=== PATIENT | male | born 1960 | race Caucasian/White ===

== ENCOUNTER → 2020-04-09 11:25 | Outpatient (POV) | payer BC, SELFPAY | PROVIDERS: Visit Provider Dermatology | DX: Z00.00 Encounter for general adult medical examination without abnormal findings (principal) ==

== ENCOUNTER → 2020-08-23 14:40 | Outpatient (CLI) | payer BC, SELFPAY ==
--- NOTE | 2020-08-23 14:52 | XR_ITS ---
PROCEDURE: XR KNEE RT 3V CLINICAL INDICATION: RT JOINT PAIN COMPARISON: No exams were available for comparison FINDINGS: Mild osteoarthritic changes involving all 3 compartments worse at the medial compartment. There is an enthesophyte projecting along the inferior aspect of the patella at the patellar tendon region. No fracture or dislocation. No lytic or blastic change. Other findings:On the lateral view there is a small metallic density overlying the anterior mid to distal thigh and could be due to a foreign body IMPRESSION: Mild osteoarthritis of the right knee Possible small metallic foreign body of the thigh Dictated by: Tristin Ashley MD 08/23/2020 15:33 Tristin Ashley MD in [place] 08/23/2020 15:33
--- NOTE | 2020-08-23 14:52 | XR_ITS ---
PROCEDURE: XR KNEE LT 3V CLINICAL INDICATION: LT MEDIAL KNEE PAIN COMPARISON: No exams were available for comparison FINDINGS: There are moderate osteoarthritic changes of the left knee involving all 3 compartments worse at the medial compartment and patellofemoral joint.. No fracture or dislocation. No lytic or blastic change. Other findings:None. IMPRESSION: Moderate osteoarthritis the left knee Dictated by: Tristin Ashley MD 08/23/2020 15:35 Tristin Ashley MD in [place] 08/23/2020 15:35
== END ==
PROVIDERS: PCP Family Medicine; Visit Provider Family Medicine
DX: M25.562 Pain in left knee (principal); M25.561 Pain in right knee
CPT/HCPCS: 73562

== ENCOUNTER → 2020-10-04 14:15 | Outpatient (CLI) | payer BC, SELFPAY ==
--- NOTE | 2020-10-04 14:18 | XR_ITS ---
PROCEDURE: XR KNEE LT 4V CLINICAL INDICATION: LT knee pain COMPARISON: CR XR KNEE LT 3V from 08/23/2020 CR XR KNEE RT 3V from 08/23/2020 FINDINGS: There are moderate osteoarthritic changes of the knee including all 3 compartments greatest at the medial compartment and patellofemoral joint. There is a small area of exostosis along the articular surface of the lateral femoral condyle. This was not previously demonstrated but may have been due to the difference in positioning. Other findings:None. IMPRESSION: Moderate osteoarthritic changes not significantly changed Dictated by: Tristin Ashley MD 10/04/2020 14:58 Tristin Ashley MD in [place] 10/04/2020 14:58
--- NOTE | 2020-10-04 14:18 | XR_ITS ---
PROCEDURE: XR KNEE RT 4V CLINICAL INDICATION: RT knee pain COMPARISON: CR XR KNEE LT 3V from 08/23/2020 CR XR KNEE RT 3V from 08/23/2020 FINDINGS: No fracture or dislocation. No lytic or blastic change. There is normal mineralization. There are moderate tricompartmental osteoarthritic changes. Minimal exostosis noted along the inferior aspect of the lateral femoral condyle articular surface. Enthesophyte noted along the inferior patella. IMPRESSION: No change moderate osteoarthritic changes of the left knee Dictated by: Tristin Ashley MD 10/04/2020 14:59 Tristin Ashley MD in [place] 10/04/2020 14:59
== END ==
PROVIDERS: PCP Family Medicine; Visit Provider Orthopaedic Surgery
DX: M25.562 Pain in left knee (principal); M25.561 Pain in right knee
CPT/HCPCS: 73564

== ENCOUNTER → 2022-04-23 16:52 | Outpatient (CLI) | payer BC, SELFPAY | PROVIDERS: PCP Family Medicine; Visit Provider Orthopaedic Surgery | DX: M54.50 Low back pain, unspecified (principal) ==

== ENCOUNTER → 2022-05-11 14:25 | Outpatient (CLI) | payer BC, SELFPAY ==
--- NOTE | 2022-05-11 14:28 | MR_ITS ---
FINAL REPORT CLINICAL HISTORY: LUMBAR PAIN WHEN STANDING FOR LONG PERIODS. INTERMITTENT LEG LEG NUMBNESS. SYMPTOMS XYEARS. FINDINGS: Multiplanar MR imaging of the lumbar spine was performed without contrast. On the sagittal T2-weighted images, disc degeneration is seen at multiple levels. There is mild anterolisthesis of L4 on L5. Schmorl's nodes and hemangiomas are seen at several levels. There is no evidence of fracture. No bony mass is identified. The conus is seen at approximately the L1 level and has an unremarkable appearance. T12-L1: Annular disc bulge with facet arthropathy and osteophytes. There is mild bilateral neural foraminal narrowing. L1-2: There is no significant canal stenosis or neural foraminal narrowing. L2-3: A or disc bulge with mild right neural foraminal narrowing. L3-4: A or disc bulge with facet arthropathy and osteophytes. There is moderate right and severe left neural foraminal narrowing. L4-5: A or disc bulge with facet arthropathy. There is moderate bilateral neural foraminal narrowing. L5-S1: No disc bulge facet arthropathy and osteophytes. There is moderate bilateral neural foraminal narrowing. Spurring noted of the SI joints. IMPRESSION: Multilevel degenerative disc disease with severe left neural foraminal narrowing at L3-4. Reviewed, Interpreted and Dictated by Jorge Luis Hall III, MD Transcribed by Denise Thompson Authenticated and [facility]
== END ==
PROVIDERS: PCP Family Medicine; Visit Provider Orthopaedic Surgery
DX: M54.50 Low back pain, unspecified (principal)
CPT/HCPCS: 72148; 76376

== ENCOUNTER → 2022-08-12 15:34 | Outpatient (CLI) | payer BC, SELFPAY ==
[2022-08-12 16:39] LABS: Alanine Aminotransferase 28 U/L (12-78); Albumin Level 4.4 g/dl (3.5-5.0); Albumin/Globulin Ratio 1.5 (1.1-1.8); Alkaline Phosphatase 91 U/L (38-126); Anion Gap 8.2 mEq/L (5-15); Aspartate Amino Transferase 45 U/L (17-59); Bilirubin,Total 0.7 mg/dl (0.2-1.3); Blood Urea Nitrogen 24 mg/dl (9-20); Calcium 8.8 mg/dl (8.4-10.2); Carbon Dioxide 32 mmol/L (22.0-30.0); Chloride 101 mmol/L (98-107); Estimated Glomerular Filt Rate 76 ml/min (>60); GFR (African American) 92 ML/MIN (>60); Globulin 2.9 g/dL (1.3-3.2); Glucose 112 mg/dl (74-100); Potassium 4.2 mmoL/L (3.5-5.1); Sodium 137 mmol/L (136-145); Total Protein,Serum 7.3 g/dl (6.3-8.2)
== END ==
PROVIDERS: PCP Nurse Practitioner Family; Visit Provider Nurse Practitioner Family
DX: I10 Essential (primary) hypertension (principal); E55.9 Vitamin D deficiency, unspecified; Z13.220 Encounter for screening for lipoid disorders; Z12.5 Encounter for screening for malignant neoplasm of prostate; Z79.899 Other long term (current) drug therapy
CPT/HCPCS: 36415; 80053; 80061; 82652; G0103

== ENCOUNTER → 2022-10-08 12:14 | Outpatient (CLI) | payer BC, SELFPAY | PROVIDERS: PCP Family Medicine; Visit Provider Physician Assistant | DX: R07.9 Chest pain, unspecified (principal); I10 Essential (primary) hypertension; E78.5 Hyperlipidemia, unspecified; R73.03 Prediabetes; E66.9 Obesity, unspecified; Z68.41 Body mass index [BMI] 40.0-44.9, adult; Z82.49 Family history of ischemic heart disease and other diseases of the circulatory system | CPT/HCPCS: 78452; 93017; 93306; A9502; J2785 ==

== ENCOUNTER → 2023-04-19 16:50 | Outpatient (CLI) | payer BC, SELFPAY ==
[2023-04-19 16:42] LABS: Coronavirus 19, PCR Not Detected (NotDetected); Influenza A, PCR Not Detected (NotDetected); Influenza B, PCR Not Detected (NotDetected)
== END ==
PROVIDERS: PCP Nurse Practitioner Family; Visit Provider Nurse Practitioner Family
DX: R05.9 Cough, unspecified (principal); R09.81 Nasal congestion; R50.9 Fever, unspecified
CPT/HCPCS: 87636

== ENCOUNTER 2023-07-01 21:19 | Outpatient (CLI) | payer BC, SELFPAY ==
[2023-07-01 18:18] LABS: Adenovirus,PCR Not Detected (NotDetected); Coronavirus 19, PCR Not Detected (NotDetected); Coronavirus 229E Not Detected (NotDetected); Coronavirus NL63 Not Detected (NotDetected); Coronavirus OC43 Not Detected (NotDetected); Coronovirus HKU1,PCR Not Detected (NotDetected); Human Metapneumovirus Not Detected (NotDetected); Influenza A, PCR Not Detected (NotDetected); Influenza AH1, 2009 Not Detected (NotDetected); Influenza AH1, PCR Not Detected (NotDetected); Influenza AH3,PCR Not Detected (NotDetected); Influenza B, PCR Not Detected (NotDetected); Parainfluenza 1, PCR Not Detected (NotDetected); Parainfluenza 2, PCR Not Detected (NotDetected); Parainfluenza 3, PCR Not Detected (NotDetected); Parainfluenza 4, PCR Not Detected (NotDetected); Respiratory Syncytial Virus Not Detected (NotDetected); Rhinovirus/Enterovirus Not Detected (NotDetected)
[2023-07-01 18:31] LABS: Basophils # 0.1 K/mm3 (0-0.2); Basophils % 0.6 % (0.1-2.0); Eosinophils # 0.2 K/mm3 (0.0-0.4); Hematocrit 41.1 % (42.0-52.0); Hemoglobin 13.7 g/dL (14.1-18.0); Lymphocytes # 1.6 K/mm3 (0.7-4.5); Lymphocytes % 22.4 % (10-50); Mean Corpuscular HGB Conc 33.4 g/dL (31.8-35.4); Mean Corpuscular Hemoglobin 28.9 pg (27.0-31.2); Mean Corpuscular Volume 86.6 fl (80-94); Mean Platelet Volume 8.4 fl (7.4-10.4); Monocytes # 0.6 K/mm3 (0.1-1.0); Monocytes % 7.8 % (1.7-9.3); Neutrophils # 4.7 K/mm3 (1.8-7.8); Neutrophils % 66.2 % (37.0-80.0); Platelet Count 221 K/mm3 (142-424); Red Blood Count 4.75 M/mm3 (4.60-6.20); White Blood Count 7.2 K/mm3 (4.8-10.8)
[2023-07-01 19:25] LABS: Chloride 99 mmol/L (98-107); Potassium 4.4 mmoL/L (3.5-5.1); Sodium 135 mmol/L (136-145)
[2023-07-01 19:27] LABS: Alanine Aminotransferase 25 U/L (12-78); Aspartate Amino Transferase 30 U/L (17-59); Blood Urea Nitrogen 24 mg/dl (9-20); Estimated Glomerular Filt Rate 61 ml/min (>60); GFR (African American) 74 ML/MIN (>60)
[2023-07-01 19:28] LABS: Albumin Level 4.1 g/dl (3.5-5.0); Albumin/Globulin Ratio 1.4 (1.1-1.8); Alkaline Phosphatase 125 U/L (38-126); Anion Gap 13.4 mEq/L (5-15); Bilirubin,Total 0.5 mg/dl (0.2-1.3); Calcium 9.1 mg/dl (8.4-10.2); Carbon Dioxide 27 mmol/L (22.0-30.0); Globulin 2.9 g/dL (1.3-3.2); Glucose 119 mg/dl (74-100)
[2023-07-01 20:01] LABS: 25-OH Vitamin D, Total 13.6 ng/mL (30-100)
[2023-07-01 20:05] LABS: Free T4 (Free Thyroxine) 1.17 ng/dl (0.78-2.19)
[2023-07-01 20:19] LABS: Thyroid Stimulating Hormone 2.14 uIU/mL (0.465-4.68)
[2023-07-01 20:38] LABS: Vitamin B12 499 pg/mL (239-931)
[2023-07-02 00:32] LABS: Hemoglobin A1C 7.6 % (4.0-6.0)
== END 2023-07-01 23:59 ==
LOC: LAB.DROPOF 21:19
PROVIDERS: PCP Nurse Practitioner Family; Visit Provider Nurse Practitioner Family
DX: J02.9 Acute pharyngitis, unspecified (principal); R11.0 Nausea; R42 Dizziness and giddiness; R09.81 Nasal congestion; R50.9 Fever, unspecified; R19.7 Diarrhea, unspecified; E55.9 Vitamin D deficiency, unspecified; E11.9 Type 2 diabetes mellitus without complications; G47.33 Obstructive sleep apnea (adult) (pediatric); I10 Essential (primary) hypertension; E66.9 Obesity, unspecified; Z68.41 Body mass index [BMI] 40.0-44.9, adult; Z79.85 Long-term (current) use of injectable non-insulin antidiabetic drugs; Z79.899 Other long term (current) drug therapy
CPT/HCPCS: 80053; 82306; 82607; 83036; 84439; 84443; 85025; 87581; 87632; 87635; 87798

== ENCOUNTER 2023-10-11 18:00 | Outpatient (CLI) | payer BC, SELFPAY | END 2023-10-11 23:59 | disposition home or self-care (01) | LOC: LAB.DROPOF 10-12 08:43 | PROVIDERS: PCP Nurse Practitioner Family; Visit Provider Nurse Practitioner Family | DX: E11.9 Type 2 diabetes mellitus without complications (principal) | CPT/HCPCS: 80053; 80061; 82306; 83036 ==

== ENCOUNTER 2023-10-16 08:16 | Outpatient (CLI) | payer BC, SELFPAY ==
[2023-10-16 11:14] LABS: Chloride 101 mmol/L (98-107); Potassium 4.2 mmoL/L (3.5-5.1); Sodium 139 mmol/L (136-145)
[2023-10-16 11:17] LABS: Anion Gap 12.2 mEq/L (5-15); Blood Urea Nitrogen 20 mg/dl (9-20); Carbon Dioxide 30 mmol/L (22.0-30.0); Estimated Glomerular Filt Rate 75 ml/min (>60); GFR (African American) 91 ML/MIN (>60)
[2023-10-16 11:18] LABS: Calcium 9.5 mg/dl (8.4-10.2); Glucose 136 mg/dl (74-100)
[2023-10-17 12:09] LABS: Alanine Aminotransferase 23 U/L (12-78); Albumin/Globulin Ratio 1.4 (1.1-1.8); Alkaline Phosphatase 88 U/L (38-126); Anion Gap 14.1 mEq/L (5-15); Aspartate Amino Transferase 33 U/L (17-59); Bilirubin,Total 0.6 mg/dl (0.2-1.3); Blood Urea Nitrogen 21 mg/dl (9-20); Calcium 9.4 mg/dl (8.4-10.2); Carbon Dioxide 29 mmol/L (22.0-30.0); Chloride 100 mmol/L (98-107); Chol/HDL Ratio 4.6 (1-3.5); Cholesterol 162 mg/dl (140-200); Estimated Glomerular Filt Rate 75 ml/min (>60); GFR (African American) 91 ML/MIN (>60); Globulin 2.8 g/dL (1.3-3.2); Glucose 135 mg/dl (74-100); HDL Cholesterol 35 mg/dl (40-60); Potassium 4.1 mmoL/L (3.5-5.1); Sodium 139 mmol/L (136-145); Total Protein,Serum 6.8 g/dl (6.3-8.2); Triglycerides 166 mg/dl (30-150); VLDL Cholesterol 33 mg/dL (0-40)
[2023-10-17 12:20] LABS: Direct LDL Cholesterol 100.93 mg/dL (100-129)
[2023-10-18 10:39] LABS: 25-OH Vitamin D, Total 22.4 ng/mL (30-100)
== END 2023-10-16 23:59 | disposition home or self-care (01) ==
LOC: LAB 08:17
PROVIDERS: Nurse Practitioner; PCP Nurse Practitioner Family; Visit Provider Nurse Practitioner Family
DX: E78.5 Hyperlipidemia, unspecified (principal); E11.9 Type 2 diabetes mellitus without complications; E55.9 Vitamin D deficiency, unspecified; I10 Essential (primary) hypertension; R73.03 Prediabetes; E66.9 Obesity, unspecified; Z68.41 Body mass index [BMI] 40.0-44.9, adult; Z79.899 Other long term (current) drug therapy
CPT/HCPCS: 36415; 80048; 80053; 80061; 82306

== ENCOUNTER 2024-06-13 15:42 | Outpatient (CLI) | payer BC, SELFPAY ==
--- NOTE | 2024-06-13 15:45 | XR_ITS ---
PROCEDURE INFORMATION: Exam: XR Right Hip Exam date and time: 06/13/2024 3:52 PM Age: 63 years old Clinical indication: Hip pain; Right hip; Additional info: Right hip pain TECHNIQUE: Imaging protocol: Radiologic exam of the right hip. Views: 2 or 3 views hip with pelvis when performed. COMPARISON: MR LUMBAR SPINE WO CON 05/11/2022 2:40 PM FINDINGS: Bones/joints: Moderately severe narrowing right hip joint most pronounced superolateral aspect. Moderately severe osteoarthritis right hip joint. Soft tissues: Unremarkable. IMPRESSION: 1. No evidence of acute osseous injury. 2. Moderately severe osteoarthritis right hip joint. 3. If there is concern for labral tear, follow-up with MR arthrography of the hip.
--- NOTE | 2024-06-13 15:45 | XR_ITS ---
PROCEDURE INFORMATION: Exam: XR Left Shoulder Exam date and time: 06/13/2024 3:52 PM Age: 63 years old Clinical indication: Pain; Shoulder; Left; Additional info: Left shoulder pain TECHNIQUE: Imaging protocol: Radiologic exam of the left shoulder. Views: 2 or more views. COMPARISON: No relevant prior studies available. FINDINGS: Bones/joints: Mild lateral downward angulation of the acromion with respect to the humeral head. Potential for impingement mechanism. Soft tissues: Normal. IMPRESSION: 1. Mild lateral downward angulation of the acromion with respect to the humeral head. Potential for impingement mechanism. 2. No evidence of acute osseous injury.
== END 2024-06-13 23:59 | disposition home or self-care (01) ==
LOC: RAD 15:43
PROVIDERS: PCP Nurse Practitioner Family; Visit Provider Internal Medicine
DX: M25.551 Pain in right hip (principal); M25.512 Pain in left shoulder
CPT/HCPCS: 73030; 73502

== ENCOUNTER 2024-06-21 16:51 | Outpatient (RCR) | payer BC, SELFPAY ==
--- NOTE | 2024-06-22 20:06 | HMH.PTOPEV ---
PT Outpatient Evaluation Rehab PT Outpatient Evaluation Start: 06/22/24 10:21 Freq: Status: Active Protocol: Document 06/21/24 17:00 KIANA (Rec: 06/22/24 20:05 KIANA [id number]) E-signed By Christiano [place], PT Outpatient Therapy Subjective History Subjective History Patient is a 63 old male presenting to outpatient PT with reports of R hip pain that radiates to R ant tib. Symptom onset starting approx 1 month ago. Symptoms of insidious onset starting approx 1 month ago. Most recent imaging indicates mod/ severe R hip OA. Patients main concern is R hip pain. Patient to be referred to OT for reports of L shoulder pain . Other comorbidities include hx of L TKA, HTN and HL. New diagnosis of cancer in past 12 No months? Chief Complaint Pain,Stiff Symptom Type Ache Symptoms Relieved By Rest/Positioning,Prescription Meds Symptoms Aggravated By Sitting,Standing,Physical Activity,Walking Prior Functional Limitations None Current Functional Limitations Housework,Standing,Sitting, Squatting,Walking,Stairs, Balance,Bending/Stooping Symptom Description Constant but Variable Level of pain today (0-10) 4 Pain scale - at its best (0-10) 2 Pain scale - at its worst (0-10) 7 Hip/Knee Eval Gait Observation General Gait Pattern Observation Antalgic Gait,Decrease Weight Bear (R),Decrease Stride Lngth (R) Palpation Tenderness right Knee Palpation Overall Comment greater and lesser trochanter 3/4 Hip Palpation Findings Tenderness MMT Hip Flexion Strength Grade 5 Normal Hip Abduction Strength Grade 5 Normal Hip Adduction Strength Grade 5 Normal Hip Extension Strength Grade 5 Normal Hip External Rotation Strength Grade 4 Good Hip Internal Rotation Strength Grade 4 Good Knee Extension Strength Grade 4- Good- Knee Flexion Strength Grade 4 Good ROM Hip ROM Limitations Soft Tissue Tightness,Muscle Weakness,Bony Restrictions Knee ROM Reason Not Measured Within Functional Limits Special Tests Hip Gigi Test Positive Right Hip Piriformis Test Positive Right Hip 90-90 Straight Leg Raise Test Positive Right Sciatic Nerve Tension Test Positive Right Lower Extremity Functional Index Activities Today, do you or would you have any difficulty at all with: a.Any of your usual work, housework or Extreme difficulty or unable school activities to perform activity b. Your usual hobbies, recreational or Extreme difficulty or unable sporting activities to perform activity c. Getting into or out of the bath Moderate difficulty d. Walking between rooms A little bit of difficulty e. Putting on your shoes or socks Extreme difficulty or unable to perform activity f. Squatting Extreme difficulty or unable to perform activity g. Lifting an object, like a bag of Moderate difficulty groceries from the floor h. Performing light activities around A little bit of difficulty your home i. Performing heavy activities around Extreme difficulty or unable your home to perform activity j. Getting into or out of a car A little bit of difficulty k. Walking 2 blocks Quite a bit of difficulty l. Walking a mile Extreme difficulty or unable to perform activity m. Going up or down 10 stairs (about 1 Moderate difficulty flight of stairs) n. Standing for 1 hour Extreme difficulty or unable to perform activity o. Sitting for 1 hour Extreme difficulty or unable to perform activity p. Running on even ground Extreme difficulty or unable to perform activity q. Running on uneven ground Extreme difficulty or unable to perform activity r. Making sharp turns while running fast Extreme difficulty or unable to perform activity s. Hopping Extreme difficulty or unable to perform activity t. Rolling over in bed Moderate difficulty LEFI Score Lower Extremity Functional Index Score 18 Outpatient Therapy Assessment Impairments Problems/Impairmments Palpation Tenderness,Impaired Range of Motion,Impaired Strength,Impaired Endurance, Impaired Gait Pattern,Impaired Walking,Impaired Standing, Impaired Household Care, Impaired Stair Climbing, Impaired Incline Stepping, Impaired Stepping on Uneven Surface,Impaired Squatting, Impaired Bending,Impaired Work Activities,Impaired Balance, Subjective C/O Pain Prognosis Rehab Potential Good Clinical Impression Consistent with Diagnosis Yes Short Term Goals Number of Weeks 2-3 Decrease Subjective C/O Pain Yes: 09/14 at worst Patient to be Ind w/ HEP Yes Svp Programmatic Tv Goals Number of Weeks 4-6 Decreased Palpation Tenderness Yes: 1/4 Increase Range of Motion Yes: R hip WNL Increase Strength Yes: R hip 5/5 Increase Ability to Walk Yes: 30 min without difficulty Increase Ability to Stand Yes Improve Ability For Household Care Yes Improve Tolerance to Work Activities Yes Improve LEFI Score Yes: >60 Decrease Subjective C/O Pain Yes: 2/10 at worst Outpatient Therapy Plan of Care Treatment Plan May Include Therapeutic Exercise Including Home Yes Exercise Program Manual Therapy Techniques Yes Neuromuscular Re-education Yes Therapeutic Activities to Return to Yes Previous Functional/Work Level Gait Training Yes ADL/Self Care Education Yes Mechanical Traction Yes Dry Needling Yes Thermal Modalities Yes Electrical Stimulation Yes Ultrasound/Phonophoresis Yes Iontophoresis Yes Orthotics/Bracing/Splinting Yes Vasopneumatic Compression Pump Yes Massage Yes Eval/Re-Eval Yes Frequency Times per week 2x/week Duration Number of Weeks 4-6 Addendums This patient is a candidate for social No or vocational rehab? Patient/Guardian verbally acknowledges Yes understanding of treatment program and consents to further treatment? Patient/Guardian verbally acknowledges Yes understanding of diagnosis, prognosis and goals for treatment? Eval Complexity PT Charges 76957 - Moderate Complexity Shoulder/Elbow Eval Shoulder Objective Measurements Elbow Objective Measurements PHYSICIAN CERTIFICATION: I certify the specified therapy services for Jorge Washburn are required, authorized, and reviewed every 30 days.
== END 2024-06-21 23:59 | disposition home or self-care (01) ==
LOC: PT 16:51
PROVIDERS: Visit Provider Internal Medicine
DX: M25.551 Pain in right hip (principal); M25.512 Pain in left shoulder
CPT/HCPCS: 97163

== ENCOUNTER 2024-06-30 11:12 | Outpatient (CLI) | payer BC, SELFPAY ==
--- NOTE | 2024-06-30 11:13 | MR_ITS ---
FINAL REPORT CLINICAL HISTORY: Possible shoulder impingement per Radiology, LEFT SHOULDER PAIN. WEAKNESS IN ARM. NO INJURY OR TRAUMA COMPARISON: None FINDINGS: Multi planar MR imaging of the left shoulder was performed. The supraspinatus tendon appears intact. There is a small amount of fluid in the subacromial/subdeltoid bursa, that may be secondary to bursitis. There is a defect across the anterior labrum, worrisome for a small tear, best seen on images #13 through 15 of series 3. The posterior labrum is intact. The biceps tendon appears intact. The acromioclavicular joint appears intact. IMPRESSION: Fluid is present in the subacromial subdeltoid bursa, possibly bursitis. There is a defect across the anterior labrum worrisome for a small tear as described. Reviewed, Interpreted and Dictated by Angel Shen MD Transcribed by Ruth Sun Authenticated and [facility]
== END 2024-06-30 23:59 | disposition home or self-care (01) ==
LOC: RAD 11:13
PROVIDERS: PCP Nurse Practitioner Family; Visit Provider Internal Medicine
DX: M25.512 Pain in left shoulder (principal)
CPT/HCPCS: 73221

== ENCOUNTER 2024-07-06 13:23 | Outpatient (CLI) | payer BC, SELFPAY ==
[2024-07-06 14:42] LABS: Hemoglobin A1C 7.7 % (4.0-6.0)
== END 2024-07-06 23:59 | disposition home or self-care (01) ==
LOC: LAB 13:25
PROVIDERS: PCP Nurse Practitioner Family; Visit Provider Internal Medicine
DX: E11.40 Type 2 diabetes mellitus with diabetic neuropathy, unspecified (principal)
CPT/HCPCS: 36415; 83036

== ENCOUNTER 2024-07-24 07:09 | Outpatient (CLI) | payer BC, SELFPAY ==
--- NOTE | 2024-07-24 07:10 | CT_ITS ---
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 A noncontrast coronary calcium scan was performed. A CT attenuation threshold of 130 Hounsfield units (HU) was used for the detection of calcium in contiguous voxels of 1 sq mm in area to be counted as individual lesions. Bolus tracking in the ascending aorta with a threshold of 180 HU was performed. Immediately afterwards, ECG synchronized cardiac CT was then performed from the cardiac base to apex using retrospective gating with ECG tube current modulation. A total of 85 mL of Isovue 370 mg/mL contrast medium was administered at 5 mL/sec followed by a saline flush using a biphasic injection protocol. A tube voltage of 120 KVp was used. The patient received the following medications prior to the cardiac CT. 0.8 mg of sublingual nitroglycerin The average heart rate at the time of acquisition was 60 bpm and regular. Image Reconstruction Transaxial images were reconstructed at 0.67 mm slide thickness. Data was reviewed interactively on an advanced workstation capable of 2 and 3-dimensional displays in all conventional reconstruction formats, including multiplanar reformations, maximum intensity projections, curved multiplanar reformations, and volume rendered reconstructions. When applicable, selected routine images describing the relevant coronary anatomy and pathology were saved and sent to PACS. Complications None Technical Quality Overall image quality was good. Coronary artery opacification was adequate. Total DLP (Dose-Length Product) is 1496.4 mGy-cm. The reported value represents the total of one or more individual components during the CT acquisition of this date and at this time, and as such, the same value may appear in more than one CT report depending on the interpreting/reporting physicians. COMPARISON None FINDINGS CT Coronary Calcium Scoring LMA (Left Main Artery) = 0 LAD (Left Anterior Descending) = 41 LCX (Left Coronary Circumflex) = 12 RCA (Right Coronary Artery) = 48 Total Calcium Score = 101 using the AJ-130 method. The observed calcium score of 101 is at 60th percentile for subjects of the same age, sex, and race/ethnicity. The interpretation of the calcium heart score is based on the following continuum*: 0 = no calcified plaque detected (risk of coronary artery disease is very low ??? less than 5%) 1-10 = calcium detected in extremely minimal levels (risk of coronary diseases is still low ??? less than 10%) 11-100 = mild levels of plaque detected with certainty (mild or minimal narrowing of heart arteries is likely) 101-400 = definite,at least moderate levels of plaque detected (relatively high risk of a heart attack within 3-5 years) >401-999 = extensive levels of plaque detected (high risk of heart attack, high levels of vascular disease are present, high likelihood of at least one significant coronary narrowing) *The calcium heart score quantifies the burden of coronary calcification/plaque in the coronary arteries. The calcium heart score is not able to evaluate the presence or burden of non-calcified (i.e. soft) plaque. There is no identifiable calcification in the aortic valve, mitral annulus or mitral valve, pericardium, or myocardium. Coronary CT Angiography The coronary arterial system is right dominant. Quantitative Stenosis Grading: Left Main (LM): The left main originates normally from the left sinus of Valsalva. The LM bifurcates into the left anterior descending artery and left circumflex artery. The LM is patent with no evidence of atherosclerosis. Left Anterior Descending (LAD) and Diagonal Branches: The LAD gives off 2diagonal branch(es). There is a focus of calcified plaque in the proximal LAD segment, with up to 25-49% luminal stenosis. There is no evidence of LAD-myocardial bridge. Left Circumflex (LCX) and Obtuse Marginals (OM): The LCX gives off 1 Obtuse Marginal (OM) branch(es). There is calcified plaque in the proximal LCx segment, with no evidence of luminal stenosis. Right Coronary Artery (RCA): The RCA originates normally from the right sinus of Valsalva. The RCA gives off a posterior descending artery (PDA) and posterolateral (PL) branches. There is calcified plaque in the proximal RCA segment, with no evidence of luminal stenosis. Non-Coronary Cardiac Findings: Analysis of the left ventricular (LV) structure and function was performed after 3-D reconstruction of the LV from axial images, with user-corrected automatic contouring for assessment of LV volumes and user-defined reconstruction from oblique planes for measurement of 3-D cardiac structure and function. -The left ventricle systolic function is normal. -There is no left atrial appendage filling defect. Two right pulmonary veins and two left pulmonary veins drain normally into the left atrium. -No pericardial thickening or calcification. -Central and branch pulmonary arteries in the [id number] are unremarkable. -Thoracic aorta within the visualized thoracic aortic-branches in the [id number] is unremarkable. Extracardiac Structures No significant extra-cardiac findings. Note, however, that this study is focused on the cardiac findings. IMPRESSION -Presence of coronary calcification with an Agatston score = 101 using the AJ-130 method. -The observed calcium score of 101 is at 60th percentile for subjects of the same age, sex, and race/ethnicity. -Mild, nonobstructive atherosclerotic coronary disease, with no evidence of significant flow-limiting atherosclerosis of the coronary arteries. -CAD-RADS 2. Management recommendations per ACC/AHA guidelines*, as clinically appropriate. *Recommendations: CAD RADS 0: Reassurance. Consider non-atherosclerotic causes of chest pain. CAD RADS 1: Consider non-atherosclerotic causes of chest pain. Consider preventive therapy and risk factor modification. CAD RADS 2: Consider non-atherosclerotic causes of chest pain. Consider preventive therapy and risk factor modification, particularly for patients with nonobstructive plaque in multiple segments. CAD RADS 3: Consider further functional testing. Consider symptom-guided anti-ischemic and preventive pharmacotherapy as well as risk factor modification per published guideline statements. CAD RADS 4A: Consider further functional testing or invasive coronary angiography with revascularization per published guideline statements. Consider symptom-guided anti-ischemic and preventive pharmacotherapy as well as risk factor modification per published guideline statements. CAD RADS 4B: Invasive coronary angiography recommended with revascularization per published guideline statements. Consider symptom-guided anti-ischemic and preventive pharmacotherapy as well as risk factor modification per published guideline statements. CAD RADS 5: Consider invasive angiography and/or viability assessment with revascularization per published guideline statements. Consider symptom-guided anti-ischemic and preventive pharmacotherapy as well as risk factor modification per published guideline statements. CRITICAL RESULT None COMMUNICATION Per this written report The coronary and cardiac findings of this CCTA were reviewed, reported, and signed by Virgilio Falk MD ([employer] Teacher) Conclusion Electronically signed by : Marcela Falk MD 07/25/2024 12:10:33
[2024-07-24 07:20] VITALS: BMI 40.0
[2024-07-24 07:32] VITALS: BP 163/97; PULSE 69; RESP 18; TEMP 36.1; O2SAT 100
[2024-07-24 08:02] LABS: Chloride 107 mmol/L (98-107); Sodium 135 mmol/L (136-145)
[2024-07-24 08:05] LABS: Blood Urea Nitrogen 21 mg/dl (9-20); Creatinine Clearance Estimated 135 mL/min (50-200); Estimated Glomerular Filt Rate 75 ml/min (>60); GFR (African American) 91 ML/MIN (>60)
[2024-07-24 08:06] LABS: Calcium 8.7 mg/dl (8.4-10.2); Carbon Dioxide 22 mmol/L (22.0-30.0); Glucose 204 mg/dl (74-100)
[2024-07-24 08:35] VITALS: BP 164/101; PULSE 67; RESP 18; O2SAT 95
[2024-07-24] MEDS: NITROGLYCERIN 0.4MG SL TABLET SL (08:35)
[2024-07-24 08:40] VITALS: BP 145/86; PULSE 66; RESP 18; O2SAT 100
[2024-07-24 08:45] VITALS: BP 134/82; PULSE 68; RESP 18; O2SAT 100
[2024-07-24] MEDS: IOPAMIDOL-370 (76%);100ML BOTTLE 85 ML IV (08:46)
[2024-07-24] MEDS: 0.9 % SODIUM CHLORIDE 50 ML VIAL IV (08:46)
[2024-07-24] MEDS: SODIUM CHLORIDE 0.9% 10ML SYR (RAD ONLY) 10 ML IV (08:46)
[2024-07-24 08:50] VITALS: BP 125/64; PULSE 71; RESP 18; O2SAT 98
[2024-07-24 08:58] VITALS: BP 135/75; PULSE 71; RESP 18; O2SAT 98
== END 2024-07-24 08:58 | disposition home or self-care (01) ==
PROVIDERS: PCP Nurse Practitioner Family; Visit Provider Physician Assistant
DX: R07.9 Chest pain, unspecified (principal); I10 Essential (primary) hypertension
CPT/HCPCS: 75574; 80048; Q9967

== ENCOUNTER 2024-11-24 09:15 | Outpatient (CLI) | payer BC, SELFPAY ==
--- OUTSIDE RECORDS SUMMARY | 2024-11-24 09:17 | XMS_ITS | Clinical Summary ---
Author Organization [facility] [employer] Address [address] [place] [address] Care Team Providers Care Director Medical Surgical Name Role Phone Unavailable Primary Care Provider Unavailabl e Social History Tobacco Use Types Packs/Day Years Used Date Smoking Tobacco: Never Assessed Interpersonal Safety Answer Date Record ed Family or friends hurt you Not on file 11/14 Family or friends insult you Not on file 03/2024 Family or friends threaten you Not on file 0 11/15/2023 Family or friends scream or curse at you Not on file 11/15/2023 Food Insecurity Answer Date Recorded Food run out past 12 months Not on file 11/05 Food did not last past 12 months Not on file 11/15/2023 Employment Answer Date Recorded Help finding and keeping a job Not on file 0 11/15/2023 Family and Community Support Answer Yang e Recorded Help with Day to Day Activities Not on file 11/15/2023 Feeling Lonely or Isolated Not on file 11/14 Educational Attainment Answer Date Brayden rded Speak language other than Cuban at home Not on file 11/15/2023 Want help with school or training Not on file 11/15/2023 Depression Answer Date Recorded PHQ-2 Risk Not on file 11/15/2023 Disabilities Answer Date Recorded Difficulty concentrating Not on file 024 Difficulty doing errands alone Not on file 0 11/15/2023 Substance Use Answer Date Recorded Used prescription meds for non-medical reasons N ot on file 11/15/2023 Used illegal drugs past 12 months Not on file 11/15/2023 Sex and Gender Information Value Date Recorded Sex Assigned at Male 12/02/2021 4:50 PM CDT Legal Sex Male 4:50 PM CDT Gender Identity Male 12/02/2021 4:50 PM CDT Sexual Orientation Not on file Plan of Treatment Health Maintenance Due Date Last Done Comments CT Colonography 1960 Colonoscopy 1960 Colorectal Cancer Screening 1960 FOBT/FIT 1960 Fit-DNA (Cologuard) 1960 Sigmoidoscopy 1960 Depression Screening (12+) 1972 Tobacco Cessation Counseling and Screening (12+) 1972 HIV Screening 08/06/1975 Hepatitis C Screening 1978 DTAP/TDAP/TD VACCINES (1 - Tdap) 08/06/1979 Lipid Panel 08/06/1995 Pneumococcal 50+ years (1 of 1 - PCV) 2010 Shingles Vaccine (Zoster) (1 of 2) 2010 COVID-19 VACCINE ( - season) 2024, 02/06/2021 Influenza Vaccine (Season Ended) 2025 04/29/20 09 Respiratory Syncytial Virus (RSV) Adult or (1 - 1-dose 75+ series) 08/06/2035
--- NOTE | 2024-11-24 09:18 | MR_ITS ---
FINAL REPORT TECHNIQUE: Multiplanar multisequence MRI imaging was performed through the brain with additional small vbhar-oe-ufch thin section imaging through the CP angle and IAC's without and with contrast. CLINICAL HISTORY: right ear blockage FINDINGS: There is no mass-effect or midline shift. There is no hydrocephalus. There are mild periventricular and subcortical white matter changes. The brainstem and cerebellum are without acute abnormality. On diffusion weighted images there is no restricted diffusion. No acute soft tissue abnormality is identified. On small apylq-ze-ofca thin section imaging through the CP angle and internal auditory canal, There is no CP angle mass or abnormal signal intensity. There is fluid in the right mastoid air cells. The visualized cranial nerves are unremarkable. Postcontrast images reveal no abnormal enhancement. IMPRESSION: No acute intracranial abnormality and no abnormality of the CP angle or IAC's. Mild to moderate white matter changes which could be due to chronic small vessel ischemia or demyelinating disease. Reviewed, Interpreted and Dictated by Cristela Melchor MD Transcribed by Afia Beard Authenticated and . [facility]
--- OUTSIDE RECORDS SUMMARY | 2024-11-24 09:18 | XMS_ITS | Clinical Summary ---
Author Organization [facility] Address [address] [place] [address] Phone [email or web address] Care Team Providers Care Meat Counter Clerk Name Role Phone Andrey Charles MD Primary Care Provider [phone] Allergies No known active allergies Medications bisoprolol (ZEBETA) 10 MG tablet Take 10 mg by mouth 1 (one) time each day. Active Rexulti 0.5 MG tablet Take 1 tablet by mouth 1 (one) time each day. 1 Active benazepril (LOTENSIN) 40 MG tablet Benazepril HCl 40 MG Oral Tablet QTY: 90 Days: 90 Refills: 0 Written: 03/01/22 Patient Instructions: 2 Active Vitamin D3 1.25 MG (72768 UT) capsule Take 50,000 Units by mouth 1 (one) time per week. 4 Active furosemide (LASIX) 20 MG tablet Take 40 mg by mouth 1 (one) time each day. Active prednisoLONE acetate (PRED FORTE) 1 % ophthalmic suspension INSTILL 1 DROP INTO THE LEFT EYE 4 TIMES A DAY FOR 4 DAYS THEN 1 DROP TWICE A DAY FOR 4 DAYS THEN STOP 4 Active spironolactone (ALDACTONE) 25 MG tablet Take 25 mg by mouth 1 (one) time each day. 3 Active timolol (TIMOPTIC) 0.5 % ophthalmic solution INSTILL 1 DROP INTO AFFECTED EYE(S) EVERY 12 HOURS 4 Active atorvastatin (LIPITOR) 40 MG tablet Atorvastatin Calcium 40 MG Oral Tablet QTY: 90 Days: 90 Refills: 0 Written: 03/01/22 Patient Instructions: 2 Active Active Problems Problem Noted Date Diagnosed Date Cervicalgia 12/16/2007 Overview (11/03/2017): Resolved Problems Problem Noted Date Diagnosed Date Resolved Date Pain in joint involving other specified sites 01/31/20 10 07/29/2020 Overview (11/03/2017): Contusion of lower leg 01/22/201007/29 Overview (11/03/2017): Open wound of finger 01/17/2010 021 Overview (11/03/2017): Pain in joint, shoulder region 01/01/2010 07/29/2020 Overview (11/03/2017): Dizziness and giddiness 08/13/200907/09 Overview (11/03/2017): Contusion of foot 07/29/2009 07/29/2020 Overview (11/03/2017): Lateral epicondylitis of elbow 06/27/2009 07/29/2020 Overview (11/03/2017): Need for prophylactic vaccin ation and inoculation against influenza 04/29/2009 07/29/2020 Overview (11/03/2017): Medial epicondylitis of elbow 04/19/2009 07/29/2020 Overview (11/03/2017): Screening for condition 09/04/200807/09 Overview (11/03/2017): Health examination of defined subpopulation 01/05/2008 07/29/2020 Overview (11/03/2017): Other examination of ears and hearing 10/12/2007 07/29/2020 Overview (11/03/2017): Encounters Date Type Department Care Team Description 11/23/2024 Telephone [facility] [place] [facility] [address] [place] [address] Araseli Richardson RN from Last 3 Months Immunizations Immunization Administration Dates Next Due H1N1 Inj (CVX-[id number]) 04/29/2009 Social History Tobacco Use Types Packs/Day Years Used Date Smoking Tobacco: Never Smokeless Tobacco: Never Tobacco Cessation:Counseling Given: No Intimate Partner Violence Answer Date R ecorded Insults You Not on file 09/18/2020 Threatens You Not on file 09/18/2020 Screams at You Not on file 09/18/2020 Physically Hurt Not on file 09/18/2020 Intimate Partner Violence Score Not on file 09/18/2020 Depression Answer Date Recorded PHQ Total Score 0 07/01/2023 Stress Answer Date Recorded Stress in your Life Not on file 04/10/2024 Dealing with Stress 3 04/10/2024 Sex and Gender Information Value Date Recorded Sex Assigned at Not on file Legal Sex Male 9:43 AM CDT Gender Identity Not on file Sexual Orientation Not on file Last Filed Vital Signs Vital Sign Reading Time Taken Comments Blood Pressure 147/93 04/21/2024 9:59 AM EST Pulse 74 04/21/2024 9:59 AM EST Temperature 36.7 C (98.1 F) 07/26/2023 9:29 AM EST Respiratory Rate 18 07/26/2023 9:29 AM EST Oxygen Saturation 99% 04/21/2024 9:59 AM EST Inhaled Oxygen Concentration - - Weight 118 kg (260 lb 12.8 oz) 05/10/2018 4:18 P M EST Height 177.8 cm (5' 10 ) 05/10/2018 4:18 PM EST Body Mass Index 37.42 05/10/2018 4:18 PM EST Plan of Treatment Upcoming Encounters Date Type Department Care Team (Late st Contact Info) Description 12/07/2024 12:30 PM EDT Office Visit [facility] [place] [address] [place] [address] Danielle Gallego PA [address] [place] [address] Health Maintenance Due Date Last Done Comments Dental Cleaning/Exam 1960 HIV Screening 1960 Hepatitis C Screening 1960 Annual Preventive Exam 1978 Hep B Infection Screening - Triple Screen 1978 Tetanus Diphtheria and Pertussis Immunization (1 - Tdap) 08/06/1979 Colorectal Cancer Screening 1990 Zoster Immunization (1 of 2) 2010 Covid-19 Immunization (3 - season) 2024 03/06/2021, 02/06/2021 Influenza Immunization (Season Ended) 2025 03/24/2021, 03/20/2020, 08/12/2019, Additional history exists HIB Immunization Aged Out No longer e ligible based on patient's age to complete this topic HPV Immunization Aged Out No longer e ligible based on patient's age to complete this topic Hepatitis A Immunization Aged Out No longer eligible based on patient's age to complete this topic Hepatitis B Immunization Aged Out No longer eligible based on patient's age to complete this topic Pneumococcal: Ped (0 to 5 Yrs) and At-Risk Member (6 to 64 Yrs) Aged Out No longer eligible based on patient's age to complete this topic Polio Immunization Aged Out No longer eligible based on patient's age to complete this topic Insurance [place] [facility] Address: [address] [place], [place] [id number] [place] [address] Care Teams Meat Counter Clerk Relationship Specialty Start Date End Date Andrey Charles MD [address] [place] [address] DVAE PEREZ [id number] PCP - General Ticket Sorter 04/18/19
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
--- OUTSIDE RECORDS SUMMARY | 2024-11-24 09:18 | XMS_ITS | Encounter Summary ---
Author Organization [facility] Address [address] [place], [place] [id number] Phone [email or web address] Care Team Providers Care Hand Suture Winder Name Role Phone Andrey Charles MD Primary Care Provider [phone] Encounter Details Date Type Department Care Team (Late st Contact Info) Description 11/23/[address] [address] Araseli Richardson RN [address] [place] [address] Social History Tobacco Use Types Packs/Day Years Used Date Smoking Tobacco: Never Smokeless Tobacco: Never Intimate Partner Violence Answer Date R ecorded [...] on file Sexual Orientation Not on file documented as of this encounter Miscellaneous Notes * Telephone Encounter - Araseli Richardson RN - 11/23/2024 3:45 PM EDT Jorge Washburn calls clinic to discuss return to work after personal medical leave of absence for R hip replacement. WD ID: [id number] Employer: [employer]: [id number] (last known) Shift: 1 Full-time AM: Garo Counts Previous/current indefinite restrictions? No LDW: 06/20/24 DOS: 10/09/24 PROCEDURE: R hip replacement SURGEON: Dr. 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 If WMLOA, still getting compensation from work comp? No: [employer] If WMLOA, treatment for any personal medical condition during leave? No If PMLOA, work-related injury immediately before leave? No Same day occ or personal follow up scheduled? Yes Reviewed and/or scheduled for WC/WH? No, TM declines WCWH at this time. Request sent to confirm cost center? Yes Araseli Richardson RN documented in this encounter Plan of Treatment Upcoming Encounters Date Type Department Care Team (Late st Contact Info) Description 12/07/2024 12:30 PM EDT Office Visit [facility] [address] [place] [address] Danielle Gallego PA [address] [place] [address] documented as of this encounter Visit Diagnoses Not on filedocumented in this encounter Care Teams Hand Suture Winder Relationship Specialty Start Date End Date Andrey Charles MD [address] [place] [address] ADVE PEREZ [id number] PCP - General Auto Body Service Mechanic 04/18/19 documented as of this encounter
--- OUTSIDE RECORDS SUMMARY | 2024-11-24 09:19 | XMS_ITS | Encounter Summary ---
Author Organization [employer] [facility] Address [address] [place] [address] Care Team Providers Care Spa Coordinator Name Role Phone Unavailable Primary Care Provider Unavailabl e Encounter Details Date Type Department Care Team (Late st Contact Info) Description 07/21/2020 Transcribed Document [facility] [address] [place] [address] ProviderErasto MD [facility] [place], [place] [id number] Social History Tobacco Use Types Packs/Day Years Used Date Smoking Tobacco: Never Assessed Sex and Gender Information Value Date Recorded Sex Assigned at Male 12/02/2021 4:50 PM CDT Legal Sex Male 4:50 PM CDT Gender Identity Male 12/02/2021 4:50 PM CDT Sexual Orientation Not on file documented as of this encounter Miscellaneous Notes * Cerner Conversion Note - Historical ProviderMD - 07/21/2020 5:40 AM PRECISION AGRONOMIST Electronically signed by Brielle, [facility] Conversion Locomotive Engineer Diesel Cerner at 09/23/2022 6:06 PM CDT documented in this encounter Plan of Treatment Not on file documented as of this encounter Visit Diagnoses Not on filedocumented in this encounter
--- OUTSIDE RECORDS SUMMARY | 2024-11-24 09:19 | XMS_ITS | Encounter Summary ---
Author Organization [employer] Address [address] [place] [address] Care Team Providers Care Amusement Machine Mechanic Name Role Phone Unavailable Primary Care Provider Unavailabl e Encounter Details Date Type Department Care Team (Late st Contact Info) Description 07/21/2020 Transcribed Document [facility] [place] [address] [place] [address] ProviderErasto MD [facility] [place], [place] [address] Social History Tobacco Use Types Packs/Day Years Used Date Smoking Tobacco: Never Assessed Sex and Gender Information Value Date Recorded Sex Assigned at Male 12/02/2021 4:50 PM CDT Legal Sex Male 4:50 PM CDT Gender Identity Male 12/02/2021 4:50 PM CDT Sexual Orientation Not on file documented as of this encounter Miscellaneous Notes * Cerner Conversion Note - Historical ProviderMD - 07/21/2020 4:58 AM COMPUTER LABORATORY TECHNICIAN [place] Suicide Severity Rating Scale (C-SSRS) Entered On: 07/21/2020 5:33 EST Performed On: 07/21/2020 5:31 EST by ALAINA QUINTANA RN [place] Suicide Severity Rating Scale (C-SSRS) CSSRS Past Month Wish to be : No CSSRS Past Month Suicidal Thoughts : No CSSRS Lifetime Suicide Behavior : No Suicide Severity Rating Score : 0 Suicide Severity Rating : No Additional Care Required at this time ALAINA QUNITANA RN - 07/21/2020 5:31 EST Electronically signed by Jean Hannah Conversion Welding Machine Operator [employer]lag Cerner at 09/23/2022 5:59 PM CDT documented in this encounter Plan of Treatment Not on file documented as of this encounter Visit Diagnoses Not on filedocumented in this encounter
--- OUTSIDE RECORDS SUMMARY | 2024-11-24 09:19 | XMS_ITS | Encounter Summary ---
Author Organization [employer] Address [address] [place] [address] Care Team Providers Care Technical Sales Specialist Name Role Phone Unavailable Primary Care Provider Unavailabl e Encounter Details Date Type Department Care Team (Late st Contact Info) Description 07/21/2020 Transcribed Document [facility] [place] [address] [place] [address] ProviderErasto MD [facility] [place], [place] [id number] Social History Tobacco Use Types Packs/Day Years Used Date Smoking Tobacco: Never Assessed Sex and Gender Information Value Date Recorded Sex Assigned at Male 12/02/2021 4:50 PM CDT Legal Sex Male 4:50 PM CDT Gender Identity Male 12/02/2021 4:50 PM CDT Sexual Orientation Not on file documented as of this encounter Miscellaneous Notes * Cerner Conversion Note - Historical ProviderMD - 07/21/2020 1:38 PM PRE PRESS MANAGER CR Tibia Fibula 2 Vws RT Ordered: 07/21/2020 Auth (Verified) Reason for Exam: r calf pain 07/21/2020 11:14 07/21/2020 13:38 (EVERETT BENITO PA-C) Reviewed by Provider, No further action required documented in this encounter Plan of Treatment Not on file documented as of this encounter Visit Diagnoses Not on filedocumented in this encounter
--- OUTSIDE RECORDS SUMMARY | 2024-11-24 09:19 | XMS_ITS | Encounter Summary ---
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 Role Phone Unavailable Primary Care Provider Unavailabl e Encounter Details Date Type Department Care Team (Late st Contact Info) Description 07/21/2020 Transcribed Document [facility] [place] Family Medicine [address] [place] [address] ProviderErasto MD [facility] [place] [address] Social History Tobacco Use Types Packs/Day Years Used Date Smoking Tobacco: Never Assessed Sex and Gender Information Value Date Recorded Sex Assigned at Male 12/02/2021 4:50 PM CDT Legal Sex Male 4:50 PM CDT Gender Identity Male 12/02/2021 4:50 PM CDT Sexual Orientation Not on file documented as of this encounter Miscellaneous Notes * Cerner Conversion Note - Erasto ProviderMD - 07/21/2020 5:40 AM 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 [place] [address] JORGE SANTAMARIA :1960 Visit Time:07/21/2020 Your Visit Summary Your Care Team Primary Provider: CHRIS SHEPHERD Secondary Provider: Your Diagnosis Gastrocnemius strain Lower leg pain-swelling Medical Information You may obtain a copy of your Emergency Department visit from Medical Records by calling the hospital phone number listed above and asking to be directed to the Medical Records Department. If you had special tests, such as EKG???s or X-rays, the interpretation of your tests given to you by the Emergency Department Physician is a preliminary report. Some fractures and illnesses fail to show up on preliminary tests. These will be reviewed again and we will call you if there are any new suggestions. If your symptoms continue notify your physician. After you leave, you should follow the instructions provided. What to do next Follow-Up Appointments Follow Up with ANASTACIA NOBLE When Within 1 week Comments if symptoms not improved Where: [facility] [address] [facility] (1) Allergies No Known Medication Allergies Immunizations This Visit No Immunizations Found Medications What How Much When Instructions Next Dose naproxen (naproxen 500 mg oral tablet) 1 Tablet(s) Oral Two Times A Day as needed for as needed for pain Printed Prescription tiZANidine (tiZANidine 2 mg oral capsule) 1 Capsule(s) Oral Every 8 Hours as needed for as needed for muscle spasm Printed Prescription The home medications listed are only as accurate as the information you provided. Please continue taking all of your medications prescribed by your Primary Care Provider unless specifically told to change or discontinue the medication. Please direct any questions regarding your home medications to your Primary Care Provider. Take your medications faithfully. Do NOT skip medication. Do NOT stop taking medications without the direction of a physician. Carry a list of your medications with you at all times, and take this medication list with you to your first follow up visit. Report any side effects. Avoid herbal remedies unless discussed with your physician. As part of your treatment plan, your physician may have prescribed a limited course of a controlled substance. This medication may be given to help people with moderate or severe pain or for other medical conditions, but there are risks involved with treatment. Common side effects may include nausea, constipation, drowsiness, sweating, itching, dry mouth, and rash. More serious side effects may include cognitive and motor impairment, like problems with thinking, concentrating, alertness, and movement (e.g. slowed reflexes), and driving and operating heavy machinery can be dangerous. It is important for you to talk to your physician if you have these side effects or questions. These controlled substances can produce physical dependence and be habit-forming if taken for an extended period of time, which means that the body has gotten used to them and may experience withdrawal symptoms if they are abruptly stopped. Withdrawal symptoms can include runny nose, sweating, goose bumps, diarrhea, abdominal cramping, rapid heartbeat, difficulty sleeping, and nervousness. Please dispose of unused and medications per pharmacy guidance. Test Results Laboratory or Other Results This Visit (last charted value for your 07/21/2020 visit) No Laboratory or Other Results This Visit Education Materials No weight-bearing on right leg for 2-3 days. If symptoms not improved, follow-up with orthopedic physician. Muscle Strain A muscle strain is an injury that occurs when a muscle is stretched beyond its normal length. Usually, a small number of muscle fibers are torn when this happens. There are three types of muscle strains. First-degree strains have the least amount of muscle fiber tearing and the least amount of pain. Second-degree and third-degree strains have more tearing and pain. Usually, recovery from muscle strain takes 1???2 weeks. Complete healing normally takes 5???6 weeks. What are the causes? This condition is caused when a sudden, violent force is placed on a muscle and stretches it too far. This may occur with a fall, lifting, or sports. What increases the risk? This condition is more likely to develop in athletes and people who are physically active. What are the signs or symptoms? Symptoms of this condition include: ??? Pain. ??? Bruising. ??? Swelling. ??? Trouble using the muscle. How is this diagnosed? This condition is diagnosed based on a physical exam and your medical history. Tests may also be done, including an X-ray, ultrasound, or MRI. How is this treated? This condition is initially treated with BRUNER therapy. This therapy involves: ??? Protecting the muscle from being injured again. ??? Resting the injured muscle. ??? Icing the injured muscle. ??? Applying pressure (compression) to the injured muscle. This may be done with a splint or elastic bandage. ??? Raising (elevating) the injured muscle. Your health care provider may also recommend medicine for pain. Follow these instructions at home: If you have a splint: ??? Wear the splint as told by your health care provider. Remove it only as told by your health care provider. ??? Loosen the splint if your fingers or toes tingle, become numb, or turn cold and blue. ??? Keep the splint clean. ??? If the splint is not waterproof: ? Do not let it get wet. ? Cover it with a watertight covering when you take a bath or a shower. Managing pain, stiffness, and swelling ??? If directed, put ice on the injured area. ? If you have a removable splint, remove it as told by your health care provider. ? Put ice in a plastic bag. ? Place a towel between your skin and the bag. ? Leave the ice on for 20 minutes, 2???3 times a day. ??? Move your fingers or toes often to avoid stiffness and to lessen swelling. ??? Raise (elevate) the injured area above the level of your heart while you are sitting or lying down. ??? Wear an elastic bandage as told by your health care provider. Make sure that it is not too tight. General instructions ??? Take oidp-vjo-pkyovez and prescription medicines only as told by your health care provider. ??? Restrict your activity and rest the injured muscle as told by your health care provider. Gentle movements may be allowed. ??? If physical therapy was prescribed, do exercises as told by your health care provider. ??? Do not put pressure on any part of the splint until it is fully hardened. This may take several hours. ??? Do not use any products that contain nicotine or tobacco, such as cigarettes and e-cigarettes. These can delay bone healing. If you need help quitting, ask your health care provider. ??? Ask your health care provider when it is safe to drive if you have a splint. ??? Keep all follow-up visits as told by your health care provider. This is important. How is this prevented? Warm up before exercising. This helps to prevent future muscle strains. Contact a health care provider if: ??? You have more pain or swelling in the injured area. Get help right away if: ??? You have numbness or tingling or lose a lot of strength in the injured area. Summary ??? A muscle strain is an injury that occurs when a muscle is stretched beyond its normal length. ??? This condition is caused when a sudden, violent force is placed on a muscle and stretches it too far. ??? This condition is initially treated with BRUNER therapy, which involves protecting, resting, icing, compressing, and elevating. ??? Gentle movements may be allowed. If physical therapy was prescribed, do exercises as told by your health care provider. This information is not intended to replace advice given to you by your health care provider. Make sure you discuss any questions you have with your health care provider. Document Released: 05/24/2006 Document Revised: 05/06/2018 Document Reviewed: 06/30/2017 [employer] Patient Education ?? 2020 [employer] Emergency Awareness and Preventative Care STROKE is an EMERGENCY Every Minute Counts Act FAST and Check for these signs: FACE Does the face look uneven? ARM Does one arm drift down? SPEECH Does their speech sound strange? TIME Call at any sign of stroke Stroke Risk Factors Atrial Fibrillation (irregular heartbeat) Diabetes Family history of stroke Heart Disease Heavy alcohol use High Blood Pressure High Cholesterol Physical inactivity and obesity Smoking Cigarette Smoking The facts are clear, cigarette smoking will shorten your life. Smoking can cause many illnesses along the way. As a healthcare provider, we recommend that you stop smoking. Assistance with quitting is available by contacting 4-680-BQAN-NOW. This is a free resource providing counseling, support, and referral. Or you may contact your personal physician. National Suicide Prevention Lifeline: The National Suicide Prevention Lifeline is a national network of local crisis centers that provides free and confidential emotional support to people in suicidal crisis or emotional distress 24 hours a day, 7 days a week. Don't Wait! Stop a Heart Attack Before it Starts What is a heart attack? A heart attack is damage or to a part of the heart from severely decreased or lack of blood flow to the heart. Over time, arteries can become narrow from the buildup of fat and cholesterol, which is called plaque. The plaque can rupture causing a blood clot to form. When the blood clot forms, the artery can become severely narrowed or completely blocked, causing a heart attack. Heart attack is the leading cause of in the [place]. 85% of muscle damage occurs within the first 2 hours. Delay in the recognition of heart attack symptoms increases the chances of . Know the early symptoms of a heart attack: Nausea Feeling of fullness in chest Jaw Pain Pain that travels down one or both arms Fatigue/being tired Anxiety Back Pain Chest pressure, squeezing, or discomfort Shortness of breath Sweating, or a cold sweat Feeling of impending doom There are unusual signs of a heart attack, too! Women, the elderly, and diabetics may present with atypical symptoms: Fainting/dizziness Weakness Confusion Risk Factors for a Heart Attack Some heart disease risk factors, such as age and family history, cannot be changed. Others, like smoking and lack of exercise, can be changed. Smoking High Cholesterol High Blood Pressure Family History Obesity Age Gender (Males are at higher risk) Lack of Exercise Diabetes Diet Stress Excessive Alcohol Intake If you or someone you know is experiencing the signs and symptoms of a heart attack, DON???T DELAY. Call immediately and seek help. If someone collapses, perform CPR! Do not attempt to drive if you are having symptoms of heart attack. Hands-Only CPR Why Hands-Only CPR? Hands-Only CPR has been shown to be as effective as conventional CPR for cardiac arrests that occur outside of a hospital. Survival depends on immediately receiving CPR from someone nearby. How do you perform Hands-Only CPR? There are two easy steps: Call if you see a teen or adult collapse Push hard and fast in the center of the chest at a beat of 100 beats per minute. Save a life! 4 WAYS TO GET AHEAD OF SEPSIS SEPSIS is a MEDICAL EMERGENCY. Time matters! Infections put you and your family at risk for a life-threatening condition called sepsis. Sepsis is the body's extreme response to an infection. It is life-threatening, and without timely treatment, sepsis can rapidly lead to tissue damage, organ failure, and . Sepsis happens when an infection you already have-in your skin, lungs, urinary tract or somewhere else-triggers a chain reaction throughout your body. 1 PREVENT INFECTIONS Take good care of chronic conditions. Talk to your doctor about getting the recommended vaccines. 2 PRACTICE GOOD HYGIENE Wash your hands frequently. Keep cuts or open sores clean and covered until they are healed. 3 KNOW THE SYMPTOMS Confusion or disorientation Shortness of breath High heart rate Fever, shivering, or feeling very cold Extreme pain or discomfort Clammy or sweaty skin 4 ACT FAST Get medical care IMMEDIATELY if you suspect sepsis or if you have an infection that is not getting better or is getting worse. To learn more about sepsis and how to prevent infections, visit www.cdc.gov/sepsis. The examination and treatment you have received in the Emergency Department has been done to provide an appropriate evaluation and stabilizing treatment on an emergency basis only. Given the limited resources, it is not meant to be a substitute for complete medical care. The follow-up doctor you named will receive a copy of your records and all test reports. IT IS IMPORTANT THAT YOU SCHEDULE A FOLLOW-UP APPOINTMENT AND ARE RE-EVALUATED. You should report any new complaints, symptoms, or remaining problems at that time. IT IS IMPOSSIBLE FOR THE EMERGENCY DEPARTMENT TO RECOGNIZE AND TREAT ALL ELEMENTS OF INJURY OR ILLNESS IN A SINGLE VISIT. If you have been referred to a specialist physician, it means that we believe you may have a condition that requires the expertise of a specialist. These physicians work in partnership with the hospital and have agreed to see referred patients in their office for further evaluation. KEEP IN MIND THAT THE SPECIALIST HAS HIS/HER OWN OFFICE POLICIES WHICH MAY REQUIRE PROPER INSURANCE OR PAYMENT UP FRONT BEFORE THE SPECIALIST WILL SEE YOU. It is your responsibility to call the specialist physician to make an appointment. We do not have the ability to refer patients to specialists/physicians that work with specific insurance companies. Please be advised that all financial charges or billing practices are determined by that practice, not the hospital. If your insurance company requires that you see a specialist from their approved list, it is your responsibility to contact your insurance company to make those arrangements. It is also your responsibility to follow any other requirements of your insurance company necessary to obtain coverage for claims submitted. We will bill your insurance; however, you are responsible today for any co-pay amounts. You will receive a separate bill for any services you may have received including: emergency, radiology, or pathology physicians. Patient Name:JORGE SANTAMARIA I have received this information and was given the opportunity to ask questions. Patient/Quality Assurance Supervisor Name: Patient/Quality Assurance Supervisor Signature: Relationship to Patient: Clinician/Hospital Quality Assurance Supervisor Signature: Please Provide a Telephone Number Where You Can Be Reached: Is it Permissible To Leave a Message? Date: documented in this encounter Plan of Treatment Not on file documented as of this encounter Visit Diagnoses Not on filedocumented in this encounter
--- OUTSIDE RECORDS SUMMARY | 2024-11-24 09:19 | XMS_ITS | Encounter Summary ---
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
--- OUTSIDE RECORDS SUMMARY | 2024-11-24 09:20 | XMS_ITS | Patient Health Record ---
Author Organization [facility] Jourdan altamirano Billing Info Address [address] [place] [id number] Support Name Relationship Address Phone Wu Alberto Guarantor Unknown [phone] Reason For Referral No Information Medications Medication SIG (Take, Route, Fr equency, Duration) Notes Start Date End Date Status Minocycline HCl 100 mg 1 capsule Orally Twice a day for 7 day(s) 06/04/2014 Active Lipitor 10 MG 1 tablet Orally Once a day Active Tamiflu 75 mg as directed Orally B ID for 5 day(s) 06/04/2014 Active Hydromet 5-1.5 MG/5ML 2.5 - 5 ml as need ed for cough (no acohol or driving) Orally every 6 hrs 06/04/2014 Active Lotrel 10-20 MG 1 capsule Orally Once a day Active Tramadol HCl 50 MG 1 tablet as needed O rally every 6 hrs Active Social History Tobacco Use: Social History Observation Description Date Details (start date - stop date) Never Smoker NA - NA Tobacco Status: Question Answer Notes Patient is a never smoker Problems Problem Type SNOMED Code ICD Code Onset Dates Problem Status W/U Status Risk Notes Problem [id number] Acute bronchitis (466.0) Active confirmed Plan Of Treatment No Information Insurance Providers Payer Name Payer Address Payer Phone Subscriber Number Group Number Insured Name Patient Relationship to Insured Coverage Start Date Coverage End Date [employer] PPO [address] [place], [place] [id number] Alberto Washburn Self - patient is the insured 4 4 Medical (General) History Medical History History ICD Code HTN hyperlipidemia Surgical History Surgery Date(Month/Year) Rt shoulder repair 2010 eye surgery bilateral age 4
--- OUTSIDE RECORDS SUMMARY | 2024-11-24 09:20 | XMS_ITS | Encounter Summary ---
Author Organization [employer] Address [address] [place] [address] Care Team Providers Care Dredge Operator Name Role Phone Unavailable Primary Care Provider Unavailabl e Encounter Details Date Type Department Care Team (Late st Contact Info) Description 07/21/2020 Transcribed Document [facility] [place] [facility] [place] [address] ProviderErasto MD [address] [place] [id number] Social History Tobacco Use Types Packs/Day Years Used Date Smoking Tobacco: Never Assessed Sex and Gender Information Value Date Recorded Sex Assigned at Male 12/02/2021 4:50 PM CDT Legal Sex Male 4:50 PM CDT Gender Identity Male 12/02/2021 4:50 PM CDT Sexual Orientation Not on file documented as of this encounter Miscellaneous Notes * Cerner Conversion Note - Historical ProviderMD - 07/21/2020 5:19 AM DENTAL CHAIR ASSEMBLER Patient: JORGE SANTAMARIA Age: 59 years Sex: Male : 1960 Associated Diagnoses: Gastrocnemius strain Author: CHRIS SHEPHERD MD-EMR Basic Information Time seen: Date 07/21/2020, Immediately upon arrival. History source: Patient. Arrival mode: Private vehicle, walking. History limitation: None. Additional information: Chief Complaint from Nursing Triage Note : Chief Complaint 07/21/2020 4:58 EST Chief Complaint pt reports possible pulled muscle to RLE after attempting to stop a wagon from hitting his vehicle. no deformity/bruising noted. . History of Present Illness The patient presents with lower extremity pain. The onset was 1 days ago. The course/duration of symptoms is constant. Type of injury: straining to catch something. Location: Right calf. The character of symptoms is pain and loss of mobility. The degree at present is moderate. There are exacerbating factors including movement, transfer, weight bearing and walking. The relieving factor is none. Risk factors consist of none. Prior episodes: none. Therapy today: none. Associated symptoms: none. She reports yesterday he tried to stop a moving trailer from hitting his vehicle. While he done that he set his leg straight and felt like it strained his right calf. He has been having pain in his right calf since then. Reports it does not hurt when he elevates it but it does hurt to bear weight on it.. Review of Systems Constitutional symptoms: Negative except as documented in HPI. Skin symptoms: Negative except as documented in HPI. Eye symptoms: Negative except as documented in HPI. ENMT symptoms: Negative except as documented in HPI. Respiratory symptoms: Negative except as documented in HPI. Cardiovascular symptoms: Negative except as documented in HPI. Gastrointestinal symptoms: Negative except as documented in HPI. Genitourinary symptoms: Negative except as documented in HPI. Musculoskeletal symptoms: Muscle pain. Neurologic symptoms: Negative except as documented in HPI. Psychiatric symptoms: Negative except as documented in HPI. Endocrine symptoms: Negative except as documented in HPI. Hematologic/Lymphatic symptoms: Negative except as documented in HPI. Allergy/immunologic symptoms: Negative except as documented in HPI. Additional review of systems information: All other systems reviewed and otherwise negative. Health Status Allergies: Allergic Reactions (Selected) No Known Medication Allergies. Past Medical/ Family/ Social History Surgical history: No active procedure history items have been selected or recorded.. Family history: No family history items have been selected or recorded.. Social history: Social & Psychosocial Habits No Data Available . Problem list: No qualifying data available . Physical Examination Vital Signs Vital Signs/Vital Measures 07/21/2020 4:58 EST Systolic Blood Pressure 142 mmHg HI Diastolic Blood Pressure 87 mmHg Temperature Source Oral Temperature Mode Fahrenheit Temperature, Fahrenheit 97.1 Deg F Clinical Temperature, C 36.2 Deg C Peripheral Pulse Rate 54 bpm LOW Respiratory Rate 20 Breaths/Min Oxygen Saturation 98 % Oxygen Therapy Mode Room air . Measurements 07/21/2020 4:58 EST Height Source Stated Height Entry Format [place]wa Height/Length, SAUDI ARABIAN (ft) 5 ft Height/Length SAUDI ARABIAN 10 Inch CLINICALHEIGHT 177.8 cm [place]ar Body Weight 72.02 kg Weight Source, ED Critical estimated dosing weight Weight Entry Format [place]wa Weight Nigerien lb 280 lb CLINICALWEIGHT 127.27 kg Body Surface Area (BSA) 2.41 m2 Body Mass Index 40.3 kg/m2 >HHI . Oxygen Saturation 07/21/2020 4:58 EST Oxygen Saturation 98 % . General: Alert, no acute distress. Skin: Warm, dry, pink, intact. Cardiovascular: Normal peripheral perfusion, No edema. Respiratory: Respirations are non-labored, Symmetrical chest wall expansion. Gastrointestinal: Soft, Nontender, Non distended, Normal bowel sounds. Musculoskeletal: Lower extremity: Right, posterior, calf, tenderness, range of motion normal, Durant test of bilateral Achilles, same on both sides.. Neurological: Alert and oriented to person, place, time, and situation, No focal neurological deficit observed. Medical Decision Making Differential Diagnosis: Sprain, strain. Documents reviewed: Emergency department nurses' notes. Tibia-fibula x-ray findings Within normal limits, normal alignment, no fracture, normal soft tissue, interpretation by Emergency Physician. Reexamination/ Reevaluation Time: 07/21/2020 05:37:00 . Notes: Strain likely. Recommend nonweightbearing for 2 to 3 days, use crutches. Recommend rice therapy for home. Plan NSAIDs and muscle relaxants.. Impression and Plan Diagnosis Gastrocnemius strain - Discharge, Medical Plan Condition: Improved. Disposition: Discharged Admit/Transfer/Discharge: Discharge (Order): Start: 07/21/2020 5:37 EST, Discharge to: Home. Prescriptions: Prescription [facility]: tiZANidine 2 mg oral capsule (Prescribe): 1 Cap, Oral, Q8H, PRN: as needed for muscle spasm, 15 Cap, 0 Refill(s) naproxen 500 mg oral tablet (Prescribe): 1 Tab, Oral, BID, PRN: as needed for pain, 20 Tab, 0 Refill(s). Patient was given the following educational materials: Muscle Strain. Follow up with: ; ANASTACIA NOBLE Within 1 week if symptoms not improved. Counseled: Patient, Regarding diagnosis, Regarding diagnostic results, Regarding treatment plan, Regarding prescription, Patient indicated understanding of instructions. documented in this encounter Plan of Treatment Not on file documented as of this encounter Visit Diagnoses Not on filedocumented in this encounter
--- OUTSIDE RECORDS SUMMARY | 2024-11-24 09:20 | XMS_ITS | Encounter Summary ---
Author Organization [email or web address] Address [address] [place] [address] Care Team Providers Care Quail Farmer Name Role Phone Unavailable Primary Care Provider Unavailabl e Encounter Details Date Type Department Care Team (Late st Contact Info) Description 07/21/2020 Transcribed Document [facility] [place] [facility] [place] [address] ProviderErasto MD [address] [place] [address] [id number] Social History Tobacco Use Types Packs/Day Years Used Date Smoking Tobacco: Never Assessed Sex and Gender Information Value Date Recorded Sex Assigned at Male 12/02/2021 4:50 PM CDT Legal Sex Male 4:50 PM CDT Gender Identity Male 12/02/2021 4:50 PM CDT Sexual Orientation Not on file documented as of this encounter Miscellaneous Notes * Cerner Conversion Note - Historical Provider, - 07/21/2020 6:04 AM OVEN WORKER ED Discharge Entered On: 07/21/2020 6:05 EST Performed On: 07/21/2020 6:04 EST by KARMEN AGUILAR Discharge Process Patient Disposition : Discharge Personal Belongings With Patient : Yes Patient Education Completed : Yes Teaching Evaluation : Verbalizes understanding IV Discontinued : Yes Nursing Documentation Completed : Yes KARMEN AGUILAR - 07/21/2020 6:04 EST ED Discharge Discharge To : Home with ambulatory/outpatient follow-up Mode Of Departure : Private vehicle Accompanied By : Friend, Unaccompanied Discharge Instructions Reviewed With, Opportunity For Questions Given : Patient Prescriptions Given to Patient : Yes Number of Prescriptions Given : 2 KARMEN AGUILAR - 07/21/2020 6:04 EST Electronically signed by Jean Hannah Conversion Auto Self Service Station Attendant Cerner at 09/23/2022 6:09 PM CDT documented in this encounter Plan of Treatment Not on file documented as of this encounter Visit Diagnoses Not on filedocumented in this encounter
--- OUTSIDE RECORDS SUMMARY | 2024-11-24 09:20 | XMS_ITS | Referral Summary ---
Author Organization [employer] Address [address] [place] [address] Care Team Providers Care Neuro Intensivist Physician Name Role Phone Unavailable Primary Care Provider [...] Date Brayden rded Speak language other than Sudanese at home Not on file 11/15/2023 Want [...] Orientation Not on file Plan of Treatment Not on file
--- OUTSIDE RECORDS SUMMARY | 2024-11-24 09:20 | XMS_ITS | Clinical Summary ---
Author Organization [facility] Address [address] [place] [address] Care Team Providers Care Gum Remover Name Role Phone Alysha Santoyo DO Primary Care Provider [phone] Social History Tobacco Use Types Packs/Day Years Used Date Smoking Tobacco: Never Assessed Sex and Gender Information Value Date Recorded Sex Assigned at Not on file Legal Sex Male 2:48 PM EDT Gender Identity Not on file Sexual Orientation Not on file Plan of Treatment Health Maintenance Due Date Last Done Comments [facility]-Depression Screening 1960 [facility]-/Child/Adol SDOH Screenings 1960 [facility]- SDOH Screenings 1978 [facility]-Adult SDOH Screenings 1978 [facility]-DTaP,Tdap,and Td Vaccines (1 - Tdap) 08/06/1979 CT Colonography 2005 Colonoscopy 2005 FIT-DNA 2005 FIT 2005 FOBT 2005 Sigmoidoscopy 2005 [facility]-Colorectal Cancer Screening 2005 [facility]-Pneumococcal Vaccine: 50+ Years (1 of 1 - PCV) 2010 [facility]-Zoster Vaccines (1 of 2) 2010 [id number] Vaccine (3 - season) 2024 03/06/2021, 02/06/2021 [facility]-Influenza Vaccine (Season Ended) 2025 03/24/2021, 03/20/2020, 08/12/2019, Additional history exists [facility]-RSV Vaccine: 60+ Years or (1 - 1-dose 75+ series) 08/06/2035 HPV Vaccines Aged Out No longer eligi ble based on patient's age to complete this topic [facility]-HIB Vaccines Aged Out No longer e ligible based on patient's age to complete this topic [facility]-Hepatitis A Vaccines Aged Out No longer eligible based on patient's age to complete this topic [facility]-IPV Vaccines Aged Out No longer e ligible based on patient's age to complete this topic [facility]-Rotavirus Vaccines Aged Out No lo nger eligible based on patient's age to complete this topic Insurance [facility] Care Teams Gum Remover Relationship Specialty Start Date End Date Alysha Santoyo DO [address] [place] [address] [address] [place] [address] PCP - General 06/07/22
[2024-11-24 09:44] LABS: Blood Urea Nitrogen 18 mg/dl (9-20); Estimated Glomerular Filt Rate 97 ml/min (>60); GFR (African American) 118 ML/MIN (>60)
[2024-11-24] MEDS: SODIUM CHLORIDE 0.9% 10ML SYR (RAD ONLY) 10 ML IV (10:33)
[2024-11-24] MEDS: GADOTERIDOL INJ 10ML SYRINGE 5 ML IV (10:33)
[2024-11-24] MEDS: GADOTERIDOL INJ 20ML SYRINGE 20 ML IV (10:33)
== END 2024-11-24 23:59 | disposition home or self-care (01) ==
LOC: RAD 09:15
PROVIDERS: PCP Internal Medicine; Visit Provider Otolaryngology
DX: R90.82 White matter disease, unspecified (principal); H90.3 Sensorineural hearing loss, bilateral; H93.11 Tinnitus, right ear
CPT/HCPCS: 36415; 70553; 82565; 84520; A9576

== ENCOUNTER 2025-02-20 13:35 | Outpatient (CLI) | payer BC, SELFPAY ==
[2025-02-20 17:15] LABS: Influenza A, PCR Not Detected (NotDetected); Influenza B, PCR Not Detected (NotDetected)
[2025-02-20 21:13] LABS: Coronavirus 19, PCR Detected (NotDetected)
--- OUTSIDE RECORDS SUMMARY | 2025-02-21 12:32 | XMS_ITS | Clinical Summary ---
Author Organization [facility] Address [facility] [place] [address] Phone [email or web address] Care Team Providers Care Pocket Stitcher Name Role Phone Andrey Charles MD Primary Care Provider [phone] Allergies No known active allergies Medications bisoprolol [...] Instructions: 2 Active Vitamin D3 1.25 MG (54662 UT) capsule Take 50,000 Units by mouth [...] 0 Written: 03/01/22 Patient Instructions: 2 Active hydrALAZINE (APRESOLINE) 10 MG tablet 5 Active Active Problems Problem Noted Date Diagnosed Date Cervicalgia 12/16/2007 Overview (11/03/2017): Resolved Problems Problem Noted Date Diagnosed Date Resolved Date Pain in joint involving other specified sites 01/31/2007/29/2020 Overview (11/03/2017): Contusion of lower leg 01/22/201007/29 [...] Encounters Date Type Department Care Team Description 12/07/2024 12:30 PM EDT Office Visit [facility] [address] [place] [phone] Danielle Gallego PA Encounter for other administrative examinations (Primary Dx); Status post right hip replacement 11/23/2024 Telephone [facility] [address] [place] [address] Araseli Richardson RN from Last [...] Sign Reading Time Taken Comments Blood Pressure 121/72 12/07/2024 12:50 PM EDT Pulse 83 12/07/2024 12:50 PM EDT Temperature 36.7 C (98.1 F) 07/26/2023 9:29 AM EST Respiratory Rate 18 12/07/2024 12:50 PM EDT Oxygen Saturation 97% 12/07/2024 12:50 PM EDT Inhaled Oxygen Concentration - - Weight 118 kg (260 lb 12.8 oz) 05/10/2018 4:18 P M EST Height 177.8 cm (5' 10 ) 05/10/2018 4:18 PM EST Body Mass Index 37.42 05/10/2018 4:18 PM EST Plan of Treatment Health Maintenance Due Date Last Done Comments CT Colonography 1960 Colonoscopy 1960 Colorectal Cancer Screening Combo 1960 DNA Cologuard 1960 Dental Cleaning/Exam 1960 FIT or FOBT Test 1960 HIV Screening 1960 Hepatitis C Screening 1960 Sigmoidoscopy 1960 Annual Preventive Exam 1978 Hep B Infection Screening - Triple Screen 1978 Tetanus Diphtheria and Pertussis Immunization (1 - Tdap) 08/06/1979 Zoster Immunization (1 of 2) 2010 Covid-19 Immunization (3 - season) 2025 03/06/2021, 02/06/2021 Influenza Immunization (#1) 02/05/202503/07, 03/20/2020, 08/12/2019, Additional history exists HIB Immunization [...] patient's age to complete this topic Insurance NA IN COPAY 5 Care Teams Pocket Stitcher Relationship Specialty Start Date End Date Andrey Charles MD [address] [place], [place] [address]DAVE GUZMAN [address] PCP - General Gas Processing Plant Operator 04/18/19
--- OUTSIDE RECORDS SUMMARY | 2025-02-21 12:32 | XMS_ITS | Clinical Summary ---
Author Organization [facility] Address [address] [place] [address] Care Team Providers Care Shearing Machine Feeder Name Role Phone Andrey Charles MD Primary Care Provider + Allergies No known active allergies Medications amLODIPine-shauna zepril (LOTREL) 10-40 MG per capsule Take 1 capsule by mouth Daily. 09/15/2016 Active Active Problems No known active problems Family History Medical History Relation Name Comments Heart attack Brother Stroke Brother Heart disease Maternal Grandfather Cancer Mother Heart attack Mother Heart disease Paternal Grandfather Relation Name Status Comments Brother Maternal Grandfather Mother Paternal Grandfather Social History Tobacco Use Types Packs/Day Years Used Date Smoking Tobacco: Never Smokeless Tobacco: Never Alcohol Use Standard Drinks/Week Comments Yes 0 (1 standard drink = 0.6 oz pur e alcohol) Abuse Screen Answer Date Recorded Unsafe at Home or Work/School Not on file Feels Threatened by Someone? Not on file 04/2023 Does Anyone Keep You from Co ntacting Others or Doint Things Outside the Home? Not on file 03/17/2023 Physical Sign of Abuse Present Not on file 1 Housing Stability Answer Date Recorded Current Living Arrangements Not on file 03/07 Potentially Unsafe Housing Conditions Not on reggie e 03/17/2023 Family and Community Support Answer Yang e Recorded Help with Day-to-Day Activities Not on file 03/17/2023 Lonely or Isolated Not on file 03/17/2023 Employment Answer Date Recorded Do you want help finding or keeping work or a amilcar b? Not on file 03/17/2023 Disabilities Answer Date Recorded Concentrating, Remembering, or Making Decisions Difficulty Not on file 03/17/2023 Doing Errands Independently Difficulty Not on fi le 03/17/2023 Education Answer Date Recorded Help with school or training? Not on file Preferred Language Not on file 03/17/2023 Sex and Gender Information Value Date Recorded Sex Assigned at Not on file Legal Sex Male 12:13 PM EDT Gender Identity Not on file Sexual Orientation Not on file Last Filed Vital Signs Vital Sign Reading Time Taken Comments Blood Pressure - - Pulse - - Temperature 36.1 C (97 F) 11/18/2016 9:23 AM EDT Respiratory Rate - - Oxygen Saturation - - Inhaled Oxygen Concentration - - Weight 120 kg (265 lb) 11/18/2016 9:23 AM EDT Height 177.8 cm (5' 10 ) 11/18/2016 9:23 AM EDT Body Mass Index 38.02 11/18/2016 9:23 AM EDT Plan of Treatment Health Maintenance Due Date Last Done Comments TDAP/TD VACCINES (1 - Tdap) 08/06/1979 COLOGUARD 2005 COLON CANCER SCREENING 5 YEAR SIGMOIDOSCOPY 2005 COLONOSCOPY [address] SCREENING [address] COLONOGRAPHY 2005 FECAL OCCULT BLOOD TEST 2005 FIT Testing (1 year) 2005 Pneumococcal Vaccine 50+ (1 of 1 - PCV) 2010 ZOSTER VACCINE (1 of 2) 2010 ANNUAL PHYSICAL 11/17/2016 HEPATITIS C SCREENING 11/17/2016 COVID-19 Vaccine ( - season) 2025 INFLUENZA VACCINE 03/07/2025 Insurance [facility] WORKERS COMPENSATION Member Subscriber Plan / Payer (Ef fective 2016-Present) Name:Jorge Washburn Relation to Subscriber:Self Name:Jorge Washburn Payer ID:[id number] Group ID:Not on file Type:Not on file Address: [facility] [place][note 2] [place] [id number] Care Teams Shearing Machine Feeder Relationship Specialty Start Date End Date Andrey Charles MD PCP - General Family Medicine 11/18/16
--- OUTSIDE RECORDS SUMMARY | 2025-02-21 12:33 | XMS_ITS | Clinical Summary ---
Author Organization [employer] ([place], [place], [place], [place]) Address [address] [place] [address] Care Team Providers Care Assistant Editor Name Role Phone Unavailable Primary Care Provider Unavailabl e Social History Tobacco Use Types Packs/Day Years Used Date Smoking Tobacco: Never Assessed Food Insecurity Answer Date Recorded Food run [...] Date Brayden rded Speak language other than Citizen Of [place] at home Not on file 11/15/2023 Want help with school or training Not on file 11/15/2023 Substance Use Answer Date Recorded Used [...] (Zoster) (1 of 2) 2010 COVID-19 VACCINE (3 - 2024- season) 2025, 02/06/2021 Influenza Vaccine (#1) 2025 04/29/2009 Respiratory Syncytial Virus (RSV) Adult or (1 - 1-dose 75+ series) 08/06/2035
--- OUTSIDE RECORDS SUMMARY | 2025-02-21 12:33 | XMS_ITS | Encounter Summary ---
Author Organization [employer] ([place], [place], [place], [place]) Address [address] [place] [address] Care Team Providers Care Precinct Commanding Officer Name Role Phone Unavailable Primary Care Provider Unavailabl e Encounter Details Date Type Department Care Team (Late st Contact Info) Description 07/21/2020 Transcribed Document [facility] [place] [facility] [place] [address] ProviderErasto MD [facility] [place] [address] Social History Tobacco Use Types [...] Conversion Note - Erasto ProviderMD - 07/21/2020 5:19 AM FLIGHT OPERATIONS DISPATCH CLERK Patient: JORGE SANTAMARIA Age: 59 years Sex: [...] EST Height Source Stated Height Entry Format [place] Height/Length, MICRONESIAN (ft) 5 ft Height/Length MICRONESIAN 10 Inch CLINICALHEIGHT 177.8 cm [place] Body Weight 72.02 kg Weight Source, ED Critical estimated dosing weight Weight Entry Format [place] Weight German lb 280 lb CLINICALWEIGHT 127.27 kg Body [...] 5:37 EST, Discharge to: Home. Prescriptions: Prescription Legal Coordinator Pharmacy: tiZANidine 2 mg oral capsule (Prescribe): [...]
--- OUTSIDE RECORDS SUMMARY | 2025-02-21 12:33 | XMS_ITS | Encounter Summary ---
Author Organization [employer] ([place], [place], [place], [place]) Address [address] [place] [address] Care Team Providers Care Baker Pie Name Role Phone Unavailable Primary Care Provider Unavailabl e Encounter Details Date Type Department Care Team (Late st Contact Info) Description 07/21/2020 Transcribed Document [facility] [place] [facility] [place] [address] ProviderErasto MD [address] [place] [address] Social History Tobacco Use Types [...] - Erasto ProviderMD - 07/21/2020 5:40 AM BUYER LIAISON [facility] [place] [id number] JORGE SANTAMARIA :1960 Visit Time:07/21/2020 Your Visit [...] if symptoms not improved Where: [place] [address]- [facility] (1) Allergies No Known Medication Allergies Immunizations [...] not too tight. General instructions ??? Take igvy-ird-qvkxazm and prescription medicines only as told by [...] 05/24/2006 Document Revised: 05/06/2018 Document Reviewed: 06/30/2017 Active Endpoints Patient Education ?? 2020 [employer]. Emergency Awareness and Preventative Care STROKE is [...] Assistance with quitting is available by contacting 4-655-YFUY-NOW. This is a free resource providing counseling, [...] was given the opportunity to ask questions. Patient/Marine Operations Coordinator Name: Patient/Marine Operations Coordinator Signature: Relationship to Patient: Clinician/Hospital Marine Operations Coordinator Signature: Please Provide a Telephone Number Where You Can Be Reached: Is it Permissible To Leave a Message? Date: documented in this encounter Plan of Treatment Not on file documented as of this encounter Visit Diagnoses Not on filedocumented in this encounter
--- OUTSIDE RECORDS SUMMARY | 2025-02-21 12:33 | XMS_ITS | Referral Summary ---
Author Organization [employer] ([place], [place], [place], [place]) Address [address] [place] [address] Care Team Providers Care Plumbing Installer Name Role Phone Unavailable Primary Care Provider [...] Date Brayden rded Speak language other than Icelandic at home Not on file 11/15/2023 Want [...]
--- OUTSIDE RECORDS SUMMARY | 2025-02-21 12:33 | XMS_ITS | Encounter Summary ---
Author Organization [employer] ([place], [place], [place], [place]) Address [address] [place] [address] Care Team Providers Care Truck Trailer Final Inspector Name Role Phone Unavailable Primary Care Provider Unavailabl e Encounter Details Date Type Department Care Team (Late st Contact Info) Description 07/21/2020 Transcribed Document [facility] [place] [address] [place] [address] ProviderErasto MD [facility] [place] [address] Social History Tobacco Use Types [...] - Historical ProviderMD - 07/21/2020 1:38 PM CABLE TELEVISION ACCESS COORDINATOR CR Tibia Fibula 2 Vws RT Ordered: 07/21/2020 Auth (Verified) Reason for Exam: r calf pain 07/21/2020 11:14 07/21/2020 13:38 (EVERETT BENITO PA-C) Reviewed by Provider, No further action required documented in this encounter Plan of Treatment Not on file documented as of this encounter Visit Diagnoses Not on filedocumented in this encounter
--- OUTSIDE RECORDS SUMMARY | 2025-02-21 12:33 | XMS_ITS | Patient Health Record ---
Author Organization [facility] Jourdan altamirano Billing Info Address [address] [place] [address] Support Name Relationship Address Phone Wu Alberto Guarantor Unknown [phone] Reason For Referral No Information Medications Medication [...] Problem Status W/U Status Risk Notes Problem [id number] Acute bronchitis (466.0) Active confirmed Plan Of Treatment No Information Insurance Providers Payer Name Payer Address Payer Phone Subscriber Number Group Number Insured Name Patient Relationship to Insured Coverage Start Date Coverage End Date [employer] PPO [address] [place], [place] [id number] Alberto Washburn Self - patient is the insured 4 4 Medical (General) History Medical History History ICD Code HTN hyperlipidemia Surgical History Surgery Date(Month/Year) Rt shoulder repair 2010 eye surgery bilateral age 4
--- OUTSIDE RECORDS SUMMARY | 2025-02-21 12:33 | XMS_ITS | Encounter Summary ---
Author Organization [employer] ([place], [place], [place], [place]) Address [address] [place] [address] Care Team Providers Care Medicare Specialist Name Role Phone Unavailable Primary Care Provider Unavailabl e Encounter Details Date Type Department Care Team (Late st Contact Info) Description 07/21/2020 Transcribed Document [facility] [place] [facility] [place] [address] ProviderErasto MD [facility] [place] [address] Social History Tobacco Use Types [...] - Historical ProviderMD - 07/21/2020 4:58 AM ETIOLOGIST ED Triage Entered On: 07/21/2020 5:12 EST [...] - Non - Urgent Tracking Group : [facility] ED KARMEN AGUILAR - 07/21/2020 5:09 [...] PNED ; Probability: 0 ; Diagnosis Code: [id number] ED Height and Weight Height Source : Stated Height Entry Format : Burt Height, Feet : 5 ft(Converted to: 152 cm, 60 Inch) Height, Inches : 10 Inch(Converted to: 0 ft 10 Inch, 25.40 cm) Clinical Height : 177.8 cm Weight Source, ED : Critical estimated dosing weight Weight Entry Format : Burt Weight, Pounds : 280 lb Clinical Dosing Weight : 127.27 kg Body Surface Area (BSA) : 2.41 m2 Body Mass Index : 40.3 kg/m2 (>HHI) Robbins Body Weight (IBW) : 72.02 kg KARMEN AGUILAR Von - 07/21/2020 5:09 EST Pain Assessment Pain Assessment : Initial assessment Pain Scale Used : 0-10 Scale KARMEN AGUILAR - 07/21/2020 5:09 EST Pain Scale Intensity : 5 KARMEN AGUILAR Eli 07/21/2020 5:09 EST Image 4 - Images currently included in the form version of this document have not been included in the text rendition version of the form. documented in this encounter Plan of Treatment Not on file documented as of this encounter Visit Diagnoses Not on filedocumented in this encounter
--- OUTSIDE RECORDS SUMMARY | 2025-02-21 12:33 | XMS_ITS | Encounter Summary ---
Author Organization [employer] ([place], [place], [place], [place]) Address [address] [place] [address] Care Team Providers Care Foot Orthopedist Name Role Phone Unavailable Primary Care Provider Unavailabl e Encounter Details Date Type Department Care Team (Late st Contact Info) Description 07/21/2020 Transcribed Document [facility] [place] Family Medicine [address] [place] [address] ProviderErasto MD [address] [place] [address] Social History Tobacco Use [...] - Historical ProviderMD - 07/21/2020 4:58 AM RESTAURANT SERVICE MANAGER [place] Violence Assessment Entered On: 07/21/2020 5:32 EST Performed On: 07/21/2020 5:31 EST by ALAINA QUINTANA RN Broset Violence Assessment Broset Violence Checklist of Symptoms : None Broset Violence Symptoms Subtotal : 0 Broset Violence Symptoms Indicator : Low risk (0) Broset Interventions : [place] precautions for safety used ALAINA QUINTANA RN - 07/21/2020 5:31 EST Electronically signed by Jean Hannah Conversion Database Administration Project Manager Cerner at 09/23/2022 5:54 PM CDT documented in this encounter Plan of Treatment Not on file documented as of this encounter Visit Diagnoses Not on filedocumented in this encounter
--- OUTSIDE RECORDS SUMMARY | 2025-02-21 12:33 | XMS_ITS | Encounter Summary ---
Author Organization [employer] ([place], [place], [place], [place]) Address [address] [place] [address] Care Team Providers Care Veterinary Physiologist Name Role Phone Unavailable Primary Care Provider Unavailabl e Encounter Details Date Type Department Care Team (Late st Contact Info) Description 07/21/2020 Transcribed Document [facility] [place] [address] [place] [address] ProviderErasto MD [address] [place] [address] Social History Tobacco Use Types [...] - Historical ProviderMD - 07/21/2020 4:58 AM ANCILLARY SERVICES MANAGER [place] Suicide Severity Rating Scale (C-SSRS) Entered On: 07/21/2020 5:33 EST Performed On: 07/21/2020 5:31 EST by ALAINA QUINTANA RN [place] Suicide Severity Rating Scale (C-SSRS) CSSRS Past Month Wish to be : No CSSRS Past Month Suicidal Thoughts : No CSSRS Lifetime Suicide Behavior : No Suicide Severity Rating Score : 0 Suicide Severity Rating : No Additional Care Required at this time ALAINA QUINTANA RN - 07/21/2020 5:31 EST documented in this encounter Plan of Treatment Not on file documented as of this encounter Visit Diagnoses Not on filedocumented in this encounter
--- OUTSIDE RECORDS SUMMARY | 2025-02-21 12:33 | XMS_ITS | Encounter Summary ---
Author Organization [employer] ([place], [place], [place], [place]) Address [address] [place] [address] Care Team Providers Care Adjuster Piano Action Name Role Phone Unavailable Primary Care Provider Unavailabl e Encounter Details Date Type Department Care Team (Late st Contact Info) Description 07/21/2020 Transcribed Document [facility] [place] Medicine [facility] [place] [address] ProviderErasto MD [address] [place] [address] Social History Tobacco Use Types [...] - Historical ProviderMD - 07/21/2020 5:40 AM MILK HAULER Electronically signed by Brielle [facility] Conversion Director Of State Cerner at 09/23/2022 6:06 PM CDT documented in this encounter Plan of Treatment Not on file documented as of this encounter Visit Diagnoses Not on filedocumented in this encounter
--- OUTSIDE RECORDS SUMMARY | 2025-02-21 12:33 | XMS_ITS | Clinical Summary ---
Author Organization [facility] Address [address] [place] [address] Care Team Providers Care Salesperson Furs Name Role Phone Alysha Santoyo DO Primary Care Provider [phone] Social History Tobacco Use Types Packs/Day Years Used Date Smoking Tobacco: Never Assessed Sex and Gender Information Value Date Recorded Sex Assigned at Not on file Legal Sex Male 2:48 PM EDT Gender Identity Not on file Sexual Orientation Not on file Plan of Treatment Health Maintenance Due Date Last Done Comments [facility]-Depression Screening 1960 [facility]-Infant/Child/Adol SDOH Screenings 1960 [facility]- SDOH Screenings 1978 [facility]-Adult SDOH Screenings 1978 [facility]-DTaP,Tdap,and Td Vaccines (1 - Tdap) 08/06/1979 CT Colonography 2005 Colonoscopy 2005 FIT-DNA 2005 FIT 2005 FOBT 2005 Sigmoidoscopy 2005 [facility]-Colorectal Cancer Screening 2005 [facility]-Pneumococcal Vaccine: 50+ Years (1 of 1 - PCV) 2010 [facility]-Zoster Vaccines (1 of 2) 2010 [id number] Vaccine (3 - season) 2025 03/06/2021, 02/06/2021 [facility]-Influenza Vaccine (#1) 02/05/202503/24, 03/20/2020, 08/12/2019, Additional history exists [facility]-RSV Vaccine: [...] patient's age to complete this topic Insurance [facility] Care Teams Salesperson Furs Relationship Specialty Start Date End Date Alysha Santoyo DO [address] [place] [address] [address] [place] [address] PCP - General 06/07/22
--- OUTSIDE RECORDS SUMMARY | 2025-02-21 12:33 | XMS_ITS | Encounter Summary ---
Author Organization [employer] ([place], [place], [place], [place]) Address [address] [place] [address] Care Team Providers Care Asphalt Spreader Name Role Phone Unavailable Primary Care Provider Unavailabl e Encounter Details Date Type Department Care Team (Late st Contact Info) Description 07/21/2020 Transcribed Document [facility] [place] [facility] [address] ProviderErasto MD [facility] [place] [address] Social History Tobacco Use Types [...] Conversion Note - Historical ProviderMD - 07/21/2020 6:04 AM SLATE SPLITTING SUPERVISOR ED Discharge Entered On: 07/21/2020 6:05 EST [...] 2 KARMEN AGUILAR - 07/21/2020 6:04 EST documented in this encounter Plan of Treatment Not on file documented as of this encounter Visit Diagnoses Not on filedocumented in this encounter
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
== END 2025-02-20 23:59 ==
LOC: LAB.DROPOF 02-21 12:30
PROVIDERS: PCP Nurse Practitioner Family; Visit Provider Nurse Practitioner Family
DX: R68.89 Other general symptoms and signs (principal)
CPT/HCPCS: 87631

== ENCOUNTER 2025-03-12 11:42 | Day surgery (SDC) | payer BC, SELFPAY ==
--- NOTE | 2025-03-08 18:06 | EXP.HP ---
History of Present Illness *Admission Date: 03/12/25 *History of present illness: Mr. Washburn is a 64-year-old gentleman who is here for screening/surveillance colonoscopy. The patient did have a colonoscopy with me in October 2016 and had 3 colon polyps (small serrated adenomas x 3) removed. He reports no abdominal pain, weight loss, change in his bowel habits or family history of colon cancer.. The examination is deemed medically necessary for screening/surveillance colonoscopy. The patient has been seen, interviewed and examined prior to the procedure by both myself and the anesthesia provider. [facility] Disclaimer: The information contained in this section may have been updated after the patient was seen, as this information can be updated by other users. Medical History Leg edema Left shoulder pain Right hip pain Respiratory infection Low blood pressure reading Acute maxillary sinusitis Right otitis media Encounter for pre-operative cardiovascular clearance Prediabetes Screening cholesterol level Viral respiratory illness Obesity (BMI 35.0-39.9 without comorbidity) Acrochordon FH: CAD (coronary artery disease) Chest pain Encounter to establish care Surgical History (Updated 03/12/25 @ 12:11 by Benny Zamora RN) History of eye surgery History of shoulder surgery History of hip replacement History of knee replacement Hx of colonoscopy with polypectomy Family History (Updated 03/12/25 @ 12:11 by Benny Zamora RN) Other Family history of cancer Family history of heart disease Social History (Updated 03/12/25 @ 12:12 by Benny Zamora RN) Smoking Status: Never smoker alcohol intake: never substance use type: denies use current occupational status: employed Travel in the last 8 weeks?: None Have you lived/traveled outside US in past 30 days?: No Contact w/someone who lives/traveled outside US past 30 days?: No Exposure to someone with infectious disease in past 14 days?: No Do you have a fever (greater than 100.4 F or 38 C)?: No Have you tested positive for COVID-19?: Yes Exposed to someone with COVID-19 in past 14 days?: No Do you have a sore throat?: No Do you have a cough?: No Do you have any weakness?: No Are you experiencing any nausea/vomitting?: No Do you have any diarrhea?: No Are you experiencing any unusual bleeding?: No Do you have any muscle aches/pain?: No Do you have any abdominal pain?: No Are you experiencing loss of taste or smell?: No Other Medical History Have you received the Flu Vaccine for this season: No Have you received the Pneumonia Vaccine: No Review of Systems Review of Systems Review of systems (narrative): Negative *Cardiovascular Comments: Negative *Gastrointestinal Comments: Negative *Genitourinary Comments: Negative *Musculoskeletal Comments: Negative *Neurologic Comments: Negative Meds Home Medications and Allergies Home Medications ?Medication ?Instructions ?Recorded ?Confirmed ?Type timolol maleate 0.5 % eye drops 1 drp Eye-Both DAILY 07/01/23 02/20/25 History latanoprost 0.005 % eye drops 1 drp Eye-Both DAILY 06/13/24 02/20/25 History ergocalciferol (vitamin D2) 1,250 1,250 mcg PO WEEKLY 07/13/24 02/20/25 History mcg (50,000 unit) capsule carvedilol 25 mg tablet 50 mg (2 x 25 mg) PO BID #240 tabs 07/27/24 02/20/25 Rx empagliflozin 25 mg tablet 25 mg PO DAILY #90 tabs 08/02/24 02/20/25 Rx (Jardiance) metformin 1,000 mg tablet 1,000 mg PO BID #180 tabs 08/02/24 02/20/25 Rx blood-glucose sensor (Dexcom G7 #3 ea 08/03/24 02/20/25 Rx Sensor device) blood-glucose,vp product,cont #3 ea 08/03/24 02/20/25 Rx (Dexcom G7 Ball Machine Operator) acetazolamide 250 mg tablet 500 mg PO BID 08/25/24 02/20/25 History benazepril 40 mg tablet See Rx Instructions .Route 09/09/24 02/20/25 Rx .COMPLEX #90 tabs isosorbide dinitrate 40 mg tablet 40 mg PO TID #90 tabs 02/06/25 02/20/25 Rx (Isordil) hydralazine 100 mg tablet 100 mg PO TID #120 tabs 02/07/25 02/20/25 Rx atorvastatin 40 mg tablet See Rx Instructions .Route 02/27/25 Rx .COMPLEX #90 tabs semaglutide 0.25 mg or 0.5 mg (2 0.5 mg (0.736 mL) SQ WEEKLY #3 mL 03/04/25 Rx mg/3 mL) subcutaneous pen injector ([employer] Wearable Movement Capture) New Prescriptions to Start Prescriptions: Allergies Allergy/AdvReac Type Severity Reaction Status Date / Time spironolactone (From AdvReac Mild breast Verified 03/12/25 12:07 Aldactone) tenderness Exam *Routine HEENT Exam Head: Present normocephalic Eye: Present EOMI and PERRL ENT: Present mucous membranes moist *Routine Neck Exam Neck: Present supple *Routine Respiratory Exam Respiratory: Present CTA bilaterally *Routine Cardiovascular Exam Cardiovascular: Present RRR *Routine Abdominal Exam Abdominal: Present soft and normoactive bowel sounds; Absent tenderness *Routine Rectal Exam Rectal:: deferred *Routine Genitalia Exam Genitalia:: deferred *Routine Extremities Exam Extremities: Absent cyanosis, clubbing or edema *Routine Skin Exam Skin: Present warm; Absent rash *Routine Neurological Exam Neurological: Present alert and oriented X3 Assessment and Plan *Assessment and plan (1) Personal history of adenomatous and serrated colon polyps: Status: Acute Category: Medical Code(s): Z86.0101 - Personal history of adenomatous and serrated colon polyps (2) Screening for colon cancer: Status: Acute Category: Medical Code(s): Z12.11 - Encounter for screening for malignant neoplasm of colon Plan A/P: 1. Personal history of adenomatous colon polyps is the preprocedural diagnosis. The patient will be anesthetized/sedated using MAC sedation. The patient has been seen and examined. Cardiac and lung assessment prior to the examination is stable. Proceed with planned screening/surveillance colonoscopy.
--- NOTE | 2025-03-12 06:54 | P.PCN_ITS ---
[facility] Procedure Note Date: 03/12/25 Time: 14:08 Procedure Note:: Colonoscopy Procedure Report: Colonoscopy with cold snare polypectomy Endoscopist: Santhosh Hay II, MD Referring physician: Giuliano Alvarado DO Date of Procedure: March 12, 2025 Equipment: Olympus [id number] adult colonoscope Sedation: MAC sedation Indication: Mr. Washburn is a 64-year-old gentleman who is here for screening/surveillance colonoscopy. The patient did have a colonoscopy with il in October 2016 and had 3 colon polyps (small serrated adenomas x 3) removed. He reports no abdominal pain, weight loss, change in his bowel habits or family history of colon cancer. The patient does report some frequent hemorrhoidal bleeding and hemorrhoid prolapse. He does have chronic constipation and does not take any regular fiber regimen. The examination is deemed medically necessary for screening/surveillance colonoscopy. Procedure: Prior to the procedure, a history and physical exam was performed, and patient's medications and allergies were reviewed. The risks, benefits and alternatives of the sedation and procedure were discussed with the patient. All questions were answered and informed consent was obtained. The patient was brought to the procedure room. Patient identification and proposed procedure were verified by the physician and the nurse. The patient was placed in a left lateral decubitus position and the scope was passed under direct vision. Throughout the procedure, the patient's blood pressure, pulse, and oxygen saturations were monitored continuously. The colonoscopy was accomplished without difficulty. The patient tolerated the procedure well. Findings: On digital rectal examination there was normal rectal tone. There were no external hemorrhoids. The prostate was 2+, smooth, soft, symmetric without nodules. The colonoscope was introduced through the anal canal to the rectum and advanced to the cecum. The ileocecal valve and appendiceal orifice were identified. The scope was advanced a short distance into the ileum which appeared grossly normal. The scope was then withdrawn into the colon. There were 2 colon polyps (cecum x 1 (9 mm) and transverse x 1 (3 mm)) both of which were removed via cold snare polypectomy. The remaining cecum, ascending and transverse colon and mucosa were grossly normal. There were scattered diverticuli throughout the descending and sigmoid colon (LEFT colon). The rectum itself was normal. Upon retroflexion within the rectum there were grade 2-3 internal hemorrhoids. The preparation was excellent throughout with [place] Preparation Score of 9. The cecal time was 14 minutes. Impression: 1. Cecal colon polyp (9 mm) 2. Transverse colon polyp (3 mm) 3. Left-sided diverticulosis 4. Grade 2-3 internal hemorrhoids Plan: I will follow-up the polyp histology and recommend repeat screening/surveillance colonoscopy again in 5 years. I would recommend a fiber bowel regimen (combined MiraLAX plus Metamucil) on a long-term daily maintenance basis.
[2025-03-12 12:01] VITALS: BMI 41.1
[2025-03-12] MEDS: LACTATED RINGERS 1000ML 1,000 ML 50 ML IV (12:05)
[2025-03-12 12:12] VITALS: BP 151/93; PULSE 95; RESP 18; TEMP 36.9; O2SAT 98
[2025-03-12 12:17] LABS: POC Glucose,Bedside 175 gm/dL (70-110)
--- NOTE | 2025-03-12 12:27 | P.PNANES_ITS ---
[facility] Disclaimer: The information contained in this section may have been updated after the patient was seen, as this information can be updated by other users. Medical History Leg edema Left shoulder pain Right hip pain Respiratory infection Low blood pressure reading Acute maxillary sinusitis Right otitis media Encounter for pre-operative cardiovascular clearance Prediabetes Screening cholesterol level Viral respiratory illness Obesity (BMI 35.0-39.9 without comorbidity) Acrochordon FH: CAD (coronary artery disease) Chest pain Encounter to establish care Surgical History (Updated 03/12/25 @ 12:11 by Benny Zamora RN) History of eye surgery History of shoulder surgery History of hip replacement History of knee replacement Hx of colonoscopy with polypectomy Family History (Updated 03/12/25 @ 12:11 by Benny Zamora RN) Other Family history of cancer Family history of heart disease Social History (Updated 03/12/25 @ 12:12 by Benny Zamora RN) Smoking Status: Never smoker alcohol intake: never substance use type: denies use current occupational status: employed Travel in the last 8 weeks?: None Have you lived/traveled outside US in past 30 days?: No Contact w/someone who lives/traveled outside US past 30 days?: No Exposure to someone with infectious disease in past 14 days?: No Do you have a fever (greater than 100.4 F or 38 C)?: No Have you tested positive for COVID-19?: Yes Exposed to someone with COVID-19 in past 14 days?: No Do you have a sore throat?: No Do you have a cough?: No Do you have any weakness?: No Are you experiencing any nausea/vomitting?: No Do you have any diarrhea?: No Are you experiencing any unusual bleeding?: No Do you have any muscle aches/pain?: No Do you have any abdominal pain?: No Are you experiencing loss of taste or smell?: No [facility] Anesthesia Checklist Patient Identification Patient Identification: Arm Band and Family Structural Data Admitted From: Home Planned Operative Procedure/s: Colonoscopy Consent for Planned Operative Procedure(s) Verified: Yes Verified Documents: Surgical Consent and History and Physical NPO Status Verified Time NPO: 00:00 Additional verifications Patient : No Anesthesia Reactions: No Hx Blood Transfusions: No Blood Transfusion Reaction: No Cephalosporin Allergy: No Previous Colonoscopy: Yes Airway Assessment Mallampati Score:: Class II C-Spine Mobility Assessed: Yes TMJ Mobility Assessed: Yes Dentition: Good Dentition Neurological Assessment Level of Consciousness: Awake, Alert, Appropriate and Follows Commands Hx Seizures: No Numbness or tingling in extremities: No Anesthesia Plan Anesthesia Risk discussed: Yes ASA Class: II Anesthesia Type: MAC
[2025-03-12 14:12] VITALS: BP 103/72; PULSE 79; RESP 16; TEMP 36.2; O2SAT 96
[2025-03-12 14:22] VITALS: BP 102/67; PULSE 77; RESP 17; TEMP 36.2; O2SAT 98
[2025-03-12 14:32] VITALS: BP 118/69; PULSE 79; RESP 18; TEMP 36.2; O2SAT 98
[2025-03-12 14:42] VITALS: BP 100/70; PULSE 75; RESP 18; TEMP 36.2; O2SAT 98
== END 2025-03-12 15:04 | disposition home or self-care (01) ==
PROVIDERS: PCP Internal Medicine; Visit Provider Internal Medicine Gastroenterology
PROC: 0DJD8ZZ Inspection of Lower Intestinal Tract, Via Natural or Artificial Opening Endoscopic (ICD-10-PCS; CPT 45378; principal; 2025-03-12 13:30)
DX: Z12.11 Encounter for screening for malignant neoplasm of colon (principal); D12.0 Benign neoplasm of cecum; K63.5 Polyp of colon; K57.30 Diverticulosis of large intestine without perforation or abscess without bleeding; K64.3 Fourth degree hemorrhoids; K59.09 Other constipation; Z86.0101 Personal history of adenomatous and serrated colon polyps; R73.03 Prediabetes; E66.9 Obesity, unspecified; Z68.41 Body mass index [BMI] 40.0-44.9, adult; Z88.8 Allergy status to other drugs, medicaments and biological substances; Z79.85 Long-term (current) use of injectable non-insulin antidiabetic drugs; Z79.899 Other long term (current) drug therapy
CPT/HCPCS: 45385; 82962; J2003; J2704; J7120

== ENCOUNTER 2025-04-05 13:45 | Outpatient (CLI) | payer BC, SELFPAY ==
--- OUTSIDE RECORDS SUMMARY | 2025-03-14 07:00 | XMS_ITS | Encounter Summary ---
Author Organization [facility] Address [address] [place] [address] Phone [email or web address] [email or web address] Care Team Providers Care Land Measurer Name Role Phone Andery Charles MD Primary Care Provider [phone] Encounter Details Date Type Department Care Team (Late st Contact Info) Description 03/14/2025 7:00 AM EDT Office Visit [place] [address] [facility] [address] [place] [address] Negra Cole RN [address] [place] [address] Return to work evaluation (Primary [...] work after colonoscopy on 03/12/2025. 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
--- OUTSIDE RECORDS SUMMARY | 2025-03-14 07:30 | XMS_ITS | Encounter Summary ---
Author Organization [facility] Address [address] [place] [address] Phone CareEverywhereSuppor [email or web address] Care Team Providers Care Director Sales Name Role Phone Andrey Charles MD Primary Care Provider [phone] Encounter Details Date Type Department Care Team (Latest Contact Info) Description 03/14/2025 7:30 AM EDT Clinical Support MADINA Meza [facility] [address] [place] [address] Bailey Jacobs MD [address] [place] [address] Encounter for fitness for duty [...] work on line.Advised to contact PCP or invoice classification clerk to discuss his symptoms ANNETTA. RTC as needed or if worse. documented in this encounter Progress Notes * Bailey Jacobs MD - 03/14/2025 7:30 AM EDT Subjective Jorge Washburn is a 64 y.o. male. WD ID: [id number] Employer: [employer] Date of Hire: 10/1987 Cost [...] work on line.Advised to contact PCP or invoice classification clerk to discuss his symptoms ANNETTA. RTC as [...] documented in this encounter Care Teams Director Sales Relationship Specialty Start Date End Date Andrey Charles MD [address] [place] [address] DAVE PEREZ [id number] PCP - General [employer] 04/18/19 documented as of this encounter
--- NOTE | 2025-04-05 13:47 | XR_ITS ---
FINAL REPORT TECHNIQUE: Lumbar spine 3 views CLINICAL HISTORY: lumbar pain right sided pain COMPARISON: None FINDINGS: LUMBAR SPINE: AP and lateral views of the lumbar spine were obtained. There is no prior exam for comparison. There is no acute fracture or malalignment. Vertebral body height is preserved. There is disc space level at the L5-S1 level, along with endplate sclerosis and facet hypertrophy. A right total hip arthroplasty is present as well. IMPRESSION: Degenerative changes present primarily at the L5-S1 level as described. Reviewed, Interpreted and Dictated by Angel Shen MD Transcribed by Ruth Sun Authenticated and [facility]
--- OUTSIDE RECORDS SUMMARY | 2025-04-05 13:54 | XMS_ITS | Clinical Summary ---
Author Organization [facility] Address [address] [place] [address] Care Team Providers Care Security Operations Center Analyst Name Role Phone Andrey Charles MD Primary [...] ANNUAL PHYSICAL 11/17/2016 HEPATITIS C SCREENING 11/17/2016 INFLUENZA VACCINE 01/05/2025 Insurance [facility] Care Teams Security Operations Center Analyst Relationship Specialty Start Date End Date Andrey Charles MD PCP - General Family Medicine 11/18/16
--- OUTSIDE RECORDS SUMMARY | 2025-04-05 13:55 | XMS_ITS | Encounter Summary ---
Author Organization [employer] ([place], [place], [place], [place]) Address [address] [place] [address] Care Team Providers Care Head Bellhop Captain Name Role Phone Unavailable Primary Care Provider Unavailabl e Encounter Details Date Type Department Care Team (Late st Contact Info) Description 07/21/[address] [facility] Family Medicine [facility] [place] [address] ProviderErasto MD [address] [place] [address] Social History Tobacco Use Types [...] - Erasto ProviderMD - 07/21/2020 5:40 AM CARPENTRY SPECIALIST [facility] [place] [id number] JORGE SANTAMARIA :1960 Visit Time:07/21/2020 Your Visit [...] if symptoms not improved Where: [place] [address]- [facility] (1) Allergies No Known Medication [...] not too tight. General instructions ??? Take esav-czn-vkiqpna and prescription medicines only as told by [...] 05/24/2006 Document Revised: 05/06/2018 Document Reviewed: 06/30/2017 [facility] Patient Education ?? 2020 [employer]. Emergency Awareness and Preventative Care STROKE is [...] Assistance with quitting is available by contacting 2-417-XCCK-NOW. This is a free resource providing counseling, [...] was given the opportunity to ask questions. Patient/Tonger Name: Patient/Tonger Signature: Relationship to Patient: Clinician/Hospital Tonger Signature: Please Provide a Telephone Number Where You Can Be Reached: Is it Permissible To Leave a Message? Date: documented in this encounter Plan of Treatment Not on file documented as of this encounter Visit Diagnoses Not on filedocumented in this encounter
--- OUTSIDE RECORDS SUMMARY | 2025-04-05 13:55 | XMS_ITS | Encounter Summary ---
Author Organization [employer] ([place], [place], [place], [place]) Address [address] [place] [address] Care Team Providers Care Adz Worker Name Role Phone Unavailable Primary Care Provider Unavailabl e Encounter Details Date Type Department Care Team (Late st Contact Info) Description 07/21/2020 Transcribed Document [facility] Family Medicine [facility] [place] [address] ProviderErasto MD [facility] [place] [address] Social History Tobacco Use Types [...] - Historical ProviderMD - 07/21/2020 4:58 AM GAS PIPE LAYER ED Triage Entered On: 07/21/2020 5:12 EST [...] - Non - Urgent Tracking Group : [facility] ED KARMEN AGUILAR - 07/21/2020 [...] PNED ; Probability: 0 ; Diagnosis Code: [id number] ED Height and Weight Height Source : Stated Height Entry Format : [place] Height, Feet : 5 ft(Converted to: 152 cm, 60 Inch) Height, Inches : 10 Inch(Converted to: 0 ft 10 Inch, 25.40 cm) Clinical Height : 177.8 cm Weight Source, ED : Critical estimated dosing weight Weight Entry Format : [place] Weight, Pounds : 280 lb Clinical Dosing Weight : 127.27 kg Body Surface Area (BSA) : 2.41 m2 Body Mass Index : 40.3 kg/m2 (>HHI) [place] Body Weight (IBW) : 72.02 kg KARMEN [...]
--- OUTSIDE RECORDS SUMMARY | 2025-04-05 13:55 | XMS_ITS | Referral Summary ---
Author Organization [employer] ([place], [place], [place], [place]) Address [address] [place] [address] Care Team Providers Care Steam Powerplant Supervisor Name Role Phone Unavailable Primary Care Provider [...] Date Brayden rded Speak language other than Algerian at home Not on file 11/15/2023 Want [...]
--- OUTSIDE RECORDS SUMMARY | 2025-04-05 13:55 | XMS_ITS | Encounter Summary ---
Author Organization [employer] ([place], [place], [place], [place]) Address [address] [place] [address] Care Team Providers Care Journal Entry Audit Clerk Name Role Phone Unavailable Primary Care Provider Unavailabl e Encounter Details Date Type Department Care Team (Late st Contact Info) Description 07/21/2020 Transcribed Document [facility] Family Medicine [facility] [place] [address] ProviderErasto MD [address] [place] [address] Social History Tobacco Use Types [...] - Historical ProviderMD - 07/21/2020 5:40 AM PARTS DEPARTMENT MANAGER Electronically signed by Brielle [facility] Conversion Roof Technician Cerner at 09/23/2022 6:06 PM CDT documented in this encounter Plan of Treatment Not on file documented as of this encounter Visit Diagnoses Not on filedocumented in this encounter
--- OUTSIDE RECORDS SUMMARY | 2025-04-05 13:55 | XMS_ITS | Encounter Summary ---
Author Organization [employer] ([place], [place], [place], [place]) Address [address] [place] [address] Care Team Providers Care Refinery Operator Light Ends Recovery Name Role Phone Unavailable Primary Care Provider Unavailabl e Encounter Details Date Type Department Care Team (Late st Contact Info) Description 07/21/2020 Transcribed Document [facility] [place] [address] [place] [address] ProviderErasto MD [address] [place] [address] Social History Tobacco Use Types [...] - Historical ProviderMD - 07/21/2020 4:58 AM LEPIDOPTERIST [place] Violence Assessment Entered On: 07/21/2020 5:32 EST Performed On: 07/21/2020 5:31 EST by ALAINA QUINTANA RN Broset Violence Assessment Broset Violence Checklist of Symptoms : None Broset Violence Symptoms Subtotal : 0 Broset Violence Symptoms Indicator : Low risk (0) Broset Interventions : [place] precautions for safety used ALAINA QUINTANA RN - 07/21/2020 5:31 EST documented in this encounter Plan of Treatment Not on file documented as of this encounter Visit Diagnoses Not on filedocumented in this encounter
--- OUTSIDE RECORDS SUMMARY | 2025-04-05 13:55 | XMS_ITS | Clinical Summary ---
Author Organization [employer] ([place], [place], [place], [place]) Address [address] [place] [address] Care Team Providers Care Veterinary Manager Name Role Phone Unavailable Primary Care Provider [...] Date Brayden rded Speak language other than Greek at home Not on file 11/15/2023 Want [...]
--- OUTSIDE RECORDS SUMMARY | 2025-04-05 13:55 | XMS_ITS | Clinical Summary ---
Author Organization [facility] Address [address] [place] [address] Care Team Providers Care Stove Tender Name Role Phone Alysha Santoyo DO Primary Care Provider [phone] Social History Tobacco Use Types Packs/Day Years [...] 2010 UKY-Zoster Vaccines (1 of 2) 2010 [id number] Vaccine (3 - season) 2025 03/06/2021, 02/06/2021 [...] patient's age to complete this topic Insurance [facility] Care Teams Stove Tender Relationship Specialty Start Date End Date Alysha Santoyo DO [address] [place] [address] [address] [place] [address] PCP - General 06/07/22
--- OUTSIDE RECORDS SUMMARY | 2025-04-05 13:55 | XMS_ITS | Encounter Summary ---
Author Organization [employer] ([place], [place], [place], [place]) Address [address] [place] [address] Care Team Providers Care Scorekeeper Name Role Phone Unavailable Primary Care Provider Unavailabl e Encounter Details Date Type Department Care Team (Late st Contact Info) Description 07/21/2020 Transcribed Document [facility] Family Medicine [address] [place] [address] ProviderErasot MD [facility] [place] [address] Social History Tobacco Use Types [...] - Historical ProviderMD - 07/21/2020 1:38 PM MIDDLE SCHOOL SPORTS COACH CR Tibia Fibula 2 Vws RT Ordered: 07/21/2020 Auth (Verified) Reason for Exam: r calf pain 07/21/2020 11:14 07/21/2020 13:38 (EVERETT BENITO PA-C) Reviewed by Provider, No further action required documented in this encounter Plan of Treatment Not on file documented as of this encounter Visit Diagnoses Not on filedocumented in this encounter
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
--- OUTSIDE RECORDS SUMMARY | 2025-04-05 13:55 | XMS_ITS | Encounter Summary ---
Author Organization [employer] ([place], [place], [place], [place]) Address [address] [place] [address] Care Team Providers Care Senior Sales Operations Analyst Name Role Phone Unavailable Primary Care Provider Unavailabl e Encounter Details Date Type Department Care Team (Late st Contact Info) Description 07/21/2020 Transcribed Document [facility] Family Medicine [address] [place] [address] ProviderErasto MD [address] [place] [address] Social History Tobacco Use Types [...] - Historical ProviderMD - 07/21/2020 4:58 AM SANDAL PARTS ASSEMBLER [place] Suicide Severity Rating Scale (C-SSRS) Entered On: 07/21/2020 5:33 EST Performed On: 07/21/2020 5:31 EST by ALAINA QUINTANA RN [place] Suicide Severity Rating Scale (C-SSRS) CSSRS Past Month Wish to be : No CSSRS Past Month Suicidal Thoughts : No CSSRS Lifetime Suicide Behavior : No Suicide Severity Rating Score : 0 Suicide Severity Rating : No Additional Care Required at this time ALAINA QUINTANA RN - 07/21/2020 5:31 EST Electronically signed by Jean Hannah Conversion Information Technology Administrator Cerner at 09/23/2022 5:59 PM CDT documented in this encounter Plan of Treatment Not on file documented as of this encounter Visit Diagnoses Not on filedocumented in this encounter
--- OUTSIDE RECORDS SUMMARY | 2025-04-05 13:55 | XMS_ITS | Encounter Summary ---
Author Organization [employer] ([place], [place], [place], [place]) Address [address] [place] [address] Care Team Providers Care Flatwork Catcher Name Role Phone Unavailable Primary Care Provider Unavailabl e Encounter Details Date Type Department Care Team (Late st Contact Info) Description 07/21/2020 Transcribed Document [facility] Family Medicine [facility] [place] [address] ProviderErasto MD [facility] [place] [address] Social History Tobacco Use Types [...] - Historical ProviderMD - 07/21/2020 6:04 AM BUSINESS OFFICE DIRECTOR ED Discharge Entered On: 07/21/2020 6:05 EST [...]
--- OUTSIDE RECORDS SUMMARY | 2025-04-05 13:55 | XMS_ITS | Clinical Summary ---
Author Organization [facility] Address [address] [place] [address] Phone [email or web address] Care Team Providers Care Scrap Crane Operator Name Role Phone Andrey Charles MD Primary Care Provider [phone] Allergies Active Allergy Reactions Criticality Noted Date Comments Spironolactone Other (see comments),Swelling Medications bisoprolol (ZEBETA) 10 MG tablet Take 10 mg by mouth 1 (one) time each day. Active Rexulti 0.5 MG tablet Take 1 tablet by mouth 1 (one) time each day. 1 Active benazepril (LOTENSIN) 40 MG tablet Benazepril HCl 40 MG Oral Tablet QTY: 90 Days: 90 Refills: 0 Written: 03/01/22 Patient Instructions: 2 Active Vitamin D3 1.25 MG (58152 UT) capsule Take 50,000 Units by mouth [...] FOR 4 DAYS THEN STOP 4 Active timolol (TIMOPTIC) 0.5 % ophthalmic solution INSTILL 1 DROP INTO AFFECTED EYE(S) EVERY 12 HOURS 4 Active atorvastatin (LIPITOR) 40 MG tablet Atorvastatin Calcium 40 MG Oral Tablet QTY: 90 Days: 90 Refills: 0 Written: 03/01/22 Patient Instructions: 2 Active hydrALAZINE (APRESOLINE) 10 MG tablet 5 Active acetaZOLAMIDE (DIAMOX) 250 MG tablet Take 500 mg by mouth in the morning and 500 mg before bedtime. 5 Active Empagliflozin (Jardiance) 10 MG tablet 5 Active metFORMIN 1000 MG tablet 5 Active spironolactone (ALDACTONE) 25 MG tablet Take 25 mg by mouth 1 (one) time each day. 3 025 Discontin ued(Aller gic response) Active Problems Problem Noted Date Diagnosed Date Return to work evaluation 09/04/2008 Overview (11/03/2017): Cervicalgia 12/16/2007 Overview (11/03/2017): Resolved Problems Problem [...] epicondylitis of elbow 04/19/2009 07/29/2020 Overview (11/03/2017): Health examination of defined subpopulation 01/05/2008 07/29/2020 Overview (11/03/2017): Other examination of ears and hearing 10/12/2007 07/29/2020 Overview (11/03/2017): Encounters Date Type Department Care Team Description 03/14/2025 7:30 AM EDT [facility] [address] [place] [address] Bailey Jacobs MD Encounter for fitness for duty examination (Primary Dx); Lightheadedness 03/14/2025 7:00 AM EDT Office Visit [facility] [address] [place] [address] Negra Cole, MARYAM Return to work evaluation (Primary Dx) from Last 3 Months Immunizations Immunization Administration [...] Pulse 83 03/14/2025 7:28 AM EDT Temperature 36.7 C (98.1 F) 07/26/2023 9:29 AM EST Respiratory Rate 16 03/14/2025 7:28 AM EDT [...] and Pertussis Immunization (1 - Tdap) 08/06/1979 Pneumococcal: 50+ Years (1 of 1 - PCV) 2010 Zoster Immunization (1 of 2) 2010 Covid-19 [...] on patient's age to complete this topic Procedures Procedure Name Priority Date/Time Associated Diagnosis Comments ECG 12-LEAD Routine 03/14/2025 8:59 AM EDT Lightheadedness from Last 3 Months Results * ECG 12 lead (03/14/2025 8:59 AM EDT) Impressions Bailey Jacobs MD - 03/14/2025 8:59 AM EDT sinus rhythm, no acute changes Bailey Jacobs MD ECG ORDERABLES Edited Re sult - Final from Last 3 Months Insurance [employer] [place] [address] [place] [address] Care Teams Scrap Crane Operator Relationship Specialty Start Date End Date Andrey Charles MD [address] [place] [address] DAVE PEREZ [id number] PCP - General Management Assistant 04/18/19
--- OUTSIDE RECORDS SUMMARY | 2025-04-05 13:55 | XMS_ITS | Encounter Summary ---
Author Organization [employer] ([place], [place], [place], [place]) Address [address] [place] [address] Care Team Providers Care Camera Prototyping Engineer Name Role Phone Unavailable Primary Care Provider Unavailabl e Encounter Details Date Type Department Care Team (Late st Contact Info) Description 07/21/2020 Transcribed Document [facility] [place] [facility] Family Medicine [facility] [place] [address] ProviderErasto MD [facility] [address] Social History Tobacco Use Types [...] - Erasto ProviderMD - 07/21/2020 5:19 AM CARPET LAYER Patient: JORGE SANTAMARIA Age: 59 years Sex: [...] EST Height Source Stated Height Entry Format [place] Height/Length, TURKISH (ft) 5 ft Height/Length TURKISH 10 Inch CLINICALHEIGHT 177.8 cm [place] Body Weight 72.02 kg Weight Source, ED Critical estimated dosing weight Weight Entry Format [place] Weight Venezuelan lb 280 lb CLINICALWEIGHT 127.27 kg Body [...] 5:37 EST, Discharge to: Home. Prescriptions: Prescription American Indian Studies Professor Pharmacy: tiZANidine 2 mg oral capsule (Prescribe): [...]
== END 2025-04-05 23:59 | disposition home or self-care (01) ==
LOC: RAD 13:45
PROVIDERS: PCP Nurse Practitioner Family; Visit Provider Nurse Practitioner Family
DX: M47.817 Spondylosis without myelopathy or radiculopathy, lumbosacral region (principal)
CPT/HCPCS: 72100

== ENCOUNTER 2025-04-12 16:56 | Outpatient (CLI) | payer BC, SELFPAY ==
--- OUTSIDE RECORDS SUMMARY | 2025-03-14 06:00 | XMS_ITS | Encounter Summary ---
Author Organization [facility] Address [address] [place] [address] Phone [email or web address] [email or web address] Care Team Providers Care Director Of Social Media Marketing Name Role Phone Andrey Charles MD Primary Care Provider [phone] Encounter Details Date Type Department Care Team (Late st Contact Info) Description 03/14/2025 7:00 AM EDT Office Visit [place] [address] [facility] [address] [place] [address] Negra Cole RN [address] [place] [address] Return to work evaluation (Primary Dx) Social History Tobacco Use Types Packs/Day Years [...] on file documented as of this encounter Last Filed Vital Signs Vital Sign Reading Time Taken Comments Blood Pressure 119/68 03/14/2025 7:28 AM EDT Pulse 83 03/14/2025 7:28 AM EDT Temperature - - Respiratory Rate 16 03/14/2025 7:28 AM EDT Oxygen Saturation 97% 03/14/2025 7:28 AM EDT Inhaled Oxygen Concentration - - Weight - - Height - - Body Mass Index - - documented in this encounter Progress Notes * Negra Cole RN - 03/14/2025 7:00 AM EDT Subjective Jorge Washburn is a 63 y.o. male who presents for personal return to work after colonoscopy on 03/12/2025. WD ID: [id number] Employer: [employer]: [employer] (confirmed email) Shift: 1 Full-time GL and #: Garo Counts LDW: 03/11/2025 DOS: 03/12/2025 PROCEDURE: Colonoscopy SURGEON: Dr Hay RELEASE: 03/14/2025 PMLOA. Tm has been off work due to having a colonoscopy on 03/12/2025. Tm states that he is doing fine and did not have any complications post procedure. States that he has a release note but cannot find it. He is looking on electronic medical record. This visit evolved into an emergency visit due to the patient feeling LHD. Tm was seen and evaluated by provider. Please see note 03/14/2025 @ 0859. Triage nurse: Negra Cole RN HPI History Reviewed: Allergies Meds Problems Med Hx Surg Hx Objective Visit Vitals BP 119/68 Pulse 83 Resp 16 SpO2 97% Smoking Status Never Review of Systems PHQ-9 Total Score: 0 (03/14/2025 7:29 AM) Physical Exam Assessment: ICD-10-CM ICD-9-CM 1. Return to work evaluation Z76.89 V72.85 No orders of the defined types were placed in this encounter. There are no Patient Instructions on file for this visit. documented in this encounter Plan of Treatment Not on file documented as of this encounter Visit Diagnoses Diagnosis Return to work evaluation- Primary Other specified examination documented in this encounter Care Teams Director Of Social Media Marketing Relationship Specialty Start Date End Date Andrey Charles MD [address] [place] [address] DAVE PEREZ [id number] PCP - General Functional Consultant 04/18/19 documented as of this encounter
--- OUTSIDE RECORDS SUMMARY | 2025-03-14 06:30 | XMS_ITS | Encounter Summary ---
Author Organization [facility] Address [address] [place] [address] Phone [email or web address] [email or web address] Care Team Providers Care Bindery Operator Name Role Phone Andrey Charles MD Primary Care Provider [phone] Encounter Details Date Type Department Care Team (Latest Contact Info) Description 03/14/2025 7:30 AM EDT Clinical Support MADINA Meza [facility] [address] [place] [address] Bailey Jaocbs MD [address] [place] [address] Encounter for fitness for duty examination (Primary Dx); Lightheadedness Social History Tobacco Use Types Packs/Day Years Used Date Smoking Tobacco: Never Smokeless Tobacco: Never Tobacco Cessation:Counseling Given: Not Answered Intimate Partner Violence Answer Date R ecorded [...] Sign Reading Time Taken Comments Blood Pressure 100/50 03/14/2025 6:54 AM EDT sta nding Pulse 65 03/14/2025 6:54 AM EDT Temperature - - Respiratory Rate 18 03/14/2025 6:45 AM EDT Oxygen Saturation 98% 03/14/2025 6:54 AM EDT Inhaled Oxygen Concentration - - Weight - - Height - - Body Mass Index - - documented in this encounter Patient Instructions * Patient Instructions* Bailey Jacobs MD - 03/14/2025 7:30 AM EDT Lightheadedness is better after a period of observation in the clinic. He still feels a little off but he feels ready to RTW. Will release him to regular duty. 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 RTC as needed or if worse. documented in this encounter Progress Notes * Bailey Jacobs MD - 03/14/2025 7:30 AM EDT Subjective Jorge Washburn is a 64 y.o. male. 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 Notes: Tm walked in to the clinic complaining of dizziness. Tm states that the dizziness started this am. Denies chest pain or shortness of breath. Tm denies visual changes. Tm states that he had covid x three weeks ago. Denies vomiting and diarrhea however he does complain of nausea. FSBS 170. Tm had a colonoscopy 03/12/2025. Triage nurse: Negra Cole RN This was an emergency call with a disruption in patient care and scheduled clinic appointments. History Reviewed: Tobacco Allergies Meds Problems Med Hx Surg Hx HPI TM walks into the clinic with lightheadedness. He had a colonoscopy on Wednesday and just returned to work this morning. He denies dizziness, chest pain, shortness of breath. He has HTN and BP meds 3x aday. He reportedly took nighttime med later than usual. He already took his am dose prior to work. His BP is reportedly lower than his norm. Review of Systems Constitutional: Negative. Respiratory: Negative for chest tightness and shortness of breath. Cardiovascular: Negative for chest pain and leg swelling. Neurological: Negative for facial asymmetry, speech difficulty and numbness. PHQ-9 Total Score: 0 (03/14/2025 7:29 AM) Objective Vitals: 03/14/25 0645 03/14/25 0650 03/14/25 0654 BP: 96/57 100/50 Pulse: 73 65 Resp: 18 SpO2: 98% 98% Orthostatic Vitals: 03/14/25 0645 Orthostatic BP: 106/63 Orthostatic Pulse: 79 Results for orders placed or performed in visit on 07/26/23 POCT glucose Collection Time: 07/26/23 9:31 AM Result Value Ref Range Glucose, POC 181 (A) 65 - 99 mg/dL Glucose (Glucometer), POC IQC Yes, verified internal control performed correctly. Lot Number Expiration Date Physical Exam Vitals and nursing note reviewed. Constitutional: General: He is not in acute distress. Appearance: Normal appearance. He is not ill-appearing or diaphoretic. Cardiovascular: Rate and Rhythm: Normal rate and regular rhythm. Pulses: Normal pulses. Heart sounds: Normal heart sounds. Pulmonary: Effort: Pulmonary effort is normal. Breath sounds: Normal breath sounds. Musculoskeletal: Right lower leg: No edema. Left lower leg: No edema. Skin: Coloration: Skin is not pale. Neurological: Mental Status: He is alert and oriented to person, place, and time. Gait: Gait normal. Psychiatric: Mood and Affect: Mood normal. Behavior: Behavior normal. ECG READING: sinus rhythm, no acute changes Assessment: ICD-10-CM ICD-9-CM 1. Encounter for fitness for duty examination Z02.89 V70.5 2. Lightheadedness R42 780.4 ECG 12 lead Orders Placed This Encounter Procedures ECG 12 lead Patient Instructions Lightheadedness is better after a period of observation in the clinic. He still feels a little off but he feels ready to RTW. Will release him to regular duty. 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 RTC as needed or if worse. documented in this encounter Plan of Treatment Not on file documented as of this encounter Procedures Procedure Name Priority Date/Time Associated Diagnosis Comments ECG 12-LEAD Routine 03/14/2025 8:59 AM EDT Lightheadedness documented in this encounter Results * ECG 12 lead (03/14/2025 8:59 AM EDT) Bailey Gonzalez MD - 03/14/2025 8:59 AM EDT sinus rhythm, no acute changes us Bailey Jacobs MD ECG ORDERABLES Edited Re sult - Final documented in this encounter Visit Diagnoses Diagnosis Encounter for fitness for duty examination- Primary Lightheadedness Dizziness and giddiness documented in this encounter Care Teams Bindery Operator Relationship Specialty Start Date End Date Andrey Charles MD [address] [place] [address] DAVE PEREZ [id number] PCP - General Aviation Safety Inspector 04/18/19 documented as of this encounter
--- OUTSIDE RECORDS SUMMARY | 2025-04-12 16:58 | XMS_ITS | Clinical Summary ---
Author Organization [facility] Address [address] [place] [address] Care Team Providers Care Fruit Harvest Machine Operator Name Role Phone Alysha Santoyo DO Primary Care Provider [phone] Social History Tobacco Use Types Packs/Day Years [...] 2010 UKY-Zoster Vaccines (1 of 2) 2010 [id number]-89 Vaccine (3 - season) 2025 03/06/2021, 02/06/2021 [...] age to complete this topic Insurance [facility] Care Teams Fruit Harvest Machine Operator Relationship Specialty Start Date End Date Alysha Santoyo DO [address] [place] [address] [id number] [place] [address] PCP - General 06/07/22
--- OUTSIDE RECORDS SUMMARY | 2025-04-12 16:58 | XMS_ITS | Encounter Summary ---
Author Organization [employer] ([place], [place], [place], [place], [place]) Address [address] [place] [address] Care Team Providers Care Gaming Investigator Name Role Phone Unavailable Primary Care Provider Unavailabl e Encounter Details Date Type Department Care Team (Late st Contact Info) Description 07/21/2020 Transcribed Document [facility] Family Medicine [address] [place] [address] ProviderErasto MD [address] [place] [address] Social History Tobacco Use Types [...] - Historical ProviderMD - 07/21/2020 1:38 PM FAMILY AND CONSUMER SCIENCES TEACHER CR Tibia Fibula 2 Vws RT Ordered: 07/21/2020 Auth (Verified) Reason for Exam: r calf pain 07/21/2020 11:14 07/21/2020 13:38 (EVERETT BENITO PA-C) Reviewed by Provider, No further action required documented in this encounter Plan of Treatment Not on file documented as of this encounter Visit Diagnoses Not on filedocumented in this encounter
--- OUTSIDE RECORDS SUMMARY | 2025-04-12 16:58 | XMS_ITS | Clinical Summary ---
Author Organization [facility] Address [address] [place] [address] Care Team Providers Care Conductor Orchestra Name Role Phone Andrey Charles MD Primary [...] C SCREENING 11/17/2016 INFLUENZA VACCINE 01/05/2025 Insurance [facility] [employer] Care Teams Conductor Orchestra Relationship Specialty Start Date End Date Andrey Charles MD PCP - General Family Medicine 11/18/16
--- OUTSIDE RECORDS SUMMARY | 2025-04-12 16:58 | XMS_ITS | Encounter Summary ---
Author Organization [employer] ([place], [place], [place], [place], [place]) Address [address] [place] [address] Care Team Providers Care Hog Slaughterer Name Role Phone Unavailable Primary Care Provider Unavailabl e Encounter Details Date Type Department Care Team (Late st Contact Info) Description 07/21/2020 Transcribed Document [facility] [facility] [place] [address] ProviderErasto MD [facility] [place] [address] Social History Tobacco Use Types [...] - Historical ProviderMD - 07/21/2020 4:58 AM DRINKING WATER TECHNICIAN ED Triage Entered On: 07/21/2020 5:12 EST [...] - Non - Urgent Tracking Group : [facility] ED KARMEN AGUILAR - 07/21/2020 5:09 [...] PNED ; Probability: 0 ; Diagnosis Code: [id number] ED Height and Weight Height Source : Stated Height Entry Format : [place]over Height, Feet : 5 ft(Converted to: 152 cm, 60 Inch) Height, Inches : 10 Inch(Converted to: 0 ft 10 Inch, 25.40 cm) Clinical Height : 177.8 cm Weight Source, ED : Critical estimated dosing weight Weight Entry Format : [place]over Weight, Pounds : 280 lb Clinical Dosing Weight : 127.27 kg Body Surface Area (BSA) : 2.41 m2 Body Mass Index : 40.3 kg/m2 (>HHI) [place] Body Weight (IBW) : 72.02 kg KARMEN [...]
--- OUTSIDE RECORDS SUMMARY | 2025-04-12 16:58 | XMS_ITS | Clinical Summary ---
Author Organization [facility] Address [address] [place] [address] Phone [email or web address] Care Team Providers Care Supervisor Scrap Preparation Name Role Phone Andrey Charles MD Primary Care Provider [phone] Allergies Active Allergy Reactions Criticality Noted Date [...] Instructions: 2 Active Vitamin D3 1.25 MG (01683 UT) capsule Take 50,000 Units by mouth [...] Description 03/14/2025 7:30 AM EDT [facility] [place] [address] [place] [address] Bailey Jacobs MD Encounter for fitness for duty examination (Primary Dx); Lightheadedness 03/14/2025 7:00 AM EDT Office Visit [facility] [address] [place] [address] Negra Cole, MARYAM Return to work evaluation [...] 3 Months Insurance [employer] [place] [facility] Address: [address] [place] [address] [place] [address] Care Teams Supervisor Scrap Preparation Relationship Specialty Start Date End Date Andrey Charles MD [address] [place] [address] DAVE PEREZ [id number] PCP - General Physical Therapist Aide 04/18/19
--- OUTSIDE RECORDS SUMMARY | 2025-04-12 16:58 | XMS_ITS | Clinical Summary ---
Author Organization [employer] ([place], [place], [place], [place], [place]) Address [address] [place] [address] Care Team Providers Care Barrel Header Name Role Phone Unavailable Primary Care Provider [...] Date Brayden rded Speak language other than Surinamese at home Not on file 11/15/2023 Want [...]
--- OUTSIDE RECORDS SUMMARY | 2025-04-12 16:58 | XMS_ITS | Encounter Summary ---
Author Organization [employer] ([place], [place], [place], [place], [place]) Address [address] [place] [address] Care Team Providers Care Perinatal Tech Name Role Phone Unavailable Primary Care Provider Unavailabl e Encounter Details Date Type Department Care Team (Late st Contact Info) Description 07/21/2020 Transcribed Document [facility] [place] [address] [place] [address] ProviderErasto MD [address] [place] [address] Social History Tobacco Use Types [...] - Historical ProviderMD - 07/21/2020 4:58 AM BOXING AND PRESSING SUPERVISOR [place] Violence Assessment Entered On: 07/21/2020 5:32 EST Performed On: 07/21/2020 5:31 EST by ALAINA QUINTANA RN Broset Violence Assessment Bro[place] Violence Checklist of Symptoms : None Broset Violence Symptoms Subtotal : 0 Broset Violence Symptoms Indicator : Low risk (0) Broset Interventions : [place] precautions for safety used ALAINA QUINTANA RN - 07/21/2020 5:31 EST documented in this encounter Plan of Treatment Not on file documented as of this encounter Visit Diagnoses Not on filedocumented in this encounter
--- OUTSIDE RECORDS SUMMARY | 2025-04-12 16:58 | XMS_ITS | Encounter Summary ---
Author Organization [employer] ([place], [place], [place], [place], [place]) Address [address] [place] [address] Care Team Providers Care Plastic Machine Operator Name Role Phone Unavailable Primary Care Provider Unavailabl e Encounter Details Date Type Department Care Team (Late st Contact Info) Description 07/21/2020 Transcribed Document [facility] Family Medicine [facility] [place] [address] ProviderErasto MD [address] [place] [address] Social History Tobacco Use Types [...] - Historical ProviderMD - 07/21/2020 5:40 AM MITER GRINDER OPERATOR Electronically signed by Brielle [facility] Conversion Plant Maintenance Technician Cerner at 09/23/2022 6:06 PM CDT documented in this encounter Plan of Treatment Not on file documented as of this encounter Visit Diagnoses Not on filedocumented in this encounter
--- OUTSIDE RECORDS SUMMARY | 2025-04-12 16:58 | XMS_ITS | Patient Health Record ---
Author Organization [facility] Jourdan altamirano Billing Info Address [address] [place] [address] Support Name Relationship Address Phone Alberto Washburn Guarantor Unknown [phone] Reason For Referral No Information Medications Medication [...] Problem Status W/U Status Risk Notes Problem [id number] Acute bronchitis (466.0) Active confirmed Plan Of Treatment No Information Insurance Providers Payer Name Payer Address Payer Phone Subscriber Number Group Number Insured Name Patient Relationship to Insured Coverage Start Date Coverage End Date [place] P[place] [address] [facility] [place] [id number] Alberto Washburn Self - patient is the insured 4 4 Medical (General) History Medical History History ICD Code HTN hyperlipidemia Surgical History Surgery Date(Month/Year) Rt shoulder repair 2009 eye surgery bilateral age 4
--- OUTSIDE RECORDS SUMMARY | 2025-04-12 16:58 | XMS_ITS | Encounter Summary ---
Author Organization [employer] ([place], [place], [place], [place], [place]) Address [address] [place] [address] Care Team Providers Care Houseman Name Role Phone Unavailable Primary Care Provider Unavailabl e Encounter Details Date Type Department Care Team (Late st Contact Info) Description 07/21/2020 Transcribed Document [facility] [place] [address] [place] [address] ProviderErasto MD [address] [place] [address] Social History Tobacco Use Types [...] - Historical ProviderMD - 07/21/2020 4:58 AM NURSERYPERSON [place] Suicide Severity Rating Scale (C-SSRS) Entered On: 07/21/2020 5:33 EST Performed On: 07/21/2020 5:31 EST by ALAINA QUINTANA RN [place] Suicide Severity Rating Scale (C-SSRS) CSSRS Past Month Wish to be : No CSSRS Past Month Suicidal Thoughts : No CSSRS Lifetime Suicide Behavior : No Suicide Severity Rating Score : 0 Suicide Severity Rating : No Additional Care Required at this time ALAINA QUINTANA RN - 07/21/2020 5:31 EST Electronically signed by Jean Hannah Conversion Technical Sales Representatives Cerner at 09/23/2022 5:59 PM CDT documented in this encounter Plan of Treatment Not on file documented as of this encounter Visit Diagnoses Not on filedocumented in this encounter
--- OUTSIDE RECORDS SUMMARY | 2025-04-12 16:58 | XMS_ITS | Encounter Summary ---
Author Organization [employer] ([place], [place], [place], [place], [place]) Address [address] [place] [address] Care Team Providers Care Oil Well Shooter Name Role Phone Unavailable Primary Care Provider Unavailabl e Encounter Details Date Type Department Care Team (Late st Contact Info) Description 07/21/2020 Transcribed Document [facility] [place] [facility] [address] ProviderErasto [place] [address] Social History Tobacco Use Types [...] - Historical ProviderMD - 07/21/2020 6:04 AM ADVERTISING TEACHER ED Discharge Entered On: 07/21/2020 6:05 EST [...]
--- OUTSIDE RECORDS SUMMARY | 2025-04-12 16:58 | XMS_ITS | Referral Summary ---
Author Organization [employer] ([place], [place], [place], [place], [place]) Address [address] [place] [address] Care Team Providers Care Bureau Chief Name Role Phone Unavailable Primary Care Provider [...] Date Brayden rded Speak language other than Libyan at home Not on file 11/15/2023 Want [...]
--- OUTSIDE RECORDS SUMMARY | 2025-04-12 16:58 | XMS_ITS | Encounter Summary ---
Author Organization [employer] ([place], [place], [place], [place], [place]) Address [address] [place] [address] Care Team Providers Care Carbon Setter Name Role Phone Unavailable Primary Care Provider Unavailabl e Encounter Details Date Type Department Care Team (Late st Contact Info) Description 07/21/2020 Transcribed Document [facility] [place] [facility] [place] [address] ProviderErasto MD [address] [place] [address] Social History Tobacco Use Types Packs/Day Years Used Date Smoking Tobacco: Never Assessed Sex and Gender Information Value Date Recorded Sex Assigned at Male 12/02/2021 4:50 PM CDT Legal Sex Male 4:50 PM CDT Gender Identity Male 12/02/2021 4:50 PM CDT Sexual Orientation Not on file documented as of this encounter Miscellaneous Notes * Cerner Conversion Note - Erasto Leonard MD - 07/21/2020 5:40 AM PLANT SCIENTIST [facility] [place], [place] [id number] JORGE SANTAMARIA :1960 Visit Time:07/21/2020 Your Visit [...] if symptoms not improved Where: [place] [address]- [facility] (1) Allergies No Known Medication [...] not too tight. General instructions ??? Take [id number] and prescription medicines only as told by [...] 05/24/2006 Document Revised: 05/06/2018 Document Reviewed: 06/30/2017 [employer] Patient Education ?? 2020 [employer]youlike. Emergency Awareness and Preventative Care STROKE is [...] Assistance with quitting is available by contacting 6-402-QLPI-NOW. This is a free resource providing counseling, [...] was given the opportunity to ask questions. Patient/Planer Mill Grader Name: Patient/Planer Mill Grader Signature: Relationship to Patient: Clinician/Hospital Planer Mill Grader Signature: Please Provide a Telephone Number Where You Can Be Reached: Is it Permissible To Leave a Message? Date: documented in this encounter Plan of Treatment Not on file documented as of this encounter Visit Diagnoses Not on filedocumented in this encounter
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
--- OUTSIDE RECORDS SUMMARY | 2025-04-12 16:58 | XMS_ITS | Encounter Summary ---
Author Organization [employer] ([place], [place], [place], [place], [place]) Address [address] [place] [address] Care Team Providers Care J2Ee Developer Name Role Phone Unavailable Primary Care Provider Unavailabl e Encounter Details Date Type Department Care Team (Late st Contact Info) Description 07/21/2020 Transcribed Document [facility] [place] Medicine [facility] [place] [address] ProviderErasto MD [address] [place] [address] Social History Tobacco Use Types [...] - Erasto ProviderMD - 07/21/2020 5:19 AM PRINT DEVELOPER Patient: JORGE SANTAMARIA Age: 59 years Sex: [...] EST Height Source Stated Height Entry Format [place]near Height/Length, ANDORRAN (ft) 5 ft Height/Length ANDORRAN 10 Inch CLINICALHEIGHT 177.8 cm [place] Body Weight 72.02 kg Weight Source, ED Critical estimated dosing weight Weight Entry Format [place]near Weight Estonian lb 280 lb CLINICALWEIGHT 127.27 kg Body [...] 5:37 EST, Discharge to: Home. Prescriptions: Prescription Security Assessor Pharmacy: tiZANidine 2 mg oral capsule (Prescribe): [...]
--- NOTE | 2025-04-12 17:00 | MR_ITS ---
PROCEDURE INFORMATION: Exam: MR Lumbar Spine Without Contrast Exam date and time: 04/12/2025 4:57 PM Age: 64 years old Clinical indication: Low back pain; Lbp with right leg numbness and burning. HX of right hip replacement in October 2024. PT stated pain started then TECHNIQUE: Imaging protocol: Magnetic resonance imaging of the lumbar spine without contrast. COMPARISON: MR LUMBAR SPINE WO CON 05/11/2022 2:40 PM FINDINGS: Bones/joints: Anterolisthesis of L4 over L5, likely degenerative.There is preservation of vertebral body heights. Discogenic changes at L5-S1 level. No marrow replacing process. Spinal cord: Conus medullaris and cauda equina nerve roots are unremarkable L1-L2: No significant disc bulge or herniation. No severe spinal canal stenosis. No significant neural foraminal narrowing. L2-L3: No significant disc bulge or herniation. No severe spinal canal stenosis. No significant neural foraminal narrowing. L3-L4: Diffuse disc bulge and facet arthropathy noted. No significant spinal canal stenosis. There is mild to moderate bilateral neural foraminal narrowing. L4-L5: Diffuse disc bulge and facet arthropathy noted. No significant spinal canal stenosis. There is moderate bilateral neural foraminal narrowing. L5-S1: Diffuse disc bulge and facet arthropathy noted. No significant spinal canal stenosis. There is moderate bilateral neural foraminal narrowing. Soft tissues: Unremarkable. Lymph nodes: Nonspecific, multi station enlarged retroperitoneal lymphadenopathy. A used equipment sales representative lesion measures 1.3 cm in the left periaortic station. IMPRESSION: 1. Multilevel degenerative changes more pronounced at L4-L5 and L5-S1 contributing to moderate bilateral neural foraminal narrowing 2. Nonspecific, multi station enlarged retroperitoneal lymphadenopathy
== END 2025-04-12 23:59 | disposition home or self-care (01) ==
LOC: RAD 16:56
PROVIDERS: PCP Nurse Practitioner Family; Visit Provider Nurse Practitioner Family
DX: M47.816 Spondylosis without myelopathy or radiculopathy, lumbar region (principal); M47.817 Spondylosis without myelopathy or radiculopathy, lumbosacral region; M99.73 Connective tissue and disc stenosis of intervertebral foramina of lumbar region; M51.369 Other intervertebral disc degeneration, lumbar region without mention of lumbar back pain or lower extremity pain; M51.86 Other intervertebral disc disorders, lumbar region; R59.0 Localized enlarged lymph nodes; Z68.41 Body mass index [BMI] 40.0-44.9, adult
CPT/HCPCS: 72148

== ENCOUNTER 2025-04-30 07:07 | Outpatient (CLI) | payer BC, SELFPAY ==
--- OUTSIDE RECORDS SUMMARY | 2025-03-14 06:00 | XMS_ITS | Encounter Summary ---
Author Organization [facility] Address [address] [place] [address] Phone [email or web address] [email or web address] Care Team Providers Care Mold Insert Changer Name Role Phone Andrey Charles MD Primary Care Provider [phone] Encounter Details Date Type Department Care Team (Late st Contact Info) Description 03/14/2025 7:00 AM EDT Office Visit [place] [address] [facility] [address] [place] [address] Negra Cole RN [address] [place] [address] Return to work evaluation (Primary [...] RN - 03/14/2025 7:00 AM EDT Subjective oJrge Washburn is a 63 y.o. male who presents for personal return to work after colonoscopy on 03/12/2025. 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
--- OUTSIDE RECORDS SUMMARY | 2025-03-14 06:30 | XMS_ITS | Encounter Summary ---
Author Organization [facility] Address [address] [place] [address] Phone CareEverywhereSuppor [email or web address] Care Team Providers Care Bass Guitar Teacher Name Role Phone Andrey Charles MD Primary Care Provider [phone] Encounter Details Date Type Department Care Team (Latest Contact Info) Description 03/14/2025 7:30 AM EDT Clinical Support MADINA Meza [facility] [address] [place] [address] Bailey Jacobs MD [address] [place] [address] Encounter for fitness for duty [...] work on line.Advised to contact PCP or genomics scientist to discuss his symptoms ANNETTA. RTC as needed or if worse. documented in this encounter Progress Notes * Bailey Jacobs MD - 03/14/2025 7:30 AM EDT Subjective Jorge Washburn is a 64 y.o. male. WD ID: [id number] Employer: [employer] Date of Hire: 10/1987 Cost [...] work on line.Advised to contact PCP or genomics scientist to discuss his symptoms ANNETTA. RTC as [...] giddiness documented in this encounter Care Teams Bass Guitar Teacher Relationship Specialty Start Date End Date Andrey Charles MD [address] [place] [address] DAVE PEREZ [id number] PCP - General Dean Of Graduate Studies 04/18/19 documented as of this encounter
--- OUTSIDE RECORDS SUMMARY | 2025-04-30 07:09 | XMS_ITS | Clinical Summary ---
Author Organization [facility] Address [address] [address] Phone Care Team Providers Care Research Consultant Name Role Phone Nicolasa CARRILLO, Gavin Unavailable [phone] Grace Negrete APRN Primary Care Provider [phone] Reason for Visit and Chief Complaint The Chief Complaint is: 1st PO R BEL Problems Includes: Problems addressed during this encounter and other active Problems Current Visit Onset Date Resolved Date Provider Conditio n Status Lower Back Pain 04/14/2022 Sekou Olvera PA-C A ctive Last Documented On 2 3:36PM ; [facility] Past Visits Onset Date Resolved Date Provider Condition Status Joint Pain Shoulder Bilateral 01/16/2025 Gavin Baldwin MD Active Last Documented On 5 2:58PM ; [facility] Joint Pain Hip Right 07/27/2024 Dorothy JO Active Last Documented On 5 11:46AM ; [facility] Joint Pain Left Knee 01/17/2024 Brittani Nava Active Last Documented On 4 3:18PM ; [facility] Plan of Treatment Instructions to patient Lose weight Last Documented On 5 9:55AM ; [facility] Assessments Includes: Assessments from this encounter Findings - Overweight - Last Documented On 11/03/2024 10:29AM ; [facility] Instructions Includes: Instructions from this encounter Instructions to patient Lose weight Last Documented On 5 9:55AM ; [facility] Medical Equipment - Implanted Devices Includes: Current Devices No Medical Equipment Recorded Medications Includes: Medications discussed during this encounter and other current Medications Discontinued / Stopped on this date on 06/13/2024 Meloxicam 15 MG Oral Tablet Provider: Diagnosis: Last Documented On 5 9:54AM By Vika Ceballos ; [facility] Current Medications (continue as prescribed) Jardiance 25 MG Oral Tablet 09/21/2024 Provider: Diagnosis: Last Documented On 5 11:47AM By Danielle Martins ; [facility] Vitamin D2 10 MCG (400 UNIT) Oral Tablet 09/21/2024 Provider: Diagnosis: Last Documented On 5 11:47AM By Danielle Martins ; [facility] Cyclobenzaprine HCl 10 MG Oral Tablet 09/21/2024 Pro vider: Diagnosis: Last Documented On 11:46AM By Danielle Martins ; [facility] Isosorbide Dinitrate 40 MG Oral Tablet 09/21/2024 Pr ovider: Diagnosis: Last Documented On 5 11:47AM By Danielle Martins ; [facility] hydrALAZINE HCl 50 MG Oral Tablet 09/21/2024 Provide r: Diagnosis: Last Documented On 5 11:48AM By Danielle Martins ; [facility] metFORMIN HCl 1000 MG Oral Tablet 09/21/2024 Provide r: Diagnosis: Last Documented On 5 11:48AM By Danielle Martins ; [facility] acetaZOLAMIDE 250 MG Oral Tablet 09/21/2024 Provider : Diagnosis: Last Documented On 5 11:46AM By Danielle Martins ; [facility] Latanoprost 0.005% Ophthalmic Solution 07/27/2024 Pr ovider: Diagnosis: Last Documented On 5 11:48AM By Danielle Martins ; [facility] Timolol Maleate 0.25% Ophthalmic Solution 07/27/2024 Provider: Diagnosis: Last Documented On 5 11:49AM By Danielle Martins ; [facility] Acetaminophen Extra Strength 500 MG Oral Tablet 2024 Provider: Diagnosis: Last Documented On 5 2:46PM By Sarah Hernandez ; [facility] Ibuprofen 200 MG Oral Tablet 07/20/2024 Provider: Diagnosis: Last Documented On 5 2:47PM By Sarah Hernandez ; [facility] HYDROcodone-Acetaminophen 5-325 MG Oral Tablet 025 Provider: Diagnosis: Last Documented On 5 8:18AM By Kevin Ray ; [facility] Atorvastatin Calcium 40 MG Oral Tablet 06/16/2024 Pr ovider: Grace Negrete BREAD BAKER Diagnosis: Last Documented On 5 10:08AM By Kevin Ray ; [facility] Ozempic (1 MG/DOSE) 4 MG/3ML Subcutaneous Solution Pen-injector 06/01/2024 Provider: Grace Negrete APRN Diagnosis: Last Documented On 5 10:08AM By Kevin Ray ; [facility] Benazepril HCl 40 MG Oral Tablet 09/21/2023 Provider : Grace Negrete APRN Diagnosis: Last Documented On 4 10:00AM By Regina Ordoñez ; [facility] Methocarbamol 750 MG Oral Tablet 08/30/2023 Provider : Sekou Olvera PA-C Diagnosis: Last Documented On 4 10:00AM By Regina Ordoñez ; [facility] Furosemide 20 MG Oral Tablet 07/10/2023 Provider: Grace Negrete APRN Diagnosis: Last Documented On 4 3:01PM By Shanna Echavarria ; [facility] Carvedilol 25 MG Oral Tablet 03/25/2023 Provider: Diagnosis: Last Documented On 4 3:01PM By Shanna Echavarria ; [facility] Past Medications on file traMADol HCl 50 MG Oral Tablet 10/31/2024 - 11/30/2024 Provider: Gavin Baldwin MD Diagnosis: 1 every bedtime Last Documented On 5 3:49PM By Gavin Baldwin ; [facility] traMADol HCl 50 MG Oral Tablet 10/09/2024 - 10/24/2024 Provider: Gavin Baldwin MD Diagnosis: 1-2 p o q 6-8h for breakthro ugh post op pain MAXIMUM 8 TABLETS PER DAY Last Documented On 5 8:36AM By Gavin Baldwin ; [facility] oxyCODONE HCl 5 MG Oral Tablet 10/06/2024 - 10/11/2024 Provider: Gavin Baldwin MD Diagnosis: 1-2 p o q 6-8h for post op pain MAXIMUM 6 TABLET S PER DAY Last Documented On 5 12:19PM By Gavin Baldwin ; [facility] Aspirin Adult Low Strength 8 1 MG Oral Tablet Delayed Release 10/06/2024 - 11/20/2024 Provider: Gavin Baldwin MD Diagnosis: twice a day Last Documented On 5 12:19PM By Gavin Baldwin ; [facility] Colace 100 MG Oral Capsule 10/06/2024 - 11/05/2024 Pro vider: Gavin Baldwin MD Diagnosis: 1-2 tabs daily as needed, AFTER SURGERY Last Documented On 5 12:19PM By Gavin Baldwin ; [facility] Cefadroxil 500 MG Oral Capsule 10/06/2024 - 10/09/2024 Provider: Gavin Baldwin MD Diagnosis: twice a day Last Documented On 5 12:19PM By Gavin Baldwin ; [facility] Acetaminophen 500 MG Oral Tablet 10/06/2024 - 11/06/19 Provider: Gavin Baldwin MD Diagnosis: 2 three times a day , AFTER SURGERY Last Documented On 5 12:19PM By Gavin Baldwin ; [facility] Meloxicam 15 MG Oral Tablet 10/06/2024 - 11/05/2024 Pr ovider: Gavin Baldwin MD Diagnosis: 1 every bedtime Last Documented On 5 12:19PM By Gavin Baldwin ; [facility] Ondansetron HCl 4 MG Oral Tablet 10/06/2024 - 10/21/19 25 Provider: Gavin Baldwin MD Diagnosis: 1-2 p o q 6-8h as needed for nausea Last Documented On 5 12:19PM By Gavin Baldwin ; [facility] oxyCODONE HCl 5 MG Oral Tablet 01/21/2024 - 01/26/2024 Provider: Gavin Baldwin MD Diagnosis: 1-2 p o q 6-8h for post op pain MAXIMUM 6 TABLET S PER DAY Last Documented On 4 9:11AM By Gavin Baldwin ; [facility] traMADol HCl 50 MG Oral Tablet 01/21/2024 - 01/28/2024 Provider: Gavin Baldwin MD Diagnosis: 1-2 p o q 6-8h for breakthro ugh post op pain MAXIMUM 8 TABLETS PER DAY Last Documented On 4 9:11AM By Gavin Baldwin ; [facility] Ondansetron HCl 4 MG Oral Tablet 12/31/2023 - 01/14/20 Provider: Gavin Baldwin MD Diagnosis: 1-2 p o q 6-8h as needed for nausea Last Documented On 4 9:14AM By Gavin Baldwin ; [facility] oxyCODONE HCl 5 MG Oral Tablet 12/31/2023 - 01/05/2024 Provider: Gavin Baldwin MD Diagnosis: 1-2 p o q 6-8h for post op pain MAXIMUM 6 TABLET S PER DAY Last Documented On 4 9:14AM By Gavin Baldwin ; [facility] Cefadroxil 500 MG Oral Capsule 12/31/2023 - 01/03/2024 Provider: Gavin Baldwin MD Diagnosis: twice a day Last Documented On 4 9:14AM By Gavin Baldwin ; [facility] traMADol HCl 50 MG Oral Tablet 12/31/2023 - 01/07/2024 Provider: Gavin Baldwin MD Diagnosis: 1-2 p o q 6-8h for breakthro ugh post op pain MAXIMUM 8 TABLETS PER DAY Last Documented On 4 9:14AM By Gavin Baldwin ; [facility] Colace 100 MG Oral Capsule 12/31/2023 - 01/30/2024 Pro vider: Gavin Baldwin MD Diagnosis: 1-2 tabs daily as needed, AFTER SURGERY Last Documented On 4 9:14AM By Gavin Baldwin ; [facility] Aspirin Adult Low Strength 8 1 MG Oral Tablet Delayed Release 12/31/2023 - 02/14/2024 Provider: Gavin Baldwin MD Diagnosis: twice a day Last Documented On 4 9:14AM By Gavin Baldwin ; [facility] Acetaminophen 500 MG Oral Tablet 12/31/2023 - 01/30/20 24 Provider: Gavin Baldwin MD Diagnosis: 2 three times a day , AFTER SURGERY Last Documented On 4 9:14AM By Gavin Baldwin ; [facility] Meloxicam 15 MG Oral Tablet 12/31/2023 - 01/30/2024 Pr ovider: Gavin Baldwin MD Diagnosis: 1 every bedtime Last Documented On 4 9:14AM By Gavin Baldwin ; [facility] Vitamin D (Ergocalciferol) 1 .25 MG (97121 UT) Oral Capsule 08/30/2023 - 11/22/2023 Provider: GOLDY Coreas MD Diagnosis: Last Documented On 4 3:01PM By Shanna Echavarria ; [facility] Methocarbamol 750 MG Oral Tablet 08/30/2023 - 09/29/19 24 Provider: Sekou Olvera PA-C Diagnosis: Take 1 tablet every 8 hrs prn pain Last Documented On 4 3:49PM By Shanna Echavarria ; [facility] amLODIPine Besylate 5 MG Ora l Tablet 08/30/2023 - 11/28/2023 Provider: GOLDY PENA MD Diagnosis: Last Documented On 4 3:01PM By Shanna Echavarria ; [facility] Medications Administered Includes: Administered Medications from this encounter No Administered Medications Recorded Vital Signs Includes: Vital Signs from this encounter Vital Name 10/26/2024 09:55A Height (in) 70 Weight (lb) 283 Body Mass Index 40.6 Body Surface Area 2.4 Note: bs Last Documented: On 10/26/2024 9:56AM ; [facility] Results Includes: Results discussed during this encounter No Results Recorded For Specified Dates History of Present Illness Includes: History of Present Illness from this encounter SHAILESH Washburn is a 64 year old male. - Allergy list reviewed - Problem list reviewed - Medication list reviewed - Previous history of new onset pain Injury is not work related or an automotive accident - Patient pain level from 1-10: 2 - No previous treatment. - Review of medications documented Social History Description Last Updated Exercising regularly 10/26/2024 Last Documented On 5 10:29AM ; [facility] No caffeine use 01/17/2024 Last Documented On 5 9:53AM ; [facility] No recent change in diet 01/17/2024 Last Documented On 5 9:53AM ; [facility] Not a current smoker. 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 Last Documented On 5 9:53AM ; [facility] Smoking Status Unknown Procedures and Surgical History Includes: Procedures from this encounter Procedures Code Diagnosis Performing Provider Service Location Service Date AP PELVIS w/ 1 VIEW HIP (RIGHT) [address]131 Unilateral primary osteoarthritis, right hip, Presence of right artificial hip joint Hong Villalta PA-C [facility] B 10/26/2024 Last Documented On 5 9:23AM ; [facility] Surgical History Last Updated History of Previous Fractures 01/17/2024 Last Documented On 5 9:53AM ; [facility] History of Past Surgical History: 2021 Last Documented On 5 9:53AM ; [facility] Medical History Includes: Medical History addressed during this encounter Description Last Updated History of Anemia 01/17/2024 Last Documented On 5 9:53AM ; [facility] History of arthritis 01/17/2024 Last Documented On 5 9:53AM ; [facility] History of depression 01/17/2024 Last Documented On 5 9:53AM ; [facility] History of heart disease 01/17/2024 Last Documented On 5 9:53AM ; [facility] History of Heartburn / Acid Reflux 01/16 Last Documented On 5 9:53AM ; [facility] History of Hypertension 01/17/2024 Last Documented On 5 9:53AM ; [facility] History of Sleep Apnea 01/17/2024 Last Documented On 5 9:53AM ; [facility] Use of CPAP 01/17/2024 Last Documented On 5 9:53AM ; [facility] History of gastric ulcer 04/21/2022 Last Documented On 5 9:53AM ; [facility] No recent immunization for flu 2 Last Documented On 5 9:53AM ; [facility] No recent immunization for pneumococcal pneumonia 04/21/2022 Last Documented On 5 9:53AM ; [facility] Family History Includes: Family History addressed during this encounter Description Last Updated Family history of cancer 01/17/2024 Last Documented On 5 9:53AM ; [facility] Family history of heart disease 01/17/20 24 Last Documented On 5 9:53AM ; [facility] Family history of rheumatoid arthritis 0 01/17/2024 Last Documented On 5 9:53AM ; [facility] Family history of systemic hypertension 01/17/2024 Last Documented On 5 9:53AM ; [facility] Stroke / Seizures 01/17/2024 Last Documented On 5 9:53AM ; [facility] Fraternal history of Stroke / Seizures 1 06/21/2021 Last Documented On 5 9:53AM ; [facility] Maternal grandfather's history of family history of heart disease 04/21/2022 Last Documented On 5 9:53AM ; [facility] Fraternal history of family history of h eart disease 04/21/2022 Last Documented On 5 9:53AM ; [facility] Fraternal history of systemic hypertensi on 04/21/2022 Last Documented On 5 9:53AM ; [facility] Maternal history of rheumatoid arthritis 04/21/2022 Last Documented On 5 9:53AM ; [facility] Paternal grandfather's history of family history of heart disease 04/21/2022 Last Documented On 5 9:53AM ; [facility] Paternal grandfather's history of system ic hypertension 04/21/2022 Last Documented On 5 9:53AM ; [facility] Paternal grandmother's history of rheuma toid arthritis 04/21/2022 Last Documented On 5 9:53AM ; [facility] Paternal history of family history of ca ncer 04/21/2022 Last Documented On 5 9:53AM ; [facility] Paternal history of family history of he art disease 04/21/2022 Last Documented On 5 9:53AM ; [facility] Paternal history of rheumatoid arthritis 04/21/2022 Last Documented On 5 9:53AM ; [facility] Paternal history of systemic hypertensio n 04/21/2022 Last Documented On 5 9:53AM ; [facility] Review of Systems Includes: Review of Systems from this encounter Systemic: Feeling tired. No recent weight loss and no recent weight gain. Head: No headache and no sinus pain. Eyes: No vision problems, no Cataracts, no Glasses/Contacts, and no Glaucoma. Otolaryngeal: Hearing loss. No tinnitus. Cardiovascular: No chest pain or discomfort and no palpitations. Hypertension. No High Cholesterol. Pulmonary: No daytime asthma symptoms and no chronic cough. No wheezing. Gastrointestinal: No heartburn and no abdominal pain. No Indigestion, no Peptic Ulcer, no GI Stomach Bleed, no Ulcers, and no Acid Reflux. Endocrine: No hot flashes, no muscle weakness, no Diabetes, no Hypothyroid, and no Hyperthyroid. Hematologic: No easy bleeding, no tendency for easy bruising, and no Anemia. Musculoskeletal: No Arthritis and no lower back pain. No soft tissue swelling and no localized joint pain. Neurological: No dizziness, no convulsions, and no numbness. Psychological: No anxiety, no emotional lability, no depression, and no insomnia. Not crying for no reason. Skin: No dry skin. No Ulcers, no Scars, and no rash. Allergic and Immunologic: No complaint of seasonal allergic reaction. Mental Status Includes: Mental Status from this encounter Description No anxiety Functional Status Includes: Functional Status from this encounter No Functional Status Recorded Physical Exam Includes: Physical Exam from this encounter Allergies Includes: Active Allergies Substance Type Reaction Onset Date Resolved Date Statu s Spironolactone Allergy Shortness of Breath / Dyspnea 09/21 Active Last Documented On 5 2:58PM ; [facility] Encounters Encounter Provider Location Date Check-In Time Check-Out Time Diagnosis Post Op Hong Villalta PA-C [facility] B 5 9:50AM 10:40AM Overweight Insurance Includes: Active Insurance Policies Plan Name Member ID Group # Subscriber Relationship Effect michael Dates 1 - [facility] [id number] Jorge Washburn Self 06/07/2021 - Unknown Clinical Notes Includes: Clinical Notes from this encounter * Progress note Date Encounter Last Documented by 10/26/2024 Post Op Last documented on 11/03/2024; 10:29 AM, Hong Villalta PA-C; [facility] Active Problems & Conditions - Joint Pain in the Left Knee - Joint Pain in the Right Hip - Lower Back Pain Chief Complaint The Chief Complaint is: 1st PO R BEL. Referred Here Referred by self. History of Present Illness Jorge Washburn is a 64 year old male. - Allergy list reviewed - Problem list reviewed - Medication list reviewed - Previous history of new onset pain Injury is not work related or an automotive accident - Patient pain level from 1-10: 2 - No previous treatment. - Review of medications documented Current Medication - Acetaminophen 500 MG Oral Tablet 2 three times a day , AFTER SURGERY, 10 days, 2 refills - Acetaminophen Extra Strength 500 MG Oral Tablet take as directed 0 days, 0 refills - acetaZOLAMIDE 250 MG Oral Tablet take as directed 0 days, 0 refills - Aspirin Adult Low Strength 81 MG Oral Tablet Delayed Release twice a day, 45 days, 0 refills - Atorvastatin Calcium 40 MG Oral Tablet 90 days, 0 refills - Benazepril HCl 40 MG Oral Tablet 90 days, 0 refills - Carvedilol 25 MG Oral Tablet 30 days, 0 refills - Colace 100 MG Oral Capsule 1-2 tabs daily as needed, AFTER SURGERY, 30 days, 0 refills - Cyclobenzaprine HCl 10 MG Oral Tablet take as directed 0 days, 0 refills - Furosemide 20 MG Oral Tablet 90 days, 0 refills - hydrALAZINE HCl 50 MG Oral Tablet take as directed 0 days, 0 refills - HYDROcodone-Acetaminophen 5-325 MG Oral Tablet 7 days, 0 refills - Ibuprofen 200 MG Oral Tablet take as directed 0 days, 0 refills - Isosorbide Dinitrate 40 MG Oral Tablet take as directed 0 days, 0 refills - Jardiance 25 MG Oral Tablet take as directed 0 days, 0 refills - Latanoprost 0.005% Ophthalmic Solution take as directed 0 days, 0 refills - Meloxicam 15 MG Oral Tablet 1 every bedtime, 30 days, 0 refills - metFORMIN HCl 1000 MG Oral Tablet take as directed 0 days, 0 refills - Methocarbamol 750 MG Oral Tablet 30 days, 0 refills - Ozempic (1 MG/DOSE) 4 MG/3ML Subcutaneous Solution Pen-injector 28 days, 0 refills - Timolol Maleate 0.25% Ophthalmic Solution take as directed 0 days, 0 refills - Vitamin D2 10 MCG (400 UNIT) Oral Tablet take as directed 0 days, 0 refills Past Medical/Surgical History Reported: Use of CPAP. Immunization History: No recent immunization for flu and not for pneumococcal pneumonia. Diagnoses: Heart disease. Anemia Sleep Apnea Heartburn / Acid Reflux Hypertension. Gastric ulcer. Arthritis. Depression Surgical: - Past Surgical History: - Previous Fractures Social History Not a current smoker. Current diet: No recent change in diet. Behavioral: Tobacco non-user. Caffeine: No caffeine use. Tobacco use: Never smoked. Alcohol: Not using alcohol. Never drank alcohol. Drug Use: Not using drugs. Never used drugs. Habits: Exercising regularly. 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 Allergies - Spironolactone Reaction: Shortness of Breath / Dyspnea (Moderate) Family History Cancer Heart disease Stroke / Seizures Systemic hypertension Rheumatoid arthritis Paternal: Cancer Heart disease Systemic hypertension Rheumatoid arthritis Maternal: Rheumatoid arthritis Paternal grandfather's: Heart disease Systemic hypertension Paternal grandmother's: Rheumatoid arthritis Maternal grandfather's: Heart disease Fraternal: Heart disease Stroke / Seizures Systemic hypertension Review Of Systems Systemic: Feeling tired. No recent weight loss and no recent weight gain. Head: No headache and no sinus pain. Eyes: No vision problems, no Cataracts, no Glasses/Contacts, and no Glaucoma. Otolaryngeal: Hearing loss. No tinnitus. Cardiovascular: No chest pain or discomfort and no palpitations. Hypertension. No High Cholesterol. Pulmonary: No daytime asthma symptoms and no chronic cough. No wheezing. Gastrointestinal: No heartburn and no abdominal pain. No Indigestion, no Peptic Ulcer, no GI Stomach Bleed, no Ulcers, and no Acid Reflux. Endocrine: No hot flashes, no muscle weakness, no Diabetes, no Hypothyroid, and no Hyperthyroid. Hematologic: No easy bleeding, no tendency for easy bruising, and no Anemia. Musculoskeletal: No Arthritis and no lower back pain. No soft tissue swelling and no localized joint pain. Neurological: No dizziness, no convulsions, and no numbness. Psychological: No anxiety, no emotional lability, no depression, and no insomnia. Not crying for no reason. Skin: No dry skin. No Ulcers, no Scars, and no rash. Allergic and Immunologic: No complaint of seasonal allergic reaction. Physical Findings - Vitals taken 10/26/2024 09:55 am bs Height 70 in Weight 283 lbs Body Mass Index 40.6 kg/m2 Body Surface Area 2.4 m2 Assessment - Overweight Counseling/Education Tobacco non-user. use of tobacco assessment performed. - Lose weight Plan StartCited - Other traMADol HCl 50 MG tablet 1 every bedtime, 30 days, 0 refills EndCited Notes This dictation was done with voice recognition software and may contain errors and omissions. Date of surgery: 10/09/2024 HPI: Right total hip direct anterior approach Review of systems: All systems within normal limits with exception of knee pain PHYSICAL EXAM: CONSTITUTIONAL: Well developed, well groomed, well nourished patient in no acute distress who appears stated age, height and weight. PSYCHIATRIC: The patient is alert and oriented to person, place, date and situation. Mood and affect are normal for current situation. NEUROLOGICAL: Sensation normal bilateral upper and lower extremities. LYMPHATIC: No pitting edema noted in the lower extremities. SKIN: No lesions noted on upper or lower extremities. Skin is dry, warm and with normal turgor. VASCULAR: No swelling in upper or lower extremities other than described below in extremity exam. Pulses normal in both upper (radial) extremities. GAIT AND STATION: Normal gait without assistive devices. Station normal. The patient has normal gait and station. There are no bony deformities to the leg. There is no muscle atrophy in the quad. The knee is placed through full functional range of motion both actively and passively without pain or limitation. There is normal strength and quadriceps. There is no locking of the joint. There was no palpable bony tenderness. Cruciate and chronic collateral ligaments were tested and showed no instability or pain. There is no joint effusion. There is no erythema or other signs of infection. There are no acute skin injuries. The patient has sensation to light touch over the lower extremity. Brisk cap refill throughout the lower extremity. No defect or pain is palpated in the quad or patellar tendon. There is no edema in the lower extremity. No signs of a DVT. Range of Motion: 0- of extension 120- of flexion with audible and palpable crepitus 4/5 motor strength Anterior and posterior drawers normal Varus valgus stress testing normal Images: Radiographs of the hip shows a well placed prosthetic without any loosening Assessment and plan: Right total hip direct anterior approach Follow up in 4-5 weeks Care Team - Grace Negrete APRN
--- OUTSIDE RECORDS SUMMARY | 2025-04-30 07:09 | XMS_ITS | Patient Health Record ---
Author Organization [facility] Jourdan altamirano Billing Info Address [address] [place] [id number] Support Name Relationship Address Phone Alberto Washburn Guarantor Unknown [phone] Reason For Referral No Information Medications Medication [...] Problem Status W/U Status Risk Notes Problem [id number] Acute bronchitis (466.0) Active confirmed Plan Of Treatment No Information Insurance Providers Payer Name Payer Address Payer Phone Subscriber Number Group Number Insured Name Patient Relationship to Insured Coverage Start Date Coverage End Date [place] [address] [facility] [place] [id number] Alberto Washburn Self - patient is the insured 4 4 Medical (General) History Medical History History ICD Code HTN hyperlipidemia Surgical History Surgery Date(Month/Year) Rt shoulder repair 2009 eye surgery bilateral age 4
--- OUTSIDE RECORDS SUMMARY | 2025-04-30 07:09 | XMS_ITS | Clinical Summary ---
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 Name Role Phone Nicolasa CARRILLO, Gavin Unavailable [phone] Grace Negrete APRN Primary Care Provider [phone] Reason for Visit and Chief Complaint The Chief Complaint is: shoulder pain Problems Includes: Problems addressed during this encounter and other active Problems Current Visit Onset Date Resolved Date Provider Conditio n Status Joint Pain Shoulder Bilateral 01/16/2025 Gavin Baldwin MD Active Last Documented On 5 2:58PM ; [facility], [facility] Lower Back Pain 04/14/2022 Sekou Olvera PA-C A ctive Last Documented On 2 3:36PM ; [facility] Past Visits Onset Date Resolved Date Provider Condition Status Joint Pain Hip Right 07/27/2024 Dorothy JO Active Last Documented On 5 11:46AM ; [facility], [facility] Joint Pain Left Knee 01/17/2024 Brittani Nava Active Last Documented On 4 3:18PM ; [facility], [facility] Plan of Treatment Patient is placed on Thera-Band strengthening program and anti-inflammatories if this is not improving he will let us know regarding the left shoulder we can see him sooner otherwise not a month follow up for 1 year x-ray of the right hip - Last Documented On 01/19/2025 12:00PM ; [facility], [facility] Pending Tests Order Diagnosis Results Due Ordering P rovider Lab Hemoglobin A1c 12/16/23 Gavin hilton MD Last Documented On 4 10:16AM ; [facility] Lab CBC With Differential/Platelet 12/15 Gavin Baldwin MD Last Documented On 4 10:16AM ; [facility] Lab Prothrombin Time (PT) 12/16/23 Ruperto Baldwin MD Last Documented On 4 10:16AM ; [facility] Lab PTT, Activated 12/16/23 Gavin hilton MD Last Documented On 4 10:16AM ; [facility] Lab Prealbumin 12/16/23 Gavin Rincon Last Documented On 4 10:16AM ; [facility] Lab Fructosamine 12/16/23 Gavin Baldwin MD Last Documented On 4 10:16AM ; [facility] Lab MRSA by MUKESH 12/16/23 Gavin Baldwin MD Last Documented On 4 10:16AM ; [facility] Lab Comp. Metabolic Panel (14) 12/16/23 Gavin Baldwin MD Last Documented On 4 10:16AM ; [facility] Instructions to patient Lose weight Last Documented On 5 2:58PM ; [facility] Assessments Includes: Assessments from this encounter Findings - Overweight - Last Documented On 01/19/2025 12:00PM ; [facility] Instructions Includes: Instructions from this encounter Instructions to patient Lose weight Last Documented On 5 2:58PM ; [facility] Medical Equipment - Implanted Devices Includes: Current Devices No Medical Equipment Recorded Medications Includes: Medications discussed during this encounter and other current Medications Current Medications (continue as prescribed) Jardiance 25 MG Oral Tablet 09/21/2024 Provider: Diagnosis: Last Documented On 5 11:47AM By Danielle Macedo [facility] Vitamin D2 10 MCG (400 UNIT) Oral Tablet 09/21/2024 Provider: Diagnosis: Last Documented On 5 11:47AM By Danielle Martins ; [facility] Cyclobenzaprine HCl 10 MG Oral Tablet 09/21/2024 Pro vider: Diagnosis: Last Documented On 5 11:46AM By Danielle Martins ; [facility] Isosorbide Dinitrate 40 MG Oral Tablet 09/21/2024 Pr ovider: Diagnosis: Last Documented On 5 11:47AM By Danielle Martins ; [facility] hydrALAZINE HCl 50 MG Oral Tablet 09/21/2024 Provide r: Diagnosis: Last Documented On 5 11:48AM By Danielle Martins ; [facility] metFORMIN HCl 1000 MG Oral Tablet 09/21/2024 Provide r: Diagnosis: Last Documented On 5 11:48AM By Danielle Martins ; [facility] acetaZOLAMIDE 250 MG Oral Tablet 09/21/2024 Provider : Diagnosis: Last Documented On 5 11:46AM By Danielle Martins ; [facility] Latanoprost 0.005% Ophthalmic Solution 07/27/2024 Pr ovider: Diagnosis: Last Documented On 5 11:48AM By Danielle Martins ; [facility] Timolol Maleate 0.25% Ophthalmic Solution 07/27/2024 Provider: Diagnosis: Last Documented On 5 11:49AM By Danielle Martins ; [facility] Acetaminophen Extra Strength 500 MG Oral Tablet 2024 Provider: Diagnosis: Last Documented On 5 2:46PM By Sarah Hernandez ; [facility] Ibuprofen 200 MG Oral Tablet 07/20/2024 Provider: Diagnosis: Last Documented On 5 2:47PM By Sarah Hernandez ; [facility] HYDROcodone-Acetaminophen 5-325 MG Oral Tablet 025 Provider: Diagnosis: Last Documented On 5 8:18AM By Kevin Ray ; [facility] Atorvastatin Calcium 40 MG Oral Tablet 06/16/2024 Pr ovider: Grace Negrete APRN Diagnosis: Last Documented On 5 10:08AM By Kevin Ray ; [facility] Ozempic (1 MG/DOSE) 4 MG/3ML Subcutaneous Solution Pen-injector 06/01/2024 Provider: Grace Negrete APRN Diagnosis: Last Documented On 5 10:08AM By Kevin Ray ; [facility], [facility] Benazepril HCl 40 MG Oral Tablet 09/21/2023 Provider : Grace Negrete APRN Diagnosis: Last Documented On 4 10:00AM By Regina Ordoñez ; [facility], [facility] Methocarbamol 750 MG Oral Tablet 08/30/2023 Provider : Sekou Olvera PA-C Diagnosis: Last Documented On 4 10:00AM By Regina Ordoñez ; [facility], [facility] Furosemide 20 MG Oral Tablet 07/10/2023 Provider: Grace Negrete APRN Diagnosis: Last Documented On 4 3:01PM By Shanna Echavarria ; [facility], [facility] Carvedilol 25 MG Oral Tablet 03/25/2023 Provider: Diagnosis: Last Documented On 4 3:01PM By Shanna Echavarria ; [facility], [facility] Past Medications on file traMADol HCl 50 MG Oral Tablet 10/31/2024 - 11/30/2024 Provider: Gavin Baldwin MD Diagnosis: 1 every bedtime Last Documented On 5 3:49PM By Gavin Baldwin ; [facility], [facility] traMADol HCl 50 MG Oral Tablet 10/09/2024 - 10/24/2024 Provider: Gavin Baldwin MD Diagnosis: 1-2 p o q 6-8h for breakthro ugh post op pain MAXIMUM 8 TABLETS PER DAY Last Documented On 5 8:36AM By Gavin Baldwin ; [facility], [facility] oxyCODONE HCl 5 MG Oral Tablet 10/06/2024 - 10/11/2024 Provider: Gavin Baldwin MD Diagnosis: 1-2 p o q 6-8h for post op pain MAXIMUM 6 TABLET S PER DAY Last Documented On 5 12:19PM By Gavin Baldwin ; [facility], [facility] Aspirin Adult Low Strength 8 1 MG Oral Tablet Delayed Release 10/06/2024 - 11/20/2024 Provider: Gavin Baldwin MD Diagnosis: twice a day Last Documented On 5 12:19PM By Gavin Baldwin ; [facility], [facility] Colace 100 MG Oral Capsule 10/06/2024 - 11/05/2024 Pro vider: Gavin Baldwin MD Diagnosis: 1-2 tabs daily as needed, AFTER SURGERY Last Documented On 5 12:19PM By Gavin Baldwin ; [facility] Cefadroxil 500 MG Oral Capsule 10/06/2024 - 10/09/2024 Provider: Gavin Baldwin MD Diagnosis: twice a day Last Documented On 5 12:19PM By Gavin Baldwin ; [facility], [facility] Acetaminophen 500 MG Oral Tablet 10/06/2024 - 11/06/19 Provider: Gavin Baldwin MD Diagnosis: 2 three times a day , AFTER SURGERY Last Documented On 5 12:19PM By Gavin Baldwin ; [facility], [facility] Meloxicam 15 MG Oral Tablet 10/06/2024 - 11/05/2024 Pr ovider: Gavin Baldwin MD Diagnosis: 1 every bedtime Last Documented On 5 12:19PM By Gavin Baldwin ; [facility], [facility] Ondansetron HCl 4 MG Oral Tablet 10/06/2024 - 10/21/19 Provider: Gavin Baldwin MD Diagnosis: 1-2 p o q 6-8h as needed for nausea Last Documented On 5 12:19PM By Gavin Baldwin ; [facility], [facility] oxyCODONE HCl 5 MG Oral Tablet 01/21/2024 - 01/26/2024 Provider: Gavin Baldwin MD Diagnosis: 1-2 p o q 6-8h for post op pain MAXIMUM 6 TABLET S PER DAY Last Documented On 4 9:11AM By Gavin Baldwin ; [facility] traMADol HCl 50 MG Oral Tablet 01/21/2024 - 01/28/2024 Provider: Gavin Baldwin MD Diagnosis: 1-2 p o q 6-8h for breakthro ugh post op pain MAXIMUM 8 TABLETS PER DAY Last Documented On 4 9:11AM By Gavin Baldwin ; [facility], [facility] Ondansetron HCl 4 MG Oral Tablet 12/31/2023 - 01/14/20 24 Provider: Gavin Baldwin MD Diagnosis: 1-2 p o q 6-8h as needed for nausea Last Documented On 4 9:14AM By Gavin Baldwin ; [facility], [facility] oxyCODONE HCl 5 MG Oral Tablet 12/31/2023 - 01/05/2024 Provider: Gavin Baldwin MD Diagnosis: 1-2 p o q 6-8h for post op pain MAXIMUM 6 TABLET S PER DAY Last Documented On 4 9:14AM By Gavin Baldwin ; [facility], [facility] Cefadroxil 500 MG Oral Capsule 12/31/2023 - 01/03/2024 Provider: Gavin Baldwin MD Diagnosis: twice a day Last Documented On 4 9:14AM By Gavin Baldwin ; [facility], [facility] traMADol HCl 50 MG Oral Tablet 12/31/2023 - 01/07/2024 Provider: Gavin Baldwin MD Diagnosis: 1-2 p o q 6-8h for breakthro ugh post op pain MAXIMUM 8 TABLETS PER DAY Last Documented On 4 9:14AM By Gavin Baldwin ; [facility], [facility] Colace 100 MG Oral Capsule 12/31/2023 - 01/30/2024 Pro vider: Gavin Baldwin MD Diagnosis: 1-2 tabs daily as needed, AFTER SURGERY Last Documented On 4 9:14AM By Gavin Baldwin ; [facility], [facility] Aspirin Adult Low Strength 8 1 MG Oral Tablet Delayed Release 12/31/2023 - 02/14/2024 Provider: Gavin Baldwin MD Diagnosis: twice a day Last Documented On 4 9:14AM By Gavin Baldwin ; [facility], [facility] Acetaminophen 500 MG Oral Tablet 12/31/2023 - 01/30/20 Provider: Gavin Baldwin MD Diagnosis: 2 three times a day , AFTER SURGERY Last Documented On 4 9:14AM By Gavin Baldwin ; [facility], [facility] Meloxicam 15 MG Oral Tablet 12/31/2023 - 01/30/2024 Pr ovider: Gavin Baldwin MD Diagnosis: 1 every bedtime Last Documented On 4 9:14AM By Gavin Baldwin ; [facility], [facility] Vitamin D (Ergocalciferol) 1 .25 MG (04777 UT) Oral Capsule 08/30/2023 - 11/22/2023 Provider: GOLDY Coreas MD Diagnosis: Last Documented On 4 3:01PM By Shanna Echavarria ; [facility], [facility] Methocarbamol 750 MG Oral Tablet 08/30/2023 - 09/29/19 Provider: Sekou Ovlera PA-C Diagnosis: Take 1 tablet every 8 hrs prn pain Last Documented On 4 3:49PM By Shanna Echavarria ; [facility] amLODIPine Besylate 5 MG Ora l Tablet 08/30/2023 - 11/28/2023 Provider: GOLDY PENA MD Diagnosis: Last Documented On 3:01PM By Shanna Echavarria ; [facility], [facility] Medications Administered Includes: Administered Medications from this encounter No Administered Medications Recorded Vital Signs Includes: Vital Signs from this encounter Vital Name 01/16/2025 02:59P Height (in) 70 Weight (lb) 285 Body Mass Index 40.9 Body Surface Area 2.4 Note: [facility] Last Documented: On 01/16/2025 2:59PM ; [facility], [facility] Results Includes: Results discussed during this encounter No Results Recorded For Specified Dates History of Present Illness Includes: History of Present Illness from this encounter HPI Jorge Washburn is a 64 year old male. - Allergy list reviewed - Problem list reviewed - Medication list reviewed - Previous history of new onset pain Injury is not work related or an automotive accident - Patient pain level from 1-10: 2 - No previous treatment. - Review of medications documented Follow up 3 months out from right total replacement patient is doing well no complaints some left shoulder pain as well which is developed over the last couple of months anterolateral radiating to the elbow Social History Description Last Updated Exercising regularly 10/26/2024 Last Documented On 5 2:58PM ; [facility] No caffeine use 01/17/2024 Last Documented On 5 2:58PM ; [facility], [facility] No recent change in diet 01/17/2024 Last Documented On 5 2:58PM ; [facility], [facility] Not a current smoker. 01/17/2024 Last Documented On 5 2:58PM ; [facility], [facility] Not using alcohol 01/17/2024 Last Documented On 5 2:58PM ; [facility], [facility] Not using drugs 01/17/2024 Last Documented On 5 2:58PM ; [facility], [facility] Never drank alcohol 04/21/2022 Last Documented On 5 2:58PM ; [facility], [facility] Never smoked 04/21/2022 Last Documented On 5 2:58PM ; [facility], [facility] Never used drugs 04/21/2022 Last Documented On 5 2:58PM ; [facility], [facility] Tobacco non-user 04/21/2022 Last Documented On 5 2:58PM ; [facility], [facility] 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 Last Documented On 5 2:58PM ; [facility], [facility] Smoking Status Unknown Procedures and Surgical History Surgical History Last Updated History of Previous Fractures 01/17/2024 Last Documented On 5 2:58PM ; [facility], [facility] History of Past Surgical History: 2021 Last Documented On 5 2:58PM ; [facility], [facility] Medical History Includes: Medical History addressed during this encounter Description Last Updated History of Anemia 01/17/2024 Last Documented On 5 2:58PM ; [facility], [facility] History of arthritis 01/17/2024 Last Documented On 5 2:58PM ; [facility], [facility] History of depression 01/17/2024 Last Documented On 5 2:58PM ; [facility], [facility] History of heart disease 01/17/2024 Last Documented On 5 2:58PM ; [facility], [facility] History of Heartburn / Acid Reflux 01/16 Last Documented On 5 2:58PM ; [facility], [facility] History of Hypertension 01/17/2024 Last Documented On 5 2:58PM ; [facility], [facility] History of Sleep Apnea 01/17/2024 Last Documented On 5 2:58PM ; [facility], [facility] Use of CPAP 01/17/2024 Last Documented On 5 2:58PM ; [facility] History of gastric ulcer 04/21/2022 Last Documented On 5 2:58PM ; [facility], [facility] No recent immunization for flu Last Documented On 5 2:58PM ; [facility] No recent immunization for pneumococcal pneumonia 04/21/2022 Last Documented On 5 2:58PM ; [facility], [facility] Family History Includes: Family History addressed during this encounter Description Last Updated Family history of cancer 01/17/2024 Last Documented On 5 2:58PM ; [facility] Family history of heart disease 01/17/20 24 Last Documented On 5 2:58PM ; [facility] Family history of rheumatoid arthritis 0 01/17/2024 Last Documented On 5 2:58PM ; [facility] Family history of systemic hypertension 01/17/2024 Last Documented On 5 2:58PM ; [facility] Stroke / Seizures 01/17/2024 Last Documented On 5 2:58PM ; [facility] Review of Systems Includes: Review of Systems [...] Active Last Documented On 5 2:58PM ; [facility], [facility] Encounters Encounter Provider Location Date Check-In Time Check-Out Time Diagnosis NEW PROBLEM/EST PT Gavin Baldwin MD [facility] 01/17/20 25 2:57PM 3:32PM Overweight Insurance Includes: Active Insurance Policies Plan Name Member ID Group # Subscriber Relationship Effect michael Dates 1 - [facility] [id number] Jorge Washburn Self 06/07/2021 - Unknown Clinical Notes Includes: Clinical Notes from this encounter * Progress note Date Encounter Last Documented by 01/16/2025 NEW PROBLEM/EST PT Last document ed on 01/19/2025; 12:00 PM, Gavin Baldwin MD; [facility] Active Problems & Conditions - Joint Pain in the Left Knee - Joint Pain in the Right Hip - Joint Pain, Localized in Both Shoulders - Lower Back Pain Chief Complaint The Chief Complaint is: Shoulder pain. Referred Here Referred by self. History of Present Illness Jorge Washburn is a 64 year old male. - Allergy list reviewed - Problem list reviewed - Medication list reviewed - Previous history of new onset pain Injury is not work related or an automotive accident - Patient pain level from 1-10: 2 - No previous treatment. - Review of medications documented Follow up 3 months out from right total replacement patient is doing well no complaints some left shoulder pain as well which is developed over the last couple of months anterolateral radiating to the elbow Current Medication - Acetaminophen Extra Strength 500 MG Oral Tablet take as directed 0 days, 0 refills - acetaZOLAMIDE 250 MG Oral Tablet take as directed 0 days, 0 refills - Atorvastatin Calcium 40 MG Oral Tablet 90 days, 0 refills - Benazepril HCl 40 MG Oral Tablet 90 days, 0 refills - Carvedilol 25 MG Oral Tablet 30 days, 0 refills - Cyclobenzaprine HCl [...] as directed 0 days, 0 refills - metFORMIN HCl 1000 [...] used drugs. Habits: Exercising regularly. 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 Allergies - Spironolactone Reaction: Shortness of Breath / Dyspnea (Moderate) Family History Cancer Heart disease Stroke / Seizures Systemic hypertension Rheumatoid arthritis Review Of Systems Systemic: Feeling tired. No [...] allergic reaction. Physical Findings - Vitals taken 01/16/2025 02:59 pm [facility] Height 70 in 60 - 80 Weight 285 lbs 123 - 215 Body Mass Index 40.9 kg/m2 Body Surface Area 2.4 m2 Right hip incision well healed normal gait leg lengths are equal good stability in strength is noted about the right hip muscle function is normal Left shoulder mild positive impingement sign with bursal tenderness and biceps tenderness Assessment - Overweight Counseling/Education Tobacco non-user. use of tobacco assessment performed. - Lose weight Plan Patient is placed on Thera-Band strengthening program and anti-inflammatories if this is not improving he will let us know regarding the left shoulder we can see him sooner otherwise not a month follow up for 1 year x-ray of the right hip Notes This dictation was done with voice recognition software and may contain errors and omissions. Care Team - Grace Negrete APRN
--- OUTSIDE RECORDS SUMMARY | 2025-04-30 07:09 | XMS_ITS | Clinical Summary ---
Author Organization [facility] Address [address] [place] [address] Phone [email or web address] Care Team Providers Care Paper Rewinder Name Role Phone Andrey Charles MD Primary Care Provider [phone] Allergies Active Allergy Reactions Criticality Noted Date [...] Instructions: 2 Active Vitamin D3 1.25 MG (49051 UT) capsule Take 50,000 Units by mouth [...] Active metFORMIN 1000 MG tablet 5 Active Active Problems Problem [...] Description 03/14/2025 7:30 AM EDT Clinical Support [facility] [place] [facility] [address] [place] [address] Bailey Jacobs MD Encounter for fitness for duty examination (Primary Dx); Lightheadedness 03/14/2025 7:00 AM EDT Office Visit [facility] [place] [address] [place] [address] Negra Cole RN Return to work evaluation (Primary Dx) from [...] 12 lead (03/14/2025 8:59 AM EDT) Impressions Baiely Jacobs MD - 03/14/2025 8:59 AM EDT sinus rhythm, no acute changes us Bailey Jacobs MD ECG ORDERABLES Edited Re sult - Final from Last 3 Months Insurance [employer] [id number] [place] [address] Care Teams Paper Rewinder Relationship Specialty Start Date End Date Andrey Charles MD [address] [place] [address] DAVE PEREZ [id number] 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
--- OUTSIDE RECORDS SUMMARY | 2025-04-30 07:09 | XMS_ITS | Clinical Summary ---
Author Organization [facility] Address [address] [place] [address] Phone Care Team Providers Care Flooring Installer Name Role Phone Nicolasa CARRILLO, Gavin Unavailable [phone] Grace Negrete APRN Primary Care Provider [phone] Reason for Visit and Chief Complaint The Chief Complaint is: 1st PO R BEL Problems Includes: Problems addressed during this encounter and other active Problems Current Visit Onset Date Resolved Date Provider Conditio n Status Lower Back Pain 04/14/2022 Sekou Olvera PA-C A ctive Last Documented On 2 3:36PM ; [facility] Past Visits Onset Date Resolved Date Provider Condition Status Joint Pain Shoulder Bilateral 01/16/2025 Gavin Baldwin MD Active Last Documented On 5 2:58PM ; [facility] Joint Pain Hip Right 07/27/2024 Dorothy JO Active Last Documented On 5 11:46AM ; [facility], [facility] Joint Pain Left Knee 01/17/2024 Brittani Nava Active Last Documented On 4 3:18PM ; [facility], [facility] Plan of Treatment Pelvis and hip x-rays show good alignment of implants with the equal leg lengths no problems patient is doing well right hip replacement we will see him back in 6-8 weeks returned to work trial basis without restrictions December 11, 2024 - Last Documented On 11/28/2024 9:20AM ; [facility] Pending Tests Order Diagnosis Results Due Ordering P rovider Lab Hemoglobin A1c 12/16/23 Gavin hilton MD Last Documented On 4 10:16AM ; [facility] Lab CBC With Differential/Platelet 12/15 Gavin Baldwin MD Last Documented On 4 10:16AM ; [facility] Lab Prothrombin Time (PT) 12/16/23 Ruperto Baldwin MD Last Documented On 4 10:16AM ; [facility] Lab PTT, Activated 12/16/23 Gavin hilton MD Last Documented On 4 10:16AM ; [facility] Lab Prealbumin 12/16/23 Gavin Rincon Last Documented On 4 10:16AM ; [facility] Lab Fructosamine 12/16/23 Gavin Baldwin MD Last Documented On 4 10:16AM ; [facility] Lab MRSA by MUKESH 12/16/23 Gavin Baldwin MD Last Documented On 4 10:16AM ; [facility] Lab Comp. Metabolic Panel (14) 12/16/23 Gavin Baldwin MD Last Documented On 4 10:16AM ; [facility] Instructions to patient Lose weight Last Documented On 5 2:07PM ; [facility] Assessments Includes: Assessments from this encounter Findings - Overweight - Last Documented On 11/28/2024 9:20AM ; [facility] Instructions Includes: Instructions from this encounter Instructions to patient Lose weight Last Documented On 5 2:07PM ; [facility] Medical Equipment - Implanted Devices Includes: Current Devices No Medical Equipment Recorded Medications Includes: Medications discussed during this encounter and other current Medications Current Medications (continue as prescribed) Jardiance 25 MG Oral Tablet 09/21/2024 Provider: Diagnosis: Last Documented On 5 11:47AM By Danielle Martins ; [facility] Vitamin D2 10 MCG (400 UNIT) Oral Tablet 09/21/2024 Provider: Diagnosis: Last Documented On 5 11:47AM By Danielle Martins ; [facility] Cyclobenzaprine HCl 10 MG Oral Tablet 09/21/2024 Pro vider: Diagnosis: Last Documented On 5 11:46AM By Danielle Martins ; [facility] Isosorbide Dinitrate 40 MG Oral Tablet 09/21/2024 Pr ovider: Diagnosis: Last Documented On 5 11:47AM By Danielle Martins ; [facility] hydrALAZINE HCl 50 MG Oral Tablet 09/21/2024 Provide r: Diagnosis: Last Documented On 5 11:48AM By Danielle Martins ; [facility] metFORMIN HCl 1000 MG Oral Tablet 09/21/2024 Provide r: Diagnosis: Last Documented On 5 11:48AM By Danielle Martins ; [facility] acetaZOLAMIDE 250 MG Oral Tablet 09/21/2024 Provider : Diagnosis: Last Documented On 5 11:46AM By Danielle Martins ; [facility] Latanoprost 0.005% Ophthalmic Solution 07/27/2024 Pr ovider: Diagnosis: Last Documented On 5 11:48AM By Danielle Martins ; [facility] Timolol Maleate 0.25% Ophthalmic Solution 07/27/2024 Provider: Diagnosis: Last Documented On 5 11:49AM By Danielle Martins ; [facility] Acetaminophen Extra Strength 500 MG Oral Tablet 2024 Provider: Diagnosis: Last Documented On 5 2:46PM By Sarah Hernandez ; [facility] Ibuprofen 200 MG Oral Tablet 07/20/2024 Provider: Diagnosis: Last Documented On 5 2:47PM By Sarah Hernandez ; [facility] HYDROcodone-Acetaminophen 5-325 MG Oral Tablet 025 Provider: Diagnosis: Last Documented On 5 8:18AM By Kevin Ray ; [facility] Atorvastatin Calcium 40 MG Oral Tablet 06/16/2024 Pr ovider: Grace Negrete APRN Diagnosis: Last Documented On 5 10:08AM By Kevin Ray ; [facility] Ozempic (1 MG/DOSE) 4 MG/3ML Subcutaneous Solution Pen-injector 06/01/2024 Provider: Grace Negrete APRN Diagnosis: Last Documented On 5 10:08AM By Kevin Ray ; [facility], [facility] Benazepril HCl 40 MG Oral Tablet 09/21/2023 Provider : Grace Negrete APRN Diagnosis: Last Documented On 4 10:00AM By Regina Ordoñez ; [facility], [facility] Methocarbamol 750 MG Oral Tablet 08/30/2023 Provider : Sekou Olvera PA-C Diagnosis: Last Documented On 4 10:00AM By Rgeina Ordoeñz ; [facility], [facility] Furosemide 20 MG Oral Tablet 07/10/2023 Provider: Grace Negrete APRN Diagnosis: Last Documented On 4 3:01PM By Shanna Echavarria ; [facility], [facility] Carvedilol 25 MG Oral Tablet 03/25/2023 Provider: Diagnosis: Last Documented On 4 3:01PM By Shanna Echavarria ; [facility], [facility] Past Medications on file traMADol HCl 50 MG Oral Tablet 10/31/2024 - 11/30/2024 Provider: Gavin Baldwin MD Diagnosis: 1 every bedtime Last Documented On 5 3:49PM By Gavin Baldwin ; [facility], [facility] traMADol HCl 50 MG Oral Tablet 10/09/2024 - 10/24/2024 Provider: Gavin Baldwin MD Diagnosis: 1-2 p o q 6-8h for breakthro ugh post op pain MAXIMUM 8 TABLETS PER DAY Last Documented On 5 8:36AM By Gavin Baldwin ; [facility], [facility] oxyCODONE HCl 5 MG Oral Tablet 10/06/2024 - 10/11/2024 Provider: Gavin Baldwin MD Diagnosis: 1-2 p o q 6-8h for post op pain MAXIMUM 6 TABLET S PER DAY Last Documented On 5 12:19PM By Gavin Baldwin ; [facility], [facility] Aspirin Adult Low Strength 8 1 MG Oral Tablet Delayed Release 10/06/2024 - 11/20/2024 Provider: Gavin Baldwin MD Diagnosis: twice a day Last Documented On 5 12:19PM By Gavin Baldwin ; [facility], [facility] Colace 100 MG Oral Capsule 10/06/2024 - 11/05/2024 Pro vider: Gavin Baldwin MD Diagnosis: 1-2 tabs daily as needed, AFTER SURGERY Last Documented On 5 12:19PM By Gavin Baldwin ; [facility] Cefadroxil 500 MG Oral Capsule 10/06/2024 - 10/09/2024 Provider: Gavin Baldwin MD Diagnosis: twice a day Last Documented On 5 12:19PM By Gavin Baldwin ; [facility] Acetaminophen 500 MG Oral Tablet 10/06/2024 - 11/06/19 25 Provider: Gavin Baldwin MD Diagnosis: 2 three times a day , AFTER SURGERY Last Documented On 5 12:19PM By Gavin Baldwin ; [facility], [facility] Meloxicam 15 MG Oral Tablet 10/06/2024 - 11/05/2024 Pr ovider: Gavin Baldwin MD Diagnosis: 1 every bedtime Last Documented On 5 12:19PM By Gavin Baldwin ; [facility], [facility] Ondansetron HCl 4 MG Oral Tablet 10/06/2024 - 10/21/19 25 Provider: Gavin Baldwin MD Diagnosis: 1-2 p o q 6-8h as needed for nausea Last Documented On 5 12:19PM By Gavin Baldwin ; [facility], [facility] oxyCODONE HCl 5 MG Oral Tablet 01/21/2024 - 01/26/2024 Provider: Gavin Baldwin MD Diagnosis: 1-2 p o q 6-8h for post op pain MAXIMUM 6 TABLET S PER DAY Last Documented On 4 9:11AM By Gavin Baldwin ; [facility] traMADol HCl 50 MG Oral Tablet 01/21/2024 - 01/28/2024 Provider: Gavin Baldwin MD Diagnosis: 1-2 p o q 6-8h for breakthro ugh post op pain MAXIMUM 8 TABLETS PER DAY Last Documented On 4 9:11AM By Gavin Baldwin ; [facility], [facility] Ondansetron HCl 4 MG Oral Tablet 12/31/2023 - 01/14/20 24 Provider: Gavin Baldwin MD Diagnosis: 1-2 p o q 6-8h as needed for nausea Last Documented On 4 9:14AM By Gavin Baldwin ; [facility], [facility] oxyCODONE HCl 5 MG Oral Tablet 12/31/2023 - 01/05/2024 Provider: Gavin Baldwin MD Diagnosis: 1-2 p o q 6-8h for post op pain MAXIMUM 6 TABLET S PER DAY Last Documented On 4 9:14AM By Gavin Baldwin ; [facility], [facility] Cefadroxil 500 MG Oral Capsule 12/31/2023 - 01/03/2024 Provider: Gavin Baldwin MD Diagnosis: twice a day Last Documented On 4 9:14AM By Gavin Baldwin ; [facility], [facility] traMADol HCl 50 MG Oral Tablet 12/31/2023 - 01/07/2024 Provider: Gavin Baldwin MD Diagnosis: 1-2 p o q 6-8h for breakthro ugh post op pain MAXIMUM 8 TABLETS PER DAY Last Documented On 4 9:14AM By Gavin Baldwin ; [facility], [facility] Colace 100 MG Oral Capsule 12/31/2023 - 01/30/2024 Pro vider: Gavin Baldwin MD Diagnosis: 1-2 tabs daily as needed, AFTER SURGERY Last Documented On 4 9:14AM By Gavin Baldwin ; [facility], [facility] Aspirin Adult Low Strength 8 1 MG Oral Tablet Delayed Release 12/31/2023 - 02/14/2024 Provider: Gavin Baldwin MD Diagnosis: twice a day Last Documented On 4 9:14AM By Gavin Macedo [facility], [facility] Acetaminophen 500 MG Oral Tablet 12/31/2023 - 01/30/20 Provider: Gavin Baldwin MD Diagnosis: 2 three times a day , AFTER SURGERY Last Documented On 4 9:14AM By Gavin Baldwin ; [facility], [facility] Meloxicam 15 MG Oral Tablet 12/31/2023 - 01/30/2024 Pr ovider: Gavin Baldwin MD Diagnosis: 1 every bedtime Last Documented On 4 9:14AM By Gavin Baldwin ; [facility], [facility] Vitamin D (Ergocalciferol) 1 .25 MG (23804 UT) Oral Capsule 08/30/2023 - 11/22/2023 Provider: GOLDY Coreas MD Diagnosis: Last Documented On 4 3:01PM By Shanna Echavarria ; [facility] Methocarbamol 750 MG Oral Tablet 08/30/2023 - 09/29/19 Provider: Sekou Olvera PA-C Diagnosis: Take 1 tablet every 8 hrs prn pain Last Documented On 4 3:49PM By Shanna Echavarria ; [facility] amLODIPine Besylate 5 MG Ora l Tablet 08/30/2023 - 11/28/2023 Provider: GOLDY PENA MD Diagnosis: Last Documented On 4 3:01PM By Shanna Echavarria ; [facility] Medications Administered Includes: Administered Medications from this encounter No Administered Medications Recorded Vital Signs Includes: Vital Signs from this encounter Vital Name 11/23/2024 02:07P Height (in) 70 Weight (lb) 283 Body Mass Index 40.6 Body Surface Area 2.4 Note: bm Last Documented: On 11/23/2024 2:07PM ; [facility] Results Includes: Results discussed during this encounter [...] previous treatment. - Review of medications documented Right total hip is doing well patient is still some soreness but it is doing better his standing and walking tolerance is improving think by early December he will be ready to return to full duty work we are going to release him to full duty work on a trial basis December 11, 2024 in he has a issues during the trial basis he can let us know we will plan on seeing him back in 6-8 weeks for follow up Social History Description Last Updated Exercising regularly 10/26/2024 Last Documented On 5 2:07PM ; [facility] No caffeine use 01/17/2024 Last Documented On 5 2:07PM ; [facility] No recent change in diet 01/17/2024 Last Documented On 5 2:07PM ; [facility], [facility] Not a current smoker. 01/17/2024 Last Documented On 5 2:07PM ; [facility], [facility] Not using alcohol 01/17/2024 Last Documented On 5 2:07PM ; [facility], [facility] Not using drugs 01/17/2024 Last Documented On 5 2:07PM ; [facility], [facility] Never drank alcohol 04/21/2022 Last Documented On 5 2:07PM ; [facility], [facility] Never smoked 04/21/2022 Last Documented On 5 2:07PM ; [facility], [facility] Never used drugs 04/21/2022 Last Documented On 5 2:07PM ; [facility], [facility] Tobacco non-user 04/21/2022 Last Documented On 5 2:07PM ; 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, [facility] Medical History Includes: Medical History addressed during this encounter Description Last Updated History of Anemia 01/17/2024 Last Documented On 5 2:07PM ; [facility], [facility] History of arthritis 01/17/2024 Last Documented On 5 2:07PM ; [facility], [facility] History of depression 01/17/2024 Last Documented On 5 2:07PM ; [facility], [facility] History of heart disease 01/17/2024 Last Documented On 5 2:07PM ; [facility], [facility] History of Heartburn / Acid Reflux 01/16 Last Documented On 5 2:07PM ; [facility] History of Hypertension 01/17/2024 Last Documented On 5 2:07PM ; [facility] History of Sleep Apnea 01/17/2024 Last Documented On 5 2:07PM ; [facility] Use of CPAP 01/17/2024 Last Documented On 5 2:07PM ; [facility] History of gastric ulcer 04/21/2022 Last Documented On 5 2:07PM ; [facility] No recent immunization for flu 2 Last Documented On 5 2:07PM ; [facility] No recent immunization for pneumococcal pneumonia 04/21/2022 Last Documented On 5 2:07PM ; [facility] Family History Includes: Family History addressed during this encounter Description Last Updated Family history of cancer 01/17/2024 Last Documented On 5 2:07PM ; [facility] Family history of heart disease 01/17/20 24 Last Documented On 5 2:07PM ; [facility] Family history of rheumatoid arthritis 0 01/17/2024 Last Documented On 5 2:07PM ; [facility] Family history of systemic hypertension 01/17/2024 Last Documented On 5 2:07PM ; [facility] Stroke / Seizures 01/17/2024 Last Documented On 5 2:07PM ; [facility] Fraternal history of Stroke / Seizures 1 06/21/2021 Last Documented On 5 2:07PM ; [facility] Maternal grandfather's history of family history of heart disease 04/21/2022 Last Documented On 5 2:07PM ; [facility] Fraternal history of family history of h eart disease 04/21/2022 Last Documented On 5 2:07PM ; [facility] Fraternal history of systemic hypertensi on 04/21/2022 Last Documented On 5 2:07PM ; [facility] Maternal history of rheumatoid arthritis 04/21/2022 Last Documented On 5 2:07PM ; [facility], [facility] Paternal grandfather's history of family history of heart disease 04/21/2022 Last Documented On 5 2:07PM ; [facility], [facility] Paternal grandfather's history of system ic hypertension 04/21/2022 Last Documented On 5 2:07PM ; [facility], [facility] Paternal grandmother's history of rheuma toid arthritis 04/21/2022 Last Documented On 5 2:07PM ; [facility], [facility] Paternal history of family history of ca ncer 04/21/2022 Last Documented On 5 2:07PM ; [facility], [facility] Paternal history of family history of he art disease 04/21/2022 Last Documented On 5 2:07PM ; [facility], [facility] Paternal history of rheumatoid arthritis 04/21/2022 Last Documented On 5 2:07PM ; [facility], [facility] Paternal history of systemic hypertensio n 04/21/2022 Last Documented On 5 2:07PM ; [facility], [facility] Review of Systems Includes: Review of Systems [...] Active Last Documented On 5 2:58PM ; [facility], [facility] Encounters Encounter Provider Location Date Check-In Time Check-Out Time Diagnosis Post Op Gavin Baldwin MD [facility] B 5 2:06PM 2:21PM Overweight Insurance Includes: Active Insurance Policies Plan Name Member ID Group # Subscriber Relationship Effect michael Dates 1 - [facility] [id number] Jorge Washburn Self 06/07/2021 - Unknown Clinical Notes Includes: Clinical Notes from this encounter * Progress note Date Encounter Last Documented by 11/23/2024 Post Op Last documented on 11/28/2024; 9:20 AM, Gavin Baldwin MD; [facility] Active Problems & Conditions - Joint Pain [...] previous treatment. - Review of medications documented Right total hip is doing well patient is still some soreness but it is doing better his standing and walking tolerance is improving think by early December he will be ready to return to full duty work we are going to release him to full duty work on a trial basis December 11, 2024 in he has a issues during the trial basis he can let us know we will plan on seeing him back in 6-8 weeks for follow up Current Medication - Acetaminophen Extra Strength 500 [...] as directed 0 days, 0 refills - traMADol HCl 50 MG Oral Tablet 1 every bedtime, 30 days, 0 refills - Vitamin D2 10 [...] used drugs. Habits: Exercising regularly. 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 Allergies - Spironolactone Reaction: Shortness of Breath [...] allergic reaction. Physical Findings - Vitals taken 11/23/2024 02:07 pm bm Height 70 in 60 - 80 Weight 283 lbs 123 - 215 Body Mass Index 40.6 kg/m2 Body Surface Area 2.4 m2 Right hip incision looks good motion is excellent strength is good in all planes leg lengths are equal he has a normal gait without assistive devices Assessment - Overweight Counseling/Education Tobacco non-user. use of tobacco assessment performed. - Lose weight Plan Pelvis and hip x-rays show good alignment of implants with the equal leg lengths no problems patient is doing well right hip replacement we will see him back in 6-8 weeks returned to work trial basis without restrictions December 11, 2024 Notes This dictation was done with voice recognition software and may contain errors and omissions. Care Team - Grace Negrete APRN
--- OUTSIDE RECORDS SUMMARY | 2025-04-30 07:09 | XMS_ITS | Clinical Summary ---
Author Organization [employer] ([place], [place], [place], [place], [place]) Address [address] [place] [address] Care Team Providers Care Kennel Manager Dog Track Name Role Phone Unavailable Primary Care Provider [...] Date Brayden rded Speak language other than [place] Citizen at home Not on file 11/15/2023 Want [...]
--- OUTSIDE RECORDS SUMMARY | 2025-04-30 07:10 | XMS_ITS ---
Care Plan - [facility], [facility] Created on: April 30, 2025 Jorge Washburn : 1960 Sex: Male Author Organization [facility] Address [address] [place] [address] Phone Care Team Providers Care Accounts Payable Assistant Name Role Phone Gavin Baldwin MD Unavailable [phone] Grace Negrete APRN Primary Care Provider [phone]
--- OUTSIDE RECORDS SUMMARY | 2025-04-30 07:10 | XMS_ITS | Encounter Summary ---
Author Organization [employer] ([place], [place], [place], [place], [place]) Address [address] [place] [address] Care Team Providers Care Certified Surgical Assistant Name Role Phone Unavailable Primary Care Provider Unavailabl e Encounter Details Date Type Department Care Team (Late st Contact Info) Description 07/21/2020 Transcribed Document [facility] [place] Family Medicine [facility] [place] [address] ProviderErasto MD [facility] [place] [address] Social History Tobacco Use Types [...] - Historical ProviderMD - 07/21/2020 4:58 AM [employer] OFFICER ED Triage Entered On: 07/21/2020 5:12 EST [...] - Non - Urgent Tracking Group : [facility] ED KARMEN AGUILAR - 07/21/2020 5:09 EST [...] PNED ; Probability: 0 ; Diagnosis Code: [id number] ED Height and Weight Height Source : Stated Height Entry Format : Max Height, Feet : 5 ft(Converted to: 152 cm, 60 Inch) Height, Inches : 10 Inch(Converted to: 0 ft 10 Inch, 25.40 cm) Clinical Height : 177.8 cm Weight Source, ED : Critical estimated dosing weight Weight Entry Format : Max Weight, Pounds : 280 lb Clinical Dosing Weight : 127.27 kg Body Surface Area (BSA) : 2.41 m2 Body Mass Index : 40.3 kg/m2 (>HHI) [place] Body Weight (IBW) : 72.02 kg KARMEN [...]
--- OUTSIDE RECORDS SUMMARY | 2025-04-30 07:10 | XMS_ITS | Encounter Summary ---
Author Organization [employer] ([place], [place], [place], [place], [place]) Address [address] [place] [address] Care Team Providers Care Exceptional Children Teacher Assistant Name Role Phone Unavailable Primary Care Provider Unavailabl e Encounter Details Date Type Department Care Team (Late st Contact Info) Description 07/21/2020 Transcribed Document [facility] [place] Family Medicine [facility] [place] [address] ProviderErasto MD [address] [place] [address] Social History Tobacco Use Types [...] - Historical ProviderMD - 07/21/2020 5:40 AM [employer] Electronically signed by Brielle [facility] Conversion Direct Response Consultant Cerner at 09/23/2022 6:06 PM CDT documented in this encounter Plan of Treatment Not on file documented as of this encounter Visit Diagnoses Not on filedocumented in this encounter
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
--- OUTSIDE RECORDS SUMMARY | 2025-04-30 07:10 | XMS_ITS ---
Author Organization [facility] Address [address] [place] [address] Phone Care Team Providers Care Block Trimmer Name Role Phone Nicolasa CARRILLO, Gavin Unavailable [phone] Grace Negrete APRN Primary Care Provider [phone] Problems Includes: Active, inactive, and resolved Problems All Visits Onset Date Resolved Date Provider Condition S tatus Joint Pain Shoulder Bilateral 01/16/2025 Gavin Baldwin MD Active Last Documented On 5 2:58PM ; [facility] Joint Pain Hip Right 07/27/2024 Dorothy JO Active Last Documented On 5 11:46AM ; [facility] Joint Pain Left Knee 01/17/2024 Brittani Nava Active Last Documented On 4 3:18PM ; [facility] Lower Back Pain 04/14/2022 Sekou Olvera PA-C A ctive Last Documented On 2 3:36PM ; [facility] Plan of Treatment Pending Tests Order Diagnosis Results Due Ordering P rovider Radiology - MRI MRI Lumbar Spine 04/28/22 Aston Olvera PA-C Last Documented On 2 10:59AM ; [facility] Therapy - Physical Therapy Lumbar Low back pain, unspecified 08/30/23 Richard Olvera PA-C Last Documented On 4 1:22PM ; [facility] Lab Hemoglobin A1c 12/16/23 Gavin hilton MD Last Documented On 4 10:16AM ; [facility] Lab CBC With Differential/Platelet 12/15 Gavin Baldwin MD Last Documented On 4 10:16AM ; [facility] Lab Prothrombin Time (PT) 12/16/23 Ruperto Baldwin MD Last Documented On 4 10:16AM ; [facility] Lab PTT, Activated 12/16/23 Gavin hilton MD Last Documented On 4 10:16AM ; [facility] Lab Prealbumin 12/16/23 Gavin Rincon Last Documented On 4 10:16AM ; [facility] Lab Fructosamine 12/16/23 Gavin Baldwin MD Last Documented On 4 10:16AM ; [facility] Lab MRSA by MUKESH 12/16/23 Gavin Baldwin MD Last Documented On 4 10:16AM ; [facility] Lab Comp. Metabolic Panel (14) 12/16/23 Gavin Baldwin MD Last Documented On 4 10:16AM ; [facility] Instructions to patient Lose weight Last Documented On 5 2:58PM ; [facility] Lose weight Last Documented On 5 2:07PM ; [facility] Lose weight Last Documented On 5 9:55AM ; [facility] Lose weight Last Documented On 4 3:23PM ; [facility] Lose weight Last Documented On 4 10:00AM ; [facility] Lose weight Last Documented On 4 3:02PM ; [facility] Lose weight Last Documented On 2 2:21PM ; [facility] Lose weight Last Documented On 2 3:36PM ; [facility] Lose weight Last Documented On 2 3:37PM ; [facility] Assessments Includes: Assessments for all patient encounters Findings Encounter Date Overweight NEW PROBLEM/EST PT with Gavin Baldwin MD 01/16/2025 Last Documented On 5 12:00PM ; [facility] Overweight Post Op with Gavin Baldwin MD Last Documented On 5 9:20AM ; [facility] Overweight Post Op with Hong Trinidad 10/26/2024 Last Documented On 5 10:29AM ; [facility] Overweight Post Op with Brittani Montero PA-C Last Documented On 4 4:56PM ; [facility] Overweight Follow Up with Gavin Baldwin MD 0 10/19/2023 Last Documented On 4 9:39AM ; [facility] Overweight Follow Up with Sekou Nava 08/30/2023 Last Documented On 4 1:22PM ; [facility] Instructions Includes: Instructions for all patient encounters Instructions to patient Lose weight Last Documented On 5 2:58PM ; [facility] Lose weight Last Documented On 5 2:07PM ; [facility] Lose weight Last Documented On 5 9:55AM ; [facility] Lose weight Last Documented On 4 3:23PM ; [facility] Lose weight Last Documented On 4 10:00AM ; [facility] Lose weight Last Documented On 4 3:02PM ; [facility] Lose weight Last Documented On 2 2:21PM ; [facility] Lose weight Last Documented On 2 3:36PM ; [facility] Lose weight Last Documented On 2 3:37PM ; [facility] Medical Equipment - Implanted Devices Includes: Current and historical Devices No Medical Equipment Recorded Medications Includes: Current and historical Medications Current Medications (continue as prescribed) Jardiance 25 MG Oral Tablet 09/21/2024 Provider: Diagnosis: Last Documented On 5 11:47AM By [facility] Vitamin D2 10 MCG (400 UNIT) Oral Tablet 09/21/2024 Provider: Diagnosis: Last Documented On 5 11:47AM By [facility] Cyclobenzaprine HCl 10 MG Oral Tablet 09/21/2024 Pro vider: Diagnosis: Last Documented On 5 11:46AM By Danielle Martins ; [facility] Isosorbide Dinitrate 40 MG Oral Tablet 09/21/2024 Pr ovider: Diagnosis: Last Documented On 5 11:47AM By Danielle Martins ; [facility] hydrALAZINE HCl 50 MG Oral Tablet 09/21/2024 Provide r: Diagnosis: Last Documented On 5 11:48AM By Danielle Martins ; [facility] metFORMIN HCl 1000 MG Oral Tablet 09/21/2024 Provide r: Diagnosis: Last Documented On 5 11:48AM By Danielle Martins ; [facility] acetaZOLAMIDE 250 MG Oral Tablet 09/21/2024 Provider : Diagnosis: Last Documented On 5 11:46AM By Danielle Martins ; [facility] Latanoprost 0.005% Ophthalmic Solution 07/27/2024 Pr ovider: Diagnosis: Last Documented On 5 11:48AM By Danielle Martins ; [facility] Timolol Maleate 0.25% Ophthalmic Solution 07/27/2024 Provider: Diagnosis: Last Documented On 5 11:49AM By Danielle Martins ; [facility] Acetaminophen Extra Strength 500 MG Oral Tablet 2024 Provider: Diagnosis: Last Documented On 5 2:46PM By Sarah Hernandez ; [facility] Ibuprofen 200 MG Oral Tablet 07/20/2024 Provider: Diagnosis: Last Documented On 5 2:47PM By Sarah Hernandez ; [facility] HYDROcodone-Acetaminophen 5-325 MG Oral Tablet 025 Provider: Diagnosis: Last Documented On 5 8:18AM By Kevin Ray ; [facility] Atorvastatin Calcium 40 MG Oral Tablet 06/16/2024 Pr ovider: Grace Negrete APRN Diagnosis: Last Documented On 5 10:08AM By Kevin Ray ; [facility] Ozempic (1 MG/DOSE) 4 MG/3ML Subcutaneous Solution Pen-injector 06/01/2024 Provider: Grace Negrete APRN Diagnosis: Last Documented On 5 10:08AM By Kevin Ray ; [facility] Benazepril HCl 40 MG Oral Tablet 09/21/2023 Provider : Grace Negrete APRN Diagnosis: Last Documented On 4 10:00AM By Regina Ordoñez ; [facility] Methocarbamol 750 MG Oral Tablet 08/30/2023 Provider : Sekou Olvera PA-C Diagnosis: Last Documented On 4 10:00AM By Regina Ordoñez ; [facility] Furosemide 20 MG Oral Tablet 07/10/2023 Provider: Grace Negrete APRN Diagnosis: Last Documented On 4 3:01PM By Shanna Echavarria ; [facility] Carvedilol 25 MG Oral Tablet 03/25/2023 Provider: Diagnosis: Last Documented On 4 3:01PM By Shanna Echavarria ; [facility] Past Medications on file traMADol HCl 50 MG Oral Tablet 10/31/2024 - 11/30/2024 Provider: Gavin Baldwin MD Diagnosis: 1 every bedtime Last Documented On 5 3:49PM By Gavin Baldwin ; [facility] traMADol HCl 50 MG Oral Tablet 10/09/2024 - 10/24/2024 Provider: Gavin Baldwin MD Diagnosis: 1-2 p o q 6-8h for breakthro ugh post op pain MAXIMUM 8 TABLETS PER DAY Last Documented On 5 8:36AM By Gavin Baldwin ; [facility] oxyCODONE HCl 5 MG Oral Tablet 10/06/2024 - 10/11/2024 Provider: Gavin Baldwin MD Diagnosis: 1-2 p o q 6-8h for post op pain MAXIMUM 6 TABLET S PER DAY Last Documented On 5 12:19PM By Gavin Baldwin ; [facility] Aspirin Adult Low Strength 8 1 MG Oral Tablet Delayed Release 10/06/2024 - 11/20/2024 Provider: Gavin Baldwin MD Diagnosis: twice a day Last Documented On 5 12:19PM By Gavin Baldwin ; [facility] Colace 100 MG Oral Capsule 10/06/2024 - 11/05/2024 Pro vider: Gavin Baldwin MD Diagnosis: 1-2 tabs daily as needed, AFTER SURGERY Last Documented On 5 12:19PM By Gavin Baldwin ; [facility] Cefadroxil 500 MG Oral Capsule 10/06/2024 - 10/09/2024 Provider: Gavin Baldwin MD Diagnosis: twice a day Last Documented On 5 12:19PM By Gavin Baldwin ; [facility] Acetaminophen 500 MG Oral Tablet 10/06/2024 - 11/06/19 Provider: Gavin Baldwin MD Diagnosis: 2 three times a day , AFTER SURGERY Last Documented On 5 12:19PM By Gavin Baldwin ; [facility] Meloxicam 15 MG Oral Tablet 10/06/2024 - 11/05/2024 Pr ovider: Gavin Baldwin MD Diagnosis: 1 every bedtime Last Documented On 5 12:19PM By Gavin Baldwin ; [facility] Ondansetron HCl 4 MG Oral Tablet 10/06/2024 - 10/21/19 Provider: Gavin Baldwin MD Diagnosis: 1-2 p o q 6-8h as needed for nausea Last Documented On 5 12:19PM By Gavin Baldwin ; [facility] Hibiclens Topical Liquid 07/20/2024 - 07/27/2024 Provi sue: Diagnosis: Last Documented On 5 11:47AM By Danielle Martins ; [facility] traMADol HCl 50 MG Oral Tablet 06/27/2024 - 07/20/2024 Provider: Gavin Baldwin MD Diagnosis: 1 tab every 12 hours Last Documented On 5 2:46PM By Sarah Macedo [facility] Meloxicam 15 MG Oral Tablet 06/13/2024 - 10/26/2024 Pr ovider: Diagnosis: Last Documented On 5 9:54AM By Vika Ceballos ; [facility] Cyclobenzaprine HCl 10 MG Or al Tablet 06/08/2024 - 07/20/2024 Provider: Grace Negrete APRN Diagnosis: Last Documented On 5 2:44PM By Sarah Hernandez ; [facility] levoFLOXacin 750 MG Oral Tablet 05/29/2024 - Provider: Diagnosis: Last Documented On 5 2:44PM By Sarah Hernandez ; [facility] Albuterol Sulfate HFA 108 (9 0 Base) MCG/ACT Inhalation Aerosol Solution 05/29/2024 - 07/20/2024 Provider: Diagnosis: Last Documented On 5 2:44PM By Sarah Hernandez ; [facility] oxyCODONE HCl 5 MG Oral Tablet 01/21/2024 - 01/26/2024 Provider: Gavin Baldwin MD Diagnosis: 1-2 p o q 6-8h for post op pain MAXIMUM 6 TABLET S PER DAY Last Documented On 4 9:11AM By Gavin Baldwin ; [facility] traMADol HCl 50 MG Oral Tablet 01/21/2024 - 01/28/2024 Provider: Gavin Baldwin MD Diagnosis: 1-2 p o q 6-8h for breakthro ugh post op pain MAXIMUM 8 TABLETS PER DAY Last Documented On 4 9:11AM By Gavin Baldwin ; [facility] Ondansetron HCl 4 MG Oral Tablet 12/31/2023 - 01/14/20 24 Provider: Gavin Baldwin MD Diagnosis: 1-2 p o q 6-8h as needed for nausea Last Documented On 4 9:14AM By Gavin Baldwin ; [facility] oxyCODONE HCl 5 MG Oral Tablet 12/31/2023 - 01/05/2024 Provider: Gavin Baldwin MD Diagnosis: 1-2 p o q 6-8h for post op pain MAXIMUM 6 TABLET S PER DAY Last Documented On 4 9:14AM By Gavin Baldwin ; [facility] Cefadroxil 500 MG Oral Capsule 12/31/2023 - 01/03/2024 Provider: Gavin Baldwin MD Diagnosis: twice a day Last Documented On 4 9:14AM By Gavin Baldwin ; [facility] traMADol HCl 50 MG Oral Tablet 12/31/2023 - 01/07/2024 Provider: Gavin Baldwin MD Diagnosis: 1-2 p o q 6-8h for breakthro ugh post op pain MAXIMUM 8 TABLETS PER DAY Last Documented On 4 9:14AM By Gavin Baldwin ; [facility] Colace 100 MG Oral Capsule 12/31/2023 - 01/30/2024 Pro vider: Gaivn Baldwin MD Diagnosis: 1-2 tabs daily as needed, AFTER SURGERY Last Documented On 4 9:14AM By Gavin Baldwin ; [facility] Aspirin Adult Low Strength 8 1 MG Oral Tablet Delayed Release 12/31/2023 - 02/14/2024 Provider: Gavin Baldwin MD Diagnosis: twice a day Last Documented On 4 9:14AM By Gavin Baldwin ; [facility] Acetaminophen 500 MG Oral Tablet 12/31/2023 - 01/30/20 Provider: Gavin Baldwin MD Diagnosis: 2 three times a day , AFTER SURGERY Last Documented On 4 9:14AM By Gavin Baldwin ; [facility] Meloxicam 15 MG Oral Tablet 12/31/2023 - 01/30/2024 Pr ovider: Gavin Baldwin MD Diagnosis: 1 every bedtime Last Documented On 4 9:14AM By Gavin Baldwin ; [facility] Lipitor 40 MG Oral Tablet 12/16/2023 - 07/20/2024 Prov ider: Diagnosis: Last Documented On 5 2:44PM By Sarah Hernandez ; [facility] Depakote 125 MG Oral Tablet, enteric coated 12/16/2023 - 07/20/2024 Provider: Diagnosis: Last Documented On 5 2:44PM By Sarah Hernandez ; [facility] Timolol Maleate 0.5% Ophthalmic Solution 10/16/2023 - 07/20/2024 Provider: Diagnosis: Last Documented On 5 2:44PM By Sarah Hernandez ; [facility] Furosemide 20 MG Oral Tablet 10/09/2023 - 12/16/2023 Aicha benjamin: Grace Negrete APRN Diagnosis: Last Documented On 4 11:39AM By Danielle Martins ; [facility] Ozempic (2 MG/DOSE) 8 MG/3ML Subcutaneous Solution Pen-injector 10/03/2023 - 07/20/2024 Provider: Joss Negrete APRN Diagnosis: Last Documented On 5 2:45PM By Sarah Hernandez ; [facility] Timolol Maleate 0.5% Ophthalmic Solution 09/23/2023 - 10/19/2023 Provider: Diagnosis: Last Documented On 4 11:38AM By Shanna Echavarria ; [facility] Latanoprost 0.005% Ophthalmic Solution 09/22/2023 - Provider: Diagnosis: Last Documented On 5 2:45PM By Sarah Hernandez ; [facility] Cyclobenzaprine HCl 10 MG Or al Tablet 09/02/2023 - 12/16/2023 Provider: Grace Negrete APRN Diagnosis: Last Documented On 4 11:40AM By Danielle Martins ; [facility] Timolol Maleate 0.5% Ophthalmic Solution 09/01/2023 - 10/19/2023 Provider: Diagnosis: Last Documented On 4 11:39AM By Shanna Echavarria ; [facility] Vitamin D (Ergocalciferol) 1 .25 MG (63055 UT) Oral Capsule 08/30/2023 - 11/22/2023 Provider: GOLDY Coreas MD Diagnosis: Last Documented On 4 3:01PM By Shanna Echavarria ; [facility] Methocarbamol 750 MG Oral Tablet 08/30/2023 - 09/29/19 Provider: Sekou Olvera PA-C Diagnosis: Take 1 tablet every 8 hrs prn pain Last Documented On 4 3:49PM By Shanna Echavarria ; [facility] amLODIPine Besylate 5 MG Ora l Tablet 08/30/2023 - 11/28/2023 Provider: GOLDY PENA MD Diagnosis: Last Documented On 4 3:01PM By Shanna Echavarria ; [facility] Timolol Maleate 0.5% Ophthalmic Solution 08/06/2023 - 10/19/2023 Provider: Diagnosis: Last Documented On 4 11:38AM By Shanna Echavarria ; [facility] Timolol Maleate 0.5% Ophthalmic Solution 08/06/2023 - 10/19/2023 Provider: Diagnosis: Last Documented On 4 11:38AM By Shanna Echavarria ; [facility] acetaZOLAMIDE 250 MG Oral Tablet 07/31/2023 - 10/19/19 Provider: Diagnosis: Last Documented On 4 11:38AM By Shanna Echavarria ; [facility] acetaZOLAMIDE 250 MG Oral Tablet 07/31/2023 - 12/16/19 Provider: Diagnosis: Last Documented On 4 11:42AM By Danielle Martins ; [facility] prednisoLONE Acetate 1% Ophthalmic Suspension 07/17/19 - 07/20/2024 Provider: Diagnosis: Last Documented On 5 2:45PM By Sarah Hernandez ; [facility] Spironolactone 25 MG Oral Tablet 04/27/2023 - 12/16/19 Provider: Diagnosis: Last Documented On 4 11:44AM By Danielle Martins ; [facility] Promethazine-DM 6.25-15 MG/5ML Oral Syrup 04/27/2023 - 12/16/2023 Provider: Diagnosis: Last Documented On 4 11:44AM By Danielle Martins ; [facility] buPROPion HCl ER (XL) 300 MG Oral Tablet Extended Release 24 Hour 11/24/2022 - 12/16/2023 Provider: Randy Dawkins APRN Diagnosis: Last Documented On 4 11:44AM By Danielle Martins ; [facility] Methocarbamol 750 MG Oral Tablet 11/07/2022 - 10/19/19 24 Provider: Arjun Alcantara MD Diagnosis: Last Documented On 4 11:38AM By Shanna Echavarria ; [facility] Carvedilol 12.5 MG Oral Tablet 11/01/2022 - 08/30/2023 Provider: Diagnosis: Last Documented On 4 3:02PM By Shanna Echavarria ; [facility] Wegovy 0.25 MG/0.5ML Subcuta neous Solution Auto-injector 10/21/2022 - 10/19/2023 Provider: Diagnosis: Last Documented On 4 11:38AM By Shanna Echavarria ; [facility] Mobic 15 MG Oral Tablet 05/14/2022 - 08/30/2023 Provid er: Arjun Alcantara MD Diagnosis: once a day Last Documented On 4 3:02PM By Shanna Echavarria ; [facility] Methocarbamol 750 MG Oral Tablet 05/14/2022 - 08/30/19 Provider: Arjun Alcantara MD Diagnosis: Take 1 tablet every 8 hrs prn pain Last Documented On 4 3:02PM By Shanna Echavarria ; [facility] Amoxicillin 875 MG Oral Tablet 03/30/2022 - 08/30/2023 Provider: Sarah Law NP Diagnosis: Last Documented On 4 3:02PM By Shanna Echavarria ; [facility] amLODIPine Besylate 5 MG Ora l Tablet 03/28/2022 - 08/30/2023 Provider: GOLDY PENA MD Diagnosis: Last Documented On 4 3:01PM By Shanna Echavarria ; [facility] Vitamin D (Ergocalciferol) 1 .25 MG (85472 UT) Oral Capsule 03/23/2022 - 08/30/2023 Provider: GOLDY Coreas MD Diagnosis: Last Documented On 4 3:01PM By Shanna Echavarria ; [facility] Divalproex Sodium 250 MG Ora l Tablet Delayed Release 03/01/2022 - 08/30/2023 Provider: GOLDY PENA MD Diagnosis: Last Documented On 4 3:01PM By Shanna Echavarria ; [facility] Benazepril HCl 40 MG Oral Tablet 03/01/2022 - 08/30/19 Provider: GOLDY PENA MD Diagnosis: Last Documented On 4 3:01PM By Shanna Echavarria ; [facility] Atorvastatin Calcium 40 MG O ral Tablet 03/01/2022 - 08/30/2023 Provider: GOLDY PENA MD Diagnosis: Last Documented On 4 3:01PM By Shanna Echavarria ; [facility] Bisoprolol Fumarate 10 MG Or al Tablet 01/31/2022 - 08/30/2023 Provider: GOLDY PENA MD Diagnosis: Last Documented On 4 3:01PM By Shanna Echavarria ; [facility] Furosemide 20 MG Oral Tablet 01/31/2022 - 08/30/2023 P rovider: GOLDY PENA MD Diagnosis: Last Documented On 4 3:01PM By Shanna Echavarria ; [facility] Medications Administered Includes: Administered Medications in patient's chart No Administered Medications Recorded Vital Signs Includes: Vital Signs from 04/30/2024 through 04/30/2025 Vital Name 01/16/2025 02:59P 11/23/2024 02:07P 10/26/2024 09:55A 09/21/2024 11:43A 07/27/2024 11:42A Height (in) 70 70 70 70 70 Weight (lb) 285 283 283 283 281 Body Mass Index 40.9 40.6 40.6 40.6 40.3 Body Surface Area 2.4 2.4 2.4 2.4 2.4 Blood Pressure Sitting L 120/67 Pulse Rate-Sitting (bpm) 72 75 Oxygen Saturation (%) 98 99 Blood Pressure Sitting (mmHg) 182/118 Note: c bm bs EC EC Last Documented: On 01/16/2025 2:59PM ; [facility] On 11/23/2024 2:07PM ; [facility] On 10/26/2024 9:56AM ; [facility] On 09/21/2024 11:53AM ; [facility] On 07/27/2024 11:52AM ; [facility] Vital Name 06/27/2024 08:42A 06/23/2024 10: 09A Height (in) 70 70 Weight (lb) 290 290 Body Mass Index 41.6 41.6 Body Surface Area 2.4 2.4 Pain Level 4 3 Last Documented: On 06/27/2024 8:42AM ; [facility] On 06/23/2024 10:09AM ; [facility] Results Includes: Results from 04/30/2024 through 04/30/2025 CBC With Differential/Platelet [facility] o [facility] [place] Ordered by Dorothy JO on 09/21/2024 Collected: 09/21/2024 Reported: 09/23/19 25 17:07 Last Documented On 5 9:38PM ; [facility] All test results are final unless otherw ise noted. WBC 7.2 x10E3/uL (3.4-10.8) None Last Documented On 5 9:38PM ; [facility] RBC 4.43 x10E6/uL (4.14-5.80) None Last Documented On 5 9:38PM ; [facility] Hemoglobin 12.6 g/dL (13.0-17.7) L (Low) Last Documented On 5 9:38PM ; [facility] Hematocrit 38.8 % (37.5-51.0) None Last Documented On 5 9:38PM ; [facility] MCV 88 fL (79-97) None Last Documented On 5 9:38PM ; [facility] MCH 28.4 pg (26.6-33.0) None Last Documented On 5 9:38PM ; [facility] MCHC 32.5 g/dL (31.5-35.7) None Last Documented On 5 9:38PM ; [facility] Neutrophils 74 % (Not Estab.) None Last Documented On 5 9:38PM ; [facility] Immature Granulocytes 0 % (Not Estab.) None Last Documented On 5 9:38PM ; [facility] Lymphs 15 % (Not Estab.) None Last Documented On 5 9:38PM ; [facility] Monocytes 8 % (Not Estab.) None Last Documented On 5 9:38PM ; [facility] Eos 2 % (Not Estab.) None Last Documented On 5 9:38PM ; [facility] Basos 1 % (Not Estab.) None Last Documented On 5 9:38PM ; [facility] Platelets 250 x10E3/uL (150-450) None Last Documented On 5 9:38PM ; [facility] Neutrophils (Absolute) 5.4 x10E3/uL (1.4-7.0) None Last Documented On 5 9:38PM ; [facility] Immature Grans (Abs) 0.0 x10E3/uL (0.0-0.1) None Last Documented On 5 9:38PM ; [facility] Lymphs (Absolute) 1.1 x10E3/uL (0.7-3.1) None Last Documented On 5 9:38PM ; [facility] Monocytes(Absolute) 0.6 x10E3/uL (0.1-0.9) None Last Documented On 5 9:38PM ; [facility] Eos (Absolute) 0.1 x10E3/uL (0.0-0.4) None Last Documented On 5 9:38PM ; [facility] Baso (Absolute) 0.0 x10E3/uL (0.0-0.2) None Last Documented On 5 9:38PM ; [facility] RDW 13.0 % (11.6-15.4) None Last Documented On 5 9:38PM ; [facility] [facility] Comp. Metabolic Panel (14) [facility] Ordered by Dorothy JO on 09/21/2024 Collected: 09/21/2024 Reported: 09/23/19 25 17:07 Last Documented On 5 9:38PM ; [facility] All test results are final unless otherw ise noted. Calcium 9.7 mg/dL (8.6-10.2) None Last Documented On 5 9:38PM ; [facility] Glucose 127 mg/dL (70-99) H (High) Last Documented On 5 9:38PM ; [facility] BUN 27 mg/dL (8-27) None Last Documented On 5 9:38PM ; [facility] Protein, Total 7.0 g/dL (6.0-8.5) None Last Documented On 5 9:38PM ; [facility] Albumin 4.6 g/dL (3.9-4.9) None Last Documented On 5 9:38PM ; [facility] Bilirubin, Total 0.3 mg/dL (0.0-1.2) None Last Documented On 5 9:38PM ; [facility] Alkaline Phosphatase 119 IU/L (44-121) None Last Documented On 5 9:38PM ; [facility] AST (SGOT) 21 IU/L (0-40) None Last Documented On 5 9:38PM ; [facility] Potassium 4.7 mmol/L (3.5-5.2) None Last Documented On 5 9:38PM ; [facility] Sodium 142 mmol/L (134-144) None Last Documented On 5 9:38PM ; [facility] Chloride 103 mmol/L (96-106) None Last Documented On 5 9:38PM ; [facility] Creatinine 1.08 mg/dL (0.76-1.27) None Last Documented On 5 9:38PM ; [facility] ALT (SGPT) 22 IU/L (0-44) None Last Documented On 5 9:38PM ; [facility] Carbon Dioxide, Total 21 mmol/L (20-29) None Last Documented On 5 9:38PM ; [facility] BUN/Creatinine Ratio 25 (10-24) H (High) Last Documented On 5 9:38PM ; [facility] Globulin, Total 2.4 g/dL (1.5-4.5) None Last Documented On 5 9:38PM ; [facility] eGFR 77 mL/min/1.73 (>59) None Last Documented On 5 9:38PM ; [facility] Prothrombin Time (PT) [facility] [place] Ordered by Dorothy JO on 09/21/2024 Collected: 09/21/2024 Reported: 09/23/19 25 17:07 Last Documented On 5 9:38PM ; [facility] All test results are final unless otherw ise noted. Prothrombin Time 10.9 sec (9.1-12.0) None Last Documented On 5 9:38PM ; [facility] INR 1.0 (0.9-1.2) None Last Documented On 5 9:38PM ; [facility] Note: Reference interval is for non-anti coagulated patients. . Suggested INR therapeutic range for Vitamin K antagonist therapy: Standard Dose (moderate intensity therapeutic range): 2.0 - 3.0 Higher intensity therapeutic range 2.5 - 3.5 Hemoglobin A1c [facility] [place] Ordered by Dorothy JO on 09/21/2024 Collected: 09/21/2024 Reported: 09/23/19 25 17:07 Last Documented On 5 9:38PM ; [facility] All test results are final unless otherw ise noted. Hemoglobin A1c 7.2 % (4.8-5.6) H (High) Last Documented On 5 9:38PM ; [facility] Note: . . Prediabetes: 5.7 - 6.4 Diabet es: >6.4 Glycemic control for adults with diabetes: <7.0 PTT, Activated [facility] Ordered by Dorothy JO on 09/21/2024 Collected: 09/21/2024 Reported: 09/23/19 17:07 Last Documented On 5 9:38PM ; [facility] All test results are final unless otherw ise noted. aPTT 27 sec (24-33) None Last Documented On 5 9:38PM ; [facility] Note: This test has not been validated f or monitoringunfractionated heparin therapy. aPTT-based therapeuticranges for unfractionated heparin therapy have not beenestablished. For general guidelines on Heparin monitoring,refer to the [facility] Directory of Services. Fructosamine [facility] Ordered by Dorothy JO on 09/21/2024 Collected: 09/21/2024 Reported: 09/23/19 17:07 Last Documented On 5 9:38PM ; [facility] All test results are final unless otherw ise noted. Fructosamine 260 umol/L (0-285) None Last Documented On 5 9:38PM ; [facility] Note: Published reference interval for a pparently healthysubjects between age 20 and 60 is 205 - 285 umol/L and in apoorly controlled diabetic population is 228 - 563 umol/Lwith a mean of 396 umol/L. MRSA by MUKESH [facility] Ordered by Dorothy JO on 09/21/2024 Collected: 09/21/2024 Reported: 09/23/19 17:07 Last Documented On 5 9:38PM ; [facility] All test results are final unless otherw ise noted. MRSA by MUKESH Negative (Negative) None Last Documented On 5 9:38PM ; [facility] Prealbumin [facility] Ordered by Dorothy JO on 09/21/2024 Collected: 09/21/2024 Reported: 09/23/19 17:07 Last Documented On 5 9:38PM ; [facility] All test results are final unless otherw ise noted. Prealbumin 22 mg/dL (10-36) None Last Documented On 5 9:38PM ; [facility] Reported Physicians [facility] [place] Ordered by Dorothy JO on 09/21/2024 Collected: 09/21/2024 Reported: 09/23/19 25 17:07 Last Documented On 5 9:38PM ; [facility] All test results are final unless otherw ise noted. Reported Physicians See Note None Last Documented On 09/22/2024 9:38PM ; [facility] Note: Reported Physicians:Ordering: DOROTHY PARKER CBC With Differential/Platelet [facility] [place] Ordered by Dorothy JO on 07/27/2024 Collected: 07/27/2024 Reported: 07/28/19 25 15:07 Last Documented On 5 6:22PM ; [facility] All test results are final unless otherw ise noted. WBC 6.4 x10E3/uL (3.4-10.8) None Last Documented On 5 6:22PM ; [facility] RBC 4.85 x10E6/uL (4.14-5.80) None Last Documented On 5 6:22PM ; [facility] Hemoglobin 13.9 g/dL (13.0-17.7) None Last Documented On 5 6:22PM ; [facility] Hematocrit 42.4 % (37.5-51.0) None Last Documented On 5 6:22PM ; [facility] MCV 87 fL (79-97) None Last Documented On 5 6:22PM ; [facility] MCH 28.7 pg (26.6-33.0) None Last Documented On 5 6:22PM ; [facility] MCHC 32.8 g/dL (31.5-35.7) None Last Documented On 5 6:22PM ; [facility] Neutrophils 74 % (Not Estab.) None Last Documented On 5 6:22PM ; [facility] Immature Granulocytes 1 % (Not Estab.) None Last Documented On 5 6:22PM ; [facility] Lymphs 14 % (Not Estab.) None Last Documented On 5 6:22PM ; [facility] Monocytes 7 % (Not Estab.) None Last Documented On 5 6:22PM ; [facility] Eos 3 % (Not Estab.) None Last Documented On 5 6:22PM ; [facility] Basos 1 % (Not Estab.) None Last Documented On 5 6:22PM ; [facility] Platelets 262 x10E3/uL (150-450) None Last Documented On 5 6:22PM ; [facility] Neutrophils (Absolute) 4.8 x10E3/uL (1.4-7.0) None Last Documented On 5 6:22PM ; [facility] Immature Grans (Abs) 0.0 x10E3/uL (0.0-0.1) None Last Documented On 5 6:22PM ; [facility] Lymphs (Absolute) 0.9 x10E3/uL (0.7-3.1) None Last Documented On 5 6:22PM ; [facility] Monocytes(Absolute) 0.5 x10E3/uL (0.1-0.9) None Last Documented On 5 6:22PM ; [facility] Eos (Absolute) 0.2 x10E3/uL (0.0-0.4) None Last Documented On 5 6:22PM ; [facility] Baso (Absolute) 0.0 x10E3/uL (0.0-0.2) None Last Documented On 5 6:22PM ; [facility] RDW 13.5 % (11.6-15.4) None Last Documented On 5 6:22PM ; [facility] Comp. Metabolic Panel (14) [facility] [place] [facility] Ordered by Dorothy JO on 07/27/2024 Collected: 07/27/2024 Reported: 07/28/19 25 15:07 Last Documented On 5 6:22PM ; [facility] All test results are final unless otherw ise noted. Calcium 9.6 mg/dL (8.6-10.2) None Last Documented On 5 6:22PM ; [facility] Glucose 186 mg/dL (70-99) H (High) Last Documented On 5 6:22PM ; [facility] BUN 21 mg/dL (8-27) None Last Documented On 5 6:22PM ; [facility] Protein, Total 7.1 g/dL (6.0-8.5) None Last Documented On 5 6:22PM ; [facility] Albumin 4.3 g/dL (3.9-4.9) None Last Documented On 5 6:22PM ; [facility] Bilirubin, Total 0.5 mg/dL (0.0-1.2) None Last Documented On 5 6:22PM ; [facility] Alkaline Phosphatase 186 IU/L (44-121) H (High) Last Documented On 5 6:22PM ; [facility] AST (SGOT) 14 IU/L (0-40) None Last Documented On 5 6:22PM ; [facility] Potassium 4.5 mmol/L (3.5-5.2) None Last Documented On 5 6:22PM ; [facility] Sodium 140 mmol/L (134-144) None Last Documented On 5 6:22PM ; [facility] Chloride 107 mmol/L (96-106) H (High) Last Documented On 5 6:22PM ; [facility] Creatinine 0.99 mg/dL (0.76-1.27) None Last Documented On 5 6:22PM ; [facility] ALT (SGPT) 13 IU/L (0-44) None Last Documented On 5 6:22PM ; [facility] Carbon Dioxide, Total 19 mmol/L (20-29) L (Low) Last Documented On 5 6:22PM ; [facility] BUN/Creatinine Ratio 21 (10-24) None Last Documented On 5 6:22PM ; [facility] Globulin, Total 2.8 g/dL (1.5-4.5) None Last Documented On 5 6:22PM ; [facility] eGFR 86 mL/min/1.73 (>59) None Last Documented On 5 6:22PM ; [facility] Prothrombin Time (PT) [facility] [place] Ordered by Dorothy JO on 07/27/2024 Collected: 07/27/2024 Reported: 07/28/19 15:07 Last Documented On 5 6:22PM ; [facility] All test results are final unless otherw ise noted. Prothrombin Time 11.4 sec (9.1-12.0) None Last Documented On 5 6:22PM ; [facility] INR 1.0 (0.9-1.2) None Last Documented On 5 6:22PM ; [facility] Note: Reference interval is for non-anti coagulated patients. . Suggested INR therapeutic range for Vitamin K antagonist therapy: Standard Dose (moderate intensity therapeutic range): 2.0 - 3.0 Higher intensity therapeutic range 2.5 - 3.5 Hemoglobin A1c [facility] [place] Ordered by Dorothy JO on 07/27/2024 Collected: 07/27/2024 Reported: 07/28/19 25 15:07 Last Documented On 5 6:22PM ; [facility] All test results are final unless otherw ise noted. Hemoglobin A1c 8.4 % (4.8-5.6) H (High) Last Documented On 5 6:22PM ; [facility] Note: . . Prediabetes: 5.7 - 6.4 Diabet es: >6.4 Glycemic control for adults with diabetes: <7.0 PTT, Activated [facility] Ordered by Dorothy JO on 07/27/2024 Collected: 07/27/2024 Reported: 07/28/19 25 15:07 Last Documented On 5 6:22PM ; [facility] All test results are final unless otherw ise noted. aPTT 30 sec (24-33) None Last Documented On 5 6:22PM ; [facility] Note: This test has not been validated f or monitoringunfractionated heparin therapy. aPTT-based therapeuticranges for unfractionated heparin therapy have not beenestablished. For general guidelines on Heparin monitoring,refer to the [facility] Directory of Services. Fructosamine [facility] Ordered by Dorothy JO on 07/27/2024 Collected: 07/27/2024 Reported: 07/28/19 15:07 Last Documented On 5 6:22PM ; [facility] All test results are final unless otherw ise noted. Fructosamine 330 umol/L (0-285) H (High) Last Documented On 5 6:22PM ; [facility] Note: Published reference interval for a pparently healthysubjects between age 20 and 60 is 205 - 285 umol/L and in apoorly controlled diabetic population is 228 - 563 umol/Lwith a mean of 396 umol/L. MRSA by MUKESH [facility] Ordered by Dorothy JO on 07/27/2024 Collected: 07/27/2024 Reported: 07/28/19 25 15:07 Last Documented On 5 6:22PM ; [facility] All test results are final unless otherw ise noted. MRSA by MUKESH Negative (Negative) None Last Documented On 5 6:22PM ; [facility] Prealbumin [facility] Ordered by Dorothy JO on 07/27/2024 Collected: 07/27/2024 Reported: 07/28/19 25 15:07 Last Documented On 5 6:22PM ; [facility] All test results are final unless otherw ise noted. Prealbumin 23 mg/dL (10-36) None Last Documented On 5 6:22PM ; [facility] Reported Physicians [facility] [place] Ordered by Dorothy JO on 07/27/2024 Collected: 07/27/2024 Reported: 07/28/19 25 15:07 Last Documented On 5 6:22PM ; [facility] All test results are final unless otherw ise noted. Reported Physicians See Note None Last Documented On 07/28/2024 6:22PM ; [facility] Note: Reported Physicians:Ordering: DOROTHY PARKER History of Present Illness History of Present Illness not supported for this document type No History of Present Illness Recorded Social History Description Last Updated Exercising regularly 10/26/2024 Last Documented On 5 10:29AM ; [facility] No caffeine use 01/17/2024 Last Documented On 4 4:56PM ; [facility] No recent change in diet 01/17/2024 Last Documented On 4 4:56PM ; [facility] Not a current smoker. 01/17/2024 Last Documented On 4 4:56PM ; [facility] Not using alcohol 01/17/2024 Last Documented On 4 4:56PM ; [facility] Not using drugs 01/17/2024 Last Documented On 4 4:56PM ; [facility] Never drank alcohol 04/21/2022 Last Documented On 2 2:43PM ; [facility] Never smoked 04/21/2022 Last Documented On 2 2:43PM ; [facility] Never used drugs 04/21/2022 Last Documented On 2 2:43PM ; [facility] Tobacco non-user 04/21/2022 Last Documented On 2 2:43PM ; [facility] 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 On 2 2:43PM ; [facility] Smoking Status Unknown Procedures and Surgical History Includes: Procedures from 04/30/2024 through 04/30/2025 Procedures Code Diagnosis Performing Provider Service Location Service Date NEUROMUSCULAR REEDUCATION (GP) 97117 Unilateral primary osteoarthritis, right hip, Presence of right artificial hip joint Kev M Mares PT [facility] 11/16/2024 Last Documented On 1:34PM ; [facility] MANUAL THERAPY (GP) [id number] Unilateral primary osteoarthritis, right hip, Presence of right artificial hip joint Kev M Mares PT [facility] 11/16/2024 Last Documented On 1:34PM ; [facility] THERAPEUTIC EXERCISES (GP) [id number] Unilateral primary osteoarthritis, right hip, Presence of right artificial hip joint Kev M Mares PT [facility] 11/16/2024 Last Documented On 1:34PM ; [facility] MANUAL THERAPY (GP) [id number] Unilateral primary osteoarthritis, right hip, Presence of right artificial hip joint Kev M Mares PT [facility] 11/14/2024 Last Documented On 3:27PM ; [facility] NEUROMUSCULAR REEDUCATION (GP) [id number] Unilateral primary osteoarthritis, right hip, Presence of right artificial hip joint Ekv M Mares PT [facility] 11/14/2024 Last Documented On 5 3:27PM ; [facility] THERAPEUTIC EXERCISES (GP) [id number] Unilateral primary osteoarthritis, right hip, Presence of right artificial hip joint Kev M Mares PT [facility] 11/14/2024 Last Documented On 5 3:27PM ; [facility] MANUAL THERAPY (GP) [id number] Unilateral primary osteoarthritis, right hip, Presence of right artificial hip joint Kev M Mares PT [facility] 11/09/2024 Last Documented On 12:54PM ; [facility] NEUROMUSCULAR REEDUCATION (GP) [id number] Unilateral primary osteoarthritis, right hip, Presence of right artificial hip joint Kev M Mares PT [facility] 11/09/2024 Last Documented On 12:54PM ; [facility] THERAPEUTIC EXERCISES (GP) [id number] Unilateral primary osteoarthritis, right hip, Presence of right artificial hip joint Kev M Mares PT [facility] 11/09/2024 Last Documented On 12:54PM ; [facility] MANUAL THERAPY (GP) [id number] Unilateral primary osteoarthritis, right hip, Presence of right artificial hip joint Govindtiffany Lopez PT [facility] 11/07/2024 Last Documented On 1:01PM ; [facility] NEUROMUSCULAR REEDUCATION (GP) [id number] Unilateral primary osteoarthritis, right hip, Presence of right artificial hip joint Govind John PT [facility] 11/07/2024 Last Documented On 1:01PM ; [facility] THERAPEUTIC EXERCISES (GP) 04709 Unilateral primary osteoarthritis, right hip, Presence of right artificial hip joint Govind Lopez PT [facility] 11/07/2024 Last Documented On 1:01PM ; [facility] THERAPEUTIC EXERCISES (GP) [id number] Unilateral primary osteoarthritis, right hip, Presence of right artificial hip joint Kev M Mares PT [facility] 11/02/2024 Last Documented On 3:32PM ; [facility] MANUAL THERAPY (GP) [id number] Unilateral primary osteoarthritis, right hip, Presence of right artificial hip joint Kev M Mares PT [facility] 11/02/2024 Last Documented On 3:32PM ; [facility] MANUAL THERAPY (GP) [id number] Unilateral primary osteoarthritis, right hip, Presence of right artificial hip joint Kev M Mares PT [facility] 11/01/2024 Last Documented On 5 1:10PM ; [facility] THERAPEUTIC EXERCISES (GP) 97665 Unilateral primary osteoarthritis, right hip, Presence of right artificial hip joint Kev M Mares PT [facility] 11/01/2024 Last Documented On 5 1:10PM ; [facility] AP PELVIS w/ 1 VIEW HIP (RIGHT) [id number] Unilateral primary osteoarthritis, right hip, Presence of right artificial hip joint Hong Villalta PA-C [facility] B 10/26/2024 Last Documented On 5 9:23AM ; [facility] MANUAL THERAPY (GP) 59529 Unilateral primary osteoarthritis, right hip, Presence of right artificial hip joint Kev M Mares PT [facility] 10/24/2024 Last Documented On 5 12:42PM ; [facility] THERAPEUTIC EXERCISES (GP) 07090 Unilateral primary osteoarthritis, right hip, Presence of right artificial hip joint Kev M Mares PT [facility] 10/24/2024 Last Documented On 5 12:42PM ; [facility] MANUAL THERAPY (GP) 39907 Unilateral primary osteoarthritis, right hip, Presence of right artificial hip joint Govind Lopez PT [facility] 10/20/2024 Last Documented On 5 10:47AM ; [facility] THERAPEUTIC EXERCISES (GP) 62684 Unilateral primary osteoarthritis, right hip, Presence of right artificial hip joint Govind Lopez PT [facility] 10/20/2024 Last Documented On 5 10:47AM ; [facility] MANUAL THERAPY (GP) [id number] Unilateral primary osteoarthritis, right hip, Presence of right artificial hip joint Kev M Mares PT [facility] 10/18/2024 Last Documented On 5 1:27PM ; [facility] THERAPEUTIC EXERCISES (GP) 15253 Unilateral primary osteoarthritis, right hip, Presence of right artificial hip joint Kev M Mares PT [facility] 10/18/2024 Last Documented On 5 1:27PM ; [facility] THERAPEUTIC EXERCISES (GP) [id number] Unilateral primary osteoarthritis, right hip, Presence of right artificial hip joint Kev M Mares PT [facility] 10/16/2024 Last Documented On 5 12:13PM ; [facility] THERAPEUTIC ACTIVITIES (GP) 24518 Unilateral primary osteoarthritis, right hip, Presence of right artificial hip joint Govind Lopez PT [facility] 10/13/2024 Last Documented On 5 11:46AM ; [facility] PT Eval -Low Complexity (GP) 63654 Unilateral primary osteoarthritis, right hip, Presence of right artificial hip joint Sara Keenoy PT [facility] PT Surgery Center Office 10/09/2024 Last Documented On 5 2:19PM ; [facility] TOTAL HIP ARTHROPLASTY (RIGHT) [id number] Unilateral primary osteoarthritis, right hip Gavin Baldwin MD [facility] Surgical Division 10/09/2024 Last Documented On 5 10:20PM ; [facility] GAIT TRAINING THERAPY (GP) [id number] Unilateral primary osteoarthritis, right hip, Presence of right artificial hip joint Sara Keenoy PT [facility] PT Surgery Center Office 10/09/2024 Last Documented On 5 2:19PM ; [facility] THERAPEUTIC ACTIVITIES (GP) 66593 Unilateral primary osteoarthritis, right hip, Presence of right artificial hip joint Sara Keenoy PT [facility] PT Surgery Center Office 10/09/2024 Last Documented On 5 2:19PM ; [facility] X-RAY EXAM OF KNEE 1 OR 2 VIEWS (LEFT) [id number] Unilateral primary osteoarthritis, left knee Gavin Baldwin MD [facility] 06/27/2024 Last Documented On 5 8:19AM ; [facility] Surgical History Last Updated History of Previous Fractures 01/17/2024 Last Documented On 4 4:56PM ; [facility] History of Past Surgical History: 2021 Last Documented On 2 2:43PM ; [facility] Medical History Includes: Medical History in patient's chart Description Last Updated History of Anemia 01/17/2024 Last Documented On 4 4:56PM ; [facility] History of arthritis 01/17/2024 Last Documented On 4 4:56PM ; [facility] History of depression 01/17/2024 Last Documented On 4 4:56PM ; [facility] History of heart disease 01/17/2024 Last Documented On 4 4:56PM ; [facility] History of Heartburn / Acid Reflux 01/16 Last Documented On 4 4:56PM ; [facility] History of Hypertension 01/17/2024 Last Documented On 4 4:56PM ; [facility] History of Sleep Apnea 01/17/2024 Last Documented On 4 4:56PM ; [facility] Use of CPAP 01/17/2024 Last Documented On 4 4:56PM ; [facility] Past Surgical History: Eyes ~Hemmoroids ~biceps tndenosis 04/22/2022 Last Documented On 2 2:43PM ; [facility] History of gastric ulcer 04/21/2022 Last Documented On 2 2:43PM ; [facility] No recent immunization for flu 2 Last Documented On 2 2:43PM ; [facility] No recent immunization for pneumococcal pneumonia 04/21/2022 Last Documented On 2 2:43PM ; [facility] Family History Includes: Family History in patient's chart Description Last Updated Family history of cancer 01/17/2024 Last Documented On 4 4:56PM ; [facility] Family history of heart disease 01/17/20 24 Last Documented On 4 4:56PM ; [facility] Family history of rheumatoid arthritis 0 01/17/2024 Last Documented On 4 4:56PM ; [facility] [facility] Family history of systemic hypertension 01/17/2024 Last Documented On 4 4:56PM ; [facility], [facility] Stroke / Seizures 01/17/2024 Last Documented On 4 4:56PM ; [facility] Fraternal history of Stroke / Seizures 1 06/21/2021 Last Documented On 2 2:43PM ; [facility], [facility] Maternal grandfather's history of family history of heart disease 04/21/2022 Last Documented On 2 2:43PM ; [facility], [facility] Fraternal history of family history of h eart disease 04/21/2022 Last Documented On 2 2:43PM ; [facility], [facility] Fraternal history of systemic hypertensi on 04/21/2022 Last Documented On 2 2:43PM ; [facility], [facility] Maternal history of rheumatoid arthritis 04/21/2022 Last Documented On 2 2:43PM ; [facility] Paternal grandfather's history of family history of heart disease 04/21/2022 Last Documented On 2 2:43PM ; [facility] Paternal grandfather's history of system ic hypertension 04/21/2022 Last Documented On 2 2:43PM ; [facility], [facility] Paternal grandmother's history of rheuma toid arthritis 04/21/2022 Last Documented On 2 2:43PM ; [facility], [facility] Paternal history of family history of ca ncer 04/21/2022 Last Documented On 2 2:43PM ; [facility], [facility] Paternal history of family history of he art disease 04/21/2022 Last Documented On 2 2:43PM ; [facility], [facility] Paternal history of rheumatoid arthritis 04/21/2022 Last Documented On 2 2:43PM ; [facility], [facility] Paternal history of systemic hypertensio n 04/21/2022 Last Documented On 2 2:43PM ; [facility], [facility] Review of Systems Review of Systems not supported for this document type No Review of Systems Recorded Mental Status Description No anxiety Functional Status No Functional Status Recorded Physical Exam Physical Exam not supported for this document type No Physical Exam Recorded Allergies Includes: Active, inactive, and resolved Allergies Substance Type Reaction Onset Date Resolved Date Statu s Spironolactone Allergy Shortness of Breath / Dyspnea 09/21 Active Last Documented On 5 2:58PM ; [facility] Encounters Includes: Encounters from 04/30/2024 through 04/30/2025 Encounter Provider Location Date Check-In Time Check-Out Time Diagnosis NEW PROBLEM/EST PT Gavin Baldwin MD [facility] 025 2:57PM 3:32PM Overweight Post Op Gavin Baldwin MD [facility] 025 2:06PM 2:21PM Overweight Post Op Hong Villalta PA-C [facility] 025 9:50AM 10:40AM Overweight [Patient Encounter] Gavin Baldwin MD 025 07/27/2024 10:18AM 07/27/2024 11:59PM [facility] Outpatient Surgery Suites Gavin Baldwin MD Surgery 025 10/06/2024 12:07PM 09/21/2024 11:59PM Pre Admission Testing Dorothy JO [facility] 025 11:20AM 11:54AM Outside Test Dorothy JO 025 07/27/2024 8:39AM 07/27/2024 11:59PM [Patient Encounter] Gavin Baldwin MD 025 06/27/2024 10:21AM 06/27/2024 11:59PM Pre Admission Testing Dorothy JO [facility] 025 11:41AM 11:55AM Outside Test Dorothy JO 025 06/27/2024 10:29AM 06/27/2024 11:59PM Follow Up Gavin Baldwin MD [facility] 025 8:15AM 8:42AM NEW PROBLEM/EST PT Sekou Olvera PA-C [facility] 025 9:40AM 10:32AM Insurance Includes: Active Insurance Policies Plan Name Member ID Group # Subscriber Relationship Effect michael Dates 1 - [facility] [id number] Jorge Rowe Wu Yusuf 06/07/2021 - Unknown Clinical Notes Includes: Signed Clinical Notes starting from 05/21/2022 * Progress note Date Encounter Last Documented by 01/16/2025 NEW PROBLEM/EST PT Last document ed on 01/19/2025; 12:00 PM, Gavin Baldwin MD; [facility], [facility] Active Problems & Conditions - Joint [...] drugs. Habits: Exercising regularly. 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 Allergies - Spironolactone Reaction: Shortness of Breath [...] Findings - Vitals taken 01/16/2025 02:59 pm knc Height 70 in 60 - 80 Weight [...] omissions. Care Team - Grace Negrete APRN * Progress note Date Encounter Last Documented by 11/23/2024 Post Op Last documented on 11/28/2024; 9:20 AM, Gavin Baldwin MD; [facility], [facility] Active Problems & Conditions - Joint [...] drugs. Habits: Exercising regularly. 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 Allergies - Spironolactone Reaction: Shortness of Breath [...] omissions. Care Team - Grace Negrete APRN * Progress note Date Encounter Last Documented by 10/26/2024 Post Op Last documented on 11/03/2024; 10:29 AM, Hong Villalta PA-C; [facility], [facility] Active Problems & Conditions - Joint [...] drugs. Habits: Exercising regularly. 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 Allergies - Spironolactone Reaction: Shortness of Breath [...] weeks Care Team - Grace Negrete APRN * Progress note Date Encounter Last Documented by 09/21/2024 Pre Admission Testing Last docum ented on 09/25/2024; 11:37 AM, Dorothy JO; [facility] Chief Complaint The Chief Complaint is: Right hip pain/left total knee. History of Present Illness Jorge Washburn is a 64 year old male. - Allergy list reviewed - Problem list reviewed - Medication list reviewed This patient is a pleasant 64 yo WM who presents with right hip pain. The pain has been going on for 3 months but has gotten progressively worse. He describes it as a sharp pain. It is now to the point that it is affecting his ADLs. He has tried NSAIDs without relief of his pain. He has not fallen. He has used a walker as an assistive device. He was seen at Dr Baldwin's office and evaluated and it was determined that he has severe DJD affecting the right hip. Pt was offered a Right Anterior vs Posterior Total Hip Arthroplasty and agreed to the procedure. Pt denies a h/o DVT/PE. No trouble with anesthesia in the past. Pt has a h/o DONAVON and wears CPAP. No asthma or COPD. Current Medication - Acetaminophen Extra Strength 500 [...] refills - Meloxicam 15 MG Oral Tablet 30 days, 0 refills - metFORMIN HCl [...] Current diet: No recent change in diet. Caffeine use: No caffeine use. Tobacco use: Tobacco non-user. Never smoked. Alcohol: Not using alcohol. Never drank alcohol. Drug Use: Not using drugs. Never used drugs. Habits: Not exercising regularly. 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 Allergies - Spironolactone Reaction: Shortness of Breath / Dyspnea (Moderate) Family History Cancer Heart disease Stroke / Seizures Systemic hypertension Rheumatoid arthritis Paternal: Cancer Heart disease Systemic hypertension Rheumatoid arthritis Maternal: Rheumatoid arthritis Paternal grandfather's: Heart disease Systemic hypertension Paternal grandmother's: Rheumatoid arthritis Maternal grandfather's: Heart disease Fraternal: Heart disease Stroke / Seizures Systemic hypertension Review Of Systems Constitutional: Neg for fevers or chills. Eyes: Neg for blurry vision or change in vision. ENT: Neg for sore throat, ear pain, or dizziness. Cardiac: Neg for chest pain or dyspnea on exertion. Respiratory: Neg for shortness of breath. Gastrointestinal: Neg for nausea, vomiting, diarrhea, or constipation. Musculoskeletal: Pos for right hip pain. Neurologic: Neg for headaches or seizures. Psychiatric: Neg for anxiety and depression. Integumentary: Neg for rash. Physical Findings - Vitals taken 09/21/2024 11:43 am EC BP-Sitting L 120/67 mmHg Pulse Rate-Sitting 72 bpm Height 70 in Weight 283 lbs Body Mass Index 40.6 kg/m2 Body Surface Area 2.4 m2 Oxygen Saturation 98 % Constitutional: This is a pleasant 63 yo WM in no acute distress. HEENT: Normocephalic, atraumatic. PEERLA. Extraocular muscles intact. Conjunctiva pink without exudate. Oropharynx pink and moist. Neck supple. No JVD. Cardiac: SI, S2. RRR. No M/R/G. Respiratory: Lungs CTA bilaterally. No wheezes, rales, or rhonchi. Abdomen: Soft, nontender, nondistended. Active bowel sounds. No visible masses. Musculoskeletal: Bilateral LE without clubbing, cyanosis or edema. Integumentary: Skin is pink, warm and dry. No rashes. Neurologic: CN II-XII grossly intact. Psychiatric: Judgment and affect appropriate. Tests - Test: CBC With Differential/Platelet Report Date: 09/22/2024 WBC 7.2 x10E3/uL RBC 4.43 x10E6/uL Hemoglobin 12.6 g/dL Low Hematocrit 38.8 % MCV 88 fL MCH 28.4 pg MCHC 32.5 g/dL Neutrophils 74 % Immature Granulocytes 0 % Lymphs 15 % Monocytes 8 % Eos 2 % Basos 1 % Platelets 250 x10E3/uL Neutrophils (Absolute) 5.4 x10E3/uL Immature Grans (Abs) 0.0 x10E3/uL Lymphs (Absolute) 1.1 x10E3/uL Monocytes(Absolute) 0.6 x10E3/uL Eos (Absolute) 0.1 x10E3/uL Baso (Absolute) 0.0 x10E3/uL RDW 13.0 % - Test: Comp. Metabolic Panel (14) Report Date: 09/22/2024 Calcium 9.7 mg/dL Glucose 127 mg/dL High BUN 27 mg/dL Protein, Total 7.0 g/dL Albumin 4.6 g/dL Bilirubin, Total 0.3 mg/dL Alkaline Phosphatase 119 IU/L AST (SGOT) 21 IU/L Potassium 4.7 mmol/L Sodium 142 mmol/L Chloride 103 mmol/L Creatinine 1.08 mg/dL ALT (SGPT) 22 IU/L Carbon Dioxide, Total 21 mmol/L BUN/Creatinine Ratio 25 High Globulin, Total 2.4 g/dL eGFR 77 mL/min/1.73 - Test: Prothrombin Time (PT) Report Date: 09/22/2024 Prothrombin Time 10.9 sec INR 1.0 - Test: Hemoglobin A1c Report Date: 09/22/2024 Hemoglobin A1c 7.2 % High - Test: PTT, Activated Report Date: 09/22/2024 aPTT 27 sec - Test: Fructosamine Report Date: 09/22/2024 Fructosamine 260 umol/L - Test: MRSA by MUKESH Report Date: 09/22/2024 MRSA by MUKESH Negative - Test: Prealbumin Report Date: 09/22/2024 Prealbumin 22 mg/dL EKG- NSR, 73 User Defined 5 1. Preoperative Exam- Pt underwent preoperative laboratory workup and diagnostic studies. 2. DM- Ozempic on hold 2 weeks prior to surgery. Jardiance on hold 3 days prior to surgery. Continue Metformin. 3. HTN- Continue Isosorbide, Furosemide, Hydralazine Carvedilol, and Benazepril. 4. HL- Continue Atorvastatin. 5. DONAVON- Continue CPAP. 6. Right Hip Pain secondary to DJD- Proceed with surgery as scheduled with Dr Baldwin on 10/09/24. ASC Questions Does the patient have any additional hardware in their body? LT TKA Is the patient a Diabetic? Yes Is the patient on a Semaglutide? Yes Has the patient ever been treated for MRSA? No Has the patient ever smoked? No Does the patient drink daily ETOH? No Do you have a h/o GIB following NSAIDs use? No Have you ever had to hospitalized after a surgery that was supposed to be outpatient? No In the last 6 weeks, have you had any respiratory illnesses including, but not limited to Flu, COVID or Pneumonia? No Does the patient have a clear discharge plan that includes having someone drop them off for surgery, pick them up, and stay with them 72 hrs. This person will have to be able to cook meals, assist in getting the patient to and from the restroom and give medications. Yes, girlfriend * Progress note Date Encounter Last Documented by 07/27/2024 Pre Admission Testing Last docum ented on 07/31/2024; 11:38 AM, Dorothy JO; [facility], [facility] Active Problems & Conditions - Joint Pain in the Left Knee - Joint Pain in the Right Hip - Lower Back Pain Chief Complaint The Chief Complaint is: Right hip pain/left total knee. History of Present Illness Jorge Washburn is a 63 year old male. - Allergy list reviewed - Problem list reviewed - Medication list reviewed This patient is a pleasant 63 yo WM who presents with right hip pain. The pain has been going on for a month but has gotten progressively worse. He describes it as a sharp pain. It is now to the point that it is affecting his ADLs. He has tried NSAIDs without relief of his pain. He has not fallen. He has not used an assistive device. He was seen at Dr Baldwin's office and evaluated and it was determined that he has severe DJD affecting the right hip. Pt was offered a Right Anterior vs Posterior Total Hip Arthroplasty and agreed to the procedure. Pt denies a h/o DVT/PE. No trouble with anesthesia in the past. Pt has a h/o DONAVON and wears CPAP. No asthma or COPD. Current Medication - Acetaminophen Extra Strength 500 MG Oral Tablet take as directed 0 days, 0 refills - Atorvastatin Calcium 40 MG Oral Tablet 90 days, 0 refills - Benazepril HCl 40 MG Oral Tablet 90 days, 0 refills - Carvedilol 25 MG Oral Tablet 30 days, 0 refills - Furosemide 20 MG Oral Tablet 90 days, 0 refills - HYDROcodone-Acetaminophen 5-325 MG Oral Tablet 7 days, 0 refills - Ibuprofen 200 MG Oral Tablet take as directed 0 days, 0 refills - Latanoprost 0.005% Ophthalmic Solution take as directed 0 days, 0 refills - Meloxicam 15 MG Oral Tablet 30 days, 0 refills - Methocarbamol 750 MG [...] Depression Surgical: - Past Surgical History: - Past Surgical History: Eyes Hemmoroids biceps tndenosis - Previous Fractures Social History Not a current smoker. Current diet: No recent change in diet. Caffeine use: No caffeine use. Tobacco use: Tobacco non-user. Never smoked. Alcohol: Not using alcohol. Never drank alcohol. Drug Use: Not using drugs. Never used drugs. Habits: Not exercising regularly. 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 Allergies - No Known Allergies Family History Cancer Heart disease Stroke / Seizures Systemic hypertension Rheumatoid arthritis Paternal: Cancer Heart disease Systemic hypertension Rheumatoid arthritis Maternal: Rheumatoid arthritis Paternal grandfather's: Heart disease Systemic hypertension Paternal grandmother's: Rheumatoid arthritis Maternal grandfather's: Heart disease Fraternal: Heart disease Stroke / Seizures Systemic hypertension Review Of Systems Constitutional: Neg for fevers or chills. Eyes: Neg for blurry vision or change in vision. ENT: Neg for sore throat, ear pain, or dizziness. Cardiac: Neg for chest pain or dyspnea on exertion. Respiratory: Neg for shortness of breath. Gastrointestinal: Neg for nausea, vomiting, diarrhea, or constipation. Musculoskeletal: Pos for right hip pain. Neurologic: Neg for headaches or seizures. Psychiatric: Neg for anxiety and depression. Integumentary: Neg for rash. Physical Findings - Vitals taken 07/27/2024 11:42 am EC BP-Sitting 182/118 mmHg Pulse Rate-Sitting 75 bpm Height 70 in Weight 281 lbs Body Mass Index 40.3 kg/m2 Body Surface Area 2.4 m2 Oxygen Saturation 99 % Constitutional: This is a pleasant 63 yo WM in no acute distress. HEENT: Normocephalic, atraumatic. PEERLA. Extraocular muscles intact. Conjunctiva pink without exudate. Oropharynx pink and moist. Neck supple. No JVD. Cardiac: SI, S2. RRR. No M/R/G. Respiratory: Lungs CTA bilaterally. No wheezes, rales, or rhonchi. Abdomen: Soft, nontender, nondistended. Active bowel sounds. No visible masses. Musculoskeletal: Bilateral LE without clubbing, cyanosis or edema. Integumentary: Skin is pink, warm and dry. No rashes. Neurologic: CN II-XII grossly intact. Psychiatric: Judgment and affect appropriate. Tests - Test: CBC With Differential/Platelet Report Date: 07/28/2024 WBC 6.4 x10E3/uL RBC 4.85 x10E6/uL Hemoglobin 13.9 g/dL Hematocrit 42.4 % MCV 87 fL MCH 28.7 pg MCHC 32.8 g/dL Neutrophils 74 % Immature Granulocytes 1 % Lymphs 14 % Monocytes 7 % Eos 3 % Basos 1 % Platelets 262 x10E3/uL Neutrophils (Absolute) 4.8 x10E3/uL Immature Grans (Abs) 0.0 x10E3/uL Lymphs (Absolute) 0.9 x10E3/uL Monocytes(Absolute) 0.5 x10E3/uL Eos (Absolute) 0.2 x10E3/uL Baso (Absolute) 0.0 x10E3/uL RDW 13.5 % - Test: Comp. Metabolic Panel (14) Report Date: 07/28/2024 Calcium 9.6 mg/dL Glucose 186 mg/dL High BUN 21 mg/dL Protein, Total 7.1 g/dL Albumin 4.3 g/dL Bilirubin, Total 0.5 mg/dL Alkaline Phosphatase 186 IU/L High AST (SGOT) 14 IU/L Potassium 4.5 mmol/L Sodium 140 mmol/L Chloride 107 mmol/L High Creatinine 0.99 mg/dL ALT (SGPT) 13 IU/L Carbon Dioxide, Total 19 mmol/L Low BUN/Creatinine Ratio 21 Globulin, Total 2.8 g/dL eGFR 86 mL/min/1.73 - Test: Prothrombin Time (PT) Report Date: 07/28/2024 Prothrombin Time 11.4 sec INR 1.0 - Test: Hemoglobin A1c Report Date: 07/28/2024 Hemoglobin A1c 8.4 % High - Test: PTT, Activated Report Date: 07/28/2024 aPTT 30 sec - Test: Fructosamine Report Date: 07/28/2024 Fructosamine 330 umol/L High - Test: MRSA by MUKESH Report Date: 07/28/2024 MRSA by MUKESH Negative - Test: Prealbumin Report Date: 07/28/2024 Prealbumin 23 mg/dL EKG- NSR, 73 User Defined 5 1. Preoperative Exam- Pt underwent preoperative laboratory workup and diagnostic studies. 2. DM- Ozempic on hold 2 weeks prior to surgery. 3. HTN- Continue Furosemide, Carvedilol, and Benazepril. 4. HL- Continue Atorvastatin. 5. DONAVON- Continue CPAP. 6. Right Hip Pain secondary to DJD- Pt surgery cancelled for elevated A1C and Fruct. Cardiac clearance pending as well. He is aware that his BP needs to be improved prior to surgery. ASC Questions Does the patient have any additional hardware in their body? LT TKA Is the patient a Diabetic? Yes Is the patient on a Semaglutide? Yes Has the patient ever been treated for MRSA? No Has the patient ever smoked? No Does the patient drink daily ETOH? No Do you have a h/o GIB following NSAIDs use? No Have you ever had to hospitalized after a surgery that was supposed to be outpatient? No In the last 6 weeks, have you had any respiratory illnesses including, but not limited to Flu, COVID or Pneumonia? No Does the patient have a clear discharge plan that includes having someone drop them off for surgery, pick them up, and stay with them 72 hrs. This person will have to be able to cook meals, assist in getting the patient to and from the restroom and give medications. Yes, girlfriend * Progress note Date Encounter Last Documented by 06/27/2024 Follow Up Last documented on 07/03/2024; 3:31 PM, Gavin Baldwin MD; [facility], [facility] Active Problems & Conditions - Joint Pain in the Left Knee - Lower Back Pain Chief Complaint The Chief Complaint is: Right hip pain/left total knee. History of Present Illness Jorge Washburn is a 63 year old male. - Allergy list reviewed - Problem list reviewed - Medication list reviewed Follow up left total knee replacement from December 2023 as well as new complaint of right hip pain I have seen him on Wednesday for the right hip and that is still bothering and he has complaints of pain in the right groin difficulties walking here today discuss a right total hip replacement. In terms of the left knee that is doing well Patient is here today for new evaluation for right hip pain this kind of started towards the end of May after driving. Most his pain seems to be in the right groin area of his hip he has difficulties trying to get socks and shoes on difficulties walking no radicular symptoms with this. He has difficulty walking due to this and can not walk at work and this pain is limiting his ability to work he is presently off work Current Medication - Albuterol Sulfate HFA 108 (90 Base) MCG/ACT Inhalation Aerosol Solution 17 days, 0 refills - Atorvastatin Calcium 40 MG Oral Tablet 90 days, 0 refills - Benazepril HCl 40 MG Oral Tablet 90 days, 0 refills - Carvedilol 25 MG Oral Tablet 30 days, 0 refills - Cyclobenzaprine HCl 10 MG Oral Tablet 30 days, 0 refills - Depakote 125 MG Oral Tablet, enteric coated Tablet Delayed Release take as directed 0 days, 0 refills - Furosemide 20 MG Oral Tablet 90 days, 0 refills - HYDROcodone-Acetaminophen 5-325 MG Oral Tablet 7 days, 0 refills - Latanoprost 0.005% Ophthalmic Solution 68 days, 0 refills - levoFLOXacin 750 MG Oral Tablet 7 days, 0 refills - Lipitor 40 MG Oral Tablet take as directed 0 days, 0 refills - Meloxicam 15 MG Oral Tablet 30 days, 0 refills - Methocarbamol 750 MG Oral Tablet 30 days, 0 refills - Ozempic (1 MG/DOSE) 4 MG/3ML Subcutaneous Solution Pen-injector 28 days, 0 refills - Ozempic (2 MG/DOSE) 8 MG/3ML Subcutaneous Solution Pen-injector 28 days, 0 refills - prednisoLONE Acetate 1% Ophthalmic Suspension 8 days, 0 refills - Timolol Maleate 0.5% Ophthalmic Solution 25 days, 0 refills Past Medical/Surgical History Reported: Use of CPAP. Immunization History: No recent immunization for flu and not for pneumococcal pneumonia. Diagnoses: Heart disease. Anemia Sleep Apnea Heartburn / Acid Reflux Hypertension. Gastric ulcer. Arthritis. Depression Surgical: - Past Surgical History: - Past Surgical History: Eyes Hemmoroids biceps tndenosis - Previous Fractures Social History Not a current smoker. Current diet: No recent change in diet. Caffeine use: No caffeine use. Tobacco use: Tobacco non-user. Never smoked. Alcohol: Not using alcohol. Never drank alcohol. Drug Use: Not using drugs. Never used drugs. Habits: Not exercising regularly. 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 Allergies - No Known Allergies Family History Cancer Heart disease Stroke / Seizures Systemic hypertension Rheumatoid arthritis Paternal: Cancer Heart disease Systemic hypertension Rheumatoid arthritis Maternal: Rheumatoid arthritis Paternal grandfather's: Heart disease Systemic hypertension Paternal grandmother's: Rheumatoid arthritis Maternal grandfather's: Heart disease Fraternal: Heart disease Stroke / Seizures Systemic hypertension Physical Findings - Vitals taken 06/27/2024 08:42 am Height 70 in 60 - 80 Weight 290 lbs 123 - 215 Body Mass Index 41.6 kg/m2 Body Surface Area 2.4 m2 Pain Level 4 Patient is overweight Antalgic gait walking has a hard time getting up and down out of a chair he does have pain with right hip flexion as well as internal external rotation reproducible to the groin Could not assess [place] with him as he could not hold his leg up off the take Left knee range motion 0-120 stable ligamentous exam Tests Outside facility x-rays of his right hip shows degenerative changes with the right hip June 2024 Two views left knee show the implant in good position 06/27/2024 Assessment Right hip OA Left total hip replacement December 2023 Previous Tests Available previous imaging studies were reviewed Available previous history reviewed Plan StartCited - Other traMADol HCl 50 MG tablet 1 tab every 12 hours, 25 days, 0 refills EndCited Patient was seen by myself and Dr. Baldwin. Sekou Olvera PA-C Patient will follow- up post surgery for after a right total hip replacement patient understands all benefits risks alternatives surgery consents to proceed. Notes This dictation was done with voice recognition software and may contain errors and omissions. Care Team - Grace Negrete APRN * Progress note Date Encounter Last Documented by 06/23/2024 NEW PROBLEM/EST PT Last document ed on 06/23/2024; 12:10 PM, Sekou Olvera PA-C; [facility], [facility] Active Problems & Conditions - Joint Pain in the Left Knee - Lower Back Pain Chief Complaint The Chief Complaint is: Right hip pain. History of Present Illness Jorge Washburn is a 63 year old male. - Allergy list reviewed - Problem list reviewed - Medication list reviewed Patient is here today for new evaluation for right hip pain this kind of started towards the end of May after driving. Most his pain seems to be in the right groin area of his hip he has difficulties trying to get socks and shoes on difficulties walking no radicular symptoms with this. He has difficulty walking due to this and can not walk at work and this pain is limiting his ability to work he is presently off work Current Medication - Albuterol Sulfate HFA 108 (90 Base) MCG/ACT Inhalation Aerosol Solution 17 days, 0 refills - Atorvastatin Calcium 40 MG Oral Tablet 90 days, 0 refills - Benazepril HCl 40 MG Oral Tablet 90 days, 0 refills - Carvedilol 25 MG Oral Tablet 30 days, 0 refills - Cyclobenzaprine HCl 10 MG Oral Tablet 30 days, 0 refills - Depakote 125 MG Oral Tablet, enteric coated Tablet Delayed Release take as directed 0 days, 0 refills - Furosemide 20 MG Oral Tablet 90 days, 0 refills - Latanoprost 0.005% Ophthalmic Solution 68 days, 0 refills - levoFLOXacin 750 MG Oral Tablet 7 days, 0 refills - Lipitor 40 MG Oral Tablet take as directed 0 days, 0 refills - Meloxicam 15 MG Oral Tablet 30 days, 0 refills - Methocarbamol 750 MG Oral Tablet 30 days, 0 refills - Ozempic (1 MG/DOSE) 4 MG/3ML Subcutaneous Solution Pen-injector 28 days, 0 refills - Ozempic (2 MG/DOSE) 8 MG/3ML Subcutaneous Solution Pen-injector 28 days, 0 refills - prednisoLONE Acetate 1% Ophthalmic Suspension 8 days, 0 refills - Timolol Maleate 0.5% Ophthalmic Solution 25 days, 0 refills Past Medical/Surgical History Reported: Use of CPAP. Immunization History: No recent immunization for flu and not for pneumococcal pneumonia. Diagnoses: Heart disease. Anemia Sleep Apnea Heartburn / Acid Reflux Hypertension. Gastric ulcer. Arthritis. Depression Surgical: - Past Surgical History: - Past Surgical History: Eyes Hemmoroids biceps tndenosis - Previous Fractures Social History Not a current smoker. Current diet: No recent change in diet. Caffeine use: No caffeine use. Tobacco use: Tobacco non-user. Never smoked. Alcohol: Not using alcohol. Never drank alcohol. Drug Use: Not using drugs. Never used drugs. Habits: Not exercising regularly. 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 Allergies - No Known Allergies Family History Cancer Heart disease Stroke / Seizures Systemic hypertension Rheumatoid arthritis Paternal: Cancer Heart disease Systemic hypertension Rheumatoid arthritis Maternal: Rheumatoid arthritis Paternal grandfather's: Heart disease Systemic hypertension Paternal grandmother's: Rheumatoid arthritis Maternal grandfather's: Heart disease Fraternal: Heart disease Stroke / Seizures Systemic hypertension Physical Findings - Vitals taken 06/23/2024 10:09 am Height 70 in Weight 290 lbs Body Mass Index 41.6 kg/m2 Body Surface Area 2.4 m2 Pain Level 3 Patient is overweight Antalgic gait walking has a hard time getting up and down out of a chair he does have pain with right hip flexion as well as internal external rotation reproducible to the groin Could not assess [place] with him as he could not hold his leg up off the take Tests Outside facility x-rays of his right hip shows degenerative changes with the right hip June 2024 Assessment Right hip OA Previous Tests Available previous imaging studies were reviewed Available previous history reviewed Plan Patient was seen by myself Sekou Olvera PA-C. Patient will follow up myself and Dr. Baldwin next week to discuss a right total hip replacement we will keep him off work for now his preference would be to fix this problem Notes This dictation was done with voice recognition software and may contain errors and omissions. Care Team - Grace Negrete APRN
--- OUTSIDE RECORDS SUMMARY | 2025-04-30 07:10 | XMS_ITS | Clinical Summary ---
Author Organization [facility] Address [address] [place] [address] Care Team Providers Care Drophammer Operator Name Role Phone Grace Negrete APRN Primary Care Provider [phone] Allergies No known active allergies Medications amLODIPine-shauna [...] 11/18/2016 9:23 AM EDT Plan of Treatment Upcoming Encounters Date Type Department Care Team (Late st Contact Info) Description 05/18/2025 2:00 PM EST Office Visit [facility] [address] [facility] [address] [place] [id number] Kiki Harding PA-C [address] [facility] [address] [place] [address] Health Maintenance Due Date Last Done Comments [...] HEPATITIS C SCREENING 11/17/2016 INFLUENZA VACCINE 01/05/2025 Procedures Procedure Name Priority Date/Time Associated Diagnosis Comments SCANNED - IMAGING 04/12/2025 SCANNED - IMAGING 04/05/2025 from Last 3 Months Results * IMAGING SCANNED (04/12/2025) Only the most recent of2 resultswithin the time period is included. Anatomical Region Laterality Modality Radiographic [facility] Onbase IMG DIAGNOSTIC IMAGING ORDERA BLES Final Result from Last [address] [address] WORK[employer] COMPENSATION BLUE SHIELD PPO Care Teams Drophammer Operator Relationship Specialty Start Date End Date Grace Negrete APRN [address] [place] [id number] PCP - General Nurse Practitioner 04/23/25
--- OUTSIDE RECORDS SUMMARY | 2025-04-30 07:10 | XMS_ITS | Encounter Summary ---
Author Organization [employer] ([place], [place], [place], [place], [place]) Address [address] [place] [address] Care Team Providers Care Stereotyper Helper Name Role Phone Unavailable Primary Care Provider Unavailabl e Encounter Details Date Type Department Care Team (Late st Contact Info) Description 07/21/2020 Transcribed Document [facility] [place] [address] [place] [address] ProviderErasto MD [address] [place] [address] Social History Tobacco Use Types [...] - Historical ProviderMD - 07/21/2020 4:58 AM CLINICAL EDUCATION COORDINATOR [place] Violence Assessment Entered On: 07/21/2020 5:32 EST Performed On: 07/21/2020 5:31 EST by ALAINA QUINTANA RN [place] Violence Assessment [place] Violence Checklist of Symptoms : None Bro[place] Violence Symptoms Subtotal : 0 Broset Violence Symptoms Indicator : Low risk (0) Broset Interventions : [place] precautions for safety used ALAINA QUINTANA RN - 07/21/2020 5:31 EST documented in this encounter Plan of Treatment Not on file documented as of this encounter Visit Diagnoses Not on filedocumented in this encounter
--- OUTSIDE RECORDS SUMMARY | 2025-04-30 07:10 | XMS_ITS | Encounter Summary ---
Author Organization [employer] ([place], [place], [place], [place], [place]) Address [address] [place] [address] Care Team Providers Care Correctional Counselor/Case Manager Name Role Phone Unavailable Primary Care Provider Unavailabl e Encounter Details Date Type Department Care Team (Late st Contact Info) Description 07/21/2020 Transcribed Document [facility] [place] Family Medicine [address] [place] [address] ProviderErasto MD [address] [place] [address] Social History Tobacco Use Types [...] - Historical ProviderMD - 07/21/2020 4:58 AM CALLIOPE PLAYER [place] Suicide Severity Rating Scale (C-SSRS) Entered On: 07/21/2020 5:33 EST Performed On: 07/21/2020 5:31 EST by ALAINA QUINTANA RN [place] Suicide Severity Rating Scale (C-SSRS) CSSRS Past [...]
--- OUTSIDE RECORDS SUMMARY | 2025-04-30 07:10 | XMS_ITS | Encounter Summary ---
Author Organization [employer] ([place], [place], [place], [place], [place]) Address [address] [place] [address] Care Team Providers Care Rn Traveling Name Role Phone Unavailable Primary Care Provider Unavailabl e Encounter Details Date Type Department Care Team (Late st Contact Info) Description 07/21/2020 Transcribed Document [facility] [place] [facility] [place] [address] ProviderErasto MD [address] [place] [address] Social History Tobacco Use Types [...] - Erasto ProviderMD - 07/21/2020 5:19 AM TELEHEALTH DIRECTOR Patient: JORGE SANTAMARIA Age: 59 years Sex: [...] EST Height Source Stated Height Entry Format Menan Height/Length, CAMEROONIAN (ft) 5 ft Height/Length CAMEROONIAN 10 Inch CLINICALHEIGHT 177.8 cm [place] Body Weight 72.02 kg Weight Source, ED Critical estimated dosing weight Weight Entry Format Menan Weight Cymro lb 280 lb CLINICALWEIGHT 127.27 kg Body [...] 5:37 EST, Discharge to: Home. Prescriptions: Prescription [facility] Operator [facility]: tiZANidine 2 mg oral capsule (Prescribe): [...]
--- OUTSIDE RECORDS SUMMARY | 2025-04-30 07:10 | XMS_ITS | Clinical Summary ---
Author Organization [facility] Address [address] [place] [address] Phone Care Team Providers Care Bluing Oven Tender Name Role Phone Gavin Baldwin MD Unavailable [phone] Grace Negrete APRN Primary Care Provider [phone] Reason for Visit and Chief Complaint [Patient Encounter] Problems Includes: Problems addressed during this encounter and other active Problems All Visits Onset Date Resolved Date Provider Condition S tatus Joint Pain Shoulder Bilateral 01/16/2025 Gavin Baldwin MD Active Last Documented On 5 2:58PM ; [facility] Joint Pain Hip Right 07/27/2024 Dorothy JO Active Last Documented On 5 11:46AM ; [facility] Joint Pain Left Knee 01/17/2024 Brittani Nava Active Last Documented On 4 3:18PM ; [facility] Lower Back Pain 04/14/2022 Sekou Olvera PA-C A ctive Last Documented On 2 3:36PM ; [facility] Plan of Treatment Pending Tests Order Diagnosis Results Due Ordering P rovider Lab Hemoglobin A1c 12/16/23 Gavin hilton MD Last Documented On 4 10:16AM ; [facility] Lab CBC With Differential/Platelet 12/15 Gavin Baldwin MD Last Documented On 4 10:16AM ; [facility] Lab Prothrombin Time (PT) 12/16/23 Ruperto Baldwin MD Last Documented On 4 10:16AM ; [facility] Lab PTT, Activated 12/16/23 Gavin hilton MD Last Documented On 4 10:16AM ; [facility] Lab Prealbumin 12/16/23 Gavin Rincon Last Documented On 4 10:16AM ; [facility] Lab Fructosamine 12/16/23 Gavin Baldwin MD Last Documented On 4 10:16AM ; [facility] Lab MRSA by MUKESH 12/16/23 Gavin Baldwin MD Last Documented On 4 10:16AM ; [facility] Lab Comp. Metabolic Panel (14) 12/16/23 Gavin Baldwin MD Last Documented On 4 10:16AM ; [facility] Therapy - Physical Therapy Hip 09/08/24 Gavin Baldwin MD Last Documented On 5 10:21AM ; [facility] Assessments Includes: Assessments from this encounter No Assessments Recorded Medical Equipment - Implanted Devices Includes: Current Devices No Medical Equipment Recorded Medications Includes: Medications discussed during this encounter and other current Medications Current Medications (continue as prescribed) Jardiance 25 MG Oral Tablet 09/21/2024 Provider: Diagnosis: Last Documented On 5 11:47AM By Danielle Martins ; [facility] Vitamin D2 10 MCG (400 UNIT) Oral Tablet 09/21/2024 Provider: Diagnosis: Last Documented On 5 11:47AM By Danielle Macedo [facility] Cyclobenzaprine HCl 10 MG Oral Tablet 09/21/2024 Pro vider: Diagnosis: Last Documented On 5 11:46AM By Danielle Martins ; [facility] Isosorbide Dinitrate 40 MG Oral Tablet 09/21/2024 Pr ovider: Diagnosis: Last Documented On 5 11:47AM By Danielle Martins ; [facility] hydrALAZINE HCl 50 MG Oral Tablet 09/21/2024 Provide r: Diagnosis: Last Documented On 5 11:48AM By Danielle Martins ; [facility] metFORMIN HCl 1000 MG Oral Tablet 09/21/2024 Provide r: Diagnosis: Last Documented On 5 11:48AM By Danielle Martins ; [facility] acetaZOLAMIDE 250 MG Oral Tablet 09/21/2024 Provider : Diagnosis: Last Documented On 5 11:46AM By Danielle Martins ; [facility] Latanoprost 0.005% Ophthalmic Solution 07/27/2024 Pr ovider: Diagnosis: Last Documented On 5 11:48AM By Danielle Martins ; [facility] Timolol Maleate 0.25% Ophthalmic Solution 07/27/2024 Provider: Diagnosis: Last Documented On 5 11:49AM By Danielle Martins ; [facility] Acetaminophen Extra Strength 500 MG Oral Tablet 2024 Provider: Diagnosis: Last Documented On 5 2:46PM By Sarah Hernandez ; [facility] Ibuprofen 200 MG Oral Tablet 07/20/2024 Provider: Diagnosis: Last Documented On 5 2:47PM By Sarah Hernandez ; [facility] HYDROcodone-Acetaminophen 5-325 MG Oral Tablet 025 Provider: Diagnosis: Last Documented On 5 8:18AM By Kevin Ray ; [facility] Atorvastatin Calcium 40 MG Oral Tablet 06/16/2024 Pr ovider: Grace Negrete DENTAL RECEPTIONIST Diagnosis: Last Documented On 5 10:08AM By Kevin Ray ; [facility] Ozempic (1 MG/DOSE) 4 MG/3ML Subcutaneous Solution Pen-injector 06/01/2024 Provider: Grace Negrete DENTAL RECEPTIONIST Diagnosis: Last Documented On 5 10:08AM By Kevin Ray ; [facility] Benazepril HCl 40 MG Oral Tablet 09/21/2023 Provider : Grace Negrete DENTAL RECEPTIONIST Diagnosis: Last Documented On 4 10:00AM By Regina Ordoñez ; [facility] Methocarbamol 750 MG Oral Tablet 08/30/2023 Provider : Sekou Olvera PA-C Diagnosis: Last Documented On 4 10:00AM By Regina Ordoñez ; [facility] Furosemide 20 MG Oral Tablet 07/10/2023 Provider: Grace Negrete APRN Diagnosis: Last Documented On 4 3:01PM By Shanna Echavarria ; [facility] Carvedilol 25 MG Oral Tablet 03/25/2023 Provider: Diagnosis: Last Documented On 4 3:01PM By Shanna Echavarria ; [facility] Medications Administered Includes: Administered Medications from this encounter No Administered Medications Recorded Results Includes: Results discussed during this encounter No Results Recorded For Specified Dates History of Present Illness Includes: History of Present Illness from this encounter No History of Present Illness Recorded Social History No Social History Recorded - Smoking Status Unknown Medical History Includes: Medical History addressed during this encounter No Medical History Recorded Family History Includes: Family History addressed during this encounter No Family History Recorded Review of Systems Includes: Review of Systems from this encounter No Review of Systems Recorded Mental Status Includes: Mental Status from this encounter No Mental Status Recorded Functional Status Includes: Functional Status from this encounter No Functional Status Recorded Physical Exam Includes: Physical Exam from this encounter No Physical Exam Recorded Allergies Includes: Active Allergies Substance Type Reaction Onset Date Resolved Date Statu s Spironolactone Allergy Shortness of Breath / Dyspnea 09/21 Active Last Documented On 5 2:58PM ; [facility] Encounters Encounter Provider Location Date Check-In Time Check-Out Time Diagnosis [Patient Encounter] Gavin Baldwin MD 10/09/2024 10:18AM 11:59PM Insurance Includes: Active Insurance Policies Plan Name Member ID Group # Subscriber Relationship Effect michael Dates 1 - [facility] [id number] Jorge Soledad Yusuf 06/07/2021 - Unknown Clinical Notes Includes: Clinical Notes from this encounter No Clinical Notes Recorded
--- OUTSIDE RECORDS SUMMARY | 2025-04-30 07:10 | XMS_ITS | Encounter Summary ---
Author Organization [email or web address] ([place], [place], [place], [place], [place]) Address [address] [place] [address] Care Team Providers Care Fruit Checker Name Role Phone Unavailable Primary Care Provider Unavailabl e Encounter Details Date Type Department Care Team (Late st Contact Info) Description 07/21/2020 Transcribed Document [facility] [place] Family Medicine [address] [place] [address] ProviderErasto MD [address] [place] [address] Social History Tobacco Use Types [...] - Historical ProviderMD - 07/21/2020 1:38 PM EMBRYOLOGY PROFESSOR CR Tibia Fibula 2 Vws RT Ordered: 07/21/2020 Auth (Verified) Reason for Exam: r calf pain 07/21/2020 11:14 07/21/2020 13:38 (EVERETT BENITO PA-C) Reviewed by Provider, No further action required documented in this encounter Plan of Treatment Not on file documented as of this encounter Visit Diagnoses Not on filedocumented in this encounter
--- OUTSIDE RECORDS SUMMARY | 2025-04-30 07:10 | XMS_ITS | Encounter Summary ---
Author Organization [employer] ([place], [place], [place], [place], [place]) Address [address] [place] [address] Care Team Providers Care Cloth Dyeing Range Tender Name Role Phone Unavailable Primary Care Provider Unavailabl e Encounter Details Date Type Department Care Team (Late st Contact Info) Description 07/21/2020 Transcribed Document [facility] [place] Family [facility] [place] [address] ProviderErasto MD [facility] [place] [address] Social History Tobacco Use Types [...] - Historical ProviderMD - 07/21/2020 6:04 AM NURSE EMERGENCY ED Discharge Entered On: 07/21/2020 6:05 EST [...]
--- OUTSIDE RECORDS SUMMARY | 2025-04-30 07:10 | XMS_ITS | Encounter Summary ---
Author Organization [employer] ([place], [place], [place], [place], [place]) Address [address] [place] [address] Care Team Providers Care Sales Superintendent Name Role Phone Unavailable Primary Care Provider Unavailabl e Encounter Details Date Type Department Care Team (Late st Contact Info) Description 07/21/2020 Transcribed Document [facility] [place] Family Medicine [facility] [place] [address] ProviderErasto MD [address] [place] [address] Social History Tobacco Use Types [...] Erasto Leonard MD - 07/21/2020 5:40 AM VIDEO GAME TESTER [facility] [place], [place] [id number] JORGE SANTAMARIA :1960 Visit Time:07/21/2020 Your Visit [...] if symptoms not improved Where: [place] [address]- [facility] (1) Allergies No Known Medication Allergies [...] not too tight. General instructions ??? Take cfed-eal-smulksc and prescription medicines only as told by [...] 05/24/2006 Document Revised: 05/06/2018 Document Reviewed: 06/30/2017 clickTRUE Patient Education ?? 2020 [employer]. Emergency Awareness and Preventative Care STROKE is [...] Assistance with quitting is available by contacting 6-391-VFTV-NOW. This is a free resource providing counseling, [...] was given the opportunity to ask questions. Patient/Ditch Tender Name: Patient/Ditch Tender Signature: Relationship to Patient: Clinician/Hospital Ditch Tender Signature: Please Provide a Telephone Number Where You Can Be Reached: Is it Permissible To Leave a Message? Date: documented in this encounter Plan of Treatment Not on file documented as of this encounter Visit Diagnoses Not on filedocumented in this encounter
--- OUTSIDE RECORDS SUMMARY | 2025-04-30 07:11 | XMS_ITS | Clinical Summary ---
Author Organization [facility] , [facility] Address [address] [place] [address] Phone Care Team Providers Care Home Office Representative Name Role Phone Gavin Baldwin MD Unavailable [phone] Grace Negrete APRN Primary Care Provider [phone] Reason for Visit and Chief Complaint [facility] Problems Includes: Problems addressed during this encounter and other active Problems All Visits Onset Date Resolved Date Provider Condition S tatus Joint Pain Shoulder Bilateral 01/16/2025 Gavin Baldwin MD Active Last Documented On 5 2:58PM ; [facility] Joint Pain Hip Right 07/27/2024 Dorothy JO Active Last Documented On 5 11:46AM ; [facility] Joint Pain Left Knee 01/17/2024 Brittani Nava Active Last Documented On 4 3:18PM ; [facility] Lower Back Pain 04/14/2022 Sekou Olvera PA-C A ctive Last Documented On 2 3:36PM ; [facility] Plan of Treatment Pending Tests Order Diagnosis Results Due Ordering P rovider Lab Hemoglobin A1c 12/16/23 Gavin hilton MD Last Documented On 4 10:16AM ; [facility] Lab CBC With Differential/Platelet 12/15 Gavin Baldwin MD Last Documented On 4 10:16AM ; [facility] Lab Prothrombin Time (PT) 12/16/23 Ruperto Baldwin MD Last Documented On 4 10:16AM ; [facility], [facility] Lab PTT, Activated 12/16/23 Gavin hilton MD Last Documented On 4 10:16AM ; [facility], [facility] Lab Prealbumin 12/16/23 Gavin Rincon Last Documented On 4 10:16AM ; [facility], [facility] Lab Fructosamine 12/16/23 Gavin Baldwin MD Last Documented On 4 10:16AM ; [facility], [facility] Lab MRSA by MUKESH 12/16/23 Gavin Baldwin MD Last Documented On 4 10:16AM ; [facility] Lab Comp. Metabolic Panel (14) 12/16/23 Gavin Baldwin MD Last Documented On 4 10:16AM ; [facility] Assessments Includes: Assessments from this encounter No Assessments Recorded Medical Equipment - Implanted Devices Includes: Current Devices No Medical Equipment Recorded Medications Includes: Medications discussed during this encounter and other current Medications New / Renewed during this visit Gavin Baldwin MD on 10/09/2024 traMADol HCl 50 MG Oral Tablet Provider: Gavin Baldwin MD 15 day supply: 60 tablet, 0 refills Diagnosis: 1-2 p o q 6-8h for breakthro ugh post op pain MAXIMUM 8 TABLETS PER DAY Pharmacy: [facility] [phone], [address] - Last Documented On 5 8:36AM By Gavin Baldwin ; [facility], [facility] Current Medications (continue as prescribed) Jardiance 25 MG Oral Tablet 09/21/2024 Provider: Diagnosis: Last Documented On 5 11:47AM By Danielle Martins ; [facility] Vitamin D2 10 MCG (400 UNIT) Oral Tablet 09/21/2024 Provider: Diagnosis: Last Documented On 5 11:47AM By Danielle Martins ; [facility], [facility] Cyclobenzaprine HCl 10 MG Oral Tablet 09/21/2024 Pro vider: Diagnosis: Last Documented On 5 11:46AM By Danielle Martins ; [facility], [facility] Isosorbide Dinitrate 40 MG Oral Tablet 09/21/2024 Pr ovider: Diagnosis: Last Documented On 5 11:47AM By Daneille Martins ; [facility], [facility] hydrALAZINE HCl 50 MG Oral Tablet 09/21/2024 Provide r: Diagnosis: Last Documented On 5 11:48AM By Danielle Martins ; [facility], [facility] metFORMIN HCl 1000 MG Oral Tablet 09/21/2024 Provide r: Diagnosis: Last Documented On 5 11:48AM By Danielle Martins ; [facility] acetaZOLAMIDE 250 MG Oral Tablet 09/21/2024 Provider : Diagnosis: Last Documented On 5 11:46AM By Danielle Martins ; [facility], [facility] Latanoprost 0.005% Ophthalmic Solution 07/27/2024 Pr ovider: Diagnosis: Last Documented On 5 11:48AM By Danielle Martins ; [facility], [facility] Timolol Maleate 0.25% Ophthalmic Solution 07/27/2024 Provider: Diagnosis: Last Documented On 5 11:49AM By Danielle Martins ; [facility], [facility] Acetaminophen Extra Strength 500 MG Oral Tablet 2024 Provider: Diagnosis: Last Documented On 5 2:46PM By Sarah Hernandez ; [facility] Ibuprofen 200 MG Oral Tablet 07/20/2024 Provider: Diagnosis: Last Documented On 5 2:47PM By Sarah Hernandez ; [facility], [facility] HYDROcodone-Acetaminophen 5-325 MG Oral Tablet 025 Provider: Diagnosis: Last Documented On 5 8:18AM By Kevin Ray ; [facility] Atorvastatin Calcium 40 MG Oral Tablet 06/16/2024 Pr ovider: Grace Negrete APRN Diagnosis: Last Documented On 5 10:08AM By Kevin Ray ; [facility] Ozempic (1 MG/DOSE) 4 MG/3ML Subcutaneous Solution Pen-injector 06/01/2024 Provider: Grace Negrete APRN Diagnosis: Last Documented On 5 10:08AM By Kevin Ray ; [facility] Benazepril HCl 40 MG Oral Tablet 09/21/2023 Provider : Grace Negrete APRN Diagnosis: Last Documented On 4 10:00AM By Regina Ordoñez ; [facility] Methocarbamol 750 MG Oral Tablet 08/30/2023 Provider : Sekou Olvera PA-C Diagnosis: Last Documented On 4 10:00AM By Regina Ordoñez ; [facility] Furosemide 20 MG Oral Tablet 07/10/2023 Provider: Grace Negrete APRN Diagnosis: Last Documented On 4 3:01PM By Shanna Echavarria ; [facility] Carvedilol 25 MG Oral Tablet 03/25/2023 Provider: Diagnosis: Last Documented On 4 3:01PM By Shanna Echavarria ; [facility] Medications Administered Includes: Administered Medications from this encounter No Administered Medications Recorded Results Includes: Results discussed during this encounter No Results Recorded For Specified Dates History of Present Illness Includes: History of Present Illness from this encounter No History of Present Illness Recorded Social History No Social History Recorded - Smoking Status Unknown Procedures and Surgical History Includes: Procedures from this encounter Procedures Code Diagnosis Performing Provider Service Location Service Date TOTAL HIP ARTHROPLASTY (RIGHT) 74089 Unilateral primary osteoarthritis, right hip Gavin Baldwin MD [facility] Surgical Division 10/09/2024 Last Documented On 5 10:20PM ; [facility] Medical History Includes: Medical History [...] Active Last Documented On 5 2:58PM ; [facility] Encounters Encounter Provider Location Date Check-In Time Check-Out Time Diagnosis [facility] Gavin Baldwin MD Surgery 5 10/06/2024 12:07PM 11:59PM Insurance Includes: Active Insurance Policies Plan Name Member ID Group # Subscriber Relationship Effect michael Dates 1 - [facility] [place] [id number] Jorge Yusuf 06/07/2021 - Unknown Clinical Notes Includes: Clinical Notes from this encounter No Clinical Notes Recorded
--- OUTSIDE RECORDS SUMMARY | 2025-04-30 07:11 | XMS_ITS | Referral Summary ---
Author Organization [facility] ([place], [place], [place], [place], [place]) Address [address] [place] [address] Care Team Providers Care Oakes Machine Operator Name Role Phone Unavailable Primary [...] Date Brayden rded Speak language other than Urdu at home Not on file 11/15/2023 Want [...]
--- OUTSIDE RECORDS SUMMARY | 2025-04-30 07:11 | XMS_ITS | Clinical Summary ---
Author Organization [facility] Address [address] [place] [address] Care Team Providers Care J2Ee Consultant Name Role Phone Alysha Santoyo DO Primary Care Provider [phone] Social History Tobacco Use Types Packs/Day Years [...] 2010 UKY-Zoster Vaccines (1 of 2) 2010 [id number] Vaccine (3 - season) 2025 03/06/2021, 02/06/2021 [...] patient's age to complete this topic Insurance [employer] Care Teams J2Ee Consultant Relationship Specialty Start Date End Date Alysha Santoyo DO [address] [place] [address] [id number] [place] [address] PCP - General 06/07/22
--- NOTE | 2025-04-30 07:30 | US_ITS ---
FINAL REPORT CLINICAL HISTORY: aortic lymphadenopathy, screening FINDINGS: Ultrasound images of the abdominal aorta were obtained. No abdominal aortic aneurysm identified. Max diameter is 2.2 cm. IMPRESSION: No evidence of abdominal aortic aneurysm. Reviewed, Interpreted and Dictated by Cristela Melchor MD Transcribed by Dorcas Plasencia Authenticated and [facility]
[2025-04-30 07:52] LABS: Microscopic, Urine URINE MICROSCOPIC (MICROSCOPIC)
[2025-04-30 08:17] LABS: Hematocrit 41.9 % (42.0-52.0); Hemoglobin 13.2 g/dL (14.1-18.0); Immature Granulocytes % 0.8 %; Mean Corpuscular HGB Conc 31.5 g/dL (31.8-35.4); Mean Corpuscular Hemoglobin 27.6 pg (27.0-31.2); Mean Corpuscular Volume 87.7 fl (80-94); Nucleated Red Blood Cells % 0 %; Platelet Count 203 K/mm3 (142-424); Red Blood Count 4.78 M/mm3 (4.60-6.20); Red Cell Distribution Width-SD 45.4 fL; White Blood Count 7.2 K/mm3 (4.8-10.8)
[2025-04-30 08:38] LABS: Alanine Aminotransferase 18 U/L (12-78); Albumin Level 3.9 g/dl (3.5-5.0); Albumin/Globulin Ratio 1.6 (1.1-1.8); Alkaline Phosphatase 102 U/L (38-126); Anion Gap 10.8 mEq/L (5-15); Aspartate Amino Transferase 18 U/L (17-59); Bilirubin,Total 0.5 mg/dl (0.2-1.3); Blood Urea Nitrogen 25 mg/dl (9-20); Calcium 9.2 mg/dl (8.4-10.2); Carbon Dioxide 25 mmol/L (22.0-30.0); Chloride 105 mmol/L (98-107); Cholesterol 114 mg/dl (140-200); Creatinine,Serum 1.10 mg/dl (0.66-1.25); Estimated Glomerular Filt Rate 67 ml/min (>60); GFR (African American) 82 ML/MIN (>60); Globulin 2.5 g/dL (1.3-3.2); Glucose 199 mg/dl (74-100); HDL Cholesterol 40 mg/dl (40-60); Iron 63 ug/dL (49-181); Potassium 3.8 mmoL/L (3.5-5.1); Sodium 137 mmol/L (136-145); Total Protein,Serum 6.4 g/dl (6.3-8.2); Triglycerides 80 mg/dl (30-150)
[2025-04-30 08:49] LABS: C-Reactive Protein 4.0 mg/L (0-4); Total Iron Binding Capacity 335 ug/dL (261-462)
[2025-04-30 08:53] LABS: 25-OH Vitamin D, Total 57.3 ng/mL (30-100); Free T4 (Free Thyroxine) 0.99 ng/dl (0.78-2.19)
[2025-04-30 09:09] LABS: Thyroid Stimulating Hormone 1.80 uIU/mL (0.465-4.68)
[2025-04-30 09:13] LABS: Ferritin 33.3 ng/ml (17.9-464)
[2025-04-30 09:15] LABS: Hemoglobin A1C 7.4 % (4.0-6.0)
[2025-04-30 09:28] LABS: Vitamin B12 351 pg/mL (239-931)
[2025-04-30 09:29] LABS: Hepatitis C Ab Qual. W/ RFX NEGATIVE (Negative)
[2025-04-30 09:40] LABS: Bilirubin,Urine Negative (Negative); Color,Urine YELLOW (Yellow); Glucose,Urine (UA) 3+ (Negative); Ketones,Urine Negative (Negative); Leukocyte Esterase,Urine Negative (Negative); PH,Urine 5.5 (5.0-8.5); Protein,Urine Negative (Negative); Specific Gravity, Urine 1.020 (1.005-1.030); Urobilinogen,Urine 0.2 EU/dl (0.2)
[2025-04-30 09:54] LABS: Bacteria,Urine Trace /lpf; Mucus,Urine Trace /lpf; Squamous Epithelial Cell,Urine Occasional #/hpf (0-5); WBC,Urine Occasional #/hpf (0-3)
[2025-04-30 17:02] LABS: Coronavirus 19, PCR Not Detected (NotDetected); Influenza A, PCR Not Detected (NotDetected); Influenza B, PCR Not Detected (NotDetected)
[2025-05-01 07:32] LABS: Hepatitis B Surface Antigen Negative (Negative)
[2025-05-01 14:23] LABS: Deamidated Gliadin Abs, IgA 4 units (0-19); Deamidated Gliadin Abs, IgG 2 units (0-19); EBV Nuclear Antigen Ab, IgG 143.0 U/mL (0.0-17.9)
[2025-05-02 10:13] LABS: CMV PCR Negative (Negative)
== END 2025-04-30 23:59 | disposition home or self-care (01) ==
LOC: RAD 07:08
PROVIDERS: PCP Nurse Practitioner Family; Visit Provider Nurse Practitioner Family
DX: E55.9 Vitamin D deficiency, unspecified (principal); I10 Essential (primary) hypertension; M54.50 Low back pain, unspecified; K76.0 Fatty (change of) liver, not elsewhere classified; N40.0 Benign prostatic hyperplasia without lower urinary tract symptoms; R59.0 Localized enlarged lymph nodes; Z68.41 Body mass index [BMI] 40.0-44.9, adult; Z82.49 Family history of ischemic heart disease and other diseases of the circulatory system; E53.8 Deficiency of other specified B group vitamins; E11.9 Type 2 diabetes mellitus without complications; G47.33 Obstructive sleep apnea (adult) (pediatric); E78.5 Hyperlipidemia, unspecified; B34.9 Viral infection, unspecified; Z12.5 Encounter for screening for malignant neoplasm of prostate; J02.9 Acute pharyngitis, unspecified
CPT/HCPCS: 36415; 76706; 80053; 80061; 81001; 82043; 82306; 82570; 82607; 82728; 83036; 83540; 83550; 83615; 84156; 84439; 84443; 85025; 85651; 86140; 86225; 86231; 86235; 86258; 86364; 86664; 86665; 86803; 87070; 87077; 87086; 87186; 87340; 87389; 87496; 87631; G0103

== ENCOUNTER 2025-05-18 07:29 | Outpatient (CLI) | payer BC, SELFPAY ==
--- OUTSIDE RECORDS SUMMARY | 2025-03-14 06:30 | XMS_ITS | Encounter Summary ---
Author Organization [facility] Address [address] [place] [address] Phone [email or web address] [email or web address] Care Team Providers Care Director Maternal Child Name Role Phone Andrey Charles MD Primary Care Provider [phone] Encounter Details Date Type Department Care Team (Latest Contact Info) Description 03/14/2025 7:30 AM EDT Clinical Support MADINA Meza [facility] [address] [place] [address] Bailey Jacobs MD [address] [place] [address] Encounter for fitness for duty [...] work on line.Advised to contact PCP or willow machine tender to discuss his symptoms ANNETTA. RTC as needed or if worse. documented in this encounter Progress Notes * Bailey Jacobs MD - 03/14/2025 7:30 AM EDT Subjective Jorge Washburn is a 64 y.o. male. WD ID: [id number] Employer: [employer] Date of Hire: 10/1987 Cost [...] work on line.Advised to contact PCP or willow machine tender to discuss his symptoms ANNETTA. RTC as [...] giddiness documented in this encounter Care Teams Director Maternal Child Relationship Specialty Start Date End Date Andrey Charles MD [address] [place] [address] DAVE PEREZ [id number] PCP - General Strategic Account Manager 04/18/19 documented as of this encounter
--- OUTSIDE RECORDS SUMMARY | 2025-05-11 07:00 | XMS_ITS | Encounter Summary ---
Author Organization [facility] Address [address] [place] [address] Phone [email or web address] Care Team Providers Care Adjunct Psychology Faculty Member Name Role Phone Andrey Charles MD Primary Care Provider [phone] Reason for Visit * Reason Comments Care Coordination Encounter Details Date Type Department Care Team (Latest Contact Info) Description 05/11/2025 7:00 AM EST Clinical Support [facility] [place] [address] [facility] [address] [place] [address] Bailey Jacobs MD [address] [place] [address] Hypotension, unspecified hypotension type (Primary Dx) Social History Tobacco Use Types [...] Sign Reading Time Taken Comments Blood Pressure 85/52 05/11/2025 7:16 AM EST Pulse 70 05/11/2025 7:16 AM EST Temperature - - Respiratory Rate 18 05/11/2025 6:31 AM EST Oxygen Saturation 93% 05/11/2025 6:31 AM EST Inhaled Oxygen Concentration - - Weight - - Height - - Body Mass Index - - documented in this encounter Patient Instructions * Patient Instructions* Bailey Jacobs MD - 05/11/2025 7:00 AM EST Home ROS/not fit for duty Follow up with PCP/economic manager ANNETTA RTC when medically cleared to work without restrictions [place] documented in this encounter Progress Notes * Bailey Jacobs MD - 05/11/2025 7:00 AM EST Subjective Jorge Washburn is a 64 y.o. male. 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 Onset: 10 minutes prior to arrival on scene Symptoms: Hypotensive, diaphoretic, pale, and lightheaded/dizzy Transported TM back to [facility] via [facility] with stretcher. Notes: Upon arrival to scene, TM was diaphoretic, pale and had said his BP was low. TM had taken BPwith home BP machine that he packs with him. His monitor was showing 80s/40s. Vitals obtained with [employer]: hypotension noted. TM denies any SOB or chest pain. Reviewed allergies, daily medications, and medical/surgical history with TM-view chart for further details. TM reports that he does not feel as if he can walk, RN requested stretcher and had discussed with TM the need for ALS. TM refused x3. TM taken back to [facility] 1999 via stretch/[facility]. Arrived at [facility] 1999, vitals obtained. TM refused ALS x2, IV x2. PO fluids provided. Dr. Jacobs at bedside. TM instructed that he would need to go to the hospital and that if he did not want to go by ambulance, someone would have to come pick him up and he would need to sign AMA. TM remains hypotensive. This has happened before, I just need a couple hours to recover and I can go back to work. This has happened before, just never gotten this low. It was explained to TM that the clinic does not have resources or staff to monitor status. TM called daughter for her to pick him up but later refused to let her come get him, I think I am fine, I would like to stay. I can go back to my desk and sit until I feel better. You won't have to monitor me. Explained to TM that is not an option as he cannot be monitored at his desk and would a safety hazardto both himself and other Tms. TM signed AMA, and drove hisself home. Triage nurse: Yola Ly, RN, BSN This was an emergency call with a disruption in patient care and scheduled clinic appointments. History Reviewed: Tobacco Allergies Meds Problems Med Hx Surg Hx HPI ANITA is a 64 y/o male who is brought to the clinic with hypotension. TM reportedly takes 5 different antihypertensive meds daily. He takes one kind at night and the rest in the morning. He's taken all his pills today. He reportedly felt dizzy with a sensation that the room was spinning. No syncopal episode. No chest pain. He reportedly did not think he could get up and walk. TM refused ALS transport. He also refused to have his daughter pick him up from the clinic. He initially did not want to leave work. He states he just needs time to rest and that hypotension has happened in the past although not this low or caused extreme dizziness. Explained to the TM the limitations of the clinic and the safety concerns not only to himself but to other TMs. TM agreed to go home but adamant he would drive himself to his daughter's [facility]. He signed against medical advice. Review of Systems PHQ-9 Total Score: 0 (03/14/2025 7:29 AM) Objective Vitals: 05/11/25 0652 05/11/25 0656 05/11/25 0706 05/11/25 0716 BP: (!) 78/47 (!) 77/48 96/59 85/52 Patient Position: Pulse: 69 75 73 70 Resp: SpO2: Orthostatic Vitals: 12/05/25 0639 Patient Position: Lying Results for orders placed or performed in visit on 07/26/23 POCT glucose Collection Time: 07/26/23 9:31 AM Result Value Ref Range Glucose, POC 181 (A) 65 - 99 mg/dL Glucose (Glucometer), POC IQC Yes, verified internal control performed correctly. Lot Number Expiration Date Physical Exam Constitutional: General: He is not in acute distress. Appearance: He is not ill-appearing, toxic-appearing or diaphoretic. Cardiovascular: Rate and Rhythm: Normal rate and regular rhythm. Pulses: Normal pulses. Heart sounds: Normal heart sounds. Pulmonary: Effort: Pulmonary effort is normal. Breath sounds: Normal breath sounds. Skin: Coloration: Skin is pale. Neurological: Mental Status: He is alert and oriented to person, place, and time. Comments: Gait is slow but steady Psychiatric: Mood and Affect: Mood normal. Behavior: Behavior normal. Assessment: ICD-10-CM ICD-9-CM 1. Hypotension, unspecified hypotension type I95.9 458.9 No orders of the defined types were placed in this encounter. Patient Instructions Home ROS/not fit for duty Follow up with PCP/economic manager ANNETTA RTC when medically cleared to work without restrictions [place] documented in this encounter Plan of Treatment Not on file documented as of this encounter Visit Diagnoses Diagnosis Hypotension, unspecified hypotension type- Primary documented in this encounter Care Teams Adjunct Psychology Faculty Member Relationship Specialty Start Date End Date Andrey Charles MD [address] [place] [address] DAVE PEREZ [id number] PCP - General [facility] Former 04/18/19 documented as of this encounter
--- OUTSIDE RECORDS SUMMARY | 2025-05-16 06:30 | XMS_ITS | Encounter Summary ---
Author Organization [facility] Address [address] [place] [address] Phone [email or web address] Care Team Providers Care Engineering And Operations Director Name Role Phone Andrey Charles MD Primary Care Provider [phone] Reason for Visit * Reason Comments Return to Work / Duty Encounter Details Date Type Department Care Team (Latest Contact Info) Description 05/16/2025 6:30 AM EST Office Visit [facility] [address] [place] [address] Shiela Goodwin, WINDOWS DEPLOYMENT TECHNICIAN [address] [place] [address] Encounter for other administrative examinations (Primary Dx); Hx of hypotension Social History Tobacco Use Types Packs/Day Years [...] Sign Reading Time Taken Comments Blood Pressure 153/82 05/16/2025 6:24 AM EST Pulse 72 05/16/2025 6:24 AM EST Temperature - - Respiratory Rate 16 05/16/2025 6:24 AM EST Oxygen Saturation 98% 05/16/2025 6:24 AM EST Inhaled Oxygen Concentration - - Weight - - Height - - Body Mass Index - - documented in this encounter Patient Instructions * Patient Instructions* Shiela Goodwin NP - 05/16/2025 6:30 AM EST TM RTW today reg duty with release date of 05/14. TM to contact specialist for new release with today's date to cover last 2 days due to ongoing hypotension. F/u [facility] prn. ESS AREA SUPERVISOR documented in this encounter Progress Notes * Shiela Goodwin NP - 05/16/2025 6:30 AM EST Subjective Jorge Washburn is a 64 y.o. male who presents for personal return to work. 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 Off work due to hypotensive episode 05/11. States he had been recently started on terazosin which may have provoked the episode. Followed up with engineer sergeant at [facility]. Has a RTW note releasing for regular duty 05/11/25. He had attempted to RTW 05/14, and says his BP bottomed out while waiting inthe parking lot, so he went home and called his engineer sergeant and they then determined to take him off the terazosin. Denies LH/D today. Feels ready to RTW. Triage nurse: Araseli Richardson RN HPI As noted in CC. TM states he is feeling much better. Denies any hypotension since yesterday afternoon. 1st normal limit BP yesterday afternoon after d/c'ing terazosin. Scheduled for renal artery scanon Wednesday. TM has note from 12/5 specialist visit. Had planned to RTW 05/14 but was still hypotensive. Called specialist. D/c med. TM will contact specialist for a new release dated for today as he did not receive updated note after phone call. History Reviewed: Tobacco Allergies Meds Problems Med Hx Surg Hx Fam Hx Objective Visit Vitals BP (!) 153/82 Pulse 72 Resp 16 SpO2 98% Smoking Status Never Review of Systems Constitutional: Negative for fatigue. Respiratory: Negative for shortness of breath. Cardiovascular: Negative for chest pain. Skin: Negative for pallor. Neurological: Negative for dizziness. PHQ-9 Total Score: 0 (03/14/2025 7:29 AM) Physical Exam Vitals and nursing note reviewed. Constitutional: General: He is not in acute distress. Cardiovascular: Rate and Rhythm: Normal rate and regular rhythm. Heart sounds: Normal heart sounds. Pulmonary: Effort: Pulmonary effort is normal. Breath sounds: Normal breath sounds. Skin: General: Skin is warm and dry. Neurological: General: No focal deficit present. Mental Status: He is alert. Gait: Gait normal. Psychiatric: Mood and Affect: Mood normal. Assessment: ICD-10-CM ICD-9-CM 1. Encounter for other administrative examinations Z02.89 V68.89 2. Hx of hypotension Z86.79 V12.59 No orders of the defined types were placed in this encounter. Patient Instructions TM RTW today reg duty with release date of 05/14. TM to contact specialist for new release with today's date to cover last 2 days due to ongoing hypotension. F/u [facility] prn. ESS AREA SUPERVISOR documented in this encounter Plan of Treatment Not on file documented as of this encounter Visit Diagnoses Diagnosis Encounter for other administrative examinations- Primary Hx of hypotension documented in this encounter Care Teams Engineering And Operations Director Relationship Specialty Start Date End Date Andrey Charles MD [address] [place] [address] DAVE PEREZ [id number] PCP - General Public Policy Mediator 04/18/19 documented as of this encounter
--- OUTSIDE RECORDS SUMMARY | 2025-05-18 07:35 | XMS_ITS | Encounter Summary ---
Author Organization [facility] Address [address] [place] [address] Phone [email or web address] Care Team Providers Care Plate Roller Name Role Phone Andrey Charles MD Primary Care Provider [phone] Encounter Details Date Type Department Care Team (Late st Contact Info) Description 05/11/2025 Telephone [place] [facility] [address] [facility] [address] [place] [address] Yola Ly, MARYAM [address] [place] [address] Social History Tobacco Use Types [...] encounter Miscellaneous Notes * Telephone Encounter - Yola Ly RN - 05/11/2025 9:10 AM EST RN called TM to check on him and make sure that he made it safely. 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 TM reports that he is feeling much better. Instructed TM that he would need a release note and RTW throughclinic. TM verbalized understanding and denies any other concerns at this time. 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
--- OUTSIDE RECORDS SUMMARY | 2025-05-18 07:36 | XMS_ITS | Clinical Summary ---
Author Organization [facility] , [facility] Address [address] [place] [address] Phone Care Team Providers Care Brake Reliner Name Role Phone Nicolasa CARRILLO, Gavin Unavailable [phone] Grace Negrete APRN Primary Care Provider [phone] Reason for Visit and Chief Complaint The Chief Complaint is: 1st PO R BEL Problems Includes: Problems addressed during this encounter and other active Problems Current Visit Onset Date Date of Diagnosis Resolved Date Provider Condition Status Lower Back Pain 04/14/2022 04/14/2022 Sekou Olvera PA-C Active Last Documented On 5 1:41AM ; [facility], [facility] Past Visits Onset Date Date of Diagnosis Resolved Date Provider Condition Status Joint Pain Shoulder Bilateral 01/16/2025 01/16/2025 Gavin Baldwin MD Active Last Documented On 5 1:43AM ; [facility], [facility] Joint Pain Hip Right 07/27/2024 07/27/2024 Dorothy JO Active Last Documented On 5 1:42AM ; [facility], [facility] Joint Pain Left Knee 01/17/2024 01/17/2024 Brittani cardona PA-C Active Last Documented On 5 1:42AM ; [facility], [facility] Plan of Treatment Instructions to patient Lose weight Last Documented On 5 9:55AM ; [facility], [facility] Assessments Includes: Assessments from this encounter Findings - Overweight - Last Documented On 11/03/2024 10:29AM ; [facility], [facility] Instructions Includes: Instructions from this encounter Instructions to patient Lose weight Last Documented On 5 9:55AM ; [facility], [facility] Medical Equipment - Implanted Devices Includes: Current Devices No Medical Equipment Recorded Medications Includes: Medications discussed during this encounter and other current Medications Discontinued / Stopped on this date on 06/13/2024 Meloxicam 15 MG Oral Tablet Provider: Diagnosis: Last Documented On 5 9:54AM By Vika Ceballos ; [facility], [facility] Current Medications (continue as prescribed) Jardiance 25 MG Oral Tablet 09/21/2024 Provider: Diagnosis: Last Documented On 5 11:47AM By Danielle Martins ; [facility], [facility] Vitamin D2 10 MCG (400 UNIT) Oral Tablet 09/21/2024 Provider: Diagnosis: Last Documented On 5 11:47AM By Danielle Martins ; [facility], [facility] Cyclobenzaprine HCl 10 MG Oral Tablet 09/21/2024 Pro vider: Diagnosis: Last Documented On 5 11:46AM By Danielle Martins ; [facility], [facility] Isosorbide Dinitrate 40 MG Oral Tablet 09/21/2024 Pr ovider: Diagnosis: Last Documented On 5 11:47AM By Danielle Martins ; [facility], [facility] hydrALAZINE HCl 50 MG Oral Tablet 09/21/2024 Provide r: Diagnosis: Last Documented On 5 11:48AM By Danielle Martins ; [facility], [facility] metFORMIN HCl 1000 MG Oral Tablet 09/21/2024 Provide r: Diagnosis: Last Documented On 5 11:48AM By Danielle Martins ; [facility], [facility] acetaZOLAMIDE 250 MG Oral Tablet 09/21/2024 Provider : Diagnosis: Last Documented On 5 11:46AM By Danielle Martins ; [facility], [facility] Latanoprost 0.005% Ophthalmic Solution 07/27/2024 Pr ovider: Diagnosis: Last Documented On 5 11:48AM By Danielle Martins ; [facility], [facility] Timolol Maleate 0.25% Ophthalmic Solution 07/27/2024 Provider: Diagnosis: Last Documented On 5 11:49AM By Danielle Martins ; [facility] Acetaminophen Extra Strength 500 MG Oral Tablet 2024 Provider: Diagnosis: Last Documented On 5 2:46PM By Sarah Hernandez ; [facility] Ibuprofen 200 MG Oral Tablet 07/20/2024 Provider: Diagnosis: Last Documented On 5 2:47PM By Sarah Hernandez ; [facility] HYDROcodone-Acetaminophen 5-325 MG Oral Tablet 025 Provider: Diagnosis: Last Documented On 5 8:18AM By Kevin Ray ; [facility] Atorvastatin Calcium 40 MG Oral Tablet 06/16/2024 Pr ovider: Grace Negrete APRN Diagnosis: Last Documented On 5 10:08AM By Kevin Ray ; [facility] Ozempic (1 MG/DOSE) 4 MG/3ML Subcutaneous Solution Pen-injector 06/01/2024 Provider: Grace Negrete APRN Diagnosis: Last Documented On 5 10:08AM By Kevin Ray ; [facility] Benazepril HCl 40 MG Oral Tablet 09/21/2023 Provider : Grace Negrete APRN Diagnosis: Last Documented On 4 10:00AM By Regina Ordoñez ; [facility] Methocarbamol 750 MG Oral Tablet 08/30/2023 Provider : Sekou Olvera PA-C Diagnosis: Last Documented On 4 10:00AM By Regina Ordoñez ; [facility] Furosemide 20 MG Oral Tablet 07/10/2023 Provider: Grace Negrete APRN Diagnosis: Last Documented On 4 3:01PM By Shanna Echavarria ; [facility] Carvedilol 25 MG Oral Tablet 03/25/2023 Provider: Diagnosis: Last Documented On 4 3:01PM By Shanna Echavarria ; [facility] Past Medications on file traMADol HCl 50 MG Oral Tablet 10/31/2024 - 11/30/2024 Provider: Gavin Baldwin MD Diagnosis: 1 every bedtime Last Documented On 5 3:49PM By Gavin Macedo [facility], [facility] traMADol HCl 50 MG Oral Tablet 10/09/2024 - 10/24/2024 Provider: Gavin Baldwin MD Diagnosis: 1-2 p o q 6-8h for breakthro ugh post op pain MAXIMUM 8 TABLETS PER DAY Last Documented On 5 8:36AM By Gavin Macedo [facility], [facility] oxyCODONE HCl 5 MG Oral Tablet 10/06/2024 - 10/11/2024 Provider: Gavin Baldwin MD Diagnosis: 1-2 p o q 6-8h for post op pain MAXIMUM 6 TABLET S PER DAY Fill Status: Filled Last Documented On 12:19PM By Gavin Macedo [facility], [facility] Aspirin Adult Low Strength 81 MG Oral Tablet Delayed Release 10/06/2024 - 11/20/2024 Provider: Gavin Baldwin MD Diagnosis: twice a day Fill Status: Partially Filled Last Documented On 12:19PM By Gavin Macedo [facility], [facility] Colace 100 MG Oral Capsule 10/06/2024 - 11/05/2024 Pro vider: Gavin Baldwin MD Diagnosis: 1-2 tabs daily as needed, AFTER SURGERY Fill Status: Filled Last Documented On 12:19PM By Gavin Macedo [facility], [facility] Cefadroxil 500 MG Oral Capsule 10/06/2024 - 10/09/2024 Provider: Gavin Baldwin MD Diagnosis: twice a day Fill Status: Filled Last Documented On 5 12:19PM By Gavin Macedo [facility], [facility] Acetaminophen 500 MG Oral Tablet 10/06/2024 - 11/06/19 Provider: Gavin Baldwin MD Diagnosis: 2 three times a day , AFTER SURGERY Fill Status: Filled Last Documented On 12:19PM By Gavin Macedo [facility], [facility] Meloxicam 15 MG Oral Tablet 10/06/2024 - 11/05/2024 Pr ovider: Gavin Baldwin MD Diagnosis: 1 every bedtime Fill Status: Filled Last Documented On 12:19PM By Gavin Macedo [facility], [facility] Ondansetron HCl 4 MG Oral Tablet 10/06/2024 - 10/21/19 Provider: Gavin Baldwin MD Diagnosis: 1-2 p o q 6-8h as needed for nausea Fill Status: Filled Last Documented On 5 12:19PM By Gavin Baldwin ; [facility] oxyCODONE HCl 5 MG Oral Tablet 01/21/2024 - 01/26/2024 Provider: Gavin Baldwin MD Diagnosis: 1-2 p o q 6-8h for post op pain MAXIMUM 6 TABLET S PER DAY Last Documented On 4 9:11AM By Gavin Baldwin ; [facility] traMADol HCl 50 MG Oral Tablet 01/21/2024 - 01/28/2024 Provider: Gavin Baldwin MD Diagnosis: 1-2 p o q 6-8h for breakthro ugh post op pain MAXIMUM 8 TABLETS PER DAY Last Documented On 4 9:11AM By Gavni aBldwin ; [facility], [facility] Ondansetron HCl 4 MG Oral Tablet 12/31/2023 - 01/14/2024 Provider: Gavin Baldwin MD Diagnosis: 1-2 p o q 6-8h as needed for nausea Fill Status: Partially Filled Last Documented On 4 9:14AM By Gavin Baldwin ; [facility], [facility] oxyCODONE HCl 5 MG Oral Tablet 12/31/2023 - 01/05/2024 Provider: Gavin Baldwin MD Diagnosis: 1-2 p o q 6-8h for post op pain MAXIMUM 6 TABLET S PER DAY Fill Status: Filled Last Documented On 4 9:14AM By Gavin Baldwin ; [facility], [facility] Cefadroxil 500 MG Oral Capsule 12/31/2023 - 01/03/2024 Provider: Gavin Baldwin MD Diagnosis: twice a day Fill Status: Filled Last Documented On 4 9:14AM By Gavin Baldwin ; [facility] traMADol HCl 50 MG Oral Tablet 12/31/2023 - 01/07/2024 Provider: Gavin Baldwin MD Diagnosis: 1-2 p o q 6-8h for breakthro ugh post op pain MAXIMUM 8 TABLETS PER DAY Fill Status: Filled Last Documented On 4 9:14AM By Gavin Baldwin ; [facility], [facility] Colace 100 MG Oral Capsule 12/31/2023 - 01/30/2024 Pro vider: Gavin Baldwin MD Diagnosis: 1-2 tabs daily as needed, AFTER SURGERY Fill Status: Filled Last Documented On 4 9:14AM By Gavin Baldwin ; [facility], [facility] Aspirin Adult Low Strength 8 1 MG Oral Tablet Delayed Release 12/31/2023 - 02/14/2024 Provider: Gavin Baldwin MD Diagnosis: twice a day Fill Status: Filled Last Documented On 4 9:14AM By Gavin Baldwin ; [facility], [facility] Acetaminophen 500 MG Oral Tablet 12/31/2023 - 01/30/20 Provider: Gavin Baldwin MD Diagnosis: 2 three times a day , AFTER SURGERY Fill Status: Filled Last Documented On 4 9:14AM By Gavin Baldwin ; [facility], [facility] Meloxicam 15 MG Oral Tablet 12/31/2023 - 01/30/2024 Pr ovider: Gavin Baldwin MD Diagnosis: 1 every bedtime Fill Status: Filled Last Documented On 4 9:14AM By Gavin Baldwin ; [facility], [facility] Vitamin D (Ergocalciferol) 1 .25 MG (26145 UT) Oral Capsule 08/30/2023 - 11/22/2023 Provider: GOLDY Coreas MD Diagnosis: Last Documented On 4 3:01PM By Shanna Echavarria ; [facility], [facility] Methocarbamol 750 MG Oral Tablet 08/30/2023 - 09/29/19 Provider: Sekou Olvera PA-C Diagnosis: Take 1 tablet every 8 hrs prn pain Last Documented On 4 3:49PM By Shanna Echavarria ; [facility], [facility] amLODIPine Besylate 5 MG Ora l Tablet 08/30/2023 - 11/28/2023 Provider: GOLDY PENA MD Diagnosis: Last Documented On 4 3:01PM By Shanna Echavarria ; [facility], [facility] Medications Administered Includes: Administered Medications from this encounter No Administered Medications Recorded Vital Signs Includes: Vital Signs from this encounter Vital Name 10/26/2024 09:55A Height (in) 70 Weight (lb) 283 Body Mass Index 40.6 Body Surface Area 2.4 Note: bs Last Documented: On 10/26/2024 9:56AM ; [facility], [facility] Results Includes: Results discussed [...] 10/26/2024 Last Documented On 5 10:29AM ; [facility], [facility] No caffeine use 01/17/2024 Last Documented On 5 9:53AM ; [facility], [facility] No recent change in diet 01/17/2024 Last Documented On 5 9:53AM ; [facility], [facility] Not a current smoker. 01/17/2024 Last Documented On 5 9:53AM ; [facility], [facility] Not using alcohol 01/17/2024 Last Documented On 5 9:53AM ; [facility], [facility] Not using drugs 01/17/2024 Last Documented On 5 9:53AM ; [facility], [facility] Never drank alcohol 04/21/2022 Last Documented On 5 9:53AM ; [facility], [facility] Never smoked 04/21/2022 Last Documented On 5 9:53AM ; [facility], [facility] Never used drugs 04/21/2022 Last Documented On 5 9:53AM ; [facility], [facility] Tobacco non-user 04/21/2022 Last Documented On 5 9:53AM ; [facility], [facility] 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 Last Documented On 5 9:53AM ; [facility], [facility] Sex - Male 01/23/2025 Last Documented On 5 11:20AM ; [facility] Smoking Status Unknown Procedures and Surgical History Includes: Procedures from this encounter Procedures Code Diagnosis Performing Provider Service Location Service Date AP PELVIS w/ 1 VIEW HIP (RIGHT) 45077 Unilateral primary osteoarthritis, right hip, Presence of right artificial hip joint Hong Nakul Villalta PA-C [facility] B 10/26/2024 Last Documented On 5 9:23AM ; [facility] Surgical History Last Updated History of Previous Fractures 01/17/2024 Last Documented On 5 9:53AM ; [facility] History of Past Surgical History: 2021 Last Documented On 5 9:53AM ; [facility] Medical History Includes: Medical History addressed during this encounter Description Last Updated History of Anemia 01/17/2024 Last Documented On 5 9:53AM ; [facility] History of arthritis 01/17/2024 Last Documented On 5 9:53AM ; [facility] History of depression 01/17/2024 Last Documented On 5 9:53AM ; [facility] History of heart disease 01/17/2024 Last Documented On 5 9:53AM ; [facility] History of Heartburn / Acid Reflux 01/16 Last Documented On 5 9:53AM ; [facility] History of Hypertension 01/17/2024 Last Documented On 5 9:53AM ; [facility] History of Sleep Apnea 01/17/2024 Last Documented On 5 9:53AM ; [facility] Use of CPAP 01/17/2024 Last Documented On 5 9:53AM ; [facility] History of gastric ulcer 04/21/2022 Last Documented On 5 9:53AM ; [facility] No recent immunization for flu 2 Last Documented On 5 9:53AM ; [facility] No recent immunization for pneumococcal pneumonia 04/21/2022 Last Documented On 5 9:53AM ; [facility], [facility] Family History Includes: Family History addressed during this encounter Description Last Updated Family history of cancer 01/17/2024 Last Documented On 5 9:53AM ; [facility] Family history of heart disease 01/17/20 24 Last Documented On 5 9:53AM ; [facility] Family history of rheumatoid arthritis 0 01/17/2024 Last Documented On 5 9:53AM ; [facility] Family history of systemic hypertension 01/17/2024 Last Documented On 5 9:53AM ; [facility] Stroke / Seizures 01/17/2024 Last Documented On 5 9:53AM ; [facility] Fraternal history of Stroke / Seizures 1 06/21/2021 Last Documented On 5 9:53AM ; [facility] Maternal grandfather's history of family history of heart disease 04/21/2022 Last Documented On 5 9:53AM ; [facility] Fraternal history of family history of h eart disease 04/21/2022 Last Documented On 5 9:53AM ; [facility] Fraternal history of systemic hypertensi on 04/21/2022 Last Documented On 5 9:53AM ; [facility] Maternal history of rheumatoid arthritis 04/21/2022 Last Documented On 5 9:53AM ; [facility] Paternal grandfather's history of family history of heart disease 04/21/2022 Last Documented On 5 9:53AM ; [facility] Paternal grandfather's history of system ic hypertension 04/21/2022 Last Documented On 5 9:53AM ; [facility] Paternal grandmother's history of rheuma toid arthritis 04/21/2022 Last Documented On 5 9:53AM ; [facility] Paternal history of family history of ca ncer 04/21/2022 Last Documented On 5 9:53AM ; [facility] Paternal history of family history of he art disease 04/21/2022 Last Documented On 5 9:53AM ; [facility] Paternal history of rheumatoid arthritis 04/21/2022 Last Documented On 5 9:53AM ; [facility] Paternal history of systemic hypertensio n 04/21/2022 Last Documented On 5 9:53AM ; [facility] Review of Systems Includes: Review of [...] Status from this encounter Description No anxiety Last Documented On 5 9:55AM ; [facility] Physical Exam Includes: Physical Exam from this encounter Allergies Includes: Active Allergies Substance Type Reaction Onset Date Resolved Date Statu s Spironolactone Allergy Shortness of Breath / Dyspnea 09/21 Active Last Documented On 5 2:58PM ; [facility] Care Brake Reliner Name (Identifier) Role/Relation Location/Telecom Last Documented By Gavin Baldwin MD ([id number]) Assigned practitioner (occupation) [address] [place], [place], [place], [address] tel: Last Documented On 01/23/2025 11:20AM ; [facility] Grace Negrete APRN ([id number]) Primary care physician (occupation) [address] [place] [address], , [address] tel: Last Documented On 01/23/2025 11:20AM ; [facility], [facility] Encounters Encounter Provider Location (Healthcare Service Location) Date Check-In Time Check-Out Time Diagnosis Encounter Disposition Post Op Hong Villalta PA-C [facility] B 2024 9:50AM 10:40AM Overweight Payer Includes: Active Insurance Policies Plan Name (Payer ID) Coverage Type Member ID Group # Subscriber (ID) Relationship Effective Dates 1 - [facility] ([id number]) [id number] Jorge Yusuf 06/07/2021 - Unknown Last Documented On 4:11PM ; [facility], [facility] Clinical Notes Includes: Clinical Notes from this encounter * Progress note Date Encounter Last Documented by 10/26/2024 Post Op Last documented on 11/03/2024; 10:29 AM, Hong Villalta PA-C; [facility], [facility] Active Problems & Conditions - Joint [...] used drugs. Habits: Exercising regularly. 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 Allergies - Spironolactone Reaction: Shortness of Breath [...]
--- OUTSIDE RECORDS SUMMARY | 2025-05-18 07:36 | XMS_ITS | Clinical Summary ---
Author Organization [facility] Address [address] [place] [address] Phone Care Team Providers Care Hog Feeder Name Role Phone Nicolasa CARRILLO, Gavin Unavailable [phone] Grace Negrete APRN Primary Care Provider [phone] Reason for Visit and Chief Complaint The Chief Complaint is: 1st PO R BEL Problems Includes: Problems addressed during this encounter and other active Problems Current Visit Onset Date Date of Diagnosis Resolved Date Provider Condition Status Lower Back Pain 04/14/2022 04/14/2022 Sekou Olvera PA-C Active Last Documented On 5 1:41AM ; [facility] Past Visits Onset Date Date of Diagnosis Resolved Date Provider Condition Status Joint Pain Shoulder Bilateral 01/16/2025 01/16/2025 Gavin Baldwin MD Active Last Documented On 5 1:43AM ; [facility] Joint Pain Hip Right 07/27/2024 07/27/2024 Dorothy JO Active Last Documented On 5 1:42AM ; [facility] Joint Pain Left Knee 01/17/2024 01/17/2024 Brittani cardona PA-C Active Last Documented On 5 1:42AM ; [facility] Plan of Treatment Pelvis and hip x-rays show good alignment of implants with the equal leg lengths no problems patient is doing well right hip replacement we will see him back in 6-8 weeks returned to work trial basis without restrictions December 11, 2024 - Last Documented On 11/28/2024 9:20AM ; [facility] Pending Tests Order Diagnosis Results Due Ordering P rovider Lab Hemoglobin A1c 12/16/23 Gavin hilton MD Last Documented On 4 10:16AM ; [facility] Lab CBC With Differential/Platelet 12/15 Gavin Baldwin MD Last Documented On 4 10:16AM ; [facility] Lab Prothrombin Time (PT) 12/16/23 Ruperto Baldwin MD Last Documented On 4 10:16AM ; [facility] Lab PTT, Activated 12/16/23 Gavin hilton MD Last Documented On 4 10:16AM ; [facility] Lab Prealbumin 12/16/23 Gavin Rincon Last Documented On 4 10:16AM ; [facility] Lab Fructosamine 12/16/23 Gavin Baldwin MD Last Documented On 4 10:16AM ; [facility] Lab MRSA by MUKESH 12/16/23 Gavin Baldwin MD Last Documented On 4 10:16AM ; [facility] Lab Comp. Metabolic Panel (14) 12/16/23 Gavin Baldwin MD Last Documented On 4 10:16AM ; [facility] Instructions to patient Lose weight Last Documented On 5 2:07PM ; [facility] Assessments Includes: Assessments from this encounter Findings - Overweight - Last Documented On 11/28/2024 9:20AM ; [facility] Instructions Includes: Instructions from this encounter Instructions to patient Lose weight Last Documented On 5 2:07PM ; [facility] Medical Equipment - Implanted Devices Includes: Current Devices No Medical Equipment Recorded Medications Includes: Medications discussed during this encounter and other current Medications Current Medications (continue as prescribed) Jardiance 25 MG Oral Tablet 09/21/2024 Provider: Diagnosis: Last Documented On 5 11:47AM By Danielle Martins ; [facility] Vitamin D2 10 MCG (400 UNIT) Oral Tablet 09/21/2024 Provider: Diagnosis: Last Documented On 5 11:47AM By Danielle Martins ; [facility] Cyclobenzaprine HCl 10 MG Oral Tablet 09/21/2024 Pro vider: Diagnosis: Last Documented On 5 11:46AM By Danielle Martins ; [facility] Isosorbide Dinitrate 40 MG Oral Tablet 09/21/2024 Pr ovider: Diagnosis: Last Documented On 5 11:47AM By Danielle Martins ; [facility] hydrALAZINE HCl 50 MG Oral Tablet 09/21/2024 Provide r: Diagnosis: Last Documented On 5 11:48AM By Danielle Martins ; [facility] metFORMIN HCl 1000 MG Oral Tablet 09/21/2024 Provide r: Diagnosis: Last Documented On 5 11:48AM By Danielle Martins ; [facility] acetaZOLAMIDE 250 MG Oral Tablet 09/21/2024 Provider : Diagnosis: Last Documented On 5 11:46AM By Danielle Martins ; [facility] Latanoprost 0.005% Ophthalmic Solution 07/27/2024 Pr ovider: Diagnosis: Last Documented On 5 11:48AM By Danielle Martins ; [facility] Timolol Maleate 0.25% Ophthalmic Solution 07/27/2024 Provider: Diagnosis: Last Documented On 5 11:49AM By Danielle Martins ; [facility] Acetaminophen Extra Strength 500 MG Oral Tablet 2024 Provider: Diagnosis: Last Documented On 5 2:46PM By Sarah Hernandez ; [facility] Ibuprofen 200 MG Oral Tablet 07/20/2024 Provider: Diagnosis: Last Documented On 5 2:47PM By Sarah Hernandez ; [facility] HYDROcodone-Acetaminophen 5-325 MG Oral Tablet 025 Provider: Diagnosis: Last Documented On 5 8:18AM By Kevin Ray ; [facility] Atorvastatin Calcium 40 MG Oral Tablet 06/16/2024 Pr ovider: Grace Negrete ACCOUNT MANAGER Diagnosis: Last Documented On 5 10:08AM By Kevin Ray ; [facility] Ozempic (1 MG/DOSE) 4 MG/3ML Subcutaneous Solution Pen-injector 06/01/2024 Provider: Grace Negrete APRN Diagnosis: Last Documented On 5 10:08AM By Kevin Ray ; [facility] Benazepril HCl 40 MG Oral Tablet 09/21/2023 Provider : Grace Negrete ACCOUNT MANAGER Diagnosis: Last Documented On 4 10:00AM By Regina Ordoñez ; [facility] Methocarbamol 750 MG Oral Tablet 08/30/2023 Provider : Sekou Olvera PA-C Diagnosis: Last Documented On 4 10:00AM By Regina Ordoñez ; [facility] Furosemide 20 MG Oral Tablet 07/10/2023 Provider: Grace Negrete APRN Diagnosis: Last Documented On 4 3:01PM By Shanna Echavarria ; [facility] Carvedilol 25 MG Oral Tablet 03/25/2023 Provider: Diagnosis: Last Documented On 4 3:01PM By Shanna Echavarria ; [facility] Past Medications on file traMADol HCl 50 MG Oral Tablet 10/31/2024 - 11/30/2024 Provider: Gavin Baldwin MD Diagnosis: 1 every bedtime Last Documented On 5 3:49PM By Gavin Baldwin ; [facility], [facility] traMADol HCl 50 MG Oral Tablet 10/09/2024 - 10/24/2024 Provider: Gavin Baldwin MD Diagnosis: 1-2 p o q 6-8h for breakthro ugh post op pain MAXIMUM 8 TABLETS PER DAY Last Documented On 5 8:36AM By Gavin Baldwin ; [facility], [facility] oxyCODONE HCl 5 MG Oral Tablet 10/06/2024 - 10/11/2024 Provider: Gavin Baldwin MD Diagnosis: 1-2 p o q 6-8h for post op pain MAXIMUM 6 TABLET S PER DAY Fill Status: Filled Last Documented On 5 12:19PM By Gavin Baldwin ; [facility] Aspirin Adult Low Strength 81 MG Oral Tablet Delayed Release 10/06/2024 - 11/20/2024 Provider: Gavin Baldwin MD Diagnosis: twice a day Fill Status: Partially Filled Last Documented On 5 12:19PM By Gavin Baldwin ; [facility], [facility] Colace 100 MG Oral Capsule 10/06/2024 - 11/05/2024 Pro vider: Gavin Baldwin MD Diagnosis: 1-2 tabs daily as needed, AFTER SURGERY Fill Status: Filled Last Documented On 5 12:19PM By Gavin Baldwin ; [facility], [facility] Cefadroxil 500 MG Oral Capsule 10/06/2024 - 10/09/2024 Provider: Gavin Baldwin MD Diagnosis: twice a day Fill Status: Filled Last Documented On 5 12:19PM By Gavin Baldwin ; [facility], [facility] Acetaminophen 500 MG Oral Tablet 10/06/2024 - 11/06/19 Provider: Gavin Baldwin MD Diagnosis: 2 three times a day , AFTER SURGERY Fill Status: Filled Last Documented On 5 12:19PM By Gavin Baldwin ; [facility], [facility] Meloxicam 15 MG Oral Tablet 10/06/2024 - 11/05/2024 Pr ovider: Gavin Baldwin MD Diagnosis: 1 every bedtime Fill Status: Filled Last Documented On 5 12:19PM By Gavin Baldwin ; [facility], [facility] Ondansetron HCl 4 MG Oral Tablet 10/06/2024 - 10/21/19 Provider: Gavin Baldwin MD Diagnosis: 1-2 p o q 6-8h as needed for nausea Fill Status: Filled Last Documented On 5 12:19PM By Gavin Baldwin ; [facility], [facility] oxyCODONE HCl 5 MG Oral Tablet 01/21/2024 - 01/26/2024 Provider: Gavin Baldwin MD Diagnosis: 1-2 p o q 6-8h for post op pain MAXIMUM 6 TABLET S PER DAY Last Documented On 4 9:11AM By Gavin Macedo [facility], [facility] traMADol HCl 50 MG Oral Tablet 01/21/2024 - 01/28/2024 Provider: Gavin Baldwin MD Diagnosis: 1-2 p o q 6-8h for breakthro ugh post op pain MAXIMUM 8 TABLETS PER DAY Last Documented On 4 9:11AM By Gavin Baldwin ; [facility], [facility] Ondansetron HCl 4 MG Oral Tablet 12/31/2023 - 01/14/2024 Provider: Gavin aBldwin MD Diagnosis: 1-2 p o q 6-8h as needed for nausea Fill Status: Partially Filled Last Documented On 4 9:14AM By Gavin Baldwin ; [facility], [facility] oxyCODONE HCl 5 MG Oral Tablet 12/31/2023 - 01/05/2024 Provider: Gavin Baldwin MD Diagnosis: 1-2 p o q 6-8h for post op pain MAXIMUM 6 TABLET S PER DAY Fill Status: Filled Last Documented On 4 9:14AM By Gavin Baldwin ; [facility], [facility] Cefadroxil 500 MG Oral Capsule 12/31/2023 - 01/03/2024 Provider: Gavin Baldwin MD Diagnosis: twice a day Fill Status: Filled Last Documented On 4 9:14AM By Gavin Baldwin ; [facility], [facility] traMADol HCl 50 MG Oral Tablet 12/31/2023 - 01/07/2024 Provider: Gavin Baldwin MD Diagnosis: 1-2 p o q 6-8h for breakthro ugh post op pain MAXIMUM 8 TABLETS PER DAY Fill Status: Filled Last Documented On 4 9:14AM By Gavin Baldwin ; [facility], [facility] Colace 100 MG Oral Capsule 12/31/2023 - 01/30/2024 Pro vider: Gavin Baldwin MD Diagnosis: 1-2 tabs daily as needed, AFTER SURGERY Fill Status: Filled Last Documented On 4 9:14AM By Gavin Baldwin ; [facility], [facility] Aspirin Adult Low Strength 8 1 MG Oral Tablet Delayed Release 12/31/2023 - 02/14/2024 Provider: Gavin Baldwin MD Diagnosis: twice a day Fill Status: Filled Last Documented On 4 9:14AM By Gavin Baldwin ; [facility], [facility] Acetaminophen 500 MG Oral Tablet 12/31/2023 - 01/30/20 Provider: Gavin Baldwin MD Diagnosis: 2 three times a day , AFTER SURGERY Fill Status: Filled Last Documented On 4 9:14AM By Gavin Baldwin ; [facility], [facility] Meloxicam 15 MG Oral Tablet 12/31/2023 - 01/30/2024 Pr ovider: Gavin Baldwin MD Diagnosis: 1 every bedtime Fill Status: Filled Last Documented On 4 9:14AM By Gavin Baldwin ; [facility], [facility] Vitamin D (Ergocalciferol) 1 .25 MG (17631 UT) Oral Capsule 08/30/2023 - 11/22/2023 Provider: GOLDY Coreas MD Diagnosis: Last Documented On 4 3:01PM By Shanna Echavarria ; [facility], [facility] Methocarbamol 750 MG Oral Tablet 08/30/2023 - 09/29/19 Provider: Sekou Olvera PA-C Diagnosis: Take 1 tablet every 8 hrs prn pain Last Documented On 4 3:49PM By Shanna Echavarria ; [facility], [facility] amLODIPine Besylate 5 MG Ora l Tablet 08/30/2023 - 11/28/2023 Provider: GOLDY PENA MD Diagnosis: Last Documented On 4 3:01PM By Shanna Echavarria ; [facility], [facility] Medications Administered Includes: Administered Medications from this encounter No Administered Medications Recorded Vital Signs Includes: Vital Signs from this encounter Vital Name 11/23/2024 02:07P Height (in) 70 Weight (lb) 283 Body Mass Index 40.6 Body Surface Area 2.4 Note: bm Last Documented: On 11/23/2024 2:07PM ; [facility], [facility] Results Includes: Results discussed during this [...] 10/26/2024 Last Documented On 5 2:07PM ; [facility], [facility] No caffeine use 01/17/2024 Last Documented On 5 2:07PM ; [facility], [facility] No recent change in diet 01/17/2024 Last Documented On 5 2:07PM ; [facility], [facility] Not a current smoker. 01/17/2024 Last Documented On 5 2:07PM ; [facility], [facility] Not using alcohol 01/17/2024 Last Documented On 5 2:07PM ; [facility], [facility] Not using drugs 01/17/2024 Last Documented On 5 2:07PM ; [facility], [facility] Never drank alcohol 04/21/2022 Last Documented On 5 2:07PM ; [facility], [facility] Never smoked 04/21/2022 Last Documented On 5 2:07PM ; [facility], [facility] Never used drugs 04/21/2022 Last Documented On 5 2:07PM ; [facility], [facility] Tobacco non-user 04/21/2022 Last Documented On 5 2:07PM ; [facility], [facility] 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 Last Documented On 5 2:07PM ; [facility], [facility] Sex - Male 01/23/2025 Last Documented On 5 11:20AM ; [facility], [facility] Smoking Status Unknown Procedures and Surgical History Surgical History Last Updated History of Previous Fractures 01/17/2024 Last Documented On 5 2:07PM ; [facility], [facility] History of Past Surgical History: 2021 Last Documented On 5 2:07PM ; [facility], [facility] Medical History Includes: Medical History addressed during this encounter Description Last Updated History of Anemia 01/17/2024 Last Documented On 5 2:07PM ; [facility] History of arthritis 01/17/2024 Last Documented On 5 2:07PM ; [facility] History of depression 01/17/2024 Last Documented On 5 2:07PM ; [facility] History of heart disease 01/17/2024 Last Documented On 5 2:07PM ; [facility] History of Heartburn / Acid Reflux 01/16 Last Documented On 5 2:07PM ; [facility] History of Hypertension 01/17/2024 Last Documented On 5 2:07PM ; [facility] History of Sleep Apnea 01/17/2024 Last Documented On 5 2:07PM ; [facility] Use of CPAP 01/17/2024 Last Documented On 5 2:07PM ; [facility] History of gastric ulcer 04/21/2022 Last Documented On 5 2:07PM ; [facility], [facility] No recent immunization for flu 2 Last Documented On 5 2:07PM ; [facility], [facility] No recent immunization for pneumococcal pneumonia 04/21/2022 Last Documented On 5 2:07PM ; [facility], [facility] Family History Includes: Family History addressed during this encounter Description Last Updated Family history of cancer 01/17/2024 Last Documented On 5 2:07PM ; [facility], [facility] Family history of heart disease 01/17/20 24 Last Documented On 5 2:07PM ; [facility] Family history of rheumatoid arthritis 0 01/17/2024 Last Documented On 5 2:07PM ; [facility] Family history of systemic hypertension 01/17/2024 Last Documented On 5 2:07PM ; [facility] Stroke / Seizures 01/17/2024 Last Documented On 5 2:07PM ; [facility], [facility] Fraternal history of Stroke / Seizures 1 06/21/2021 Last Documented On 5 2:07PM ; [facility], [facility] Maternal grandfather's history of family history of heart disease 04/21/2022 Last Documented On 5 2:07PM ; [facility], [facility] Fraternal history of family history of h eart disease 04/21/2022 Last Documented On 5 2:07PM ; [facility] Fraternal history of systemic hypertensi on 04/21/2022 Last Documented On 5 2:07PM ; [facility], [facility] Maternal history of rheumatoid arthritis 04/21/2022 Last Documented On 5 2:07PM ; [facility] Paternal grandfather's history of family history of heart disease 04/21/2022 Last Documented On 5 2:07PM ; [facility] Paternal grandfather's history of system ic hypertension 04/21/2022 Last Documented On 5 2:07PM ; [facility], [facility] Paternal grandmother's history of rheuma toid arthritis 04/21/2022 Last Documented On 5 2:07PM ; [facility] Paternal history of family history of ca ncer 04/21/2022 Last Documented On 5 2:07PM ; [facility], [facility] Paternal history of family history of he art disease 04/21/2022 Last Documented On 5 2:07PM ; [facility], [facility] Paternal history of rheumatoid arthritis 04/21/2022 Last Documented On 5 2:07PM ; [facility] Paternal history of systemic hypertensio n 04/21/2022 Last Documented On 5 2:07PM ; [facility], [facility] Review of Systems Includes: Review of [...] encounter Description No anxiety Last Documented On 2:07PM ; [facility] Physical Exam Includes: Physical Exam from this encounter Allergies Includes: Active Allergies Substance Type Reaction Onset Date Resolved Date Statu s Spironolactone Allergy Shortness of Breath / Dyspnea 09/21 Active Last Documented On 2:58PM ; [facility] Care Hog Feeder Name (Identifier) Role/Relation Location/Telecom Last Documented By Gavin Baldwin MD ([id number]) Assigned practitioner (occupation) [address] [place] [address], [place], [address] tel:[phone] Last Documented On 01/23/2025 11:20AM ; [facility] Grace Negrete APRN ([id number]) Primary care physician (occupation) [address] [place] [address], , [address] tel:[phone] Last Documented On 01/23/2025 11:20AM ; [facility], [facility] Encounters Encounter Provider Location (Healthcare Service Location) Date Check-In Time Check-Out Time Diagnosis Encounter Disposition Post Op Gavin Baldwin MD [facility] B 2024 2:06PM 2:21PM Overweight Payer Includes: Active Insurance Policies Plan Name (Payer ID) Coverage Type Member ID Group # Subscriber (ID) Relationship Effective Dates 1 - [facility] ([id number]) [id number] Jorge Yusuf 06/07/2021 - Unknown Last Documented On 4:11PM ; [facility], [facility] Clinical Notes Includes: Clinical Notes from this encounter * Progress note Date Encounter Last Documented by 11/23/2024 Post Op Last documented on 11/28/2024; 9:20 AM, Gavin Baldwin MD; [facility] Active Problems & Conditions - Joint [...] used drugs. Habits: Exercising regularly. 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 Allergies - Spironolactone Reaction: Shortness of Breath [...]
--- OUTSIDE RECORDS SUMMARY | 2025-05-18 07:37 | XMS_ITS | Patient Health Record ---
Author Organization [facility] Jourdan altamirano Billing Info Address [address] [place] [address] Phone [phone] Support Name Relationship Address Phone Alberto Washbunr Self - patient is the insured [address] [place] [address] [phone] Reason For Referral No Information Medications Medication SIG (Take, Route, Frequency, Duration) Notes Start Date End Date Diagnosis (ICD Code) Status Minocycline HCl 100 mg Capsule 1 capsule Orally Twice a day; Duration: 7 day(s) 06/04/2014 Acute bronchitis (ICD_9 - 466.0) Active Lipitor 10 MG Tablet 1 tablet Orally Once a day Active Tamiflu 75 mg Capsule as directed Orally BID; Duration: 5 day(s) 06/04/2014 Acute bronchitis (ICD_9 - 466.0) Active Hydromet 5-1.5 MG/5ML Syrup 2.5 - 5 ml as needed for cough (no acohol or driving) Orally every 6 hrs 06/04/2014 Acute bronchitis (ICD_9 - 466.0) Active Lotrel 10-20 MG Capsule 1 capsule Orally Once a day Active Tramadol HCl 50 MG Tablet 1 tablet as needed Orally every 6 hrs Active Social History Tobacco Use: Social History Observation Description Date Details (start date - stop date) Never Smoker NA - NA Sex Observation Social History Observation Description Sex Observation Male Social History Social History Social Info Question Answer Notes Tobacco Status: Patient is a never smoker Alcohol Use: Patient uses alcohol Drinks per occasion: 1 Drinks per week: 1 Additional Details Category Social Info Options Details Social History Occupation/Work: retired Children: yes Marital Status: Legally Separate d Lives with: alone Problems Problem Type SNOMED Code ICD Code Dates Problem Status W/U Status Risk Notes Problem Acute bronchitis (41204197) Acute bronchitis (466.0) Added On:12/29/2 014 Active confirmed Plan Of Treatment No Information Insurance Providers Payer Name Payer Address Payer Phone Subscriber Number Group Number Insured Name Patient Relationship to Insured Coverage Start Date Coverage End Date [facility] OOS PPO [address] [employer] [id number] Alberto Washburn Self - patient is the insured 4 4 Medical (General) History Medical History History ICD Code HTN hyperlipidemia Surgical History Surgery Date(Month/Year) Rt shoulder repair 2009 eye surgery bilateral age 4
--- OUTSIDE RECORDS SUMMARY | 2025-05-18 07:37 | XMS_ITS | Clinical Summary ---
Author Organization [facility] Address [address] [place] [address] Phone [email or web address] Care Team Providers Care Esthetic Dermatologist Name Role Phone Andrey Charles MD Primary Care Provider [phone] Allergies Active Allergy Reactions Criticality Noted Date [...] Instructions: 2 Active Vitamin D3 1.25 MG (86780 UT) capsule Take 50,000 Units by mouth [...] Active metFORMIN 1000 MG tablet 5 Active carvedilol (COREG) 25 MG tablet 5 Active hydroCHLOROthia zide 50 MG tablet Take 100 mg by mouth 1 (one) time each day. 5 Active isosorbide dinitrate (ISORDIL) 10 MG tablet 5 Active terazosin (HYTRIN) 1 MG capsule TAKE 1 CAPSULE BY MOUTH ONCE DAILY FOR 3 DAYS THEN 2 CAPSULES ONCE DAILY 5 Active Active Problems Problem Noted Date [...] Encounters Date Type Department Care Team Description 05/16/2025 6:30 AM EST Office Visit [address] [place] [address] Shiela Goodwin NP Encounter for other administrative examinations (Primary Dx); Hx of hypotension 05/11/2025 7:00 AM EST Clinical Support [address] [place] [address] Bailey Jacobs MD Hypotension, unspecified hypotension type (Primary Dx) 05/11/[address] [place] [address] Yola Ly, MARYAM 03/14/2025 7:30 AM EDT Clinical Support [address] [place], [place] [address] Bailey Jacobs MD Encounter for fitness for duty examination (Primary Dx); Lightheadedness 03/14/2025 7:00 AM EDT Office Visit [address] [place] [address] Negra Cole RN Return to work evaluation [...] Pulse 72 05/16/2025 6:24 AM EST Temperature 36.7 C (98.1 F) 07/26/2023 9:29 AM EST Respiratory Rate 16 05/16/2025 6:24 AM EST [...] - Final from Last 3 Months Insurance NA IN [place] [facility] [id number] [place] [address] Care Teams Esthetic Dermatologist Relationship Specialty Start Date End Date Andrey Charles MD [address] [place] [address] [place] [id number] PCP - General Personal Attendant 04/18/19
--- OUTSIDE RECORDS SUMMARY | 2025-05-18 07:38 | XMS_ITS ---
Care Plan - [facility], [facility] Created on: May 18, 2025 Jorge Washburn : 1960 Sex: Male Author Organization [facility] Address [address] [place] [address] Phone Care Team Providers Care Machine Shop Specialist Name Role Phone Nicolasa CARRILLO, Gavin Unavailable [phone] Grace Negrete APRN Primary Care Provider [phone]
--- OUTSIDE RECORDS SUMMARY | 2025-05-18 07:38 | XMS_ITS | Clinical Summary ---
Author Organization [facility] Address [address] [place] [address] Care Team Providers Care Motion Picture Set Grip Name Role Phone Grace Negrete APRN Primary Care Provider [phone] Allergies No known active allergies Medications amLODIPine-shauna [...] Anatomical Region Laterality Modality Radiographic Cyndy ging [facility] IMG DIAGNOSTIC IMAGING ORDERA BLES Final Result from Last 3 Months Insurance [facility] [employer] [id number] PPO Care Teams Motion Picture Set Grip Relationship Specialty Start Date End Date Grace Negrete APRN [address] [place] [address] PCP - General Nurse Practitioner 04/23/25
--- OUTSIDE RECORDS SUMMARY | 2025-05-18 07:38 | XMS_ITS | Clinical Summary ---
Author Organization [employer] ([place], [place], [place], [place], [place]) Address [address] [place] [address] Care Team Providers Care Mechanical Integrity Engineer Name Role Phone Unavailable Primary Care [...] Date Brayden rded Speak language other than Salvadorean at home Not on file 11/15/2023 Want [...]
--- OUTSIDE RECORDS SUMMARY | 2025-05-18 07:38 | XMS_ITS ---
Author Organization [facility] , [facility] Address [address] [place] [address] Phone Care Team Providers Care Administrative Resources Associate Name Role Phone Nicolasa CARRILLO, Gavin Unavailable [phone] Grace Negrete APRN Primary Care Provider [phone] Problems Includes: Active, inactive, and resolved Problems All Visits Onset Date Date of Diagnosis Resolved Date Provider Condition Status Joint Pain Shoulder Bilateral 01/16/2025 01/16/2025 Gavin Baldwin MD Active Last Documented On 5 1:43AM ; [facility], [facility] Joint Pain Hip Right 07/27/2024 07/27/2024 Dorothy JO Active Last Documented On 5 1:42AM ; [facility], [facility] Joint Pain Left Knee 01/17/2024 01/17/2024 Brittani cardona PA-C Active Last Documented On 5 1:42AM ; [facility], [facility] Lower Back Pain 04/14/2022 04/14/2022 Sekou fofana PA-C Active Last Documented On 5 1:41AM ; [facility], [facility] Plan of Treatment Pending Tests Order Diagnosis Results Due Ordering Aicha benjamin Radiology - MRI MRI Lumbar Spine 04/28/22 Aston Olvera PA-C Last Documented On 2 10:59AM ; [facility], [facility] Therapy - Physical Therapy Lumbar Low back pain, unspecified 08/30/23 Richard Olvera PA-C Last Documented On 4 1:22PM ; [facility], [facility] Lab Hemoglobin A1c 12/16/23 Gavin hilton MD Last Documented On 4 10:16AM ; [facility], [facility] Lab CBC With Differential/Platelet 12/15 Gavin Baldwin MD Last Documented On 4 10:16AM ; [facility], [facility] Lab Prothrombin Time (PT) 12/16/23 Ruperto Baldwin MD Last Documented On 4 10:16AM ; [facility], [facility] Lab PTT, Activated 12/16/23 Gavin hilton MD Last Documented On 4 10:16AM ; [facility], [facility] Lab Prealbumin 12/16/23 Gavin Rincon Last Documented On 4 10:16AM ; [facility], [facility] Lab Fructosamine 12/16/23 Gavin Baldwin MD Last Documented On 4 10:16AM ; [facility], [facility] Lab MRSA by MUKESH 12/16/23 Gavin Baldwin MD Last Documented On 4 10:16AM ; [facility], [facility] Lab Comp. Metabolic Panel (14) 12/16/23 Gavin Baldwin MD Last Documented On 4 10:16AM ; [facility], [facility] Instructions to patient Lose weight Last Documented On 5 2:58PM ; [facility] Lose weight Last Documented On 5 2:07PM ; [facility] Lose weight Last Documented On 5 9:55AM ; [facility] Lose weight Last Documented On 4 3:23PM ; [facility] Lose weight Last Documented On 4 10:00AM ; [facility] Lose weight Last Documented On 4 3:02PM ; [facility] Lose weight Last Documented On 2 2:21PM ; [facility] Lose weight Last Documented On 2 3:36PM ; [facility] Lose weight Last Documented On 2 3:37PM ; [facility] Assessments Includes: Assessments for all patient encounters Findings Encounter Date Overweight NEW PROBLEM/EST PT with Gavin Baldwin MD 01/16/2025 Last Documented On 5 2:58PM ; [facility] Overweight Post Op with Gavin Baldwin MD Last Documented On 5 2:07PM ; [facility] Overweight Post Op with Hong Trinidad 10/26/2024 Last Documented On 5 9:55AM ; [facility] Overweight Post Op with Brittani Montero PA-C Last Documented On 4 3:23PM ; [facility] Overweight Follow Up with Gavin Baldwin MD 0 10/19/2023 Last Documented On 4 10:00AM ; [facility] Overweight Follow Up with Sekou Nava 08/30/2023 Last Documented On 4 3:13PM ; [facility] Instructions Includes: Instructions for all patient encounters Instructions to patient Lose weight Last Documented On 5 2:58PM ; [facility] Lose weight Last Documented On 5 2:07PM ; [facility] Lose weight Last Documented On 5 9:55AM ; [facility] Lose weight Last Documented On 4 3:23PM ; [facility] Lose weight Last Documented On 4 10:00AM ; [facility] Lose weight Last Documented On 4 3:02PM ; [facility] Lose weight Last Documented On 2 2:21PM ; [facility] Lose weight Last Documented On 2 3:36PM ; [facility] Lose weight Last Documented On 2 3:37PM ; [facility] Medical Equipment - Implanted Devices Includes: Current and historical Devices No Medical Equipment Recorded Medications Includes: Current and historical Medications Current Medications (continue as prescribed) Jardiance 25 MG Oral Tablet 09/21/2024 Provider: Diagnosis: Last Documented On 5 11:47AM By Danielle Martins ; [facility] Vitamin D2 10 MCG (400 UNIT) Oral Tablet 09/21/2024 Provider: Diagnosis: Last Documented On 5 11:47AM By Danielle Martins ; [facility] Cyclobenzaprine HCl 10 MG Oral Tablet 09/21/2024 Pro vider: Diagnosis: Last Documented On 5 11:46AM By Danielle Martins ; [facility] Isosorbide Dinitrate 40 MG Oral Tablet 09/21/2024 Pr ovider: Diagnosis: Last Documented On 11:47AM By Danielle Martins ; [facility] hydrALAZINE HCl 50 MG Oral Tablet 09/21/2024 Provide r: Diagnosis: Last Documented On 5 11:48AM By Danielle Martins ; [facility] metFORMIN HCl 1000 MG Oral Tablet 09/21/2024 Provide r: Diagnosis: Last Documented On 5 11:48AM By Danielle Martins ; [facility] acetaZOLAMIDE 250 MG Oral Tablet 09/21/2024 Provider : Diagnosis: Last Documented On 5 11:46AM By Danielle Martins ; [facility] Latanoprost 0.005% Ophthalmic Solution 07/27/2024 Pr ovider: Diagnosis: Last Documented On 5 11:48AM By Danielle Martins ; [facility] Timolol Maleate 0.25% Ophthalmic Solution 07/27/2024 Provider: Diagnosis: Last Documented On 5 11:49AM By Danielle Martins ; [facility] Acetaminophen Extra Strength 500 MG Oral Tablet 2024 Provider: Diagnosis: Last Documented On 5 2:46PM By Sarah Hernandez ; [facility] Ibuprofen 200 MG Oral Tablet 07/20/2024 Provider: Diagnosis: Last Documented On 5 2:47PM By Sarah Hernandez ; [facility] HYDROcodone-Acetaminophen 5-325 MG Oral Tablet 025 Provider: Diagnosis: Last Documented On 5 8:18AM By Kevin Macedo [facility], [facility] Atorvastatin Calcium 40 MG Oral Tablet 06/16/2024 Pr ovider: Grace Negrete APRN Diagnosis: Last Documented On 5 10:08AM By Kevin Ray ; [facility], [facility] Ozempic (1 MG/DOSE) 4 MG/3ML Subcutaneous Solution Pen-injector 06/01/2024 Provider: Grace Negrete APRN Diagnosis: Last Documented On 5 10:08AM By Kevin Ray ; [facility], [facility] Benazepril HCl 40 MG Oral Tablet 09/21/2023 Provider : Grace Negrete APRN Diagnosis: Last Documented On 4 10:00AM By Regina Ordoñez ; [facility], [facility] Methocarbamol 750 MG Oral Tablet 08/30/2023 Provider : Sekou Olvera PA-C Diagnosis: Last Documented On 4 10:00AM By Regina Ordoñez ; [facility], [facility] Furosemide 20 MG Oral Tablet 07/10/2023 Provider: Grace Negrete APRN Diagnosis: Last Documented On 4 3:01PM By Shanna Echavarria ; [facility], [facility] Carvedilol 25 MG Oral Tablet 03/25/2023 Provider: Diagnosis: Last Documented On 4 3:01PM By Shanna Echavarria ; [facility], [facility] Past Medications on file traMADol HCl 50 MG Oral Tablet 10/31/2024 - 11/30/2024 Provider: Gavin Baldwin MD Diagnosis: 1 every bedtime Last Documented On 5 3:49PM By Gavin Baldwin ; [facility], [facility] traMADol HCl 50 MG Oral Tablet 10/09/2024 - 10/24/2024 Provider: Gavin Baldwin MD Diagnosis: 1-2 p o q 6-8h for breakthro ugh post op pain MAXIMUM 8 TABLETS PER DAY Last Documented On 5 8:36AM By Gavin Baldwin ; [facility], [facility] oxyCODONE HCl 5 MG Oral Tablet 10/06/2024 - 10/11/2024 Provider: Gavin Baldwin MD Diagnosis: 1-2 p o q 6-8h for post op pain MAXIMUM 6 TABLET S PER DAY Fill Status: Filled Last Documented On 5 12:19PM By Gavin Macedo [facility] Aspirin Adult Low Strength 81 MG Oral Tablet Delayed Release 10/06/2024 - 11/20/2024 Provider: Gavin Baldwin MD Diagnosis: twice a day Fill Status: Partially Filled Last Documented On 5 12:19PM By Gavin Macedo [facility], [facility] Colace 100 MG Oral Capsule 10/06/2024 - 11/05/2024 Pro vider: Gavin Baldwin MD Diagnosis: 1-2 tabs daily as needed, AFTER SURGERY Fill Status: Filled Last Documented On 5 12:19PM By Gavin Macedo [facility], [facility] Cefadroxil 500 MG Oral Capsule 10/06/2024 - 10/09/2024 Provider: Gavin Baldwin MD Diagnosis: twice a day Fill Status: Filled Last Documented On 5 12:19PM By Gavin Macedo [facility], [facility] Acetaminophen 500 MG Oral Tablet 10/06/2024 - 11/06/19 Provider: Gavin Baldwin MD Diagnosis: 2 three times a day , AFTER SURGERY Fill Status: Filled Last Documented On 5 12:19PM By Gavin Macedo [facility], [facility] Meloxicam 15 MG Oral Tablet 10/06/2024 - 11/05/2024 Pr ovider: Gavin Baldwin MD Diagnosis: 1 every bedtime Fill Status: Filled Last Documented On 5 12:19PM By Gavin Macedo [facility], [facility] Ondansetron HCl 4 MG Oral Tablet 10/06/2024 - 10/21/19 Provider: Gavin Baldwin MD Diagnosis: 1-2 p o q 6-8h as needed for nausea Fill Status: Filled Last Documented On 5 12:19PM By Gavin Macedo [facility], [facility] Hibiclens Topical Liquid 07/20/2024 - 07/27/2024 Provi sue: Diagnosis: Last Documented On 5 11:47AM By Danielle Macedo [facility], [facility] traMADol HCl 50 MG Oral Tablet 06/27/2024 - 07/20/2024 Provider: Gavin Baldwin MD Diagnosis: 1 tab every 12 hours Last Documented On 5 2:46PM By Sarah Hernandez ; [facility], [facility] Meloxicam 15 MG Oral Tablet 06/13/2024 - 10/26/2024 Pr ovider: Diagnosis: Last Documented On 5 9:54AM By Vika Ceballos ; [facility], [facility] Cyclobenzaprine HCl 10 MG Or al Tablet 06/08/2024 - 07/20/2024 Provider: Grace Negrete APRN Diagnosis: Last Documented On 5 2:44PM By Sarah Hernandez ; [facility], [facility] levoFLOXacin 750 MG Oral Tablet 05/29/2024 - Provider: Diagnosis: Last Documented On 5 2:44PM By Sarah Hernandez ; [facility], [facility] Albuterol Sulfate HFA 108 (9 0 Base) MCG/ACT Inhalation Aerosol Solution 05/29/2024 - 07/20/2024 Provider: Diagnosis: Last Documented On 5 2:44PM By Sarah Hernandez ; [facility], [facility] oxyCODONE HCl 5 MG Oral Tablet 01/21/2024 - 01/26/2024 Provider: Gavin Baldwin MD Diagnosis: 1-2 p o q 6-8h for post op pain MAXIMUM 6 TABLET S PER DAY Last Documented On 4 9:11AM By Gavin Baldwin ; [facility], [facility] traMADol HCl 50 MG Oral Tablet 01/21/2024 - 01/28/2024 Provider: Gavin Baldwin MD Diagnosis: 1-2 p o q 6-8h for breakthro ugh post op pain MAXIMUM 8 TABLETS PER DAY Last Documented On 4 9:11AM By Gavin Baldwin ; [facility], [facility] Ondansetron HCl 4 MG Oral Tablet 12/31/2023 - 01/14/2024 Provider: Gavin Baldwin MD Diagnosis: 1-2 p o q 6-8h as needed for nausea Fill Status: Partially Filled Last Documented On 4 9:14AM By Gavin Baldwin ; [facility] oxyCODONE HCl 5 MG Oral Tablet 12/31/2023 - 01/05/2024 Provider: Gavin Baldwin MD Diagnosis: 1-2 p o q 6-8h for post op pain MAXIMUM 6 TABLET S PER DAY Fill Status: Filled Last Documented On 4 9:14AM By Gavin Baldwin ; [facility], [facility] Cefadroxil 500 MG Oral Capsule 12/31/2023 - 01/03/2024 Provider: Gavin Baldwin MD Diagnosis: twice a day Fill Status: Filled Last Documented On 4 9:14AM By Gavin Baldwin ; [facility], [facility] traMADol HCl 50 MG Oral Tablet 12/31/2023 - 01/07/2024 Provider: Gavin Baldwin MD Diagnosis: 1-2 p o q 6-8h for breakthro ugh post op pain MAXIMUM 8 TABLETS PER DAY Fill Status: Filled Last Documented On 4 9:14AM By Gavin Baldwin ; [facility], [facility] Colace 100 MG Oral Capsule 12/31/2023 - 01/30/2024 Pro vider: Gavin Baldwin MD Diagnosis: 1-2 tabs daily as needed, AFTER SURGERY Fill Status: Filled Last Documented On 4 9:14AM By Gavin Baldwin ; [facility], [facility] Aspirin Adult Low Strength 8 1 MG Oral Tablet Delayed Release 12/31/2023 - 02/14/2024 Provider: Gavin Baldwin MD Diagnosis: twice a day Fill Status: Filled Last Documented On 4 9:14AM By Gavin Baldwin ; [facility], [facility] Acetaminophen 500 MG Oral Tablet 12/31/2023 - 01/30/20 24 Provider: Gavin Baldwin MD Diagnosis: 2 three times a day , AFTER SURGERY Fill Status: Filled Last Documented On 4 9:14AM By Gavin Baldwin ; [facility], [facility] Meloxicam 15 MG Oral Tablet 12/31/2023 - 01/30/2024 Pr ovider: Gavin Baldwin MD Diagnosis: 1 every bedtime Fill Status: Filled Last Documented On 4 9:14AM By Gavin Baldwin ; [facility], [facility] Lipitor 40 MG Oral Tablet 12/16/2023 - 07/20/2024 Prov ider: Diagnosis: Last Documented On 5 2:44PM By Sarah Hernandez ; [facility], [facility] Depakote 125 MG Oral Tablet, enteric coated 12/16/2023 - 07/20/2024 Provider: Diagnosis: Last Documented On 5 2:44PM By Sarah Hernandez ; [facility] Timolol Maleate 0.5% Ophthalmic Solution 10/16/2023 - 07/20/2024 Provider: Diagnosis: Last Documented On 5 2:44PM By Sarah Hernandez ; [facility] Furosemide 20 MG Oral Tablet 10/09/2023 - 12/16/2023 P rovider: Grace Negrete APRN Diagnosis: Last Documented On 4 11:39AM By Danielle Martins ; [facility] Ozempic (2 MG/DOSE) 8 MG/3ML Subcutaneous Solution Pen-injector 10/03/2023 - 07/20/2024 Provider: Joss Negrete APRN Diagnosis: Last Documented On 5 2:45PM By Sarah Hernandez ; [facility] Timolol Maleate 0.5% Ophthalmic Solution 09/23/2023 - 10/19/2023 Provider: Diagnosis: Last Documented On 4 11:38AM By Shanna Echavarria ; [facility] Latanoprost 0.005% Ophthalmic Solution 09/22/2023 - Provider: Diagnosis: Last Documented On 5 2:45PM By Sarah Hernandez ; [facility] Cyclobenzaprine HCl 10 MG Or al Tablet 09/02/2023 - 12/16/2023 Provider: Grace Negrete APRN Diagnosis: Last Documented On 4 11:40AM By Danielle Martins ; [facility] Timolol Maleate 0.5% Ophthalmic Solution 09/01/2023 - 10/19/2023 Provider: Diagnosis: Last Documented On 4 11:39AM By Shanna Echavarria ; [facility] Vitamin D (Ergocalciferol) 1 .25 MG (50077 UT) Oral Capsule 08/30/2023 - 11/22/2023 Provider: GOLDY Coreas MD Diagnosis: Last Documented On 4 3:01PM By Shanna Echavarria ; [facility] Methocarbamol 750 MG Oral Tablet 08/30/2023 - 09/29/19 Provider: Sekou Olvera PA-C Diagnosis: Take 1 tablet every 8 hrs prn pain Last Documented On 4 3:49PM By Shanna Echavarria ; [facility] amLODIPine Besylate 5 MG Ora l Tablet 08/30/2023 - 11/28/2023 Provider: GOLDY PENA MD Diagnosis: Last Documented On 4 3:01PM By Shanna Echavarria ; [facility] Timolol Maleate 0.5% Ophthalmic Solution 08/06/2023 - 10/19/2023 Provider: Diagnosis: Last Documented On 4 11:38AM By Shanna Echavarria ; [facility] Timolol Maleate 0.5% Ophthalmic Solution 08/06/2023 - 10/19/2023 Provider: Diagnosis: Last Documented On 4 11:38AM By Shanna Echavarria ; [facility] acetaZOLAMIDE 250 MG Oral Tablet 07/31/2023 - 10/19/19 Provider: Diagnosis: Last Documented On 4 11:38AM By Shanna Echavarria ; [facility] acetaZOLAMIDE 250 MG Oral Tablet 07/31/2023 - 12/16/19 Provider: Diagnosis: Last Documented On 4 11:42AM By Danielle Martins ; [facility] prednisoLONE Acetate 1% Ophthalmic Suspension 07/17/19 - 07/20/2024 Provider: Diagnosis: Last Documented On 5 2:45PM By Sarah Hernandez ; [facility] Spironolactone 25 MG Oral Tablet 04/27/2023 - 12/16/19 Provider: Diagnosis: Last Documented On 4 11:44AM By Danielle Martins ; [facility] Promethazine-DM 6.25-15 MG/5ML Oral Syrup 04/27/2023 - 12/16/2023 Provider: Diagnosis: Last Documented On 4 11:44AM By Danielle Martins ; [facility] buPROPion HCl ER (XL) 300 MG Oral Tablet Extended Release 24 Hour 11/24/2022 - 12/16/2023 Provider: Randy Dawkins APRN Diagnosis: Last Documented On 4 11:44AM By Danielle Martins ; [facility] Methocarbamol 750 MG Oral Tablet 11/07/2022 - 10/19/19 Provider: Arjun Alcantara MD Diagnosis: Last Documented On 4 11:38AM By Shanna Echavarria ; [facility] Carvedilol 12.5 MG Oral Tablet 11/01/2022 - 08/30/2023 Provider: Diagnosis: Last Documented On 4 3:02PM By Shanna Echavarria ; [facility] Wegovy 0.25 MG/0.5ML Subcuta neous Solution Auto-injector 10/21/2022 - 10/19/2023 Provider: Diagnosis: Last Documented On 4 11:38AM By Shanna Echavarria ; [facility] Mobic 15 MG Oral Tablet 05/14/2022 - 08/30/2023 Provid er: Arjun Alcantara MD Diagnosis: once a day Last Documented On 4 3:02PM By Shanna Echavarria ; [facility] Methocarbamol 750 MG Oral Tablet 05/14/2022 - 08/30/19 Provider: Arjun Alcantara MD Diagnosis: Take 1 tablet every 8 hrs prn pain Last Documented On 4 3:02PM By Shanna Echavarria ; [facility] Amoxicillin 875 MG Oral Tablet 03/30/2022 - 08/30/2023 Provider: Sarah Law NP Diagnosis: Last Documented On 4 3:02PM By Shanna Echavarria ; [facility] amLODIPine Besylate 5 MG Ora l Tablet 03/28/2022 - 08/30/2023 Provider: GOLDY PENA MD Diagnosis: Last Documented On 4 3:01PM By Shanna Echavarria ; [facility] Vitamin D (Ergocalciferol) 1 .25 MG (20650 UT) Oral Capsule 03/23/2022 - 08/30/2023 Provider: GOLDY Coreas MD Diagnosis: Last Documented On 4 3:01PM By Shanna Echavarria ; [facility] Divalproex Sodium 250 MG Ora l Tablet Delayed Release 03/01/2022 - 08/30/2023 Provider: GOLDY PENA MD Diagnosis: Last Documented On 4 3:01PM By Shanna Echavarria ; [facility] Benazepril HCl 40 MG Oral Tablet 03/01/2022 - 08/30/19 Provider: GOLDY PENA MD Diagnosis: Last Documented On 4 3:01PM By Shanna Echavarria ; [facility] Atorvastatin Calcium 40 MG O ral Tablet 03/01/2022 - 08/30/2023 Provider: GOLDY PENA MD Diagnosis: Last Documented On 4 3:01PM By Shanna Echavarria ; [facility] Bisoprolol Fumarate 10 MG Or al Tablet 01/31/2022 - 08/30/2023 Provider: GOLDY PENA MD Diagnosis: Last Documented On 4 3:01PM By Shanna Echavarria ; [facility] Furosemide 20 MG Oral Tablet 01/31/2022 - 08/30/2023 P rovider: GOLDY PENA MD Diagnosis: Last Documented On 4 3:01PM By Shanna Echavarria ; [facility] Medications Administered Includes: Administered Medications in patient's chart No Administered Medications Recorded Vital Signs Includes: Vital Signs from 05/18/2024 through 05/18/2025 Vital Name 01/16/2025 02:59P 11/23/2024 02:07P 10/26/2024 09:55A 09/21/2024 11:43A 07/27/2024 11:42A Height (in) 70 70 70 70 70 Weight (lb) 285 283 283 283 281 Body Mass Index 40.9 40.6 40.6 40.6 40.3 Body Surface Area 2.4 2.4 2.4 2.4 2.4 Blood Pressure Sitting L 120/67 Pulse Rate-Sitting (bpm) 72 75 Oxygen Saturation (%) 98 99 Blood Pressure Sitting (mmHg) 182/118 Note: knc bm bs EC EC Last Documented: On 01/16/2025 2:59PM ; [facility] On 11/23/2024 2:07PM ; [facility] On 10/26/2024 9:56AM ; [facility] On 09/21/2024 11:53AM ; [facility] On 07/27/2024 11:52AM ; [facility] Vital Name 06/27/2024 08:42A 06/23/2024 10: 09A Height (in) 70 70 Weight (lb) 290 290 Body Mass Index 41.6 41.6 Body Surface Area 2.4 2.4 Pain Level 4 3 Last Documented: On 06/27/2024 8:42AM ; [facility] On 06/23/2024 10:09AM ; [facility] Results Includes: Results from 05/18/2024 through 05/18/2025 CBC With Differential/Platelet [facility] o [facility] [place] Ordered by Dorothy JO on 09/21/2024 Collected: 09/21/2024 Reported: 09/23/19 25 17:07 Last Documented On 5 9:38PM ; [facility], [facility] All test results are final unless otherw ise noted. WBC 7.2 x10E3/uL (3.4-10.8) None Last Documented On 5 9:38PM ; [facility] RBC 4.43 x10E6/uL (4.14-5.80) None Last Documented On 5 9:38PM ; [facility] Hemoglobin 12.6 gram per deciliter (13.0-17.7) L (Low) Last Documented On 5 9:38PM ; [facility] Hematocrit 38.8 percents (37.5-51.0) None Last Documented On 5 9:38PM ; [facility] MCV 88 femtoliter (79-97) None Last Documented On 5 9:38PM ; [facility] MCH 28.4 picogram (26.6-33.0) None Last Documented On 5 9:38PM ; [facility] MCHC 32.5 gram per deciliter (31.5-35.7) None Last Documented On 5 9:38PM ; [facility] Neutrophils 74 percents (Not Estab.) None Last Documented On 5 9:38PM ; [facility] Immature Granulocytes 0 percents (Not Estab.) None Last Documented On 5 9:38PM ; [facility] Lymphs 15 percents (Not Estab.) None Last Documented On 5 9:38PM ; [facility] Monocytes 8 percents (Not Estab.) None Last Documented On 5 9:38PM ; [facility] Eos 2 percents (Not Estab.) None Last Documented On 5 9:38PM ; [facility] Basos 1 percents (Not Estab.) None Last Documented On 5 9:38PM ; [facility] Platelets 250 x10E3/uL (150-450) None Last Documented On 5 9:38PM ; [facility] Neutrophils (Absolute) 5.4 x10E3/uL (1.4-7.0) None Last Documented On 5 9:38PM ; [facility] Immature Grans (Abs) 0.0 x10E3/uL (0.0-0.1) None Last Documented On 5 9:38PM ; [facility] Lymphs (Absolute) 1.1 x10E3/uL (0.7-3.1) None Last Documented On 5 9:38PM ; [facility] Monocytes(Absolute) 0.6 x10E3/uL (0.1-0.9) None Last Documented On 5 9:38PM ; [facility] Eos (Absolute) 0.1 x10E3/uL (0.0-0.4) None Last Documented On 5 9:38PM ; [facility] Baso (Absolute) 0.0 x10E3/uL (0.0-0.2) None Last Documented On 5 9:38PM ; [facility] RDW 13.0 percents (11.6-15.4) None Last Documented On 5 9:38PM ; [facility] Comp. Metabolic Panel (14) [facility] Ordered by Dorothy JO on 09/21/2024 Collected: 09/21/2024 Reported: 09/23/19 25 17:07 Last Documented On 5 9:38PM ; [facility] All test results are final unless otherw ise noted. Calcium 9.7 milligram per deciliter (8.6-10.2) None Last Documented On 5 9:38PM ; [facility] Glucose 127 milligram per deciliter (70-99) H (High) Last Documented On 5 9:38PM ; [facility] BUN 27 milligram per deciliter (8-27) None Last Documented On 5 9:38PM ; [facility] Protein, Total 7.0 gram per deciliter (6.0-8.5) None Last Documented On 5 9:38PM ; [facility] Albumin 4.6 gram per deciliter (3.9-4.9) None Last Documented On 5 9:38PM ; [facility] Bilirubin, Total 0.3 milligram per deciliter (0.0-1.2) None Last Documented On 5 9:38PM ; [facility] Alkaline Phosphatase 119 IU/L (44-121) None Last Documented On 5 9:38PM ; [facility] AST (SGOT) 21 IU/L (0-40) None Last Documented On 5 9:38PM ; [facility] Potassium 4.7 millimole per liter (3.5-5.2) None Last Documented On 5 9:38PM ; [facility] Sodium 142 millimole per liter (134-144) None Last Documented On 5 9:38PM ; [facility] Chloride 103 millimole per liter (96-106) None Last Documented On 5 9:38PM ; [facility] Creatinine 1.08 milligram per deciliter (0.76-1.27) None Last Documented On 5 9:38PM ; [facility] ALT (SGPT) 22 IU/L (0-44) None Last Documented On 5 9:38PM ; [facility], [facility] Carbon Dioxide, Total 21 millimole per liter (20-29) None Last Documented On 5 9:38PM ; [facility], [facility] BUN/Creatinine Ratio 25 (10-24) H (High) Last Documented On 5 9:38PM ; [facility], [facility] Globulin, Total 2.4 gram per deciliter (1.5-4.5) None Last Documented On 5 9:38PM ; [facility], [facility] eGFR 77 mL/min/1.73 (>59) None Last Documented On 5 9:38PM ; [facility], [facility] Prothrombin Time (PT) [facility] [place] Ordered by Dorothy JO on 09/21/2024 Collected: 09/21/2024 Reported: 09/23/19 25 17:07 Last Documented On 5 9:38PM ; [facility], [facility] All test results are final unless otherw ise noted. Prothrombin Time 10.9 sec (9.1-12.0) None Last Documented On 5 9:38PM ; [facility] INR 1.0 (0.9-1.2) None Last Documented On 5 9:38PM ; [facility], [facility] Note: Reference interval is for non-anti coagulated patients. . Suggested INR therapeutic range for Vitamin K antagonist therapy: Standard Dose (moderate intensity therapeutic range): 2.0 - 3.0 Higher intensity therapeutic range 2.5 - 3.5 Hemoglobin A1c [facility] Ordered by Dorothy JO on 09/21/2024 Collected: 09/21/2024 Reported: 09/23/19 25 17:07 Last Documented On 5 9:38PM ; [facility], [facility] All test results are final unless otherw ise noted. Hemoglobin A1c 7.2 percents (4.8-5.6) H (High) Last Documented On 5 9:38PM ; [facility], [facility] Note: . . Prediabetes: 5.7 - 6.4 Diabet es: >6.4 Glycemic control for adults with diabetes: <7.0 PTT, Activated [employer] Ordered by Dorothy JO on 09/21/2024 Collected: 09/21/2024 Reported: 09/23/19 17:07 Last Documented On 5 9:38PM ; [facility], [facility] All test results are final unless otherw ise noted. aPTT 27 sec (24-33) None Last Documented On 5 9:38PM ; [facility], [facility] Note: This test has not been validated f or monitoringunfractionated heparin therapy. aPTT-based therapeuticranges for unfractionated heparin therapy have not beenestablished. For general guidelines on Heparin monitoring,refer to the [facility] Directory of Services. Fructosamine [employer] Ordered by Dorothy JO on 09/21/2024 Collected: 09/21/2024 Reported: 09/23/19 17:07 Last Documented On 5 9:38PM ; [facility], [facility] All test results are final unless otherw ise noted. Fructosamine 260 micromole per liter (0-285) None Last Documented On 5 9:38PM ; [facility], [facility] Note: Published reference interval for a pparently healthysubjects between age 20 and 60 is 205 - 285 umol/L and in apoorly controlled diabetic population is 228 - 563 umol/Lwith a mean of 396 umol/L. MRSA by MUKESH [facility] Ordered by Dorothy JO on 09/21/2024 Collected: 09/21/2024 Reported: 09/23/19 17:07 Last Documented On 5 9:38PM ; [facility], [facility] All test results are final unless otherw ise noted. MRSA by MUKESH Negative (Negative) None Last Documented On 5 9:38PM ; [facility], [facility] Prealbumin [facility] [place] Ordered by Dorothy JO on 09/21/2024 Collected: 09/21/2024 Reported: 09/23/19 17:07 Last Documented On 5 9:38PM ; [facility], [facility] All test results are final unless otherw ise noted. Prealbumin 22 milligram per deciliter (10-36) None Last Documented On 5 9:38PM ; [facility], [facility] Reported Physicians [facility] [place] Ordered by Dorothy JO on 09/21/2024 Collected: 09/21/2024 Reported: 09/23/19 17:07 Last Documented On 5 9:38PM ; [facility], [facility] All test results are final unless otherw ise noted. Reported Physicians See Note None Last Documented On 09/22/2024 9:38PM ; Angeline BRADEN, [facility] Note: Reported Physicians:Ordering: DOROTHY PARKER CBC With Differential/Platelet [facility] [place] Ordered by Dorothy JO on 07/27/2024 Collected: 07/27/2024 Reported: 07/28/19 15:07 Last Documented On 5 6:22PM ; [facility], [facility] All test results are final unless otherw ise noted. WBC 6.4 x10E3/uL (3.4-10.8) None Last Documented On 5 6:22PM ; [facility], [facility] RBC 4.85 x10E6/uL (4.14-5.80) None Last Documented On 5 6:22PM ; [facility], [facility] Hemoglobin 13.9 gram per deciliter (13.0-17.7) None Last Documented On 5 6:22PM ; [facility] Hematocrit 42.4 percents (37.5-51.0) None Last Documented On 5 6:22PM ; [facility] MCV 87 femtoliter (79-97) None Last Documented On 5 6:22PM ; [facility] MCH 28.7 picogram (26.6-33.0) None Last Documented On 5 6:22PM ; [facility] MCHC 32.8 gram per deciliter (31.5-35.7) None Last Documented On 5 6:22PM ; [facility] Neutrophils 74 percents (Not Estab.) None Last Documented On 5 6:22PM ; [facility] Immature Granulocytes 1 percents (Not Estab.) None Last Documented On 5 6:22PM ; [facility] Lymphs 14 percents (Not Estab.) None Last Documented On 5 6:22PM ; [facility] Monocytes 7 percents (Not Estab.) None Last Documented On 5 6:22PM ; [facility] Eos 3 percents (Not Estab.) None Last Documented On 5 6:22PM ; [facility] Basos 1 percents (Not Estab.) None Last Documented On 5 [...] 6:22PM ; [facility] RDW 13.5 percents (11.6-15.4) None Last Documented On 5 6:22PM ; [facility] Comp. Metabolic Panel (14) [facility] [place] Ordered by Dorothy JO on 07/27/2024 Collected: 07/27/2024 Reported: 07/28/19 25 15:07 Last Documented On 5 6:22PM ; [facility], [facility] All test results are final unless otherw ise noted. Calcium 9.6 milligram per deciliter (8.6-10.2) None Last Documented On 5 6:22PM ; [facility] Glucose 186 milligram per deciliter (70-99) H (High) Last Documented On 5 6:22PM ; [facility] BUN 21 milligram per deciliter (8-27) None Last Documented On 5 6:22PM ; [facility] Protein, Total 7.1 gram per deciliter (6.0-8.5) None Last Documented On 5 6:22PM ; [facility] Albumin 4.3 gram per deciliter (3.9-4.9) None Last Documented On 5 6:22PM ; [facility] Bilirubin, Total 0.5 milligram per deciliter (0.0-1.2) None Last Documented On 5 6:22PM ; [facility] Alkaline Phosphatase 186 IU/L (44-121) H (High) Last Documented On 5 6:22PM ; [facility] AST (SGOT) 14 IU/L (0-40) None Last Documented On 5 6:22PM ; [facility] Potassium 4.5 millimole per liter (3.5-5.2) None Last Documented On 5 6:22PM ; [facility] Sodium 140 millimole per liter (134-144) None Last Documented On 5 6:22PM ; [facility] Chloride 107 millimole per liter (96-106) H (High) Last Documented On 5 6:22PM ; [facility] Creatinine 0.99 milligram per deciliter (0.76-1.27) None Last Documented On 5 6:22PM ; [facility] ALT (SGPT) 13 IU/L (0-44) None Last Documented On 5 6:22PM ; [facility] Carbon Dioxide, Total 19 millimole per liter (20-29) L (Low) Last Documented On 5 6:22PM ; [facility] BUN/Creatinine Ratio 21 (10-24) None Last Documented On 5 6:22PM ; [facility] Globulin, Total 2.8 gram per deciliter (1.5-4.5) None Last Documented On 5 6:22PM ; [facility] eGFR 86 mL/min/1.73 (>59) None Last Documented On 5 6:22PM ; [facility] Prothrombin Time (PT) [facility] [place] Ordered by Dorothy JO on 07/27/2024 Collected: 07/27/2024 Reported: 07/28/19 25 15:07 Last Documented On 5 6:22PM ; [facility], [facility] All test results are final unless otherw ise noted. Prothrombin Time 11.4 sec (9.1-12.0) None Last Documented On 5 6:22PM ; [facility] INR 1.0 (0.9-1.2) None Last Documented On 5 6:22PM ; [facility], [facility] Note: Reference interval is for non-anti coagulated patients. . Suggested INR therapeutic range for Vitamin K antagonist therapy: Standard Dose (moderate intensity therapeutic range): 2.0 - 3.0 Higher intensity therapeutic range 2.5 - 3.5 Hemoglobin A1c [facility] Ordered by Dorothy JO on 07/27/2024 Collected: 07/27/2024 Reported: 07/28/19 15:07 Last Documented On 5 6:22PM ; [facility], [facility] All test results are final unless otherw ise noted. Hemoglobin A1c 8.4 percents (4.8-5.6) H (High) Last Documented On 5 6:22PM ; [facility], [facility] Note: . . Prediabetes: 5.7 - 6.4 Diabete s: >6.4 Glycemic control for adults with diabetes: <7.0 PTT, Activated [facility] Ordered by Dorothy JO on 07/27/2024 Collected: 07/27/2024 Reported: 07/28/19 15:07 Last Documented On 5 6:22PM ; [facility], [facility] All test results are final unless otherw ise noted. aPTT 30 sec (24-33) None Last Documented On 5 6:22PM ; [facility], [facility] Note: This test has not been validated f or monitoringunfractionated heparin therapy. aPTT-based therapeuticranges for unfractionated heparin therapy have not beenestablished. For general guidelines on Heparin monitoring,refer to the [facility] Directory of Services. Fructosamine [facility] Ordered by Dorothy JO on 07/27/2024 Collected: 07/27/2024 Reported: 07/28/19 15:07 Last Documented On 5 6:22PM ; [facility], [facility] All test results are final unless otherw ise noted. Fructosamine 330 micromole per liter (0-285) H (High) Last Documented On 5 6:22PM ; [facility], [facility] Note: Published reference interval for a pparently healthysubjects between age 20 and 60 is 205 - 285 umol/L and in apoorly controlled diabetic population is 228 - 563 umol/Lwith a mean of 396 umol/L. MRSA by MUKESH [facility] [place] Ordered by Dorothy JO on 07/27/2024 Collected: 07/27/2024 Reported: 07/28/19 25 15:07 Last Documented On 5 6:22PM ; [facility] BRADENS, [facility] All test results are final unless otherw ise noted. MRSA by MUKESH Negative (Negative) None Last Documented On 5 6:22PM ; [facility], [facility] Prealbumin [facility] [place] Ordered by Dorothy JO on 07/27/2024 Collected: 07/27/2024 Reported: 07/28/19 15:07 Last Documented On 5 6:22PM ; [facility], [facility] All test results are final unless otherw ise noted. Prealbumin 23 milligram per deciliter (10-36) None Last Documented On 5 6:22PM ; [facility], [facility] Reported Physicians [facility] [place] Ordered by Dorothy JO on 07/27/2024 Collected: 07/27/2024 Reported: 07/28/19 15:07 Last Documented On 5 6:22PM ; [facility], [facility] All test results are final unless otherw ise noted. Reported Physicians See Note None Last Documented On 07/28/2024 6:22PM ; Angeline SMITH, [facility] Note: Reported Physicians:Ordering: DOROTHY PARKER Social History Description Last Updated Exercising regularly 10/26/2024 Last Documented On 5 10:29AM ; [facility], [facility] No caffeine use 01/17/2024 Last Documented On 4 4:56PM ; [facility] BRADENS, [facility] No recent change in diet 01/17/2024 Last Documented On 4 4:56PM ; [facility] BRADENS, [facility] Not a current smoker. 01/17/2024 Last Documented On 4 4:56PM ; MILANA SMITH, [facility] Not using alcohol 01/17/2024 Last Documented On 4 4:56PM ; [facility] Not using drugs 01/17/2024 Last Documented On 4 4:56PM ; [facility], [facility] Never drank alcohol 04/21/2022 Last Documented On 2 2:43PM ; [facility], [facility] Never smoked 04/21/2022 Last Documented On 2 2:43PM ; [facility], [facility] Never used drugs 04/21/2022 Last Documented On 2 2:43PM ; 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 Sex - Male 01/23/2025 Last Documented On 5 11:20AM ; [facility], [facility] Smoking Status Unknown Procedures and Surgical History Includes: Procedures from 05/18/2024 through 05/18/2025 Procedures Code Diagnosis Performing Provider Service Location Service Date NEUROMUSCULAR REEDUCATION (GP) [id number] Unilateral primary osteoarthritis, right hip, Presence of right artificial hip joint Kev M Mares PT [facility] 11/16/2024 Last Documented On 5 1:34PM ; [facility] MANUAL THERAPY (GP) [id number] Unilateral primary osteoarthritis, right hip, Presence of right artificial hip joint Kev M Mares PT [facility] 11/16/2024 Last Documented On 5 1:34PM ; [facility] THERAPEUTIC EXERCISES (GP) [id number] Unilateral primary osteoarthritis, right hip, Presence of right artificial hip joint Kev M Mares PT [facility] 11/16/2024 Last Documented On 5 1:34PM ; [facility] MANUAL THERAPY (GP) [id number] Unilateral primary osteoarthritis, right hip, Presence of right artificial hip joint Kev M Mares PT [facility] 11/14/2024 Last Documented On 5 3:27PM ; [facility] NEUROMUSCULAR REEDUCATION (GP) [id number] Unilateral primary osteoarthritis, right hip, Presence of right artificial hip joint Kev M Mares PT [facility] 11/14/2024 Last Documented On 3:27PM ; [facility], [facility] THERAPEUTIC EXERCISES (GP) [id number] Unilateral primary osteoarthritis, right hip, Presence of right artificial hip joint Kev M Mares PT [facility] 11/14/2024 Last Documented On 3:27PM ; [facility], [facility] MANUAL THERAPY (GP) [id number] Unilateral primary osteoarthritis, right hip, Presence of right artificial hip joint Kev M Mares PT [facility] 11/09/2024 Last Documented On 12:54PM ; [facility] NEUROMUSCULAR REEDUCATION (GP) [id number] Unilateral primary osteoarthritis, right hip, Presence of right artificial hip joint Kev M Mares PT [facility] 11/09/2024 Last Documented On 12:54PM ; [facility], [facility] THERAPEUTIC EXERCISES (GP) [id number] Unilateral primary osteoarthritis, right hip, Presence of right artificial hip joint Kev M Mares PT [facility] 11/09/2024 Last Documented On 12:54PM ; [facility], [facility] MANUAL THERAPY (GP) [id number] Unilateral primary osteoarthritis, right hip, Presence of right artificial hip joint Govind John PT [facility] 11/07/2024 Last Documented On 1:01PM ; [facility], [facility] NEUROMUSCULAR REEDUCATION (GP) [phone] Unilateral primary osteoarthritis, right hip, Presence of right artificial hip joint Govind John PT [facility] 11/07/2024 Last Documented On 1:01PM ; [facility], [facility] THERAPEUTIC EXERCISES (GP) [phone] Unilateral primary osteoarthritis, right hip, Presence of right artificial hip joint Govind John PT [facility] 11/07/2024 Last Documented On 5 1:01PM ; [facility], [facility] THERAPEUTIC EXERCISES (GP) [id number] Unilateral primary osteoarthritis, right hip, Presence of right artificial hip joint Kev M Mares PT [facility] 11/02/2024 Last Documented On 5 3:32PM ; [facility], [facility] MANUAL THERAPY (GP) [id number] Unilateral primary osteoarthritis, right hip, Presence of right artificial hip joint Kev Rafael Vishnu PT [facility] 11/02/2024 Last Documented On 5 3:32PM ; [facility], [facility] MANUAL THERAPY (GP) [id number] Unilateral primary osteoarthritis, right hip, Presence of right artificial hip joint Kev Rafael Vishnu PT [facility] 11/01/2024 Last Documented On 5 1:10PM ; [facility], [facility] THERAPEUTIC EXERCISES (GP) [id number] Unilateral primary osteoarthritis, right hip, Presence of right artificial hip joint Kev Mares PT [facility] 11/01/2024 Last Documented On 5 1:10PM ; [facility] AP PELVIS w/ 1 VIEW HIP (RIGHT) [id number] Unilateral primary osteoarthritis, right hip, Presence of right artificial hip joint Hong Villalta PA-C [facility] B 10/26/2024 Last Documented On 5 9:23AM ; [facility], [facility] MANUAL THERAPY (GP) [phone] Unilateral primary osteoarthritis, right hip, Presence of right artificial hip joint Kev Rafael Vishnu PT [facility] 10/24/2024 Last Documented On 5 12:42PM ; [facility], [facility] THERAPEUTIC EXERCISES (GP) [id number] Unilateral primary osteoarthritis, right hip, Presence of right artificial hip joint Kev Mares PT [facility] 10/24/2024 Last Documented On 5 12:42PM ; [facility], [facility] MANUAL THERAPY (GP) [phone] Unilateral primary osteoarthritis, right hip, Presence of right artificial hip joint Govind Lopez PT [facility] 10/20/2024 Last Documented On 5 10:47AM ; [facility], [facility] THERAPEUTIC EXERCISES (GP) [phone] Unilateral primary osteoarthritis, right hip, Presence of right artificial hip joint Govind Lopez PT [facility] 10/20/2024 Last Documented On 10:47AM ; [facility] MANUAL THERAPY (GP) [phone] Unilateral primary osteoarthritis, right hip, Presence of right artificial hip joint Kev M Mares PT [facility] 10/18/2024 Last Documented On 1:27PM ; [facility] THERAPEUTIC EXERCISES (GP) [id number] Unilateral primary osteoarthritis, right hip, Presence of right artificial hip joint Kev Hall Vishnu PT [facility] 10/18/2024 Last Documented On 1:27PM ; [facility] THERAPEUTIC EXERCISES (GP) [id number] Unilateral primary osteoarthritis, right hip, Presence of right artificial hip joint Kev Hall Mares PT [facility] 10/16/2024 Last Documented On 12:13PM ; [facility] THERAPEUTIC ACTIVITIES (GP) [id number] Unilateral primary osteoarthritis, right hip, Presence of right artificial hip joint Govind Lopez PT [facility] 10/13/2024 Last Documented On 11:46AM ; [facility] PT Eval -Low Complexity (GP) [id number] Unilateral primary osteoarthritis, right hip, Presence of right artificial hip joint Sara Keenoy PT [facility] PT [facility] Office 10/09/2024 Last Documented On 5 2:19PM ; [facility] TOTAL HIP ARTHROPLASTY (RIGHT) 82026 Unilateral primary osteoarthritis, right hip Gavin Baldwin MD [facility] Surgical Division 10/09/2024 Last Documented On 5 10:20PM ; [facility] GAIT TRAINING THERAPY (GP) [id number] Unilateral primary osteoarthritis, right hip, Presence of right artificial hip joint Sara Keenoy PT [facility] PT Surgery [facility] Office 10/09/2024 Last Documented On 5 2:19PM ; [facility] THERAPEUTIC ACTIVITIES (GP) [id number] Unilateral primary osteoarthritis, right hip, Presence of right artificial hip joint Sara Keenoy PT [facility] PT Surgery Center Office 10/09/2024 Last Documented On 5 2:19PM ; [facility] X-RAY EXAM OF KNEE 1 OR 2 VIEWS (LEFT) [id number] Unilateral primary osteoarthritis, left knee Gavin Baldwin MD [facility] 06/27/2024 Last Documented On 5 8:19AM ; [facility] Surgical History Last Updated History of Previous Fractures 01/17/2024 Last Documented On 4 4:56PM ; [facility] History of Past Surgical History: 2021 Last Documented On 2 2:43PM ; [facility], [facility] Medical History Includes: Medical History in patient's chart Description Last Updated History of Anemia 01/17/2024 Last Documented On 4 4:56PM ; [facility] History of arthritis 01/17/2024 Last Documented On 4 4:56PM ; [facility] History of depression 01/17/2024 Last Documented On 4 4:56PM ; [facility] History of heart disease 01/17/2024 Last Documented On 4 4:56PM ; [facility] History of Heartburn / Acid Reflux 01/16 Last Documented On 4 4:56PM ; [facility] History of Hypertension 01/17/2024 Last Documented On 4 4:56PM ; [facility] History of Sleep Apnea 01/17/2024 Last Documented On 4 4:56PM ; [facility] Use of CPAP 01/17/2024 Last Documented On 4 4:56PM ; [facility], [facility] Past Surgical History: Eyes ~Hemmoroids ~biceps tndenosis 04/22/2022 Last Documented On 2 2:43PM ; [facility] History of gastric ulcer 04/21/2022 Last Documented On 2 2:43PM ; [facility] No recent immunization for flu 2 Last Documented On 2 2:43PM ; [facility] No recent immunization for pneumococcal pneumonia 04/21/2022 Last Documented On 2 2:43PM ; [facility] Family History Includes: Family History in patient's chart Description Last Updated Family history of cancer 01/17/2024 Last Documented On 4 4:56PM ; [facility] Family history of heart disease 01/17/20 24 Last Documented On 4 4:56PM ; [facility] Family history of rheumatoid arthritis 0 01/17/2024 Last Documented On 4 4:56PM ; [facility] Family history of systemic hypertension 01/17/2024 Last Documented On 4 4:56PM ; [facility] Stroke / Seizures 01/17/2024 Last Documented On 4 4:56PM ; [facility] Fraternal history of Stroke / Seizures 1 06/21/2021 Last Documented On 2 2:43PM ; [facility] Maternal grandfather's history of family history of heart disease 04/21/2022 Last Documented On 2 2:43PM ; [facility] Fraternal history of family history of h eart disease 04/21/2022 Last Documented On 2 2:43PM ; [facility] Fraternal history of systemic hypertensi on 04/21/2022 Last Documented On 2 2:43PM ; [facility] Maternal history of rheumatoid arthritis 04/21/2022 Last Documented On 2 2:43PM ; [facility] Paternal grandfather's history of family history of heart disease 04/21/2022 Last Documented On 2 2:43PM ; [facility] Paternal grandfather's history of system ic hypertension 04/21/2022 Last Documented On 2 2:43PM ; [facility] Paternal grandmother's history of rheuma toid arthritis 04/21/2022 Last Documented On 2 2:43PM ; [facility] Paternal history of family history of ca ncer 04/21/2022 Last Documented On 2 2:43PM ; [facility] Paternal history of family history of he art disease 04/21/2022 Last Documented On 2 2:43PM ; [facility] Paternal history of rheumatoid arthritis 04/21/2022 Last Documented On 2 2:43PM ; [facility] Paternal history of systemic hypertensio n 04/21/2022 Last Documented On 2 2:43PM ; [facility] Mental Status Description No anxiety Last Documented On 5 2:58PM ; [facility] No anxiety Last Documented On 5 2:07PM ; [facility] No anxiety Last Documented On 5 9:55AM ; [facility] Anxiety Last Documented On 4 3:23PM ; [facility] Anxiety Last Documented On 4 10:00AM ; [facility] Anxiety Last Documented On 4 3:02PM ; [facility] Anxiety Last Documented On 2 2:21PM ; [facility] Anxiety Last Documented On 2 3:36PM ; [facility] Anxiety Last Documented On 2 3:37PM ; [facility] Allergies Includes: Active, inactive, and resolved Allergies Substance Type Reaction Onset Date Resolved Date Statu s Spironolactone Allergy Shortness of Breath / Dyspnea 09/21 Active Last Documented On 5 2:58PM ; [facility] Care Administrative Resources Associate Name (Identifier) Role/Relation Location/Telecom Last Documented By Gavin Baldwin MD ([id number]) Assigned practitioner (occupation) [address] [place] [address], [place], [address] tel:[phone] Last Documented On 01/23/2025 11:20AM ; [facility] Grace Negrete APRN ([id number]) Primary care physician (occupation) [address] [address], [place], [address] tel:[phone] Last Documented On 01/23/2025 11:20AM ; [facility] Encounters Includes: Encounters from 05/18/2024 through 05/18/2025 Encounter Provider Location (Healthcare Service Location) Date Check-In Time Check-Out Time Diagnosis Encounter Disposition NEW PROBLEM/EST PT Gavin Baldwin MD [facility] 01/16 2:57PM 3:32PM Overweight Post Op Gavin Baldwin MD [facility] 11/23 2:06PM 2:21PM Overweight Post Op Hong Villalta PA-C [facility] 10/26 9:50AM 10:40AM Overweight [Patient Encounter] Gavin Baldwin MD 10/09 5 10:18AM 07/27/2024 11:59PM [facility] Gavin Baldwin MD Surgery 10/09 12:07PM 09/21/2024 11:59PM Pre Admission Testing Dorothy JO [facility] 09/21 11:20AM 11:54AM Outside Test Dorothy JO 09/21 5 8:39AM 07/27/2024 11:59PM [Patient Encounter] Gavin Baldwin MD 08/04 5 10:21AM 06/27/2024 11:59PM Pre Admission Testing Dorothy JO [facility] 07/27 11:41AM 11:55AM Outside Test Dorothy JO 07/27 5 10:29AM 06/27/2024 11:59PM Follow Up Gavin Baldwin MD [facility] 06/27 8:15AM 8:42AM NEW PROBLEM/EST PT Sekou Olvera PA-C [facility] 06/23 9:40AM 10:32AM Payer Includes: Active Insurance Policies Plan Name (Payer ID) Coverage Type Member ID Group # Subscriber (ID) Relationship Effective Dates 1 - [facility] ([id number]) [id number] Jorge Washburn Self 06/07/2021 - Unknown Last Documented On 5 4:11PM ; [facility] Clinical Notes Includes: Signed Clinical Notes starting from 05/21/2022 * Progress note Date Encounter Last Documented by 01/16/2025 NEW PROBLEM/EST PT Last document ed on 01/19/2025; 12:00 PM, Gavin Baldwin MD; [facility] Active Problems & Conditions - Joint [...] used drugs. Habits: Exercising regularly. 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 Allergies - Spironolactone Reaction: Shortness of Breath [...] Vitals taken 01/16/2025 02:59 pm [facility] Height 70 in 60 - 80 Weight [...] on 11/28/2024; 9:20 AM, Gavin Baldwin MD; [facility], [facility] Active Problems & Conditions - Joint [...] used drugs. Habits: Exercising regularly. 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 Allergies - Spironolactone Reaction: Shortness of Breath [...] on 11/03/2024; 10:29 AM, Hong Villalta PA-C; [facility], [facility] Active Problems & Conditions - Joint [...] used drugs. Habits: Exercising regularly. 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 Allergies - Spironolactone Reaction: Shortness of Breath [...] ented on 09/25/2024; 11:37 AM, Dorothy JO; [facility], [facility] Chief Complaint The Chief Complaint is: [...] drugs. Habits: Not exercising regularly. 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 Allergies - Spironolactone Reaction: Shortness of Breath [...] ented on 07/31/2024; 11:38 AM, Dorothy JO; [facility], [facility] Active Problems & Conditions - Joint [...] drugs. Habits: Not exercising regularly. 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 Allergies - No Known Allergies Family History [...] on 07/03/2024; 3:31 PM, Gavin Baldwin MD; [facility], [facility] Active Problems & Conditions - Joint [...] drugs. Habits: Not exercising regularly. 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 Allergies - No Known Allergies Family History [...] on 06/23/2024; 12:10 PM, Sekou Olvera PA-C; [facility], [facility] Active Problems & Conditions - Joint [...] drugs. Habits: Not exercising regularly. 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 Allergies - No Known Allergies Family History [...]
--- OUTSIDE RECORDS SUMMARY | 2025-05-18 07:39 | XMS_ITS | Clinical Summary ---
Author Organization [facility] Address [address] [address] Phone Care Team Providers Care Ammonia Refrigeration Technician Name Role Phone Nicolasa CARRILLO, Gavin Unavailable [phone] Grace Negrete APRN Primary Care Provider [phone] Reason for Visit and Chief Complaint [Patient Encounter] Problems Includes: Problems addressed during this encounter and other active Problems All Visits Onset Date Date of Diagnosis Resolved Date Provider Condition Status Joint Pain Shoulder Bilateral 01/16/2025 01/16/2025 Gavin Baldwin MD Active Last Documented On 5 1:43AM ; [facility] Joint Pain Hip Right 07/27/2024 07/27/2024 Dorothy JO Active Last Documented On 5 1:42AM ; [facility] Joint Pain Left Knee 01/17/2024 01/17/2024 Brittani cardona PA-C Active Last Documented On 5 1:42AM ; [facility] Lower Back Pain 04/14/2022 04/14/2022 Sekou fofana PA-C Active Last Documented On 5 1:41AM ; [facility] Plan of Treatment Pending Tests Order Diagnosis Results Due Ordering P rovider Lab Hemoglobin A1c 12/16/23 Gavin hilton MD Last Documented On 4 10:16AM ; [facility] Lab CBC With Differential/Platelet 12/15 Gavin Baldwin MD Last Documented On 4 10:16AM ; [facility] Lab Prothrombin Time (PT) 12/16/23 Ruperto Baldwin MD Last Documented On 4 10:16AM ; [facility] Lab PTT, Activated 12/16/23 Gavin hilton MD Last Documented On 4 10:16AM ; [facility] Lab Prealbumin 12/16/23 Gavin Rincon Last Documented On 4 10:16AM ; [facility] Lab Fructosamine 12/16/23 Gavin Baldwin MD Last Documented On 4 10:16AM ; [facility] Lab MRSA by MUKESH 12/16/23 Gavin Baldwin MD Last Documented On 4 10:16AM ; [facility] Lab Comp. Metabolic Panel (14) 12/16/23 Gavin Baldwin MD Last Documented On 4 10:16AM ; [facility] Therapy - Physical Therapy Hip 09/08/24 Gavin Baldwin MD Last Documented On 5 10:21AM ; [facility], [facility] Assessments Includes: Assessments from this encounter No Assessments Recorded Medical Equipment - Implanted Devices Includes: Current Devices No Medical Equipment Recorded Medications Includes: Medications discussed during this encounter and other current Medications Current Medications (continue as prescribed) Jardiance 25 MG Oral Tablet 09/21/2024 Provider: Diagnosis: Last Documented On 5 11:47AM By Danielle Macedo [facility] Vitamin D2 10 MCG (400 UNIT) Oral Tablet 09/21/2024 Provider: Diagnosis: Last Documented On 5 11:47AM By Danielle Macedo [facility] Cyclobenzaprine HCl 10 MG Oral Tablet 09/21/2024 Pro vider: Diagnosis: Last Documented On 5 11:46AM By Danielle Martins ; [facility] Isosorbide Dinitrate 40 MG Oral Tablet 09/21/2024 Pr ovider: Diagnosis: Last Documented On 5 11:47AM By Danielle Martins ; [facility] hydrALAZINE HCl 50 MG Oral Tablet 09/21/2024 Provide r: Diagnosis: Last Documented On 5 11:48AM By Danielle Martins ; [facility] metFORMIN HCl 1000 MG Oral Tablet 09/21/2024 Provide r: Diagnosis: Last Documented On 5 11:48AM By Danielle Martins ; [facility] acetaZOLAMIDE 250 MG Oral Tablet 09/21/2024 Provider : Diagnosis: Last Documented On 5 11:46AM By Danielle Martins ; [facility] Latanoprost 0.005% Ophthalmic Solution 07/27/2024 Pr ovider: Diagnosis: Last Documented On 5 11:48AM By Danielle Martins ; [facility] Timolol Maleate 0.25% Ophthalmic Solution 07/27/2024 Provider: Diagnosis: Last Documented On 5 11:49AM By Danielle Martins ; [facility] Acetaminophen Extra Strength 500 MG Oral Tablet 2024 Provider: Diagnosis: Last Documented On 5 2:46PM By Sarah Hernandez ; [facility] Ibuprofen 200 MG Oral Tablet 07/20/2024 Provider: Diagnosis: Last Documented On 5 2:47PM By Sarah Hernandez ; [facility] HYDROcodone-Acetaminophen 5-325 MG Oral Tablet 025 Provider: Diagnosis: Last Documented On 5 8:18AM By Kevin Ray ; [facility] Atorvastatin Calcium 40 MG Oral Tablet 06/16/2024 Pr ovider: Grace Negrete DRUG ABUSE SOCIAL WORKER Diagnosis: Last Documented On 5 10:08AM By Kevin Ray ; [facility] Ozempic (1 MG/DOSE) 4 MG/3ML Subcutaneous Solution Pen-injector 06/01/2024 Provider: Grace Negrete DRUG ABUSE SOCIAL WORKER Diagnosis: Last Documented On 5 10:08AM By Kevin Ray ; [facility] Benazepril HCl 40 MG Oral Tablet 09/21/2023 Provider : Grace Negrete APRN Diagnosis: Last Documented On 4 10:00AM By Regina Ordoñez ; [facility] Methocarbamol 750 MG Oral Tablet 08/30/2023 Provider : Sekou Olvera PA-C Diagnosis: Last Documented On 4 10:00AM By Regina Ordoñez ; [facility] Furosemide 20 MG Oral Tablet 07/10/2023 Provider: Grace Negrete APRN Diagnosis: Last Documented On 4 3:01PM By Shanna Echavarria ; [facility] Carvedilol 25 MG Oral Tablet 03/25/2023 Provider: Diagnosis: Last Documented On 4 3:01PM By Shanna Echavarria ; [facility] Medications Administered Includes: Administered Medications from this encounter No Administered Medications Recorded Results Includes: Results discussed during this encounter No Results Recorded For Specified Dates History of Present Illness Includes: History of Present Illness from this encounter No History of Present Illness Recorded Social History Description Last Updated Sex - Male 01/23/2025 Last Documented On 5 11:20AM ; [facility] Smoking Status Unknown Medical History Includes: Medical History addressed during this encounter No Medical History Recorded Family History Includes: Family History addressed during this encounter No Family History Recorded Review of Systems Includes: Review of Systems from this encounter No Review of Systems Recorded Physical Exam Includes: Physical Exam from this encounter No Physical Exam Recorded Allergies Includes: Active Allergies Substance Type Reaction Onset Date Resolved Date Statu s Spironolactone Allergy Shortness of Breath / Dyspnea 09/21 Active Last Documented On 5 2:58PM ; [facility] Care Ammonia Refrigeration Technician Name (Identifier) Role/Relation Location/Telecom Last Documented By Gavin Baldwin MD ([id number]) Assigned practitioner (occupation) [address] [place] [address], [place], [address] tel:[phone] Last Documented On 01/23/2025 11:20AM ; [facility] Grace Negrete APRN ([id number]) Primary care physician (occupation) [facility] [address] [place], [address] tel:[phone] Last Documented On 01/23/2025 11:20AM ; [facility] Encounters Encounter Provider Location (Healthcare Service Location) Date Check-In Time Check-Out Time Diagnosis Encounter Disposition [Patient Encounter] Gavin Baldwin MD 2024 10:18AM 11:59PM Payer Includes: Active Insurance Policies Plan Name (Payer ID) Coverage Type Member ID Group # Subscriber (ID) Relationship Effective Dates 1 - [facility] ([id number]) [id number] Jorge Soledad Yusuf 06/07/2021 - Unknown Last Documented On 5 4:11PM ; [facility]
--- OUTSIDE RECORDS SUMMARY | 2025-05-18 07:39 | XMS_ITS | Encounter Summary ---
Author Organization [employer] ([place], [place], [place], [place], [place]) Address [address] [place] [address] Care Team Providers Care Advertising Sales Manager Name Role Phone Unavailable Primary Care Provider Unavailabl e Encounter Details Date Type Department Care Team (Late st Contact Info) Description 07/21/[address] [facility] Family Medicine [facility] [place] [address] ProviderErasto MD [facility] [place] [address] Social History Tobacco Use Types [...] - Historical ProviderMD - 07/21/2020 4:58 AM [facility] ED Triage Entered On: 07/21/2020 5:12 EST [...] - Non - Urgent Tracking Group : [facility] ED KARMEN AGUILAR - 07/21/2020 5:09 [...] PNED ; Probability: 0 ; Diagnosis Code: [id number] ED Height and Weight Height Source : Stated Height Entry Format : [place] Height, Feet : 5 ft(Converted to: 152 cm, 60 Inch) Height, Inches : 10 Inch(Converted to: 0 ft 10 Inch, 25.40 cm) Clinical Height : 177.8 cm Weight Source, ED : Critical estimated dosing weight Weight Entry Format : [place] Weight, Pounds : 280 lb Clinical Dosing Weight : 127.27 kg Body Surface Area (BSA) : 2.41 m2 Body Mass Index : 40.3 kg/m2 (>HHI) [place] Body Weight (IBW) : 72.02 kg KARMEN [...]
--- OUTSIDE RECORDS SUMMARY | 2025-05-18 07:39 | XMS_ITS | Encounter Summary ---
Author Organization [employer] ([place], [place], [place], [place], [place]) Address [address] [place] [address] Care Team Providers Care Web Merchandiser Name Role Phone Unavailable Primary Care Provider Unavailabl e Encounter Details Date Type Department Care Team (Late st Contact Info) Description 07/21/[address] [facility] Family Medicine [address] [place] [address] ProviderErasto MD [address] [place] [address] Social History Tobacco Use Types [...] - Historical ProviderMD - 07/21/2020 4:58 AM PROCESSING ARCHIVIST [place] Violence Assessment Entered On: 07/21/2020 5:32 EST Performed On: 07/21/2020 5:31 EST by ALAINA QUINTANA RN Broset Violence Assessment Broset Violence Checklist of Symptoms : None Broset Violence Symptoms Subtotal : 0 Broset Violence Symptoms Indicator : Low risk (0) Broset Interventions : [place] precautions for safety used ALAINA QUINTANA RN - 07/21/2020 5:31 EST documented in this encounter Plan of Treatment Not on file documented as of this encounter Visit Diagnoses Not on filedocumented in this encounter
--- OUTSIDE RECORDS SUMMARY | 2025-05-18 07:41 | XMS_ITS | Encounter Summary ---
Author Organization [employer] ([place], [place], [place], [place], [place]) Address [address] [place] [address] Care Team Providers Care Master Ship Name Role Phone Unavailable Primary Care Provider Unavailabl e Encounter Details Date Type Department Care Team (Late st Contact Info) Description 07/21/[address] [facility] Family Medicine [facility] [place] [address] ProviderErasto MD [address] [place] [address] Social History Tobacco Use Types [...] Erasto Leonard MD - 07/21/2020 5:40 AM WATER RIGHTS SPECIALIST [facility] [place], [place] [id number] JORGE SANTAMARIA :1960 Visit Time:07/21/2020 Your Visit [...] if symptoms not improved Where: [place] [address]- [facility] (1) Allergies No Known Medication Allergies [...] not too tight. General instructions ??? Take [id number] and prescription medicines only as told by [...] 05/24/2006 Document Revised: 05/06/2018 Document Reviewed: 06/30/2017 [employer] Patient Education ?? 2020 [employer]. Emergency Awareness and Preventative Care STROKE is [...] Assistance with quitting is available by contacting 9-449-KXUE-NOW. This is a free resource providing counseling, [...] was given the opportunity to ask questions. Patient/[employer] Tube Bender Name: Patient/[employer] Tube Bender Signature: Relationship to Patient: Clinician/Hospital [employer] Tube Bender Signature: Please Provide a Telephone Number Where You Can Be Reached: Is it Permissible To Leave a Message? Date: documented in this encounter Plan of Treatment Not on file documented as of this encounter Visit Diagnoses Not on filedocumented in this encounter
--- OUTSIDE RECORDS SUMMARY | 2025-05-18 07:41 | XMS_ITS | Encounter Summary ---
Author Organization [employer] ([place], [place], [place], [place], [place]) Address [address] [place] [address] Care Team Providers Care Electrocardiographic Technician Name Role Phone Unavailable Primary Care Provider Unavailabl e Encounter Details Date Type Department Care Team (Late st Contact Info) Description 07/21/2020 Transcribed Document [facility] Family Medicine [address] [place] [address] ProviderErasto MD [address] [place] [address] Social History Tobacco Use Types [...] - Historical ProviderMD - 07/21/2020 4:58 AM TRADE SALES ASSISTANT [place] Suicide Severity Rating Scale (C-SSRS) Entered On: 07/21/2020 5:33 EST Performed On: 07/21/2020 5:31 EST by ALAINA QUINTANA RN [place] Suicide Severity Rating Scale (C-SSRS) CSSRS Past [...]
--- OUTSIDE RECORDS SUMMARY | 2025-05-18 07:42 | XMS_ITS | Encounter Summary ---
Author Organization [employer] ([place], [place], [place], [place], [place]) Address [address] [place] [address] Care Team Providers Care Physical Therapy Assistant Instructor Name Role Phone Unavailable Primary Care Provider Unavailabl e Encounter Details Date Type Department Care Team (Late st Contact Info) Description 07/21/2020 Transcribed Document [facility] Family Medicine [facility] [place] [address] ProviderErasto MD [address] [place] [address] Social History Tobacco Use Types [...] - Erasto ProviderMD - 07/21/2020 4:58 AM LATHE SPOTTER ED Assessment Entered On: 07/21/2020 5:32 EST Performed On: 07/21/2020 5:31 EST by ALAINA QUINTANA RN ED Quick Look Assessment Level of Consciousness : Alert, Awake Affect/Behavior : Appropriate, Calm, Cooperative ALAINA QUINTANA RN - 07/21/2020 5:31 EST ED General-Functional Assess Information Obtained From : Patient Communication Barrier : None Primary Language : Nauruan Any Spiritual/Cultural Needs or Requests : No [...] [facility] ALAINA QUINTANA [facility] 07/21/2020 5:31 EST Breath Sounds Assessment Grid All Lobes Breath Sounds : Clear MCKENNA : Clear LLL : Clear RUL : Clear RML : Clear RLL : Clear ALAINA QUINTANA [facility] 07/21/2020 5:31 EST Gastrointestinal ED Gastrointestinal [...] 07/21/2020 5:31 EST Electronically signed by Brielle, [facility] Conversion Head Buyer Tobacco Cerner at 09/23/2022 6:03 PM CDT documented in this encounter Plan of Treatment Not on file documented as of this encounter Visit Diagnoses Not on filedocumented in this encounter
--- OUTSIDE RECORDS SUMMARY | 2025-05-18 07:42 | XMS_ITS | Encounter Summary ---
Author Organization [facility] ([place], [place], [place], [place], [place]) Address [address] [place] [address] Care Team Providers Care Painter Chassis Name Role Phone Unavailable Primary Care Provider Unavailabl e Encounter Details Date Type Department Care Team (Late st Contact Info) Description 07/21/2020 Transcribed Document [facility] [place] [facility] [place] [address] ProviderErasto MD [address] [place] [address] Social History Tobacco Use Types [...] - Historical ProviderMD - 07/21/2020 5:40 AM PATHOLOGY LAB TECHNICIAN Electronically signed by Brielle [facility] Conversion Global Marketing Manager Cerner at 09/23/2022 6:06 PM CDT documented in this encounter Plan of Treatment Not on file documented as of this encounter Visit Diagnoses Not on filedocumented in this encounter
--- OUTSIDE RECORDS SUMMARY | 2025-05-18 07:43 | XMS_ITS | Encounter Summary ---
Author Organization [employer] ([place], [place], [place], [place], [place]) Address [address] [place] [address] Care Team Providers Care Weblogic Administrator Name Role Phone Unavailable Primary Care Provider Unavailabl e Encounter Details Date Type Department Care Team (Late st Contact Info) Description 07/21/2020 Transcribed Document [facility] [place] [address] ProviderErasto MD [address] [place] [address] Social History Tobacco Use Types [...] - Erasto ProviderMD - 07/21/2020 5:19 AM HEALTHCARE FACILITY ADMINISTRATOR Patient: JORGE SANTAMARIA Age: 59 years Sex: [...] EST Height Source Stated Height Entry Format [place] Height/Length, ANGOLAN (ft) 5 ft Height/Length ANGOLAN 10 Inch CLINICALHEIGHT 177.8 cm [place] Body Weight 72.02 kg Weight Source, ED Critical estimated dosing weight Weight Entry Format [place] Weight [place] lb 280 lb CLINICALWEIGHT 127.27 kg Body [...] 5:37 EST, Discharge to: Home. Prescriptions: Prescription Truck Body Repairer Pharmacy: tiZANidine 2 mg oral capsule (Prescribe): [...]
--- OUTSIDE RECORDS SUMMARY | 2025-05-18 07:43 | XMS_ITS | Clinical Summary ---
Author Organization [facility] Address [address] [place] [address] Care Team Providers Care Merchandiser Seasonal Name Role Phone Alysha Santoyo DO Primary Care Provider [phone] Social History Tobacco Use Types Packs/Day Years [...] 2010 UKY-Zoster Vaccines (1 of 2) 2010 [id number] Vaccine (3 - season) 2025 03/06/2021, 02/06/2021 [...] patient's age to complete this topic Insurance [facility] Care Teams Merchandiser Seasonal Relationship Specialty Start Date End Date Alysha Santoyo DO [address] [place] [address] [id number] [place] [address] PCP - General 06/07/22
--- OUTSIDE RECORDS SUMMARY | 2025-05-18 07:43 | XMS_ITS | Encounter Summary ---
Author Organization [employer] ([place], [place], [place], [place], [place]) Address [address] [place] [address] Care Team Providers Care Airport Operations Crew Member Name Role Phone Unavailable Primary Care Provider Unavailabl e Encounter Details Date Type Department Care Team (Late st Contact Info) Description 07/21/2020 Transcribed Document [facility] [place] [facility] [place] [address] ProviderErasto MD [facility] [place] [address] Social History Tobacco Use Types [...] - Historical ProviderMD - 07/21/2020 6:04 AM WHITEWATER RAFTING GUIDE ED Discharge Entered On: 07/21/2020 6:05 EST [...]
--- OUTSIDE RECORDS SUMMARY | 2025-05-18 07:44 | XMS_ITS | Clinical Summary ---
Author Organization [facility] Address [address] [place] [address] Phone Care Team Providers Care Roving Can Tender Name Role Phone Nicolasa CARRILLO, Gavin Unavailable [phone] Grace Negrete APRN Primary Care Provider [phone] Reason for Visit and Chief Complaint [facility] Outpatient Surgery Suites Problems Includes: Problems addressed during this encounter and other active Problems All Visits Onset Date Date of Diagnosis Resolved Date Provider Condition Status Joint Pain Shoulder Bilateral 01/16/2025 01/16/2025 Gavin Baldwin MD Active Last Documented On 5 1:43AM ; [facility] Joint Pain Hip Right 07/27/2024 07/27/2024 Dorothy JO Active Last Documented On 5 1:42AM ; [facility] Joint Pain Left Knee 01/17/2024 01/17/2024 Brittani cardona PA-C Active Last Documented On 5 1:42AM ; [facility] Lower Back Pain 04/14/2022 04/14/2022 Sekou fofana PA-C Active Last Documented On 5 1:41AM ; [facility] Plan of Treatment Pending Tests Order Diagnosis Results Due Ordering P rovider Lab Hemoglobin A1c 12/16/23 Gavin hilton MD Last Documented On 4 10:16AM ; [facility] Lab CBC With Differential/Platelet 12/15 Gavin Baldwin MD Last Documented On 4 10:16AM ; [facility], [facility] Lab Prothrombin Time (PT) 12/16/23 Ruperto Baldwin MD Last Documented On 4 10:16AM ; [facility] Lab PTT, Activated 12/16/23 Gavin hilton MD Last Documented On 4 10:16AM ; [facility] Lab Prealbumin 12/16/23 aGvin Rincon Last Documented On 4 10:16AM ; [facility] Lab Fructosamine 12/16/23 Gavin Baldwin MD Last Documented On 4 10:16AM ; [facility] Lab MRSA by MUKESH 12/16/23 Gavin Baldwin MD Last Documented On 4 10:16AM ; [facility] Lab Comp. Metabolic Panel (14) 12/16/23 Gavin Baldwin MD Last Documented On 4 10:16AM ; [facility], [facility] Assessments Includes: Assessments from this encounter [...] pain MAXIMUM 8 TABLETS PER DAY Pharmacy: [facility] [phone], [id number] - Last Documented On 5 8:36AM By Gavin [facility], [facility] Current Medications (continue as prescribed) Jardiance 25 MG Oral Tablet 09/21/2024 Provider: Diagnosis: Last Documented On 5 11:47AM By Danielle [facility] Vitamin D2 10 MCG (400 UNIT) Oral Tablet 09/21/2024 Provider: Diagnosis: Last Documented On 5 11:47AM By Danielle [facility], [facility] Cyclobenzaprine HCl 10 MG Oral Tablet 09/21/2024 Pro vider: Diagnosis: Last Documented On 5 11:46AM By Danielle Martins ; [facility] Isosorbide Dinitrate 40 MG Oral Tablet 09/21/2024 Pr ovider: Diagnosis: Last Documented On 5 11:47AM By Danielle Martins ; [facility] hydrALAZINE HCl 50 MG Oral Tablet 09/21/2024 Provide r: Diagnosis: Last Documented On 5 11:48AM By Danielle Martins ; [facility] metFORMIN HCl 1000 MG Oral Tablet 09/21/2024 Provide r: Diagnosis: Last Documented On 5 11:48AM By Danielle Martins ; [facility] acetaZOLAMIDE 250 MG Oral Tablet 09/21/2024 Provider : Diagnosis: Last Documented On 5 11:46AM By Danielle Martins ; [facility] Latanoprost 0.005% Ophthalmic Solution 07/27/2024 Pr ovider: Diagnosis: Last Documented On 5 11:48AM By Danielle Martins ; [facility] Timolol Maleate 0.25% Ophthalmic Solution 07/27/2024 Provider: Diagnosis: Last Documented On 5 11:49AM By Danielle Martins ; [facility] Acetaminophen Extra Strength 500 MG Oral Tablet 2024 Provider: Diagnosis: Last Documented On 5 2:46PM By Sarah Hernandez ; [facility] Ibuprofen 200 MG Oral Tablet 07/20/2024 Provider: Diagnosis: Last Documented On 5 2:47PM By Sarah Hernandez ; [facility] HYDROcodone-Acetaminophen 5-325 MG Oral Tablet 025 Provider: Diagnosis: Last Documented On 5 8:18AM By Kevin Ray ; [facility] Atorvastatin Calcium 40 MG Oral Tablet 06/16/2024 Pr ovider: Grace Negrete APRN Diagnosis: Last Documented On 5 10:08AM By Kevin Ray ; [facility] Ozempic (1 MG/DOSE) 4 MG/3ML Subcutaneous Solution Pen-injector 06/01/2024 Provider: Grace Negrete APRN Diagnosis: Last Documented On 5 10:08AM By Kevin Ray ; [facility], [facility] Benazepril HCl 40 MG Oral Tablet 09/21/2023 Provider : Grace Negrete APRN Diagnosis: Last Documented On 4 10:00AM By Regina Ordoñez ; [facility], [facility] Methocarbamol 750 MG Oral Tablet 08/30/2023 Provider : Sekou Olvera PA-C Diagnosis: Last Documented On 4 10:00AM By Regina Ordoñez ; [facility], [facility] Furosemide 20 MG Oral Tablet 07/10/2023 Provider: Grace Negrete APRN Diagnosis: Last Documented On 4 3:01PM By Shanna Echavarria ; [facility], [facility] Carvedilol 25 MG Oral Tablet 03/25/2023 Provider: Diagnosis: Last Documented On 4 3:01PM By Shanna Echavarria ; [facility], [facility] Medications Administered Includes: Administered Medications from this encounter No Administered Medications Recorded Results Includes: Results discussed during this encounter No Results Recorded For Specified Dates History of Present Illness Includes: History of Present Illness from this encounter No History of Present Illness Recorded Social History Description Last Updated Sex - Male 01/23/2025 Last Documented On 5 11:20AM ; [facility], [facility] Smoking Status Unknown Procedures and Surgical History Includes: Procedures from this encounter Procedures Code Diagnosis Performing Provider Service Location Service Date TOTAL HIP ARTHROPLASTY (RIGHT) 40296 Unilateral primary osteoarthritis, right hip Gavin Baldwin MD [facility] 10/09/2024 Last Documented On 5 10:20PM ; [facility], [facility] Medical History Includes: Medical History addressed [...] Active Last Documented On 5 2:58PM ; [facility], [facility] Care Roving Can Tender Name (Identifier) Role/Relation Location/Telecom Last Documented By Gavin Baldwin MD ([id number]) Assigned practitioner (occupation) [address], [place], [place], [address] tel: Last Documented On 01/23/2025 11:20AM ; [facility] Grace Negrete APRN ([phone]) Primary care physician (occupation) [address] [place] [address], , [id number] tel: Last Documented On 01/23/2025 11:20AM ; [facility] Encounters Encounter Provider Location (Healthcare Service Location) Date Check-In Time Check-Out Time Diagnosis Encounter Disposition [facility] Outpatient Surgery Suites Gavin Baldwin MD Surgery 202410/06/2024 12:07PM 11:59PM Payer Includes: Active Insurance Policies Plan Name (Payer ID) Coverage Type Member ID Group # Subscriber (ID) Relationship Effective Dates 1 - [facility] ([id number]) [id number] Jorge Washburn Self 06/07/2021 - Unknown Last Documented On 4:11PM ; [facility], [facility]
--- OUTSIDE RECORDS SUMMARY | 2025-05-18 07:44 | XMS_ITS | Referral Summary ---
Author Organization [employer] ([place], [place], [place], [place], [place]) Address [address] [place] [address] Care Team Providers Care Web Press Operator Helper Offset Name Role Phone Unavailable Primary Care Provider [...] Date Brayden rded Speak language other than Persian at home Not on file 11/15/2023 Want [...]
--- NOTE | 2025-05-18 08:00 | CA_ITS ---
FINAL REPORT TECHNIQUE: Grayscale, color Doppler and duplex Doppler ultrasound of the kidneys, aorta and renal arteries was performed. Multiple velocities were measured. CLINICAL HISTORY: HTN, Obesity COMPARISON: None FINDINGS: Aorta velocity: 108 cm/sec Right kidney: 1.3 cm. No evidence of hydronephrosis or mass. Right intrarenal RI: 0.62-0.71 Right renal artery velocity: 228 cm/sec. Right RAR (Renal artery-Aortic Ratio): 2.3 Left Kidney: 13.4 cm. No evidence of hydronephrosis or mass. Left intrarenal RI: 0.61-0.63 Left renal artery velocity: 206 cm/sec. Left RAR (Renal Artery-Aortic Ratio): 1.9 IMPRESSION: Less than 60% luminal diameter stenosis in the bilateral renal arteries. CT angiography would be more sensitive for evaluation of possible renal artery stenosis. Reviewed, Interpreted and Dictated by Angel Shen MD Transcribed by Ruth Sun Authenticated and [facility]
--- NOTE | 2025-05-18 09:00 | US_ITS ---
FINAL REPORT TECHNIQUE: Sonographic images of the kidneys and retroperitoneum were obtained in the longitudinal and transverse planes. CLINICAL HISTORY: I10 - Essential (primary) hypertension COMPARISON: None FINDINGS: The right kidney measures 11 cm in [id number] length. No hydronephrosis, mass, or stone. Cortical echogenicity and thickness are normal. The left kidney measures 11.6 cm in [id number] length. No hydronephrosis, mass, or stone. Cortical echogenicity and thickness are normal. Limited evaluation of the spleen and liver demonstrate fatty infiltration of the liver. IMPRESSION: Morphologically normal kidneys bilaterally. Reviewed, Interpreted and Dictated by Angel Shen MD Transcribed by Ruth Sun Authenticated and [facility]
== END 2025-05-18 23:59 | disposition home or self-care (01) ==
LOC: RT 07:29
PROVIDERS: PCP Nurse Practitioner Family; Visit Provider Internal Medicine
DX: I10 Essential (primary) hypertension (principal)
CPT/HCPCS: 76770; 93976